=== PATIENT | female | born 1960 | race Caucasian/White ===

== ENCOUNTER 2018-06-29 12:47 | Emergency (ER) | payer MEDICARE, MEDICAID, SELFPAY ==
[2018-06-29 12:49] VITALS: BP 139/88; PULSE 60; RESP 15; TEMP 36.7; O2SAT 100; BMI 30.4
--- NOTE | 2018-06-29 13:06 | RAD_ITS ---
STUDY: X-RAY - RIGHT WRIST REASON FOR EXAM: Female, 58 years old. Wrist pain after fall TECHNIQUE: 3 view(s) of the wrist were obtained. COMPARISON: None. FINDINGS: Normal visualized distal radius and ulna. Normal radiocarpal articulation. Normal distal radioulnar articulation. Normal carpal bones. Normal carpal articulations. Normal carpometacarpal articulation of the thumb. Normal second through fifth carpometacarpal articulations. Normal visualized metacarpal bones. The soft tissue structures are unremarkable. RAD/Wrist 2 Views IMPRESSION: Normal x-ray examination of the wrist. Electronically Signed: Hugh House DO at 14:04 EDT Tel , Service support ,
--- NOTE | 2018-06-29 13:06 | RAD_ITS ---
STUDY: X-RAY - RIGHT HAND REASON FOR EXAM: Female, 58 years old. Hand pain after fall. Fourth and fifth metacarpals. TECHNIQUE: 3 view(s) of the hand. COMPARISON: None. FINDINGS: No acute fracture or dislocation. Mild age-related osteoarthritic type changes. Mild swelling in the region of the fourth and fifth digits. Normal mineralization. RAD/Hand Min 3 Views IMPRESSION: No acute fracture. Mild soft tissue swelling Electronically Signed: Hugh House DO at 14:05 EDT Tel , Service support ,
--- NOTE | 2018-06-29 13:06 | ED.VISSUMM ---
- ER Visit Summary Date of Service: 06/29/18 Chief Complaint: right chest pain, right wrist pain History of Present Illness: The patient is a 58 F who presents for 2 days of right chest/rib pain and right wrist pain after a fall. 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 She has been very fatigued, and went to sleep Hardik night, sleepwalking and then her found her on the living room floor. He picked her up by placing his arms around her ribs and lifting her. She has been having pain in the right lower rib margin since. Pain is worse with breathing. She is also complaining of right wrist pain after the fall. She denies any head pain, neck pain, back pain or any other injuries. She is not on any blood thinners. She is diabetic. She is taken Tylenol without improvement in her pain. Physical Examination: Vital signs: afebrile, hemodynamically stable, no hypoxia on room air General: well nourished, well developed, in no distress Skin: warm, dry, no rash, no pallor HEENT: normocephalic and atraumatic; PERRL, EOMI, moist mucous membranes Neck and Back: non-tender, full ROM, no midline deformities or stepoffs Cardiovascular: regular rate and rhythm without murmurs, no peripheral edema, 2+ pulses all distal extremities Respiratory: No increased work of breathing, lungs are clear to auscultation bilaterally, no rales, rhonchi or wheezing, chest tenderness along anterior lower rib margin but no tenderness to the right posterior or lateral ribs, no contusions or deformities Abdominal: Abdomen is soft, nontender with normoactive bowel sounds, no guarding or rebound, no masses noticed in the right upper quadrant underneath the rib margin MSK: Moves all extremities, no deformities, normal strength, right wrist and fifth metacarpal show swelling and ecchymosis, active flexion and extension of the wrist, no snuffbox tenderness, sensation and motor function intact all dermatomes of the hand Neuro: Awake and alert, oriented ?4. No facial droop, sensation and motor function intact and symmetric Test Results: Clinical Impression(s) from Imaging Studies Hand X-Ray 06/29/18 13:06 IMPRESSION: No acute fracture. Mild soft tissue swelling Electronically Signed: Hugh House DO at 14:05 EDT Tel , Service support , Wrist X-Ray 06/29/18 13:06 IMPRESSION: Normal x-ray examination of the wrist. Electronically Signed: Hugh House DO at 14:04 EDT Tel , Service support , Chest X-Ray 06/29/18 13:20 IMPRESSION: Lungs are clear without pneumothorax. Appearance of mildly displaced right posterior eighth rib fracture. Electronically Signed: Hugh House DO at 14:06 EDT Tel , Service support , Medications Given Discontinued Medications Hydrocodone Bitart/Acetaminophen ([place] 5mg-325mg) 1 tablet PO X1 ONE Stop: 06/29/18 13:11 Last Admin: 06/29/18 13:17 Dose: 1 tablet Emergency Department Course and Treatment: Patient given norco for pain and had great improvement. X-ray of the chest showed no pneumothorax or pneumonia. It did show a mildly displaced posterior eighth rib fracture, however this did not correspond to patient's area of pain, and she had no point tenderness along this area in her posterior rib cage. X-ray of the wrist and hand showed no acute fractures or dislocations. Patient was placed in a Velcro wrist splint for comfort. She was given an incentive spirometer given her chest wall pain. She is to follow-up with her primary care doctor if she has any further concerns. Patient discharged home in improved condition. Treatment Plan: [] Disposition: [] Impression: Right chest wall contusion, right wrist sprain This note was generated with [employer] dictation software. It may contain incorrect words, spelling, and punctuation that were not noted in review of the chart prior to signing ED Disposition - Plan for ED Patient: Disposition: Home or Assisted Living Chief Complaint: Chest Other Instructions: ED Contusion Chest Wall, ED Sprain Wrist Prescriptions: Hydrocodone Bitart/Apap 5-325 [[place] 5MG-325MG] 1 tab PO Q6H PRN PRN 3 Days #10 tab PRN Reason: Pain Referrals: Ginny Jama, ROSA-C [NON-STAFF] - 3-5 Days if not improving Additional Instructions: Apply ice to your wrist three to four times a day for 15 minutes each time to help with pain and swelling. Wear the splint as needed for support and pain. With your doctor if you continue to have pain in the right rib area and the wrist. Use [id number] pain medication as needed for mild to moderate pain. You may use the [place] for severe uncontrolled pain. If you have any worsening of your condition or any new concerning symptoms, please return immediately to the emergency department for another evaluation.
--- NOTE | 2018-06-29 13:10 | ED.DCSUM_ITS ---
- ER Visit Summary Date of Service: 06/29/18 Chief Complaint: right chest pain, right wrist pain History of Present Illness: The patient is a 58 F who presents for 2 days of right chest/rib pain and right wrist pain after a fall. 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 She has been very fatigued, and went to sleep Hardik night, sleepwalking and then her found her on the living room floor. He picked her up by placing his arms around her ribs and lifting her. She has been having pain in the right lower rib margin since. Pain is worse with breathing. She is also complaining of right wrist pain after the fall. She denies any head pain, neck pain, back pain or any other injuries. She is not on any blood thinners. She is diabetic. She is taken Tylenol without improvement in her pain. Physical Examination: Vital signs: afebrile, hemodynamically stable, no hypoxia on room air General: well nourished, well developed, in no distress Skin: warm, dry, no rash, no pallor HEENT: normocephalic and atraumatic; PERRL, EOMI, moist mucous membranes Neck and Back: non-tender, full ROM, no midline deformities or stepoffs Cardiovascular: regular rate and rhythm without murmurs, no peripheral edema, 2+ pulses all distal extremities Respiratory: No increased work of breathing, lungs are clear to auscultation bilaterally, no rales, rhonchi or wheezing, chest tenderness along anterior lower rib margin but no tenderness to the right posterior or lateral ribs, no contusions or deformities Abdominal: Abdomen is soft, nontender with normoactive bowel sounds, no guarding or rebound, no masses noticed in the right upper quadrant underneath the rib margin MSK: Moves all extremities, no deformities, normal strength, right wrist and fifth metacarpal show swelling and ecchymosis, active flexion and extension of the wrist, no snuffbox tenderness, sensation and motor function intact all dermatomes of the hand Neuro: Awake and alert, oriented ?4. No facial droop, sensation and motor function intact and symmetric Test Results: Clinical Impression(s) from Imaging Studies Hand X-Ray 06/29/18 13:06 IMPRESSION: No acute fracture. Mild soft tissue swelling Electronically Signed: Hugh House DO at 14:05 EDT Tel , Service support , Wrist X-Ray 06/29/18 13:06 IMPRESSION: Normal x-ray examination of the wrist. Electronically Signed: Hugh House DO at 14:04 EDT Tel , Service support , Chest X-Ray 06/29/18 13:20 IMPRESSION: Lungs are clear without pneumothorax. Appearance of mildly displaced right posterior eighth rib fracture. Electronically Signed: Hugh House DO at 14:06 EDT Tel , Service support , Medications Given Discontinued Medications Hydrocodone Bitart/Acetaminophen ([place] 5mg-325mg) 1 tablet PO X1 ONE Stop: 06/29/18 13:11 Last Admin: 06/29/18 13:17 Dose: 1 tablet Emergency Department Course and Treatment: Patient given norco for pain and had great improvement. X-ray of the chest showed no pneumothorax or pneumonia. It did show a mildly displaced posterior eighth rib fracture, however this did not correspond to patient's area of pain, and she had no point tenderness along this area in her posterior rib cage. X-ray of the wrist and hand showed no acute fractures or dislocations. Patient was placed in a Velcro wrist splint for comfort. She was given an incentive spirometer given her chest wall pain. She is to follow-up with her primary care doctor if she has any further concerns. Patient discharged home in improved condition. Treatment Plan: [] Disposition: [] Impression: Right chest wall contusion, right wrist sprain This note was generated with [employer] dictation software. It may contain incorrect words, spelling, and punctuation that were not noted in review of the chart prior to signing ED Disposition - Plan for ED Patient: Disposition: Home or Assisted Living Chief Complaint: Chest Other Instructions: ED Contusion Chest Wall, ED Sprain Wrist Prescriptions: Hydrocodone Bitart/Apap 5-325 [[place] 5MG-325MG] 1 tab PO Q6H PRN PRN 3 Days #10 tab PRN Reason: Pain Referrals: Ginny Jama, ROSA-C [NON-STAFF] - 3-5 Days if not improving Additional Instructions: Apply ice to your wrist three to four times a day for 15 minutes each time to help with pain and swelling. Wear the splint as needed for support and pain. With your doctor if you continue to have pain in the right rib area and the wrist. Use [id number] pain medication as needed for mild to moderate pain. You may use the Elberta for severe uncontrolled pain. If you have any worsening of your condition or any new concerning symptoms, please return immediately to the emergency department for another evaluation.
[2018-06-29] MEDS: HYDROcodone Bitartrate/Apap 5/325 Tablet PO (13:17)
--- NOTE | 2018-06-29 13:20 | RAD_ITS ---
STUDY: X-RAY CHEST REASON FOR EXAM: Female, 58 years old. Fall with right rib pain TECHNIQUE: PA and lateral views of the chest. COMPARISON: 03/28/2016 FINDINGS: The lungs are clear and expanded. There is no demonstrated pleural abnormality. Normal size heart. Normal mediastinum and amairani. Normal visualized pulmonary arteries. Normal visualized aortic arch and descending thoracic aorta. Normal visualized thoracic spine. There appears to be a right posterior eighth rib fracture. No pneumothorax There is no demonstrated abnormality of the visualized soft tissue structures of the upper abdomen. RAD/Chest PA and Lateral IMPRESSION: Lungs are clear without pneumothorax. Appearance of mildly displaced right posterior eighth rib fracture. Electronically Signed: Hugh House DO at 14:06 EDT Tel , Service support ,
--- NOTE | 2018-06-29 14:05 | ED.DEP ---
ED Disposition - Plan for ED Patient: Disposition: Home or Assisted Living Chief Complaint: Chest Other Instructions: ED Contusion Chest Wall, ED Sprain Wrist Prescriptions: Hydrocodone Bitart/Apap 5-325 [[place] 5MG-325MG] 1 tab PO Q6H PRN PRN 3 Days #10 tab PRN Reason: Pain Referrals: Ginny Jama NP-C [NON-STAFF] - 3-5 Days if not improving Additional Instructions: Apply ice to your wrist three to four times a day for 15 minutes each time to help with pain and swelling. Wear the splint as needed for support and pain. With your doctor if you continue to have pain in the right rib area and the wrist. Use [id number] pain medication as needed for mild to moderate pain. You may use the [place] for severe uncontrolled pain. If you have any worsening of your condition or any new concerning symptoms, please return immediately to the emergency department for another evaluation.
[2018-06-29 14:26] VITALS: RESP 16
--- NOTE | 2018-06-29 14:27 | ED.RN ---
REVIEWED D/C INSTRUCTIONS, FOLLOW UP CARE, PRESCRIPTION, AND S/S THAT WOULD WARRANT A RETURN TO THE ED WITH PT. PT VERBALIZED AN UNDERSTANDING AND DENIES FURTHER QUESTIONS FOR THIS RN. PT SKIN P/W/D, RESP EVEN AND UNLABORED, PT A&O X 3, NO DISTRESS NOTED.
== END 2018-06-29 14:43 | disposition home or self-care (01) ==
PROVIDERS: Emergency Provider Emergency Medicine; Family Provider Internal Medicine; PCP Internal Medicine
DX: S20.211A Contusion of right front wall of thorax, initial encounter (principal); S63.501A Unspecified sprain of right wrist, initial encounter; W18.30XA Fall on same level, unspecified, initial encounter; Y93.84 Activity, sleeping; Y92.008 Other place in unspecified non-institutional (private) residence as the place of occurrence of the external cause; Y99.9 Unspecified external cause status; E11.9 Type 2 diabetes mellitus without complications
CPT/HCPCS: 71046; 73100; 73130; 99283

== ENCOUNTER 2018-07-05 10:23 | Emergency (ER) | payer MEDICARE, MEDICAID, SELFPAY ==
[2018-07-05 10:23] VITALS: BP 160/78; PULSE 83; RESP 16; TEMP 36.6; O2SAT 100; BMI 30.6
[2018-07-05] MEDS: HYDROcodone Bitartrate/Apap 5/325 Tablet PO (11:17)
--- NOTE | 2018-07-05 11:18 | ED.VISSUMM ---
- ER Visit Summary Date of Service: 07/05/18 Chief Complaint: Chest wall pain History of Present Illness: The patient is a 58 F continued bilateral anterior chest wall pain. Patient mechanical fall 9 days ago in the kitchen, states pain in ribs started after being picked up by her significant other. Patient seen in the ED 7 days ago. Patient had x-rays. She is given prescription of Lowell, states using intermittently which would help. Ran out yesterday. Tried calling PCP office today, was told to call back on Saturday and go to the ED. Denies any new injuries. Occasional cough, nonproductive. No hemoptysis. Records reviewed, seen on June 29, x-ray right hand and wrist negative. Chest x-ray no right posterior eighth rib fracture. Physical Examination: General: Alert and oriented ?3, no acute distress HEENT: Normocephalic, atraumatic. Moist mucosa membranes Neck: supple, nontender. Cardiovascular: Regular rate and rhythm, no murmurs. Anterior lower chest wall tenderness bilaterally without crepitus. Respiratory: Normal breath sounds, symmetric, no distress Abdomen: Soft, nontender, nondistended Extremities: Nontender, no edema, pulses intact ?4 Neuro: no focal neurological deficits. Test Results: [] Emergency Department Course and Treatment: Patient continued chest wall tenderness improving with Lowell treatment. Records noted right posterior rib fracture from x-ray. Discussed findings with patient, she has anterior lower rib tenderness, discussed possibility of fractures they are not seen. However be symptomatic treatment. Should continue on Lowell, should continue to take deep breaths. She will follow with her PCP for continued refill of prescriptions. 1 dose of Lowell given ED allow the 10 tab prescription.OARRS her last opiate was on June 29. Treatment Plan: [] Disposition: Discharge Impression: 1. Chest wall pain 2. Right posterior eighth rib fracture, subsequent encounter This note was generated with [employer] dictation software. It may contain incorrect words, spelling, and punctuation that were not noted in review of the chart prior to signing ED Disposition - Plan for ED Patient: Disposition: Home or Assisted Living Chief Complaint: Chest Other Diagnosis: Chest wall pain, right posterior 8th rib fracture Instructions: ED Contusion Chest Wall, ED Fx Rib Prescriptions: Hydrocodone Bitart/Apap 5-325 [Lowell 5MG-325MG] 1 tablet PO Q6H PRN PRN 3 Days #10 tablet PRN Reason: Pain Referrals: Taty Childers MD [Primary Care Provider] - 2 Days Additional Instructions: right posterior 8th rib fracture from recent xray.
--- NOTE | 2018-07-05 11:23 | ED.DCSUM_ITS ---
- ER Visit Summary Date of Service: 07/05/18 Chief Complaint: Chest wall pain History of Present Illness: The patient is a 58 F continued bilateral anterior chest wall pain. Patient mechanical fall 9 days ago in the kitchen, states pain in ribs started after being picked up by her significant other. Patient seen in the ED 7 days ago. Patient had x-rays. She is given prescription of Sanford, states using intermittently which would help. Ran out yesterday. Tried calling PCP office today, was told to call back on Saturday and go to the ED. Denies any new injuries. Occasional cough, nonproductive. No hemoptysis. Records reviewed, seen on June 29, x-ray right hand and wrist negative. Chest x-ray no right posterior eighth rib fracture. Physical Examination: General: Alert and oriented ?3, no acute distress HEENT: Normocephalic, atraumatic. Moist mucosa membranes Neck: supple, nontender. Cardiovascular: Regular rate and rhythm, no murmurs. Anterior lower chest wall tenderness bilaterally without crepitus. Respiratory: Normal breath sounds, symmetric, no distress Abdomen: Soft, nontender, nondistended Extremities: Nontender, no edema, pulses intact ?4 Neuro: no focal neurological deficits. Test Results: [] Emergency Department Course and Treatment: Patient continued chest wall tenderness improving with Sanford treatment. Records noted right posterior rib fracture from x-ray. Discussed findings with patient, she has anterior lower rib tenderness, discussed possibility of fractures they are not seen. However be symptomatic treatment. Should continue on Sanford, should continue to take margareth p breaths. She will follow with her PCP for continued refill of prescriptions. 1 dose of Sanford given ED allow the 10 tab prescription.OARRS her last opiate was on June 29. Treatment Plan: [] Disposition: Discharge Impression: 1. Chest wall pain 2. Right posterior eighth rib fracture, subsequent encounter This note was generated with [employer] dictation software. It may contain incorrect words, spelling, and punctuation that were not noted in review of the chart prior to signing ED Disposition - Plan for ED Patient: Disposition: Home or Assisted Living Chief Complaint: Chest Other Diagnosis: Chest wall pain, right posterior 8th rib fracture Instructions: ED Contusion Chest Wall, ED Fx Rib Prescriptions: Hydrocodone Bitart/Apap 5-325 [Sanford 5MG-325MG] 1 tablet PO Q6H PRN PRN 3 Days #10 tablet PRN Reason: Pain Referrals: Taty Childers MD [Primary Care Provider] - 2 Days Additional Instructions: right posterior 8th rib fracture from recent xray.
[2018-07-05 11:34] VITALS: BP 123/71
== END 2018-07-05 11:35 | disposition home or self-care (01) ==
PROVIDERS: Emergency Provider Emergency Medicine; Family Provider Internal Medicine; PCP Internal Medicine
DX: R07.89 Other chest pain (principal); S22.31XG Fracture of one rib, right side, subsequent encounter for fracture with delayed healing; W19.XXXD Unspecified fall, subsequent encounter; E11.9 Type 2 diabetes mellitus without complications; I10 Essential (primary) hypertension; E78.00 Pure hypercholesterolemia, unspecified
CPT/HCPCS: 99282

== ENCOUNTER 2018-12-08 17:46 | Emergency (ER) | payer MEDICARE, MEDICAID, SELFPAY ==
[2018-12-08 17:47] VITALS: BP 136/85; PULSE 84; RESP 14; TEMP 37.3; O2SAT 100; BMI 28.5
[2018-12-08 18:55] VITALS: PULSE 74; RESP 18; O2SAT 97
[2018-12-08 19:11] LABS: Bedside Glucose 439 mg/dL (70-110)
[2018-12-08] MEDS: 0.9% Normal Saline 1,000 ML 1000 ML IV ×2 (19:28→20:51)
[2018-12-08 19:37] LABS: Absolute Lymphocyte Count 1.08 X10^3/ul (0.83-4.51); Absolute Neutrophil Count 3.2 X10^3/uL (2.0-7.7); Eosinophil# 0.02 X10^3/uL; Eosinophils% 0.4 % (0-5); Hematocrit 36.7 % (37-47); Hemoglobin 12.4 g/dl (12.0-15.0); Lymphocyte # 1.08 X10^3/ul (4.0); Lymphocyte % 22.8 % (19-41); Mean Corp Hgb Conc 33.8 g/gl (32-36); Mean Corpuscular Hgb 27.4 pg (27.0-32.0); Mean Corpuscular Volume 81.2 fL (81-99); Mean Platelet Vol. 11.2 fl (6.2-12.0); Monocyte# 0.35 X10^3/uL; Monocyte% 7.4 % (0-10); Neutrophil # 3.24 X10^3/uL (2.7-7.7); Neutrophil % 68.6 % (47-70); POSITIVE COUNT NO; POSITIVE DIFFERENTIAL NO; POSITIVE MORPHOLOGY NO; Platelet Count 127 K/mm3 (150-450); RBC Distribution Width CV 12.7 % (11.6-14.6); RBC Distribution Width SD 37.6 fl (35.1-43.9); Red Blood Count 4.52 M/mm3 (4.2-5.4); White Blood Count 4.7 K/mm3 (4.4-11.0)
[2018-12-08 19:42] LABS: Anion Gap 8 (5-15); BUN 16 mg/dL (7-18); BUN/Creat Ratio 16.2 RATIO (10-20); Calcium,Total 8.5 mg/dL (8.5-10.1); Chloride 99 mmol/L (98-107); Creatinine, Serum 0.98 mg/dL (0.55-1.02); EST Glomerular Filtration Rate 61 mL/min (>60); Est Glom Filt Rate - Afr Amer 74 mL/min (>60); Estimated Creatinine Clearance 51.13 ml/min; Glucose 416 mg/dL (74-106); Potassium 3.6 mmol/L (3.5-5.1); Sodium Level 132 mmol/L (136-145)
[2018-12-08 20:25] LABS: Bacteria 0 SEEN /hpf (None Seen); Mucous, Urine 0 SEEN /hpf (<or=2+); Red Blood Cells-Urine 0 SEEN /hpf (0-5); Squamous Epithelial Cells - UA 0 SEEN /hpf (5-10); White Blood Cells 0 SEEN /hpf (0-5)
[2018-12-08 20:27] LABS: Color, Urine Yellow (Yellow); Glucose, Dipstick 1000 mg/dl (Normal); Ketone-Dipstick 50 mg/dl (Negative); Leukocyte Esterase-Dipstick Negative /ul (Negative); Nitrite-Dipstick Negative (Negative); Occult Blood-Urine Negative /ul (Negative); Protein-Dipstick Negative (Negative); Specific Gravity, Urine 1.015 (1.002-1.030); Urine Bilirubin Dipstick Negative (Negative); Urine Clarity Clear (Clear); Urine Urobilinogen Normal (Normal)
--- NOTE | 2018-12-08 20:44 | ED.DCSUM_ITS ---
- ER Visit Summary Date of Service: 12/08/18 Chief Complaint: Hyperglycemia History of Present Illness: The patient is a 58 F presenting with hyperglycemia. Patient states that her blood sugar has been running high for several days. She was taken off insulin in September. She stopped her Victoza on her own. She said her A1c was normal at that time. Her blood sugar at home was 599. She has had mild blurred vision bilaterally. She has had urinary frequency. She denies other complaints. Physical Examination: Vitals are stable. Patient is afebrile. Alert no acute distress. HEENT exam is unremarkable. Neck is supple. Lungs are clear and equal bilaterally. Heart is regular rate and rhythm. Abdomen is soft nontender nondistended. Extremities are unremarkable. Skin is warm and dry. No focal neurologic deficit. Remainder of exam is unremarkable. Emergency Department Course and Treatment: CBC normal except for platelet 127. Chemistries normal except for sodium 132, glucose 416. Serum ketones are negative. Urinalysis shows ketones, glucose, no infection. Patient was given IV fluids, insulin subcutaneously. Repeat BGT 371. She was given additional insulin subcutaneously. Repeat blood sugar was 264. Patient states her primary care physician has called in her medications to the pharmacy. She will pick them up tomorrow. She will follow-up with her primary care physician. She feels well and would like to go home. She is advised to return to the ED for any worsening complaints. Disposition: Discharge home Impression: Hyperglycemia This note was generated with [employer] dictation software. It may contain incorrect words, spelling, and punctuation that were not noted in review of the chart prior to signing ED Disposition - Plan for ED Patient: Referrals: Taty Childers MD [Primary Care Provider] -
[2018-12-08 20:52] VITALS: BP 111/74; PULSE 69; RESP 11; O2SAT 100
[2018-12-08 20:53] VITALS: BP 111/74; PULSE 71; RESP 19; TEMP 36.6; O2SAT 99
[2018-12-08] MEDS: Insulin Lispro 100 UNIT/ML INSULN.PEN 15 UNIT SC (20:58)
[2018-12-08 22:31] LABS: Bedside Glucose 371 mg/dL (70-110)
[2018-12-08] MEDS: Insulin Lispro 100 UNIT/ML INSULN.PEN 10 UNIT SC (23:13)
[2018-12-08 23:46] LABS: Bedside Glucose 264 mg/dL (70-110)
[2018-12-08 23:53] VITALS: BP 104/82; PULSE 70; PULSE 71; PULSE 75; RESP 16; TEMP 36.9; O2SAT 97; O2SAT 98; O2SAT 99
--- NOTE | 2018-12-08 23:56 | ED.DEP ---
ED Disposition - Plan for ED Patient: Instructions: ED Hyperglycemia Diabetic Referrals: Taty Childers MD [Primary Care Provider] -
== END 2018-12-09 00:06 | disposition home or self-care (01) ==
PROVIDERS: Emergency Provider Emergency Medicine; Family Provider Internal Medicine; PCP Internal Medicine
DX: E11.65 Type 2 diabetes mellitus with hyperglycemia (principal)
CPT/HCPCS: 80048; 81001; 82009; 82962; 85025; 96360; 96361; 99285; J7030; A4216

== ENCOUNTER 2019-04-22 19:13 | Emergency (ER) | payer MEDICARE, SELFPAY ==
[2019-04-22 19:14] VITALS: BP 128/82; PULSE 67; RESP 17; TEMP 36.7; O2SAT 100; BMI 29.5
--- NOTE | 2019-04-22 19:28 | ED.VISSUMM ---
- ER Visit Summary Date of Service: 04/22/19 Chief Complaint: Headache History of Present Illness: The patient is a 58 F presenting with headache. Patient states that she has had a headache intermittently for the past 3 weeks. It was gradual in onset. She has a history of migraine headaches and states this feels similar. She has tried Aleve at home. Denies trauma. She is not on blood thinners. She denies fever or neck pain. Denies other complaints. Physical Examination: Vitals are stable. Patient is afebrile. Alert no acute distress. HEENT exam is unremarkable. Neck is supple. No meningismus Lungs are clear and equal bilaterally. Heart is regular rate and rhythm. Abdomen is soft nontender nondistended. Extremities are unremarkable. Skin is warm and dry. No focal neurologic deficit. Remainder of exam is unremarkable. Emergency Department Course and Treatment: Patient was given Reglan, Benadryl IV with some improvement. She was given Toradol IV with more improvement. On reevaluation, patient is resting comfortably. She is comfortable with discharge home and she will follow up with her primary care physician. She is advised to return to ED for worsening complaints. Disposition: Discharge home Impression: Headache This note was generated with [employer] dictation software. It may contain incorrect words, spelling, and punctuation that were not noted in review of the chart prior to signing ED Disposition - Plan for ED Patient: Instructions: HEADACHE, Unspecified Referrals: Taty Childers MD [Primary Care Provider] - Beck Purvis DPM [STAFF PHYSICIAN] -
[2019-04-22] MEDS: Metoclopramide 10 MG/2 ML Vial 5 MG IV (19:31)
[2019-04-22] MEDS: DiphenhydrAMINE 50 MG/ML Syringe 25 MG IV (19:31)
[2019-04-22] MEDS: Ketorolac 30 MG/ML Syringe IV (20:28)
[2019-04-22] MEDS: Ondansetron 4 MG/2 ML Vial IV (21:25)
[2019-04-22] MEDS: Morphine 4 MG/ML Syringe IV (21:25)
--- NOTE | 2019-04-22 21:42 | ED.DEP ---
ED Disposition - Plan for ED Patient: Instructions: HEADACHE, Unspecified Referrals: Taty Childers MD [Primary Care Provider] - Beck Purvis DPM [STAFF PHYSICIAN] -
[2019-04-22 21:57] VITALS: PULSE 58; RESP 14; O2SAT 100
== END 2019-04-22 21:59 | disposition home or self-care (01) ==
LOC: ED 19:42
PROVIDERS: Emergency Provider Emergency Medicine; Family Provider Internal Medicine; PCP Internal Medicine
DX: R51 Headache (principal); E11.9 Type 2 diabetes mellitus without complications
CPT/HCPCS: 96374; 96375; 99283; J7030; A4216; J2405

== ENCOUNTER 2019-07-23 09:06 | Emergency (ER) | payer MEDICARE, SELFPAY ==
[2019-07-23 09:07] VITALS: BP 124/68; PULSE 85; RESP 18; TEMP 35.9; O2SAT 99; BMI 29.6
--- NOTE | 2019-07-23 09:34 | ED.DCSUM_ITS ---
History of Present Illness Chief Complaint: Back Informant: Patient Onset: - - 1 year Context: Gradual Onset - gradual worsening of chronic pain Chronic pain exacerbated by: unk Injury: - - denies known injury Timing: Continuous Quality: Aching Location: Lumbar, Buttock, Left Leg Current Severity: Severe Maximum Severity: Severe Worsened by: improves with: Movement, Ambulation, Night time pain Relieved by: Nothing Associated Symptoms: - - No numbness, no bowel or bladder dysfunction, no acute abdominal pain. Difficulty ambulating due to pain. Radiating down left lower extremity below the knee but not quite to the foot. Narrative: Patient states she had a fall almost 1 year ago and has had pain down the left lower extremity and in her low back ever since. It has been worse for the past 3 or 4 days, she did not notice any obvious cause or sudden worsening, it has been gradual. She was seen in her doctor's office for this a couple days ago and had a shot of Toradol and some Vicodin but still is in a lot of pain. Just finished a steroid Medrol Dosepak recently, it was prescribed for this, and while she was on it she did not notice that it was helping, so she must of had pain worsening for longer than just a few days in general but this is worse. Patient states she was told she has a disc problem and at least one area, but cannot remember if she ever had an MRI. She has been referred to pain management Dr. Green but has not seen him yet. She has not seen a engineering technical specialist for any reason. Prior similar symptoms: With Prior Back Pain - Past Medical History (1) Controlled diabetes mellitus type II without complication Status: Chronic (2) Chronic low back pain Status: Chronic Past Medical History - Allergies and Home Meds Allergies/Adverse Reactions: Allergies pentazocine HCl [From Talacen] Allergy (Verified 07/23/19 09:07) Hives amoxicillin [Amoxicillin] Adverse Reaction (Verified 07/23/19 09:07) Other doxycycline Adverse Reaction (Verified 07/23/19 09:07) Other metformin Adverse Reaction (Verified 07/23/19 09:07) Unknown Thiazides Adverse Reaction (Verified 07/23/19 09:07) Other Primary Care Physician: Taty Childers MD [Primary Care Provider] - Surgical History: bypass Lives: Spouse/ Significant Other Smoking Status: Unknown if ever smoked Review of Systems General: Denies: Chills, Fever, Sweats Eyes: Denies: Visual changes - bilaterally, Diplopia ENT: Denies: Rhinorrhea, Sore throat Cardiovascular: Denies: Chest pain, Palpitations Respiratory: Denies: Dyspnea, Cough, Dyspnea on exertion Gastrointestinal: Denies: Abdominal pain, Nausea, Vomiting, Diarrhea, Melena, Hematochezia Genitourinary: Reports: - - No bowel or bladder incontinence or retention symptoms. Denies: Dysuria, Hematuria, Frequency Musculoskeletal: Reports: Back pain, Extremity Pain. Denies: Swelling Skin: Denies: Rash, Wounds Neurological: Denies: Headache, Weakness, Parasthesia, Numbness Physical Exam Vital Signs/Narrative: Vital Signs Temp Pulse Resp BP Pulse Ox 07/23/19 09:07 96.6 F L 85 18 124/68 H 99 General: Well nourished, Well developed, - - In mild acute painful distress Head: Normocephalic, Atraumatic Eyes: Perrl, EOMI ENT: Moist mucous membranes, No rhinorrhea Neck: Supple, Nontender Back: Normal Inspection, Paraspinal Tenderness - Left lumbosacral, Negative SLR - Right, Positive SLR - Left - Her only, negative contralateral straight leg raise. Negative for: Spinal tenderness Extremeties: Nontender, No edema Skin: Normal color, No rash, No Trauma Neuro: Alert, Oriented, Normal Strength - Strength in the left lower extremity difficult to test because movements increase her pain, Normal Sensation, Normal DTR, Normal Gait, Normal Reflexes Psychological: - - Somewhat anxious Diagnostic/Tx/Re-eval - Medical Decision Making I do not think the patient needs any emergent diagnostic imaging at this time. She agreed that pain control would be most reasonable today here in the ER. She was given injections of morphine, Toradol, Norflex. On reexamination, she is lying on her right lateral decubitus and states that she has had absolutely no improvement in her pain. Her is with her. Given an injection of Dilaudid, she states it feels much better. She is on gabapentin but only at night, 300 mg. I advised at least going to twice daily dosing, she states she will require new prescription which was given. She already has Vicodin from her doctor that she received a couple days ago. She is following up with pain management Dr. Green in 1 week. Advised that she take it easy until then. ED Disposition - Plan for ED Patient: Disposition: Home or Assisted Living Diagnosis: Acute exacerbation of chronic low back pain, Sciatica of left side Instructions: BACK PAIN w/ SCIATICA Prescriptions: Gabapentin [Neurontin] 300 mg PO BID #60 cap Prescription Printed Referrals: Taty Childers MD [Primary Care Provider] - 3-5 Days if not improving (And/or Dr. Green)
[2019-07-23] MEDS: Ketorolac 30 MG/ML Syringe IM (09:52)
[2019-07-23] MEDS: Orphenadrine 60 MG/2 ML Ampul IM (09:52)
[2019-07-23] MEDS: Morphine 4 MG/ML Syringe IM (09:52)
[2019-07-23] MEDS: HYDROmorphone 1 MG/ML Syringe 2 MG IM (12:08)
[2019-07-23 12:11] VITALS: BP 110/61; PULSE 69; RESP 17; O2SAT 100
[2019-07-23 13:11] VITALS: BP 94/54; PULSE 74; RESP 16; O2SAT 98
== END 2019-07-23 13:16 | disposition home or self-care (01) ==
PROVIDERS: Emergency Provider Emergency Medicine; Family Provider Internal Medicine; PCP Internal Medicine
DX: M54.42 Lumbago with sciatica, left side (principal); G89.29 Other chronic pain; E11.9 Type 2 diabetes mellitus without complications; Z88.0 Allergy status to penicillin; Z88.1 Allergy status to other antibiotic agents
CPT/HCPCS: 99283

== ENCOUNTER 2019-10-01 13:57 | Emergency (ER) | payer MEDICARE, SELFPAY ==
[2019-10-01 13:58] VITALS: BP 135/89; PULSE 95; RESP 16; TEMP 37.1; O2SAT 100; BMI 28.3
[2019-10-01 16:05] LABS: Anion Gap 1 (5-15); BUN 15 mg/dL (7-18); BUN/Creat Ratio 17.3 RATIO (10-20); Chloride 105 mmol/L (98-107); Creatinine, Serum 0.87 mg/dL (0.55-1.02); EST Glomerular Filtration Rate 71 mL/min (>60); Est Glom Filt Rate - Afr Amer 86 mL/min (>60); Estimated Creatinine Clearance 56.88 ml/min; Glucose 199 mg/dL (74-106); Potassium 4.1 mmol/L (3.5-5.1); Sodium Level 136 mmol/L (136-145)
[2019-10-01 16:08] LABS: Absolute Lymphocyte Count 1.07 X10^3/uL (0.83-4.51); Absolute Neutrophil Count 2.7 X10^3/uL (2.0-7.7); Hemoglobin 11.9 g/dL (12.0-15.0); Lymphocyte # 1.07 X10^3/ul (4.0); Mean Corp Hgb Conc 32.2 g/dL (32-36); Mean Corpuscular Hgb 27.2 pg (27.0-32.0); Mean Corpuscular Volume 84.7 fL (81-99); Monocyte# 0.33 X10^3/uL; NRBC Flagged by Analyzer 0 % (0-5); Neutrophil # 2.67 X10^3/uL (2.7-7.7); Platelet Count 161 K/mm3 (150-450); RBC Distribution Width CV 13.8 % (11.6-14.6); RBC Distribution Width SD 42.9 fl (35.1-43.9); Red Blood Count 4.37 M/mm3 (4.2-5.4); White Blood Count 4.1 K/mm3 (4.4-11.0)
[2019-10-01 16:33] LABS: Bacteria 0 SEEN /hpf (None Seen); Mucous, Urine 0 SEEN /hpf (<or=2+); Red Blood Cells-Urine 0 SEEN /hpf (0-5); Squamous Epithelial Cells - UA 0 SEEN /hpf (5-10); White Blood Cells 0 SEEN /hpf (0-5)
[2019-10-01 16:36] LABS: Bedside Glucose 170 mg/dL (70-110)
[2019-10-01 16:41] LABS: Color, Urine Yellow (Yellow); Glucose, Dipstick 250 mg/dl (Normal); Ketone-Dipstick Negative (Negative); Leukocyte Esterase-Dipstick Negative /ul (Negative); Nitrite-Dipstick Negative (Negative); Occult Blood-Urine Negative /ul (Negative); Protein-Dipstick 15 mg/dl (Negative); Urine Bilirubin Dipstick Negative (Negative); Urine Clarity Clear (Clear); Urine Urobilinogen Normal (Normal); Urine pH 6.5 (5.0 - 8.0)
--- NOTE | 2019-10-01 17:49 | ED.DCSUM_ITS ---
- ER Visit Summary Date of Service: 10/01/19 Chief Complaint: Hyperglycemia History of Present Illness: The patient is a 59 F who presents with hyperglycemia that has been waxing and waning over the past week. Patient states today her sugars were over 500. Patient admits to some polyuria and polydipsia. Patient admits to mild headache. Patient admits to some blurred vision when her blood sugars are high. Patient admits to some nausea and vomiting. Patient denies any chest pain or shortness of breath. Patient denies any dysuria or hematuria. Physical Examination: Vital signs are stable. Patient is afebrile. Patient is in no acute distress. Oral mucosa is pink and moist. Neck is supple. Trachea is midline. There is no JVD. Heart was regular rate and rhythm. Lungs are clear and equal bilaterally. Abdomen is soft and nontender. Cranial nerves II through XII are intact. There are no focal motor or sensory deficits noted. Patient ambulates without difficulty. Test Results: CBC shows a leukocytosis of 11.9. Glucose was 199. Anion gap was normal. Urinalysis does not show any evidence of urinary tract infection. Emergency Department Course and Treatment: Repeat fingerstick blood sugar here was 170. Patient was feeling better on reevaluation. Patient was instructed to continue to monitor her blood sugars. 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 Patient understood and was agreeable with the plan. All questions were answered. Disposition: Discharge home Impression: Hyperglycemia This note was generated with Maven[employer] dictation software. It may contain incorrect words, spelling, and punctuation that were not noted in review of the chart prior to signing ED Disposition - Plan for ED Patient: Disposition: Home or Assisted Living Diagnosis: Hyperglycemia Instructions: ED Diabetic Hyperglycemia Referrals: Taty Childers MD [Primary Care Provider] - 3-5 Days
[2019-10-01 18:18] VITALS: PULSE 92; RESP 17; O2SAT 100
== END 2019-10-01 18:18 | disposition home or self-care (01) ==
PROVIDERS: Emergency Provider Emergency Medicine; Family Provider Internal Medicine; PCP Internal Medicine
DX: E11.65 Type 2 diabetes mellitus with hyperglycemia (principal)
CPT/HCPCS: 80048; 81001; 82009; 82962; 85025; 99283; A4216

== ENCOUNTER 2020-09-08 23:29 | Emergency (ER) | payer MEDICARE, SELFPAY ==
[2020-09-08 23:30] VITALS: BP 142/60; PULSE 69; RESP 16; TEMP 36.2; O2SAT 100; BMI 30.1
[2020-09-08] MEDS: Morphine 4 MG/ML Syringe IV (23:50)
[2020-09-08] MEDS: Ondansetron 4 MG/2 ML Vial IV (23:50)
--- NOTE | 2020-09-09 | RAD_ITS ---
STUDY: X-RAY CHEST REASON FOR EXAM: Female, 60 years old. C/O LT ANTERIOR RIB PAIN BELOW LT BREAST -- LIFTED SOMETHING AND FELT A and quot;POP and quot; TECHNIQUE: PA and lateral COMPARISON: 06/29/2018 FINDINGS: The lungs are clear and expanded. There is no demonstrated pleural abnormality. Normal size heart. Normal mediastinum and amairani. Normal visualized pulmonary arteries. Normal visualized aortic arch and descending thoracic aorta. Normal visualized thoracic spine. There is old right posterior fracture. There is no demonstrated abnormality of the visualized soft tissue structures of the upper abdomen. RAD/Chest PA and Lateral IMPRESSION: Negative x-ray examination of the chest. No interval change. Electronically Signed: Toni Singleton, at 0:54 EST Tel , Service support ,
--- NOTE | 2020-09-09 00:41 | ED.VIS.GEN ---
History of Present Illness Chief Complaint: Other, Pain/Inj Informant: Patient Onset: Today Context: Sudden Onset Timing: Continuous Quality: Pain Location: Anterior left chest midclavicular line inferior breast Current Severity: Mild Maximum Severity: Severe Worsened by: Breathing, movement Relieved by: Nothing Associated Symptoms: Shortness of breath because of pain Narrative: Patient is a 60-year-old woman who presents because of abrupt onset of anterior left chest pain midclavicular line inferior the left breast that started prior to arrival. She states she was moving a tote. She did not fall or have any direct trauma. She denies fever, chills or night sweats. She denies shortness of breath. She states it hurts to breathe. She denies black or maroon-colored stool. She denies abdominal pain. She denies radiation of the pain. She has no other complaints. Prior similar symptoms: No Recent Illness/Hospitalization: No - Past Medical History (1) Bariatric surgery status Status: Chronic (2) Chronic low back pain Status: Chronic (3) Controlled diabetes mellitus type II without complication Status: Chronic (4) Dizziness and giddiness Status: Chronic Past Medical History - Allergies and Home Meds Allergies/Adverse Reactions: Allergies pentazocine HCl [From Talacen] Allergy (Verified 09/08/20 23:38) Hives amoxicillin [Amoxicillin] Adverse Reaction (Verified 09/08/20 23:38) Other doxycycline Adverse Reaction (Verified 09/08/20 23:38) Other metformin Adverse Reaction (Verified 09/08/20 23:38) Unknown Thiazides Adverse Reaction (Verified 09/08/20 23:38) Other Primary Care Physician: Taty Childers MD [Primary Care Provider] - Prior records reviewed: Yes - Prior right rib fracture Surgical History: - - Bariatric surgery Lives: Spouse/ Significant Other Smoking Status: Never smoker Alcohol: None Drugs: None Review of Systems General: Denies: Chills, Fever, Malaise, Subjective, Sweats, Weight loss ENT: Denies: Rhinorrhea, Sore throat Cardiovascular: Reports: Chest pain. Denies: Palpitations, Heart racing Respiratory: Denies: Dyspnea, Cough, Sputum, Dyspnea on exertion, Orthopnea, Paroxysmal nocturnal dyspnea Gastrointestinal: Denies: Abdominal pain, Nausea, Vomiting, Diarrhea, Melena, Hematochezia Genitourinary: Denies: Dysuria, Hematuria, Frequency Musculoskeletal: Reports: Swelling. Denies: Myalgias, Arthralgias, Back pain, Extremity Pain Skin: Denies: Rash, Wounds Neurological: Denies: Headache, Weakness Psych: Denies: Depression Hematologic: Denies: Easy bruising, Easy bleeding Allergy: Denies: Uticaria Physical Exam Vital Signs/Narrative: Vital Signs Temp Pulse Resp BP Pulse Ox 09/08/20 23:30 97.1 F L 69 16 142/60 H 100 Inital Vital Signs reviewed: Yes General: Well nourished, Well developed, Acute Distress Head: Normocephalic, Atraumatic Eyes: Perrl, EOMI. Negative for: Pale conjunctiva, Scleral icterus Neck: Supple, Nontender, No lymphadenopathy, No JVD Cardiovascular: Regular rate, Regular rhythm, No murmurs, Normal S1, Normal S2 Respiratory: No distress, CTA bilaterally, Diminished - Samir breath sounds posteriorly on the left., Decreased Air Movement. Negative for: Chest nontender Abdomen: Soft, Nontender, Nondistended, Normal bowel sounds, No masses. Negative for: Hepatomegaly, Splenomegaly Back: Nontender, Normal Inspection. Negative for: CVA tenderness Extremities: Nontender, No edema Skin: Normal color, No rash Neurological: Alert, Oriented x3, Cranial nerves II-XII grossly intact, Normal Strength, Normal Sensation, Normal Gait Psychological: Normal affect Diagnostic/Tx/Re-eval Chest X-Ray - ED: 2 View, Read by ED Physician, Normal, Heart, Bony Structures, No Acute Disease, Chronic Changes, - - There is to be a old healed fracture right side, rib #7 09/09/20 00:00 Chest PA and Lateral [RAD] Stat - Medical Decision Making Patient presents in obvious discomfort. She is holding her anterior left chest. Suspect patient may have a rib fracture versus pneumothorax. Chest x-ray was obtained which reveals no acute normality. The x-ray was interpreted by me. Patient reports marked improvement after administration of 4 mg of morphine. She received an additional dose of morphine and discharged with opiate analgesia since she has history of diabetes and is greater than 60 years of age NSAIDs are not recommended. ED Disposition - Plan for ED Patient: Disposition: Home or Assisted Living Diagnosis: Left rib fracture Instructions: ED Rib Fracture Prescriptions: Oxycodone HCl/Acetaminophen [Percocet 5/325] 1 tab PO Q6H PRN PRN 5 Days #20 tab PRN Reason: Chest pain Prescription Printed Referrals: Taty Childers MD [Primary Care Provider] - 3-5 Days if not improving Additional Instructions: Use incentive spirometer every 1-2 hours while awake as instructed by the respiratory therapist.
[2020-09-09 00:52] VITALS: BP 117/75; PULSE 60; RESP 15
[2020-09-09] MEDS: Morphine 4 MG/ML Syringe IV (00:53)
[2020-09-09 01:10] VITALS: BP 117/75; PULSE 64; RESP 16; O2SAT 98
== END 2020-09-09 01:10 | disposition home or self-care (01) ==
LOC: ED 09-09 01:06
PROVIDERS: Emergency Provider Emergency Medicine; PCP Internal Medicine
DX: S22.32XA Fracture of one rib, left side, initial encounter for closed fracture (principal); X50.0XXA Overexertion from strenuous movement or load, initial encounter; Y92.9 Unspecified place or not applicable; Y99.9 Unspecified external cause status; E11.9 Type 2 diabetes mellitus without complications; Z88.0 Allergy status to penicillin; Z88.1 Allergy status to other antibiotic agents; Z98.84 Bariatric surgery status; M54.5 Low back pain; G89.29 Other chronic pain
CPT/HCPCS: 71046; 96374; 96375; 96376; 99283; A4216; J2405

== ENCOUNTER 2020-11-14 14:07 | Emergency (ER) | payer MEDICARE, SELFPAY ==
[2020-11-14 14:08] VITALS: BP 145/82; PULSE 73; RESP 16; TEMP 36.6; O2SAT 98; BMI 30.7
--- NOTE | 2020-11-14 15:02 | ED.VIS.GEN ---
History of Present Illness Chief Complaint: Laceration Informant: Patient Onset: Today, Days Context: Sudden Onset Current Severity: Mild Maximum Severity: Mild Narrative: Patient presents with a laceration to the distal aspect of the right fourth finger. She states she was slicing potatoes on a mandolin when she cut her fourth finger. She is unsure of her last tetanus update. She is not on anticoagulants. - Past Medical History (1) Anxiety and depression Status: Chronic (2) Hypertension Status: Chronic (3) High cholesterol Status: Chronic (4) Asthma Status: Chronic (5) GERD (gastroesophageal reflux disease) Status: Chronic (6) Controlled diabetes mellitus type II without complication Status: Chronic Past Medical History - Allergies and Home Meds Allergies/Adverse Reactions: Allergies pentazocine HCl [From Talacen] Allergy (Verified 11/14/20 14:07) Hives amoxicillin [Amoxicillin] Adverse Reaction (Verified 11/14/20 14:07) Other doxycycline Adverse Reaction (Verified 11/14/20 14:07) Other metformin Adverse Reaction (Verified 11/14/20 14:07) Unknown Thiazides Adverse Reaction (Verified 11/14/20 14:07) Other Primary Care Physician: Taty Childers MD [Primary Care Provider] - Prior records reviewed: Yes Surgical History: - - Bariatric surgery Smoking Status: Never smoker Review of Systems General: Denies: Chills, Fever Eyes: Denies: Visual changes - bilaterally ENT: Denies: Bilateral ear pain Cardiovascular: Denies: Chest pain Respiratory: Denies: Dyspnea, Cough Musculoskeletal: Reports: Extremity Pain Skin: Reports: Wounds Neurological: Denies: Headache Psych: Denies: Anxiety Hematologic: Denies: Easy bruising, Easy bleeding Allergy: Denies: Uticaria Physical Exam Vital Signs/Narrative: Vital Signs Temp Pulse Resp BP Pulse Ox 11/14/20 14:08 98 F 73 16 145/82 H 98 Inital Vital Signs reviewed: Yes General: Well nourished, Well developed Head: Normocephalic Neck: Supple Cardiovascular: Regular rate, Regular rhythm Respiratory: No distress, CTA bilaterally Abdomen: Soft, Nontender Extremities: - - Centimeter flap laceration of the distal phalanx of the right fourth finger. Bleeding well controlled. Good sensation and cap refill distally. Full range of motion. Neurological: Alert, Oriented x3, Normal Strength, Normal Sensation Psychological: Normal affect Diagnostic/Tx/Re-eval - Medical Decision Making Laceration repair was performed by Dr. Morales. After digital block 3 simple interval sutures were placed with good approximation. Wound is cleansed and dressed. Patient elected not to have a tetanus update as she is due to have her first Covid vaccine in 2 days. ED Disposition - Plan for ED Patient: Disposition: Home or Assisted Living Diagnosis: Finger laceration Instructions: ED Laceration, Hand: All Closures Referrals: Taty Childers MD [Primary Care Provider] - 7 Days for suture removal
[2020-11-14] MEDS: Lidocaine 1% (20 ml mdv) 20 ML Vial INFILT (15:23)
== END 2020-11-14 16:23 | disposition home or self-care (01) ==
PROVIDERS: Emergency Provider Emergency Medicine; PCP Internal Medicine
DX: S61.214A Laceration without foreign body of right ring finger without damage to nail, initial encounter (principal); W27.4XXA Contact with kitchen utensil, initial encounter; I10 Essential (primary) hypertension; E78.00 Pure hypercholesterolemia, unspecified; E11.9 Type 2 diabetes mellitus without complications; F32.9 Major depressive disorder, single episode, unspecified; F41.9 Anxiety disorder, unspecified; J45.909 Unspecified asthma, uncomplicated; K21.9 Gastro-esophageal reflux disease without esophagitis; Z88.0 Allergy status to penicillin; Z88.1 Allergy status to other antibiotic agents
CPT/HCPCS: 12001; 99283

== ENCOUNTER 2021-06-19 15:38 | Emergency (ER) | payer MEDICARE, MEDICAID, SELFPAY ==
[2021-06-19 15:42] VITALS: BP 137/75; PULSE 68; RESP 18; TEMP 36.3; BMI 28.7
[2021-06-19 15:52] LABS: Bedside Glucose 86 mg/dL (70-110)
[2021-06-19 16:03] LABS: Absolute Lymphocyte Count 0.75 X10^3/uL (0.83-4.51); Absolute Neutrophil Count 2.1 X10^3/uL (2.0-7.7); Hematocrit 39.3 % (37-47); Hemoglobin 12.8 g/dL (12.0-15.0); Lymphocyte # 0.75 X10^3/ul (0.83-4.51); Lymphocyte % 24.4 % (19-41); Mean Corp Hgb Conc 32.6 g/dL (32-36); Mean Corpuscular Volume 89.1 fL (81-99); Mean Platelet Vol. 10.7 fl (6.2-12.0); Monocyte# 0.23 X10^3/uL; Monocyte% 7.5 % (0-10); NRBC Flagged by Analyzer 0 % (0-5); Neutrophil % 68.1 % (47-70); Platelet Count 110 K/mm3 (150-450); RBC Distribution Width CV 12.4 % (11.6-14.6); RBC Distribution Width SD 40.6 fl (35.1-43.9); Red Blood Count 4.41 M/mm3 (4.2-5.4); White Blood Count 3.1 K/mm3 (4.4-11.0)
[2021-06-19 16:12] LABS: International Normalized Ratio 1.1; Prothrombin Time (Protime)PT. 13.9 SECONDS (11.7-14.9)
[2021-06-19 16:14] LABS: Anion Gap 4 (5-15); BUN 18 mg/dL (7-18); BUN/Creat Ratio 22.6 RATIO (10-20); Calcium,Total 8.7 mg/dL (8.5-10.1); Chloride 116 mmol/L (98-107); EST Glomerular Filtration Rate 78 mL/min (>60); Est Glom Filt Rate - Afr Amer 94 mL/min (>60); Estimated Creatinine Clearance 57.67 ml/min; Glucose 83 mg/dL (74-106); Potassium 3.8 mmol/L (3.5-5.1); Sodium Level 143 mmol/L (136-145)
[2021-06-19 17:30] LABS: Bedside Glucose 69 mg/dL (70-110)
[2021-06-19 17:31] VITALS: BP 138/90; PULSE 77; RESP 18
--- NOTE | 2021-06-19 18:47 | EKG12_ITS ---
Test Reason : DYSRHYTHMIA Blood Pressure : / mmHG Vent. Rate : 057 BPM Atrial Rate : 057 BPM P-R Int : 154 ms QRS Dur : 084 ms QT Int : 468 ms P-R-T Axes : 020 -05 021 degrees QTc Int : 455 ms Sinus bradycardia Otherwise normal ECG Confirmed by NGOC LEIVA, HUONG ([id number]), medical transcription editor JEOVANNY WILSON ([id number]) on 06/20/2021 1:49:13 PM Referred By: ETTA Confirmed By:HUONG GROSSMAN MD
--- NOTE | 2021-06-19 18:52 | EDS_ITS ---
HPI History of Present Illness Chief Complaint: General Illness Narrative Narrative: 61-year-old female presenting with hyperglycemia. Patient states he is having trouble controlling her blood sugars all weekend. She states that her blood sugar was in the 60s earlier today. She called her doctor's office who told her to go to the ER. She rechecked her blood sugars without eating and states they were in the 300s. She states she feels lightheaded when her sugar drops. Patient denies any fever, chills. She does admit to some lightheadedness intermittently. She denies nausea or vomiting. She denies abdominal pain. She denies chest pain or shortness of breath. Patient states that her recently had pneumonia and she had a cough and cold symptoms but prior to this about a week ago. Patient states he has had no medication changes for her diabetes and is currently on insulin glargine, Victoza. PFSH PFSH Home Medications gabapentin 300 mg PO DAILY 06/29/18 [History Last Taken 07/22/19] liraglutide [Victoza] 1.8 ml SUBCUT DAILY 06/29/18 [History Last Taken 07/22/19] topiramate [Topamax] 25 mg PO DAILY 06/29/18 [History Last Taken 07/22/19] venlafaxine 75 mg PO DAILY 06/29/18 [History Last Taken 07/22/19] oxybutynin chloride 5 mg PO DAILY 04/22/19 [History Last Taken 07/22/19] quetiapine 100 mg PO DAILY 04/22/19 [History Last Taken 07/22/19] insulin glargine U-300 conc 40 units SQ QHS 10/01/19 [History Last Taken Unknown] trazodone 150 mg PO QHS 10/01/19 [History Last Taken Unknown] Allergy/AdvReac Type Severity Reaction Status Date / Time pentazocine HCl Allergy Hives Verified 11/14/20 14:07 [From [place]] amoxicillin [Amoxicillin] AdvReac Other Verified 11/14/20 14:07 doxycycline AdvReac Other Verified 11/14/20 14:07 metformin AdvReac Unknown Verified 11/14/20 14:07 Thiazides AdvReac Other Verified 11/14/20 14:07 Social History Smoking Status: Never smoker ROS ROS ED Constitutional Constitutional ED: Denies chills or fever(s) Eyes Eyes: Denies blurry vision or diplopia ENT ENT ED: Denies rhinorrhea or sore throat Cardiovascular Cardiovascular: Denies chest pain or palpitations Respiratory/Chest Respiratory/Chest: Denies cough or dyspnea Gastrointestinal Gastrointestinal: Denies abdominal pain or nausea Genitourinary Genitourinary ED: Denies dysuria or hematuria Musculoskeletal Musculoskeletal: Denies arthralgias or myalgias Integumentary Denies Abrasions or rash Neurologic Neurologic: Denies headache(s) or paresthesias EXAM Physical Exam Const Vital Signs: 06/19/21 15:42 06/19/21 17:31 06/19/21 19:00 Temperature 97.4 F L Temperature Source Temporal Pulse Rate 68 77 71 Respiratory Rate 18 18 18 Blood Pressure 137/75 H 138/90 H 129/104 H Blood Pressure Mean 95 106 112 Pulse Ox 98 Oxygen Delivery Method Room Air Room Air 06/19/21 21:11 06/19/21 23:10 Temperature Temperature Source Pulse Rate 59 L 59 L Respiratory Rate 16 16 Blood Pressure 128/83 H 123/83 H Blood Pressure Mean 98 96 Pulse Ox 99 98 Oxygen Delivery Method Room Air Room Air Positive well nourished General Appearance ED: NAD; Negative for pallor HEENT Reports normocephalic, head/scalp atraumatic and moist mucous membranes Eyes PERRL and EOMs intact bilaterally Neck no lymphadenopathy and supple Chest Wall inspection of chest normal and palpation of chest normal Resp normal respiratory effort and clear to auscultation bilaterally Auscultation: Negative for rales, rhonchi or wheezes Cardio regular rate and regular rhythm GI normal to inspection, nondistended, normoactive bowel sounds and non-distended Auscultation: normoactive bowel sounds Palpation: soft Narrative: Deferred Extremity normal to inspection General Extremety ED: Yes edema and tenderness General Extremity: edema Neuro oriented x3 and CN's II-XII intact bilaterally Sensorium / Orientation: alert Motor Exam: strength 5/5 throughout Psych mental status grossly normal Attitude: No agitated Skin no rashes or lesions noted and no wounds General Skin Exam: Negative for jaundice or pallor MDM MDM MDM Narrative Medical decision making narrative: Patient presenting with difficulty controlling her blood sugars. Patient is on for Toujeo and [place] and these medications have not changed. She states that her blood sugars were in the 60s at home and then in the 300s. In the ER today her initial POC glucose was 60 and she was able to drink something and get her sugar up. Patient's blood work is otherwise unremarkable. Chest x-ray on my interpretation shows no acute cardiopulmonary process and the radiologist does agree. Since she has lightheadedness I did check a EKG which shows normal sinus rhythm and bradycardic at 57 bpm without signs of ischemic changes. Urinalysis is negative for infection. Patient has had controlled blood sugars since that time. I did spoke with Dr. Abdi who is on-call for Dr. Gates and he recommended cutting her Toujeo in half to 20 units. She will monitor her blood sugars at home. He will try to arrange close follow-up. Patient is given return precautions. Impression: 1. Hypoglycemia 2. Lightheadedness Lab Data Labs: Laboratory Results - last 24 hr 06/19/21 06/19/21 06/19/21 15:47 15:55 15:55 WBC 3.1 L RBC 4.41 Hgb 12.8 Hct 39.3 MCV 89.1 MCH 29.0 MCHC 32.6 RDW Std Deviation 40.6 RDW Coeff of Matt 12.4 Plt Count 110 L MPV 10.7 Immature Gran % (Auto) 0.000 Neut % (Auto) 68.1 Lymph % (Auto) 24.4 [place] % (Auto) 7.5 Eos % (Auto) 0.0 Baso % (Auto) 0.0 Absolute Neuts (auto) 2.1 Absolute Lymphs (auto) 0.75 L Nucleated RBC % 0 PT 13.9 INR 1.1 Sodium Potassium Chloride Carbon Dioxide Anion Gap BUN Creatinine Estim Creat Clear Calc Est GFR (MDRD) Af Amer Est GFR (MDRD) Non-Af BUN/Creatinine Ratio Glucose Calcium Total Bilirubin Direct Bilirubin AST ALT Alkaline Phosphatase Troponin I High Sens Total Protein Albumin Globulin Urine Color Urine Clarity Urine pH Ur Specific [place] Urine Protein Urine Glucose (UA) Urine Ketones Urine Occult Blood Urine Nitrite Urine Bilirubin Urine Urobilinogen Ur Leukocyte Esterase Urine RBC Urine WBC Ur Squamous Epith Cells Amorphous Sediment Urine Bacteria Urine Mucus POC Glucose 86 06/19/21 06/19/21 06/19/21 15:55 15:55 17:23 WBC RBC Hgb Hct MCV MCH MCHC RDW Std Deviation RDW Coeff of Matt Plt Count MPV Immature Gran % (Auto) Neut % (Auto) Lymph % (Auto) [place] % (Auto) Eos % (Auto) Baso % (Auto) Absolute Neuts (auto) Absolute Lymphs (auto) Nucleated RBC % PT INR Sodium 143 Potassium 3.8 Chloride 116 H Carbon Dioxide 23.0 Anion Gap 4 L BUN 18 Creatinine 0.80 Estim Creat Clear Calc 57.67 Est GFR (MDRD) Af Amer 94 Est GFR (MDRD) Non-Af 78 BUN/Creatinine Ratio 22.6 H Glucose 83 Calcium 8.7 Total Bilirubin 0.30 Direct Bilirubin 0.11 AST 21 ALT 31 Alkaline Phosphatase 86 Troponin I High Sens 8 Total Protein 7.0 Albumin 3.8 Globulin 3.2 Urine Color Urine Clarity Urine pH Ur Specific [place] Urine Protein Urine Glucose (UA) Urine Ketones Urine Occult Blood Urine Nitrite Urine Bilirubin Urine Urobilinogen Ur Leukocyte Esterase Urine RBC Urine WBC Ur Squamous Epith Cells Amorphous Sediment Urine Bacteria Urine Mucus POC Glucose 69 L 06/19/21 06/19/21 19:18 19:23 WBC RBC Hgb Hct MCV MCH MCHC RDW Std Deviation RDW Coeff of Matt Plt Count MPV Immature Gran % (Auto) Neut % (Auto) Lymph % (Auto) [place] % (Auto) Eos % (Auto) Baso % (Auto) Absolute Neuts (auto) Absolute Lymphs (auto) Nucleated RBC % PT INR Sodium Potassium Chloride Carbon Dioxide Anion Gap BUN Creatinine Estim Creat Clear Calc Est GFR (MDRD) Af Amer Est GFR (MDRD) Non-Af BUN/Creatinine Ratio Glucose Calcium Total Bilirubin Direct Bilirubin AST ALT Alkaline Phosphatase Troponin I High Sens Total Protein Albumin Globulin Urine Color Yellow Urine Clarity Sl. Cloudy Urine pH 6.0 Ur Specific [place] 1.015 Urine Protein 15 H Urine Glucose (UA) 50 H Urine Ketones 5 H Urine Occult Blood Negative Urine Nitrite Negative Urine Bilirubin Negative Urine Urobilinogen 1 H Ur Leukocyte Esterase Negative Urine RBC 0 SEEN Urine WBC 0 SEEN Ur Squamous Epith Cells 0-5 SEEN Amorphous Sediment 1+ URATE Urine Bacteria 0 SEEN Urine Mucus 0 SEEN POC Glucose 110 Radiography Diagnostic Testing: Radiology Impression Chest X-Ray 06/19/21 19:05 IMPRESSION: Question right upper lobe pulmonary nodule versus superimposition of shadows. CT of the chest is advised for further evaluation. No acute findings. Electronically Signed: Judi Baldwin MD at 19:40 EDT Tel , Service support , Discharge Plan Triage Chief Complaint: General Illness ED Provider: Salas John Dx/Rx/DC Orders Instructions: ED Diabetic Insulin Reaction Prescriptions: No Action topiramate [Topamax] 25 MG tablet 25 mg PO DAILY RF: 0 gabapentin 300 MG capsule 300 mg PO DAILY RF: 0 liraglutide [Victoza 2-[place]] 0.6 MG/0.1 ML Pen.Injctr 1.8 ml subcut DAILY RF: 0 venlafaxine 75 MG capsule 75 mg PO DAILY RF: 0 quetiapine 100 MG tablet 100 mg PO DAILY RF: 0 oxybutynin chloride 5 MG tablet 5 mg PO DAILY RF: 0 trazodone 100 MG tablet 150 mg PO QHS RF: 0 insulin glargine U-300 conc 300 UNIT/ML insulin pen 40 units SQ QHS RF: 0 Primary Care Provider: Taty Childers Referrals: Taty Childers MD [Primary Care Provider] - Activity Restrictions/Additional Instructions: I spoke with Dr. Abdi. He recommends that you cut your Toujeo to 20 units. Instead of 40. He recommends monitoring your blood sugars. Disposition Disposition: Home, Self Care
[2021-06-19 19:00] VITALS: BP 129/104; PULSE 71; RESP 18; O2SAT 98
--- NOTE | 2021-06-19 19:05 | RAD_ITS ---
STUDY: X-RAY CHEST REASON FOR EXAM: Female, 61 years old. weakness TECHNIQUE: Single AP portable view of the chest. COMPARISON: None. FINDINGS: There is no demonstrated pleural abnormality. 1.6 cm hyperdensity in the right upper lobe possibly due to superimposition of shadows. However, this is more prominent than on the prior study and pulmonary nodule cannot be excluded. Normal size heart. Normal mediastinum and amairani. Normal visualized pulmonary arteries. Normal visualized aortic arch and descending thoracic aorta. Remote healed right rib fracture. RAD/Chest 1 View (Portable) IMPRESSION: Question right upper lobe pulmonary nodule versus superimposition of shadows. CT of the chest is advised for further evaluation. No acute findings. Electronically Signed: Judi Baldwin MD at 19:40 EDT Tel , Service support ,
[2021-06-19 19:23] LABS: Bacteria 0 SEEN /hpf (None Seen); Color, Urine Yellow (Yellow); Glucose, Dipstick 50 mg/dl (Normal); Ketone-Dipstick 5 mg/dl (Negative); Leukocyte Esterase-Dipstick Negative /ul (Negative); Mucous, Urine 0 SEEN /hpf (<or=2+); Nitrite-Dipstick Negative (Negative); Occult Blood-Urine Negative /ul (Negative); Protein-Dipstick 15 mg/dl (Negative); Red Blood Cells-Urine 0 SEEN /hpf (0-5); Specific Gravity, Urine 1.015 (1.002-1.030); Urine Bilirubin Dipstick Negative (Negative); Urine Clarity Sl. Cloudy (Clear); Urine Urobilinogen 1 mg/dl (Normal); White Blood Cells 0 SEEN /hpf (0-5)
[2021-06-19 19:31] LABS: Amorphous Sediment 1+ URATE; Squamous Epithelial Cells - UA 0-5 SEEN /hpf (5-10)
[2021-06-19 19:31] LABS: Bedside Glucose 110 mg/dL (70-110)
[2021-06-19 20:37] LABS: AST(SGOT) 21 U/L (15-37); Alanine Aminotransfer ALT/SGPT 31 U/L (13-56); Albumin, Serum 3.8 g/dL (3.2-5.0); Alkaline Phosphatase 86 U/L (45-117); Bilirubin, Direct 0.11 mg/dL (0.00-0.30); Globulin 3.2 g/dL (2.2-4.2); Troponin-I HS 8 pg/mL (3.0-54.0)
[2021-06-19 21:11] VITALS: BP 128/83; PULSE 59; RESP 16; O2SAT 99
[2021-06-19 23:10] VITALS: BP 123/83; PULSE 59; RESP 16; O2SAT 98
[2021-06-19 23:40] VITALS: BP 124/74; PULSE 68; RESP 15; O2SAT 98
== END 2021-06-19 23:41 | disposition home or self-care (01) ==
PROVIDERS: Emergency Provider Student in an Organized Health Care Education/Training Program; PCP Internal Medicine
DX: E16.2 Hypoglycemia, unspecified (principal); R42 Dizziness and giddiness
CPT/HCPCS: 71045; 80048; 80076; 81001; 82962; 84484; 85025; 85610; 87426; 93005; 99284; A4216

== ENCOUNTER 2023-01-23 11:23 | Emergency (ER) | payer MEDICARE, MEDICAID, SELFPAY ==
[2023-01-23 11:24] VITALS: BP 136/72; PULSE 70; RESP 18; TEMP 36.6; O2SAT 100; BMI 28.9
--- NOTE | 2023-01-23 12:11 | EX.ED.VIS.EY ---
HPI History of Present Illness Chief Complaint: Eye Problem Narrative Narrative: 61-year-old female woke up with foreign body sensation in left eye today. She states its been worsening since. She has been rubbing her eye as well. Denies contact wearing. No drainage or discharge. He is having trouble opening her eye at this point. Denies any direct trauma. She did try Visine which made it burn worse. [facility] Medical History Diabetes GERD (gastroesophageal reflux disease) Home Medications gabapentin 300 mg capsule 300 mg PO DAILY 06/29/18 [History Last Taken 07/22/19] liraglutide 0.6 mg/0.1 mL (18 mg/3 mL) subcutaneous pen injector (Victoza 2-[place]) 1.8 ml subcut DAILY 06/29/18 [History Last Taken 07/22/19] topiramate 25 mg tablet (Topamax) 25 mg PO DAILY 06/29/18 [History Last Taken 07/22/19] venlafaxine 75 mg capsule,extended release 24 hr 75 mg PO DAILY 06/29/18 [History Last Taken 07/22/19] oxybutynin chloride 5 mg tablet 5 mg PO DAILY 04/22/19 [History Last Taken 07/22/19] quetiapine 100 mg tablet 100 mg PO DAILY 04/22/19 [History Last Taken 07/22/19] insulin glargine U-300 conc 300 unit/mL (1.5 mL) subcutaneous pen 40 units SQ QHS 10/01/19 [History Last Taken Unknown] trazodone 100 mg tablet 150 mg PO QHS 10/01/19 [History Last Taken Unknown] albuterol sulfate 90 mcg/actuation aerosol inhaler inhalation 01/23/23 [History Last Taken Unknown] cholecalciferol (vitamin D3) 125 mcg (5,000 unit) capsule 01/23/23 [History Last Taken Unknown] erythromycin 5 mg/gram (0.5 %) eye ointment 1 applic EACH EYE Q6H #50 grams 01/23/23 [Rx Last Taken Unknown] folic acid 1 mg tablet 01/23/23 [History Last Taken Unknown] insulin lispro 100 unit/mL subcutaneous pen subcut 01/23/23 [History Last Taken Unknown] ketorolac 0.5 % eye drops 1 drp EACH EYE Q12H PRN PRN pain #10 mL 01/23/23 [Rx Last Taken Unknown] levothyroxine 25 mcg tablet mcg 01/23/23 [History Last Taken Unknown] omeprazole 20 mg capsule,delayed release mg 01/23/23 [History Last Taken Unknown] Allergy/AdvReac Type Severity Reaction Status Date / Time pentazocine HCl Allergy Hives Verified 01/23/23 11:23 [From [place]] amoxicillin [Amoxicillin] AdvReac Other Verified 01/23/23 11:23 doxycycline AdvReac Other Verified 01/23/23 11:23 metformin AdvReac Unknown Verified 01/23/23 11:23 Thiazides AdvReac Other Verified 01/23/23 11:23 Social History Smoking Status: Never smoker ROS ROS ED Constitutional Constitutional ED: Denies chills, fever(s) or sweats Eyes Eyes: Reports blurry vision left and other Details: Irritation to left eye ; Denies change in vision ENT ENT ED: Denies ear pain or sore throat Cardiovascular Cardiovascular: Denies chest pain, palpitations or racing heartbeat Respiratory/Chest Respiratory/Chest: Denies cough, dyspnea or sputum Gastrointestinal Gastrointestinal: Denies abdominal pain, constipation, diarrhea, nausea or vomiting Genitourinary Genitourinary ED: Denies dysuria, hematuria or urinary frequency Musculoskeletal Musculoskeletal: Denies arthralgias, myalgias or neck pain Integumentary Denies abscess, Abrasions or rash Neurologic Neurologic: Denies headache(s), paresthesias or weakness Psychiatric Psychiatric: Denies anxiety, depression, suicidal ideation or suicidal thoughts Endocrine Endocrinology: Denies polydipsia or polyuria EXAM Physical Exam Const Vital Signs: 01/23/23 11:24 Temperature 97.8 F Temperature Source Temporal Pulse Rate 70 Respiratory Rate 18 Blood Pressure 136/72 H Blood Pressure Mean 93 Pulse Ox 100 Oxygen Delivery Method Room Air Positive well nourished General Appearance ED: NAD HEENT atraumatic Eyes PERRL and EOMs intact bilaterally Alignment: alignment normal Periorbital: periorbital findings normal Eyelid: eyelids normal Conjunctiva: conjunctiva abnormal left Details: injection Positive for diffuse Sclera: sclera abnormal Positive for left Details: scleral injection Details: Positive for diffuse Cornea: cornea abnormal Positive for left Cornea - Left Eye: Positive for abrasion Details: Positive for central; Negative for foreign body Pupil: PERRL Slit Lamp: slit lamp exam performed with fluorescein, lids/lashes/lacrimal system normal appearing, lid swelling/edema, external hordeolum and chalazion and anterior chamber normal appearing Resp normal respiratory effort and no retractions Cardio regular rate and regular rhythm Neuro oriented x3 and CN's II-XII intact bilaterally Skin no wounds MDM MDM MDM Narrative Medical decision making narrative: 61-year-old female with left eye pain. She woke up with a foreign body sensation in her eye and is been rubbing her eye. She does not wear contacts. No direct trauma that she knows of other than rubbing her eye. Initially she is unable to open her eye. I did instill tetracaine into the left eye and she is now able to look around. We will obtain visual acuities. Slight leg exam shows corneal abrasion which is some central in the lower portion of her cornea. I do not see any foreign bodies. Lids and lashes are normal. Erythromycin ophthalmic placed in the left eye. We will discharge the patient home with erythromycin ophthalmic every 6 hours as well as tar-like eyedrops for pain she is given follow-up with ophthalmology. Return precautions discussed. Impression: 1. Corneal abrasion left eye Discharge Plan Triage Chief Complaint: Eye Problem ED Provider: Salas John Dx/Rx/DC Orders Instructions: ED Corneal Abrasion Prescriptions: New erythromycin 5 mg/gram (0.5 %) ointment 1 applic EACH EYE Q6H Qty: 50 0RF ketorolac 0.5 % drops 1 drp EACH EYE Q12H PRN PRN (Reason: pain) Qty: 10 0RF No Action topiramate [Topamax] 25 MG tablet 25 mg PO DAILY gabapentin 300 MG capsule 300 mg PO DAILY Victoza 2-[place] 0.6 MG/0.1 ML pen injector 1.8 ml subcut DAILY Label Comments: Inject 1.8 mg subcutaneously once daily. venlafaxine 75 MG capsule 75 mg PO DAILY Label Comments: TAKE 1 CAPSULE EVERY DAY quetiapine 100 MG tablet 100 mg PO DAILY oxybutynin chloride 5 MG tablet 5 mg PO DAILY trazodone 100 MG tablet 150 mg PO QHS insulin glargine U-300 conc 300 UNIT/ML insulin pen 40 units SQ QHS Label Comments: Inject 25 Units subcutaneously daily at bedtime. levothyroxine 25 mcg tablet Label Comments: TAKE 1 TABLET BY MOUTH DAILY ON AN EMPTY STOMACH. NO DOSE SATURDAY OR SATURDAY omeprazole 20 mg capsule,delayed release(DR/EC) Label Comments: Take 1 capsule by mouth daily before breakfast. 1/2 hr before meal. folic acid 1 mg tablet Label Comments: Take 2 tablets by mouth once daily. Sublingual albuterol sulfate 90 mcg/actuation HFA aerosol inhaler INHALATION Label Comments: Inhale 2 Puffs as instructed every 4 hours as needed. For wheezing/shortness of breath. cholecalciferol (vitamin D3) 125 mcg (5,000 unit) capsule Label Comments: TAKE 1 CAPSULE BY MOUTH EVERY DAY insulin lispro 100 unit/mL insulin pen SUBCUT Primary Care Provider: Taty Childers Referrals: Taty Childers MD [Primary Care Provider] - Jose C Koroma MD [Med Staff - Active Staff] - 3-5 Days Disposition Disposition: Home, Self Care Discharge Date/Time: 01/23/23 12:35
[2023-01-23] MEDS: Erythromycin Base 1 OPTH.TUBE 1 APPLIC LEFT EYE (12:19)
[2023-01-23] MEDS: Tetracaine 0.5% Ophthalmic Bottle 1 DRP EACH EYE (12:20)
[2023-01-23] MEDS: Fluorescein 1 MG STRIP 1 STRIP LEFT EYE (12:20)
== END 2023-01-23 12:35 | disposition home or self-care (01) ==
PROVIDERS: Emergency Provider Student in an Organized Health Care Education/Training Program; PCP Internal Medicine; Visit Provider Student in an Organized Health Care Education/Training Program
DX: S05.02XA Injury of conjunctiva and corneal abrasion without foreign body, left eye, initial encounter (principal); E11.9 Type 2 diabetes mellitus without complications; K21.9 Gastro-esophageal reflux disease without esophagitis
CPT/HCPCS: 99282

== ENCOUNTER 2023-10-23 12:51 | Emergency (ER) | payer MEDICARE, MEDICAID, SELFPAY ==
[2023-10-23 12:52] VITALS: BP 120/82; PULSE 88; RESP 18; TEMP 36.8; O2SAT 100; BMI 27.5
[2023-10-23 13:24] LABS: Bacteria 0 SEEN /hpf (None Seen); Mucous, Urine 0 SEEN /hpf (<or=2+); Red Blood Cells-Urine 0 SEEN /hpf (0-5); Squamous Epithelial Cells - UA 0 SEEN /hpf (5-10); White Blood Cells 0 SEEN /hpf (0-5)
[2023-10-23 13:28] LABS: Color, Urine Yellow (Yellow); Glucose, Dipstick 1000 mg/dl (Normal); Ketone-Dipstick Negative (Negative); Leukocyte Esterase-Dipstick Negative /ul (Negative); Nitrite-Dipstick Negative (Negative); Occult Blood-Urine Negative /ul (Negative); Protein-Dipstick Negative (Negative); Urine Bilirubin Dipstick Negative (Negative); Urine Clarity Clear (Clear); Urine Urobilinogen Normal (Normal); Urine pH 6.5 (5.0 - 8.0)
[2023-10-23 13:51] LABS: Absolute Lymphocyte Count 0.87 X10^3/uL (0.83-4.51); Absolute Neutrophil Count 2.5 X10^3/uL (2.0-7.7); Hematocrit 40.4 % (37-47); Hemoglobin 13.1 g/dL (12.0-15.0); Lymphocyte # 0.87 X10^3/ul (0.83-4.51); Lymphocyte % 23.8 % (19-41); Mean Corp Hgb Conc 32.4 g/dL (32-36); Mean Corpuscular Volume 83.3 fL (81-99); Mean Platelet Vol. 10.9 fl (6.2-12.0); Monocyte# 0.26 X10^3/uL; Monocyte% 7.1 % (0-10); NRBC Flagged by Analyzer 0 % (0-5); Neutrophil % 68.6 % (47-70); Platelet Count 118 K/mm3 (150-450); RBC Distribution Width CV 12.5 % (11.6-14.6); RBC Distribution Width SD 37.7 fl (35.1-43.9); Red Blood Count 4.85 M/mm3 (4.2-5.4); White Blood Count 3.7 K/mm3 (4.4-11.0)
[2023-10-23 14:29] LABS: Anion Gap 5 (5-15); BUN 19 mg/dL (7-18); BUN/Creat Ratio 19.5 RATIO (10-20); Chloride 103 mmol/L (98-107); Creatinine, Serum 0.98 mg/dL (0.55-1.02); EST Glomerular Filtration Rate 61 mL/min (>60); Est Glom Filt Rate - Afr Amer 74 mL/min (>60); Estimated Creatinine Clearance 52.54 ml/min; Glucose 649 mg/dL (74-106); Potassium 4.4 mmol/L (3.5-5.1); Sodium Level 133 mmol/L (136-145)
[2023-10-23] MEDS: 0.9% Normal Saline (1000mL) 1,000 ML 1000 ML IV (14:55)
[2023-10-23 15:04] VITALS: BP 148/83; PULSE 69; RESP 13; O2SAT 99
[2023-10-23 15:33] LABS: Bedside Glucose 457 mg/dL (74-106)
--- NOTE | 2023-10-23 15:36 | EDS_ITS ---
HPI History of Present Illness Chief Complaint: Hyperglycemia Informant: patient Onset/Context/Timing Onset: Today Narrative Narrative: Patient presents secondary to hyperglycemia. She states her blood sugar was ar ound 250 when she got up this morning where it is normally around 100. It has been increasing throughout the day. No recent changes to her medications or diet. She reports that she has been somewhat lightheaded and seeing spots the last few days but did not check her blood sugar at that time. [facility] Medical History (Updated 10/23/23 @ 18:[address] Sarah Gomes MD) Anxiety and depression Asthma Diabetes GERD (gastroesophageal reflux disease) Hypertension Home Medications gabapentin 300 mg capsule 300 mg PO DAILY 06/29/18 [History Last Taken 07/22/19] liraglutide 0.6 mg/0.1 mL (18 mg/3 mL) subcutaneous pen injector (Victoza 2-[place]) 1.8 ml subcut DAILY 06/29/18 [History Last Taken 07/22/19] topiramate 25 mg tablet (Topamax) 25 mg PO DAILY 06/29/18 [History Last Taken 07/22/19] venlafaxine 75 mg capsule,extended release 24 hr 75 mg PO DAILY 06/29/18 [Hi story Last Taken 07/22/19] oxybutynin chloride 5 mg tablet 5 mg PO DAILY 04/22/19 [History Last Taken 07/22/19] quetiapine 100 mg tablet 100 mg PO DAILY 04/22/19 [History Last Taken 07/22/19] insulin glargine U-300 conc 300 unit/mL (1.5 mL) subcutaneous pen 40 units SQ QHS 10/01/19 [History Last Taken Unknown] trazodone 100 mg tablet 150 mg PO QHS 10/01/19 [History Last Taken Unknown] albuterol sulfate 90 mcg/actuation aerosol inhaler inhalation 01/23/23 [History Last Taken Unknown] cholecalciferol (vitamin D3) 125 mcg (5,000 unit) capsule 01/23/23 [History Last Taken Unknown] erythromycin 5 mg/gram (0.5 %) eye ointment 1 applic EACH EYE Q6H #50 grams 01/23/23 [Rx Last Taken Unknown] folic acid 1 mg tablet 01/23/23 [History Last Taken Unknown] insulin lispro 100 unit/mL subcutaneous pen subcut 01/23/23 [History Last Taken Unknown] ketorolac 0.5 % eye drops 1 drp EACH EYE Q12H PRN PRN pain #10 mL 01/23/23 [Rx Last Taken Unknown] levothyroxine 25 mcg tablet mcg 01/23/23 [History Last Taken Unknown] omeprazole 20 mg capsule,delayed release mg 01/23/23 [History Last Taken Unknown] Allergy/AdvReac Type Severity Reaction Status Date / Time pentazocine HCl Allergy Hives Verified 10/23/23 12:52 [From [place]] amoxicillin [Amoxicillin] AdvReac Other Verified 10/23/23 12:52 doxycycline AdvReac Other Verified 10/23/23 12:52 metformin AdvReac Unknown Verified 10/23/23 12:52 Thiazides AdvReac Other Verified 10/23/23 12:52 Social History Smoking Status: Never smoker ROS ROS ED Constitutional Constitutional ED: Denies chills or fever(s) Eyes Eyes: Reports change in vision; Denies discharge from eye(s) ENT ENT ED: Denies discharge from eye(s), rhinorrhea or sore throat Cardiovascular Cardiovascular: Denies chest pain or palpitations Respiratory/Chest Respiratory/Chest: Denies cough or dyspnea Gastrointestinal Gastrointestinal: Denies abdominal pain, nausea or vomiting Genitourinary Genitourinary ED: Reports urinary frequency Musculoskeletal Musculoskeletal: Denies back pain or extremity pain Integumentary Denies Abrasions or rash Neurologic Neurologic: Denies headache(s) or weakness Psychiatric Psychiatric: Denies anxiety or depression Endocrine Endocrinology: Reports polydipsia and polyuria Allergic/Immunologic Allergic/Immunologic ED: Denies lip swelling or urticaria EXAM Physical Exam Const Vital Signs: 10/23/23 12:52 10/23/23 15:04 10/23/23 15:04 Temperature 98.2 F Temperature Source Temporal Pulse Rate 88 69 Respiratory Rate 18 13 Respiratory Effort Normal Respiratory Pattern Normal Blood Pressure 120/82 H 148/83 H Blood Pressure Mean 94 104 Pulse Ox 100 99 Oxygen Delivery Method Room Air Room Air 10/23/23 18:44 Temperature 97.6 F L Temperature Source Pulse Rate 66 Respiratory Rate 18 Respiratory Effort Respiratory Pattern Blood Pressure 144/76 H Blood Pressure Mean 98 Pulse Ox 99 Oxygen Delivery Method Positive well nourished and well developed General Appearance ED: well developed HEENT Reports dry mucous membranes Mouth ED: Yes dry mucous membranes Mouth: dry mucous membranes Eyes EOMs intact bilaterally Chest Wall inspection of chest normal and palpation of chest normal Resp normal respiratory effort and clear to auscultation bilaterally Cardio regular rate and regular rhythm GI non-tender Palpation: soft Extremity normal to inspection Neuro oriented x3 and no sensory deficits noted Motor Exam: strength 5/5 throughout Psych mental status grossly normal Skin no rashes or lesions noted MDM MDM MDM Narrative Medical decision making narrative: IV line established. Patient initiated on IV fluids. Labwork obtained to evaluate for leukocytosis, anemia, and electrolyte derangement. Urinalysis obtained to evaluate for infection/hematuria. Lab Data Attestation: I reviewed the patient's lab results. Labs: Laboratory Results - last 24 hr 10/23/23 10/23/23 10/23/23 13:11 13:40 15:14 WBC 3.7 L RBC 4.85 Hgb 13.1 Hct 40.4 MCV 83.3 MCH 27.0 MCHC 32.4 RDW Std Deviation 37.7 RDW Coeff of Matt 12.5 Plt Count 118 L MPV 10.9 Immature Gran % (Auto) 0.500 Neut % (Auto) 68.6 Lymph % (Auto) 23.8 [place] % (Auto) 7.1 Eos % (Auto) 0.0 Baso % (Auto) 0.0 Absolute Neuts (auto) 2.5 Absolute Lymphs (auto) 0.87 Nucleated RBC % 0 Sodium 133 L Potassium 4.4 Chloride 103 Carbon Dioxide 25.0 Anion Gap 5 BUN 19 H Creatinine 0.98 Estim Creat Clear Calc 52.54 Est GFR (MDRD) Af Amer 74 Est GFR (MDRD) Non-Af 61 BUN/Creatinine Ratio 19.5 Glucose 649 H* Calcium 9.0 Urine Color Yellow Urine Clarity Clear Urine pH 6.5 Ur Specific [place] 1.010 Urine Protein Negative Urine Glucose (UA) 1000 H Urine Ketones Negative Urine Occult Blood Negative Urine Nitrite Negative Urine Bilirubin Negative Urine Urobilinogen Normal Ur Leukocyte Esterase Negative Urine RBC 0 SEEN Urine WBC 0 SEEN Ur Squamous Epith Cells 0 SEEN Urine Bacteria 0 SEEN Urine Mucus 0 SEEN POC Glucose 457 H* 10/23/23 10/23/23 10/23/23 16:06 17:05 17:33 WBC RBC Hgb Hct MCV MCH MCHC RDW Std Deviation RDW Coeff of Matt Plt Count MPV Immature Gran % (Auto) Neut % (Auto) Lymph % (Auto) [place] % (Auto) Eos % (Auto) Baso % (Auto) Absolute Neuts (auto) Absolute Lymphs (auto) Nucleated RBC % Sodium Potassium Chloride Carbon Dioxide Anion Gap BUN Creatinine Estim Creat Clear Calc Est GFR (MDRD) Af Amer Est GFR (MDRD) Non-Af BUN/Creatinine Ratio Glucose Calcium Urine Color Urine Clarity Urine pH Ur Specific [place] Urine Protein Urine Glucose (UA) Urine Ketones Urine Occult Blood Urine Nitrite Urine Bilirubin Urine Urobilinogen Ur Leukocyte Esterase Urine RBC Urine WBC Ur Squamous Epith Cells Urine Bacteria Urine Mucus POC Glucose 409 H 363 H 308 H 10/23/23 18:30 WBC RBC Hgb Hct MCV MCH MCHC RDW Std Deviation RDW Coeff of Matt Plt Count MPV Immature Gran % (Auto) Neut % (Auto) Lymph % (Auto) [place] % (Auto) Eos % (Auto) Baso % (Auto) Absolute Neuts (auto) Absolute Lymphs (auto) Nucleated RBC % Sodium Potassium Chloride Carbon Dioxide Anion Gap BUN Creatinine Estim Creat Clear Calc Est GFR (MDRD) Af Amer Est GFR (MDRD) Non-Af BUN/Creatinine Ratio Glucose Calcium Urine Color Urine Clarity Urine pH Ur Specific [place] Urine Protein Urine Glucose (UA) Urine Ketones Urine Occult Blood Urine Nitrite Urine Bilirubin Urine Urobilinogen Ur Leukocyte Esterase Urine RBC Urine WBC Ur Squamous Epith Cells Urine Bacteria Urine Mucus POC Glucose 263 H EKG Initial EKG: Attestation: I personally reviewed and interpreted this EKG as follows: Interpretation: Sinus Rhythm (Sinus at 75 with no acute ischemia.) Treatment and Re-Evaluation :: CBC was white count of 3.7 with a hemoglobin of 13.1. Chemistry studies reveal a sodium of 133 with a glucose of 649. BUN is 19 with creatinine of 0.98. After the patient's first liter of IV fluid is done repeat sugar is 409. She is given 8 units of subcu insulin. Repeat blood sugars are 363, 308, and 263. Patient does report improvement in her symptoms. She will check her blood sugars a couple times a day and keep a journal to take to her next doctor's appointment. Return instructions provided. Discharge Plan Triage Chief Complaint: Hyperglycemia Other Complaint: Dizziness Headache Nosebleed ED Provider: Sarah Gomes Dx/Rx/DC Orders Clinical Impression: Hyperglycemia Instructions: ED Diabetic Hyperglycemia Prescriptions: No Action topiramate [Topamax] 25 MG tablet 25 mg PO DAILY gabapentin 300 MG capsule 300 mg PO DAILY Victoza 2-[place] 0.6 MG/0.1 ML pen injector 1.8 ml subcut DAILY Patient Comments: Inject 1.8 mg subcutaneously once daily. venlafaxine 75 MG capsule 75 mg PO DAILY Patient Comments: TAKE 1 CAPSULE EVERY DAY quetiapine 100 MG tablet 100 mg PO DAILY oxybutynin chloride 5 MG tablet 5 mg PO DAILY trazodone 100 MG tablet 150 mg PO QHS insulin glargine U-300 conc 300 UNIT/ML insulin pen 40 units SQ QHS Patient Comments: Inject 25 Units subcutaneously daily at bedtime. levothyroxine 25 mcg tablet Patient Comments: TAKE 1 TABLET BY MOUTH DAILY ON AN EMPTY STOMACH. NO DOSE SATURDAY OR SATURDAY omeprazole 20 mg capsule,delayed release(DR/EC) Patient Comments: Take 1 capsule by mouth daily before breakfast. 1/2 hr before meal. folic acid 1 mg tablet Patient Comments: Take 2 tablets by mouth once daily. Sublingual albuterol sulfate 90 mcg/actuation HFA aerosol inhaler INHALATION Patient Comments: Inhale 2 Puffs as instructed every 4 hours as needed. For wheezing/shortness of breath. cholecalciferol (vitamin D3) 125 mcg (5,000 unit) capsule Patient Comments: TAKE 1 CAPSULE BY MOUTH EVERY DAY insulin lispro 100 unit/mL insulin pen SUBCUT erythromycin 5 mg/gram (0.5 %) ointment 1 applic EACH EYE Q6H Qty: 50 0RF ketorolac 0.5 % drops 1 drp EACH EYE Q12H PRN PRN (Reason: pain) Qty: 10 0RF Primary Care Provider: Taty Childers Referrals: Taty Childers MD [Primary Care Provider] - 1-2 Weeks Activity Restrictions/Additional Instructions: As discussed, please keep a journal of your blood sugar readings over the next week or 2. Take this to your next doctor's appointment with you. Disposition Disposition: Home, Self Care Discharge Date/Time: 10/23/23 18:44
[2023-10-23] MEDS: 0.9% Normal Saline (1000mL) 1,000 ML 250 ML IV (16:14)
[2023-10-23 16:24] LABS: Bedside Glucose 409 mg/dL (74-106)
[2023-10-23] MEDS: Insulin Lispro 100 UNIT/ML INSULN.PEN 8 UNIT SC (16:24)
--- OUTSIDE RECORDS SUMMARY | 2023-10-23 17:01 | XMS RPT_ITS | CCD ---
Author Name Unknown Address [address] [place] [address] Organization [facility] Care Team Providers Care Sprinkler Tender Name Role Phone Alvarado LEIVA, Giovana Primary [facility] Provider [facility] Dago Steen APRN.CNP Unavailable GANTA, GIOVANA Attending Unavailable GANTA, GIOVANA Primary Care Unavailable GANTA, GIOVANA Referring Unavailable GANTA, GIOVANA Primary Care Unavailable TESTNELSON VERONICA Attending Unavailable GANTA, GIOVANA Primary Care Unavailable BESSY ALEGRIA Attending Unavailable GANTA, GIOVANA Primary Care Unavailable GANTA, GIOVANA Primary Care Unavailable DELORES JUNG Attending Unavailable DELORES JUNG Attending Unavailable GANTA, GIOVANA Primary Care Unavailable ZOË ARENAS Attending Unavailable GANTA, GIOVANA Primary Care Unavailable GANTA, GIOVANA Primary Care Unavailable TESTNELSON VERONICA Attending Unavailable TESTJEREMÍAS, NELSON Referring Unavailable GANTA, GIOVANA Primary Care Unavailable GANTA, GIOVANA Referring Unavailable GANTA, GIOVANA Primary Care Unavailable TESTRAKE, NELSON Referring Unavailable GANTA, GIOVANA Primary Care Unavailable ZOË ARENAS Attending Unavailable GANTA, GIOVANA Primary Care Unavailable GANTA, GIOVAAN Primary Care Unavailable POLLY MONCADA Attending Unavail able GANTA, GIOVANA Primary Care Unavailable GANTA, GIOVANA Primary Care Unavailable GANTA, GIOVANA Primary Care Unavailable TERESA RIVERA Referring Unavailable GANTA, GIOVANA Primary Care Unavailable TESTRAKE, NELSON Referring Unavailable GANTA, GIOVANA Primary Care Unavailable HOOD WISE Referring Unavailable TESTRAKE, NELSON Referring Unavailable GANTA, GIOVANA Primary Care Unavailable GANTA, GIOVANA Primary Care Unavailable FABIANADELORES CASTELLON Referring Unavailable Allergies Allergy Classification Reported Allergen(s) Allergy Type Date of Onset Reaction(s) Facility (20 sources) Acetaminophen / Pentazocine; Translations: [PENTAZOCINE-ACETA MINOPHEN] Drug Allergy 7 [facility] Work Phone: (20 sources) Amoxicillin; Translations: [AMOXICILLIN] Drug Allergy 7 Intolerance [facility] Work Phone: (20 sources) benzonatate; Translations: [BENZONATATE] Drug Allergy 7 GI Upset [facility] Work Phone: (20 sources) Doxycycline; Translations: [DOXYCYCLINE] Drug Allergy 9 Diarrhea [facility] (20 sources) metFORMIN; Translations: [METFORMIN] Drug Allergy 8 Diarrhea [facility] (20 sources) Pentazocine; Translations: [PENTAZOCINE] Drug Allergy 9 Unknown [facility] (20 sources) Thiazides; Translations: [THIAZIDES] Propensity to adverse reactions 8 [facility] Work Phone: (20 sources) Thiazides Propensity to adverse reactions 8 [facility] Work Phone: Medications Current Medications Medication Drug Class(es) Dates Sig (Normalized) Sig (Original) ciprofloxacin 500 mg oral tablet (1 source) Quinolone Antimicrobial Start: 03-27-2022 End: 04-01-2022 take 1 tablet by mouth twice daily at mealtime ciprofloxacin HCl (CIPRO) 500 mg tablet Indications: Dog bite, initial encounter Take 1 tablet by mouth twice daily for 5 days. Take with food. antibiotic 10 tablet 0 03/27/2022 04/01/2022 Active Completed/Discontinued Medications Medication Drug Class(es) Dates Sig (Normalized) Sig (Original) [id number] 200 actuat albuterol 0.09 mg/actuat metered dose inhaler (20 sources) beta2-Adrenergic Agonist Start: 06-07-2022 End: 05-15-2023 take 2 puff(s) by inhalation every four hours as needed for wheezing albuterol HFA (VENTOLIN HFA) 90 mcg/actuation inhaler Inhale 2 Puffs as instructed every 4 hours as needed. For wheezing/shortnes s of breath. 18 g 2 05/15/2023 Active Problems Active Problems Problem Classification Problem Date Documented Da te Episodic/Chronic Acquired foot deformities (7 sources) Hammer toe; Translations: [Other hammer toe(s) (acquired), right foot] Onset: 3 Chronic Acquired foot deformities (1 source) Hammer toe; Translations: [Other hammer toe(s) (acquired), left foot] Chronic Adjustment disorders (1 source) Adjustment disorder with anxiety; Translations: [Adjustment disorder with anxiety] Onset: 3 Chronic Administrative/social admission (3 sources) Patient encounter status; Translations: [Dietary counseling and surveillance] Episodic Anxiety disorders (20 sources) Panic disorder with agoraphobia; Translations: [Agoraphobia with panic disorder] Onset: 5 12-28-2014 Chronic Asthma (20 sources) Mild persistent asthma; Translations: [Mild persistent asthma, uncomplicated] Onset: 6 08-09-2016 Chronic Coagulation and hemorrhagic disorders (20 sources) Platelet count below reference range; Translations: [Thrombocytopenia, unspecified] Onset: 7 11-06-2016 Chronic Deficiency and other anemia (20 sources) Iron deficiency anemia due to blood loss; Translations: [Iron deficiency anemia secondary to blood loss (chronic)] Onset: 1 03-03-2021 Chronic Deficiency and other anemia (1 source) Iron deficiency anemia secondary to blood loss (chronic); Translations: [Iron deficiency anemia due to chronic blood loss] Onset: 1 Chronic Diabetes mellitus with complications (5 sources) Disorder of nervous system due to type 2 diabetes mellitus; Translations: [Type 2 diabetes mellitus with other diabetic neurological complication] Onset: 3 Chronic Diabetes mellitus without complication (20 sources) Type 2 diabetes mellitus without complication; Translations: [Type 2 diabetes mellitus without complications] Onset: 7 Chronic Diseases of white blood cells (20 sources) Leukopenia; Translations: [Decreased white blood cell count, unspecified] Onset: 0 03-24-2010 Chronic Disorders of lipid metabolism (20 sources) Mixed hyperlipidemia; Translations: [Mixed hyperlipidemia] Onset: 7 08-14-2017 Chronic E Codes: Natural/environment (1 source) Dog bite - wound; Translations: [Bitten by dog, initial encounter] Episodic Esophageal disorders (20 sources) Gastroesophageal reflux disease without esophagitis; Translations: [Gastro-esophageal reflux disease without esophagitis] Onset: 6 12-22-2020 Chronic Essential hypertension (20 sources) Hypertensive disorder; Translations: [Essential (primary) hypertension] Onset: 7 06-27-2020 Chronic Genitourinary symptoms and ill-defined conditions (20 sources) Urinary incontinence; Translations: [Unspecified urinary incontinence] Onset: 2 Chronic Genitourinary symptoms and ill-defined conditions (1 source) Urgent desire to urinate; Translations: [Urgency of urination] 09-04-2023 Episodic Headache; including migraine (20 sources) Refractory migraine without aura; Translations: [Migraine without aura, intractable, without status migrainosus] Onset: 6 03-16-2016 Chronic Immunizations and screening for infectious disease (1 source) Vaccination needed; Translations: [Encounter for immunization] Episodic Mood disorders (20 sources) Depressive disorder; Translations: [Depression] Onset: 2 09-26-2012 Chronic Mycoses (2 sources) Candidiasis; Translations: [Candidiasis, unspecified] Episodic Nutritional deficiencies (20 sources) Vitamin D deficiency; Translations: [Vitamin D deficiency, unspecified] Onset: 1 06-18-2011 Chronic Other circulatory disease (1 source) Abnormal peripheral pulse; Translations: [Other specified symptoms and signs involving the circulatory and respiratory systems] Episodic Other female genital disorders (1 source) Vulval irritation; Translations: [Other specified noninflammatory disorders of vulva and perineum] 09-04-2023 Episodic Other female genital disorders (1 source) Vaginal discharge; Translations: [Other specified noninflammatory disorders of vagina] 09-04-2023 Episodic Other gastrointestinal disorders (20 sources) Malabsorption - iron; Translations: [Intestinal malabsorption, unspecified] Onset: 1 03-03-2021 Chronic Other gastrointestinal disorders (4 sources) Abdominal bloating; Translations: [Abdominal distension (gaseous)] Episodic Other gastrointestinal disorders (2 sources) Diarrhea; Translations: [Diarrhea, unspecified] Episodic Other gastrointestinal disorders (3 sources) Passing flatus; Translations: [Flatulence] Episodic Other gastrointestinal disorders (4 sources) Splenomegaly; Translations: [Splenomegaly, not elsewhere classified] Episodic Other hereditary and degenerative nervous system conditions (20 sources) Restless legs; Translations: [Restless legs syndrome] Onset: 6 08-07-2016 Chronic Other lower respiratory disease (1 source) Shortness of breath; Translations: [Shortness of breath] Onset: 3 Episodic Other nervous system disorders (20 sources) Chronic pain syndrome; Translations: [Chronic pain syndrome] Onset: 6 12-20-2015 Chronic Other skin disorders (1 source) Foot callus; Translations: [Corns and callosities] Episodic Other upper respiratory infections (2 sources) Viral upper respiratory tract infection; Translations: [Acute upper respiratory infection, unspecified] Onset: 3 06-19-2023 Episodic Thyroid disorders (20 sources) Acquired hypothyroidism; Translations: [Hypothyroidism, unspecified] Onset: 6 01-05-2016 Chronic Unclassified (1 source) Acute cough; Translations: [Acute cough] Onset: 3 Viral infection (1 source) COVID-19; Translations: [Other specified viral infection] 06-19-2023 Episodic Past or Other Problems Problem Classification Problem Date Documented Da te Episodic/Chronic Acute posthemorrhagic anemia (20 sources) Anemia following acute postoperative blood loss; Translations: [Acute posthemorrhagic anemia] Onset: 06-27-2020 06-27-2020 Episodic Noninfectious gastroenteritis (20 sources) Chronic diarrhea; Translations: [Noninfective gastroenteritis and colitis, unspecified] Onset: 07-06-2021 07-06-2021 Episodic Other acquired deformities (20 sources) Lumbar spondylolisthesis; Translations: [Spondylolisthesis, lumbar region] Onset: 07-29-2019 07-29-2019 Episodic Other bone disease and musculoskeletal deformities (20 sources) Osteopenia; Translations: [Other specified disorders of bone density and structure, unspecified site] Onset: 07-10-2018 07-10-2018 Episodic Other circulatory disease (1 source) Other specified symptoms and signs involving the circulatory and respiratory systems; Translations: [Diminished pulses in lower extremity] Onset: 11-16-2022 Episodic Other female genital disorders (20 sources) Vulval intraepithelial neoplasia grade 2; Translations: [Moderate vulvar dysplasia] Onset: 12-01-2007 04-09-2011 Episodic Other fractures (20 sources) Compression fracture of lumbar spine; Translations: [Wedge compression fracture of fifth lumbar vertebra, initial encounter for closed fracture] Onset: 07-29-2019 07-29-2019 Episodic Other gastrointestinal disorders (20 sources) History of bypass of stomach; Translations: [Bariatric surgery status] Onset: 11-06-2011 11-06-2011 Episodic Other hematologic conditions (20 sources) Hypersplenism; Translations: [Hypersplenism] Onset: 06-19-2007 06-19-2007 Episodic Other non-traumatic joint disorders (20 sources) Hip pain; Translations: [Pain in left hip] Onset: 12-01-2018 12-01-2018 Episodic Other screening for suspected conditions (not mental disorders or infectious disease) (1 source) Encounter for screening mammogram for malignant neoplasm of breast; Translations: [Encounter for screening mammogram for breast cancer] Onset: 05-10-2023 Episodic Residual codes; unclassified (20 sources) Insomnia; Translations: [Insomnia, unspecified] Onset: 03-28-2012 03-28-2012 Episodic Skin and subcutaneous tissue infections (20 sources) Disorder of nail; Translations: [Cellulitis of unspecified toe] Onset: 12-25-2010 12-25-2010 Episodic Spondylosis; intervertebral disc disorders; other back problems (20 sources) Sciatica; Translations: [Sciatica, unspecified side] Onset: 01-29-2007 01-29-2007 Episodic Results Test Name Value Interpretation Reference Range Facil ity Vital Signs Date Time Vital Sign Value Performing Clinician Faci lity 09-04-2023 10:16-0500 Body weight 69.85 kg Polly Jones MD Work Phone: [facility] 09-04-2023 10:16-0500 Diastolic blood pressure 80 mm[Hg] Polly Jones MD Work Phone: [facility] 09-04-2023 10:16-0500 Systolic blood pressure 122 mm[Hg] Polly Jones MD Work Phone: [facility] 06-19-2023 12:27-0400 Body temperature 99.19 [degF] Zoë Denbow PA-C Work Phone: [facility] 06-19-2023 12:27-0400 Body weight 68.04 kg Zoë Denbow PA-C Work Phone: [facility] 06-19-2023 12:27-0400 Diastolic blood pressure 70 mm[Hg] Zoë Denbow PA-C Work Phone: [facility] 06-19-2023 12:27-0400 Heart rate 79 /min Zoë Denbow PA-C Work Phone: [facility] 06-19-2023 12:27-0400 Respiratory rate 14 /min Zoë Denbow PA-C Work Phone: [facility] 06-19-2023 12:27-0400 SaO2% (BldA) [Mass fraction] 99 % Zoë Denbow PA-C Work Phone: [facility] 06-19-2023 12:27-0400 Systolic blood pressure 124 mm[Hg] Zoë Denbow PA-C Work Phone: [facility] 04-29-2023 09:07-0400 Body weight 71.22 kg Bessy Bogner PA-C Work Phone: [facility] 04-29-2023 09:07-0400 Diastolic blood pressure 68 mm[Hg] Bessy Bogner PA-C Work Phone: [facility] 04-29-2023 09:07-0400 Heart rate 64 /min Bessy Bogner PA-C Work Phone: [facility] 04-29-2023 09:07-0400 Respiratory rate 14 /min Bessy Bogner PA-C Work Phone: [facility] 04-29-2023 09:07-0400 Systolic blood pressure 116 mm[Hg] Bessy Bogner PA-C Work Phone: [facility] 12-07-2022 10:59-0500 Body height 160 cm Giovana Conteh MD Work Phone: [facility] 12-07-2022 10:59-0500 Body temperature 98.6 [degF] Giovana Conteh MD Work Phone: [facility] 12-07-2022 10:59-0500 Body weight 68.04 kg Giovana Conteh MD Work Phone: [facility] 12-07-2022 10:59-0500 Diastolic blood pressure 62 mm[Hg] Giovana Conteh MD Work Phone: [facility] 12-07-2022 10:59-0500 Heart rate 103 /min Giovana Conteh MD Work Phone: [facility] 12-07-2022 10:59-0500 Respiratory rate 12 /min Giovana Conteh MD Work Phone: [facility] 12-07-2022 10:59-0500 SaO2% (BldA) [Mass fraction] 99 % Giovana Conteh MD Work Phone: [facility] 12-07-2022 10:59-0500 Systolic blood pressure 120 mm[Hg] Giovana Conteh MD Work Phone: [facility] 07-25-2022 10:36-0400 Body height 160 cm Giovana Conteh MD Work Phone: [facility] 07-25-2022 10:36-0400 Body temperature 99.7 [degF] Giovana Conteh MD Work Phone: [facility] 07-25-2022 10:36-0400 Body weight 69.85 kg Giovana Conteh MD Work Phone: [facility] 07-25-2022 10:36-0400 Diastolic blood pressure 70 mm[Hg] Goivana Conteh MD Work Phone: [facility] 07-25-2022 10:36-0400 Heart rate 69 /min Giovana Conteh MD Work Phone: [facility] 07-25-2022 10:36-0400 Respiratory rate 12 /min Giovana Conteh MD Work Phone: [facility] 07-25-2022 10:36-0400 SaO2% (BldA) [Mass fraction] 99 % Giovana Conteh MD Work Phone: [facility] 07-25-2022 10:36-0400 Systolic blood pressure 118 mm[Hg] Giovana Conteh MD Work Phone: [facility] 03-27-2022 08:02-0400 Body weight 70.31 kg Tawny Zabala COMPUTER METHODS ANALYST.ELECTRICAL WIRER Work Phone: [facility] 03-27-2022 08:02-0400 Diastolic blood pressure 70 mm[Hg] Tawny Zabala COMPUTER METHODS ANALYST.ELECTRICAL WIRER Work Phone: [facility] 03-27-2022 08:02-0400 Heart rate 60 /min Tawny Zabala COMPUTER METHODS ANALYST.ELECTRICAL WIRER Work Phone: [facility] 03-27-2022 08:02-0400 Respiratory rate 16 /min Tawny Zabala COMPUTER METHODS ANALYST.ELECTRICAL WIRER Work Phone: [facility] 03-27-2022 08:02-0400 Systolic blood pressure 118 mm[Hg] Tawny Zabala COMPUTER METHODS ANALYST.ELECTRICAL WIRER Work Phone: [facility] 01-22-2022 10:55-0400 Body height 165.[address] [facility] 01-22-2022 10:55-0400 Body weight 73.[address] [facility] 12-19-2021 08:41-0400 Body weight 75.3 kg Marizol Rae COMPUTER METHODS ANALYST.TICK INSPECTOR Work Phone: [facility] 12-19-2021 08:41-0400 Diastolic blood pressure 70 mm[Hg] Marizol Rae COMPUTER METHODS ANALYST.TICK INSPECTOR Work Phone: [facility] 12-19-2021 08:41-0400 Heart rate 71 /min Marizol Rae COMPUTER METHODS ANALYST.TICK INSPECTOR Work Phone: [facility] 12-19-2021 08:41-0400 Systolic blood pressure 106 mm[Hg] Marizol Rae COMPUTER METHODS ANALYST.TICK INSPECTOR Work Phone: [facility] 12-18-2021 13:53-0400 Body height 165.1 cm Giovana Conteh MD Work Phone: [facility] 12-18-2021 13:53-0400 Body temperature 98.01 [degF] Giovana Conteh MD Work Phone: [facility] 12-18-2021 13:53-0400 Body weight 75.75 kg Giovana Conteh MD Work Phone: [facility] 12-18-2021 13:53-0400 Diastolic blood pressure 70 mm[Hg] Giovana Conteh MD Work Phone: [facility] 12-18-2021 13:53-0400 Heart rate 55 /min Giovana Conteh MD Work Phone: [facility] 12-18-2021 13:53-0400 Respiratory rate 12 /min Giovana Conteh MD Work Phone: [facility] 12-18-2021 13:53-0400 SaO2% (BldA) [Mass fraction] 100 % Giovana Conteh MD Work Phone: [facility] 12-18-2021 13:53-0400 Systolic blood pressure 136 mm[Hg] Giovana Conteh MD Work Phone: [facility] Encounters Encounter Date Encounter Type Care Provider Facility Start: 09-24-2023 End: 09-24-2023 ambulatory GIOVANA CONTEH Facility:[facility] Start: 09-16-2023 End: 09-16-2023 ambulatory GIOVANA CONTEH Facility:[facility] Start: 09-04-2023 End: 09-04-2023 ambulatory POLLY JONES Facility:[facility] Start: 09-04-2023 End: 09-04-2023 Patient encounter procedure Polly Jones MD Work Phone: OB/Gynecology Procedures Date Procedure Procedure Detail Performing Clinician Start: 09-04-2023 BACTERIAL VAGINOSIS NAAT Polly Jones MD Work Phone: Start: 09-04-2023 Iadna trichomonas vaginalis amplified probe tech Polly Jones MD Work Phone: Start: 09-04-2023 Urnls dip stick/tabl et rgnt auto w/o microscopy Polly Jones MD Work Phone: Start: 07-05-2023 INFLUENZA VACCINE, A GE 6 MO - 64 YR, QUADRIVALENT (AFLURIA, FLULAVAL, FLUZONE) Shannan Castaneda MD Work Phone: Start: 05-10-2023 End: 05-10-2023 Mammography Bulk Order Provider Start: 12-07-2022 Hemoglobin A1c/Hemoglobin.total in Blood Giovana Conteh MD Work Phone: Start: 07-21-2022 PFIZER-BIONTECH COVI D-19 BIVALENT BOOSTER VACCINE, AGE 12+ YR Zac Abdi MD Work Phone: Start: 07-21-2022 INFLUENZA VACCINE QUADRIVALENT 6 MO - 64 YRS IM Zac Abdi MD Work Phone: Start: 03-27-2022 PFIZER-BIONTECH COVI D-19 VACCINE, AGE 12+ YR (MARION TOP) Tawny Zabala COMPUTER METHODS ANALYST.ELECTRICAL WIRER Work Phone: Start: 01-12-2022 Breath hydrogen/meth ane test Marizol Rae COMPUTER METHODS ANALYST.TICK INSPECTOR Work Phone: Start: 03-23-2021 Colonoscopy Giovana garcia MD Work Phone: Start: 04-17-2016 Mammography Giovana garcia MD Work Phone: Plan of Treatment Date Care Activity Detail Author Start: 03-27-2032 Urine microalbumin profile [facility] Start: 03-23-2031 Colonoscopy COLONOSCOPY [facility] Start: 03-23-2031 COLORECTAL CANCER SCREENING COLORECTAL CANCER SCREENING [facility] Start: 08-18-2028 Urine microalbumin profile DTA P,TDAP,TD (2 - Td or Tdap) [facility] Start: 08-19-2024 Annual PCP Team Intellectual Property Legal Assistant elisha Disease Visit Annual PCP Team Chronic Disease Visit [facility] Start: 08-07-2024 Annual PCP Team Intellectual Property Legal Assistant elisha Disease Visit Annual PCP Team Chronic Disease Visit [facility] Start: 08-07-2024 Covid-19 Vaccine ( season) Covid-19 Vaccine ( season) [facility] Immunizations Immunization Date Immunization Notes Care Provider Jules gant 07-05-2023 influenza, injectabl e, quadrivalent, contains preservative Immunization Maykel Work Phone: [facility] Work Phone: 07-21-2022 COVID-19 booster vaccine, age 12+ yr, bivalent (PFIZER-BIONTECH) Immunization Maykel Work Phone: [facility] Work Phone: 07-21-2022 influenza, injectabl e, quadrivalent, contains preservative Immunization Maykel Work Phone: [facility] 07-21-2022 influenza virus vaccine, unspecified formulation Zoë Arenas PA-C Work Phone: [facility] 03-27-2022 COVID-19 vaccine, ag e 12+ yr (PFIZER-BIONTECH - MARION TOP) Tawny Zabala APRN.ELECTRICAL WIRER Work Phone: [facility] Work Phone: 03-27-2022 tetanus toxoid, redu lokesh diphtheria toxoid, and acellular pertussis vaccine, adsorbed Tawnyboom Zabala APRN.ELECTRICAL WIRER Work Phone: [facility] Work Phone: 07-06-2021 influenza, injectabl e, quadrivalent, contains preservative Giovana Conteh MD Work Phone: [facility] Work Phone: 06-21-2020 influenza, injectabl e, quadrivalent, contains preservative Giovana Conteh MD Work Phone: [facility] Work Phone: 06-15-2019 influenza, injectabl e, quadrivalent, contains preservative Giovana Conteh MD Work Phone: [facility] 08-18-2018 pneumococcal polysaccharide vaccine, 23 valent Giovana Conteh MD Work Phone: [facility] 07-07-2018 influenza, injectabl e, quadrivalent, contains preservative Giovana Conteh MD Work Phone: [facility] 10-10-2016 pneumococcal conjuga te vaccine, 13 valent Giovana Conteh MD Work Phone: [facility] Work Phone: 06-21-2016 influenza, injectabl e, quadrivalent, contains preservative Giovana Conteh MD Work Phone: [facility] 06-21-2016 tetanus and diphther ia toxoids, adsorbed, preservative free, for adult use (5 Lf of tetanus toxoid and 2 Lf of diphtheria toxoid) Giovana Conteh MD Work Phone: [facility] 08-09-2015 influenza, injectabl e, quadrivalent, contains preservative Giovana Conteh MD Work Phone: [facility] 08-12-2014 influenza, seasonal, injectable Giovana Conteh MD Work Phone: [facility] 06-20-2012 influenza virus vaccine, unspecified formulation Giovana Conteh MD Work Phone: [facility] 08-03-2011 influenza virus vaccine, unspecified formulation Giovana Conteh MD Work Phone: [facility] Work Phone: 06-26-2010 influenza virus vaccine, unspecified formulation Giovana Conteh MD Work Phone: [facility] 07-02-2009 influenza virus vaccine, unspecified formulation Giovana Conteh MD Work Phone: [facility] Work Phone: 11-26-2008 hepatitis B immune globulin Giovana Conteh MD Work Phone: [facility] Work Phone: 08-05-2008 influenza virus vaccine, unspecified formulation Giovana Conteh MD Work Phone: [facility] Work Phone: 06-18-2008 hepatitis B immune globulin Giovana Conteh MD Work Phone: [facility] Work Phone: 05-15-2008 hepatitis B immune globulin Giovana Conteh MD Work Phone: [facility] Work Phone: 07-29-2007 influenza virus vaccine, unspecified formulation Giovana Conteh MD Work Phone: [facility] 07-21-2007 pneumococcal polysaccharide vaccine, 23 valent Giovana Conteh MD Work Phone: [facility] Work Phone: 01-16-2006 tetanus and diphther ia toxoids, adsorbed, preservative free, for adult use (2 Lf of tetanus toxoid and 2 Lf of diphtheria toxoid) Giovana Conteh MD Work Phone: [facility] Work Phone: Payers Date Payer Category Payer Medicaid [id number] 2023 Medicaid [id number] 2023 Medicaid [id number] 2022 Unknown [id number] 2022 Medicare [id number] 2022 Medicare [id number] 2021 Medicaid [id number] 2021 Medicaid [id number] 2017 Unknown ANTHEM BLUE CROS S AND BLUE SHIELD ANTHEM MEDIBLUE O [id number] 2017-Present [phone] [address] [place] [address] O [id number] 2017 Medicare [id number] Social History Date Type Detail Facility Start: 07-25-2022 Tobacco smoking stat us NHIS Never smoked tobacco [facility] Work Phone: Start: 12-18-2021 End: 09-04-2023 Alcohol intake Current drinker of alcohol (finding) [facility] Start: 07-14-2020 End: 12-18-2021 History SDOH Alcohol Frequency 1 [facility] Start: 03-23-2021 History SDOH Alcohol Comment rarely [facility] Start: 02-05-2020 End: 07-14-2020 History SDOH Social Connections Phone 5 [facility] Start: 02-05-2020 End: 06-20-2020 History SDOH Social Connections Quaker 3 [facility] Start: 06-20-2020 History SDOH Physica l Activity DPW 0 [facility] Start: 07-14-2020 End: 12-18-2021 History SDOH Transport Med 2 [facility] Start: 02-04-2020 Education 12 [facility] Start: 1960 Sex Assigned At Not on file [facility] Start: 12-08-2021 End: 07-31-2022 Exposure to SARS-CoV-2 (event) Not sure [facility] Work Phone: Start: 06-26-2022 End: 07-06-2022 Exposure to SARS-CoV-2 (event) Unable to assess [facility] Work Phone: Start: 07-25-2022 Tobacco use and exposure Smoke less tobacco non-user [facility] Work Phone: Start: 02-04-2020 End: 2023 History of Social function [facility] elisha Start: 02-04-2020 End: 2023 Social connection and isolation panel [facility] Do you belong to any clubs or organizations such as roman catholic groups, unions, fraternal or athletic groups, or school groups? Yes [facility] Are you now , , , , never or living with a partner? [facility] How often to you hav e a drink containing alcohol? Never [facility] How many standard dr inks containing alcohol do you have on a typical day? 1 or 2 [facility] How hard is it for y ou to pay for the very basics like food, housing, medical care, and heating Not hard at all [facility] Do you feel stress - tense, restless, nervous, or anxious, or unable to sleep at night because your mind is troubled all the time - these days [OSQ] Not at all [facility] (I/We) worried wheth er (my/our) food would run out before (I/we) got money to buy more. Never true [facility] In the past 12 month s, was there a time when you were not able to pay the mortgage or rent on time? No [facility] How hard is it for y ou to pay for the very basics like food, housing, medical care, and heating Somewhat hard [facility] Do you feel stress - tense, restless, nervous, or anxious, or unable to sleep at night because your mind is troubled all the time - these days [OSQ] To some extent [facility] (I/We) worried wheth er (my/our) food would run out before (I/we) got money to buy more. Sometimes true [facility] Medical Equipment Procedure Code Equipment Code Equipment Origin al Text Equipment Identifier Dates Graft Infuse 14m m Small Bovine Collagen Rhbmp-2 23mm Bone Absorbable Sponge - [id number] Start: 06-24-2020 Screw Nuris 3 Sierra nium Set Lily Spine - [id number] Start: 06-24-2020 Screw Nuris 3 Serr [place] 6.5mm 45mm Bone Polyaxial Nonsterile Spine - [id number] Start: 06-24-2020 Start: 12-09-2018 End: 05-15-2023 Clinical Notes 06-27-2020 to 09-24-2023 Polly Moncada MD - 09/04/2023 10:16 AM ESTTelephone Encounter - Anuradha Felder Ma - 08/15/2023 10:52 AM ESTTelephone Encounter - Annika RENETTA Hurley - 08/15/2023 10:33 AM EST Note Date & Type Note Facility 09-24-2023 Note HNO ID: [id number] Author: Ashleigh Scruggs RT(R) Service: Radiology Author Type: Technologist Type: Progress Notes Filed: 09/24/2023 11:58 AM Note Text: Radiology Service Progress Note PATIENT NAME: Mita Chatman DATE OF SERVICE: September 24, 2023 TIME: 11:48 AM PATIENT IDENTITY VERIFICATION COMPLETED USING TWO (2) IDENTIFIERS: Name and Date of confirmed by patient verbally. FALL SCREENING: Has the patient had 2 falls in the last year or 1 fall with injury or currently using an Ambulatory Assistive Device (Walker, Cane, Wheelchair, Crutches, etc.)? No PATIENT GENDER DATA: Female. status: : No status: NO. PATIENT RELEVANT IMPLANT DATA REVIEWED: Yes RADIOLOGY DEPARTMENT: General X-ray: Exam(s) Completed: Chest X-Ray PERIPHERAL IV DATA: Not applicable SIGNED BY: RT Bayron(R) September 24, 2023 11:48 AM [facility] 09-24-2023 Note HNO ID: [id number] Author: Delores Jung APRN.TICK INSPECTOR Service: ? Author Type: Nurse Practitioner Type: Progress Notes Filed: 09/24/2023 11:54 AM Note Text: CC: Patient presents with: Cough: Lightheadedness, ear pain - seen in [facility] 09/16/2023 - took last steroid pill this morning. HPI: Mita Chatman is a 63 year old female who presents to the office with above complaint. [facility] was [facility] for five day history of URI symptoms. Chest x-ray, influenza, RSV and COVID were all negative. She was treated with prednisone burst and taper along with cough syrup as needed. Today patient reports symptoms have not improved and now has headache, facial and ear pain and pressure. Other symptoms include: Temperature elevation: No Chills: No Cough: Yes non-productive Shortness of breath: Yes Fatigue: Yes Muscle aches: No Headache: Yes New loss of smell or taste: No Sore throat: No Nasal congestion: Yes Rhinorrhea: Yes Nausea and/or vomiting: No Diarrhea: No PMH: asthma Review of Systems See HPI PAST MEDICAL HISTORY Diagnosis Date Acquired hypothyroidism 01/05/2016 Acute gastritis without mention of hemorrhage Anemia, unspecified 06/19/2007 Asthma Benign hypertensive heart disease without heart failure BMI 36.0-36.9,adult 02/04/2017 Compression fracture of fifth lumbar vertebra (HCC) 07/29/2019 Depression Diabetes mellitus without mention of complication Diabetes mellitus Diarrhea Esophageal reflux Esophagitis, unspecified Generalized osteoarthrosis, unspecified site History of transfusion Hypertension Hypertrophy of breast 02/06/2008 Metabolic syndrome 11/18/2014 Mild persistent asthma 08/09/2016 Morbid obesity (HCC) 02-08-11 stated BMI 40.47 Ht: 62 Wt: 221 lbs Obstructive sleep apnea KYLEIGH (obstructive sleep apnea) 08/09/2016 Other and unspecified hyperlipidemia Transfusion history 04/2014 4 units after hysterectomy, postop hemorrhage PAST SURGICAL HISTORY Procedure Laterality Date ABDOMINAL SURGERY HX ANTERIOR COLPORRAPHY RPR CYSTOCELE W/CYSTO 05/06/2014 cystocele BACK SURGERY HX 06/24/2020 L4, L5 fusion BREAST SURGERY HX COLONOSCOPY FLX DX W/COLLJ SPEC WHEN PFRMD 08/16/2016 Colonoscopy (MAC) COLONOSCOPY GEN ANES 03/23/2021 normal colonoscopy, non-bleeding hemorrhoids COLONOSCOPY W/BIOPSY SINGLE/MULTIPLE 05/09/2009 COLPOPEXY VAGINAL INTRAPERITONEAL APPROACH 05/06/2014 USLF, cystoscopy DILATION AND CURETTAGE DXAND/THER NONOBSTETRIC Dilation AND curettage EGD 03/23/2021 normal exam, gastric bypass noted EGD TRANSORAL BIOPSY SINGLE/MULTIPLE 01/22/2011 ESOPHAGOGASTRODUODENOSCOPY TRANSORAL DIAGNOSTIC 05/29/2013 EGD ESOPHAGOGASTRODUODENOSCOPY TRANSORAL DIAGNOSTIC 08/16/2016 EGD (MAC) ESOPHAGOGASTRODUODENOSCOPY TRANSORAL DIAGNOSTIC 10/11/2016 EGD GASTRIC BYPASS HX 2009 LAPAROSCOPY SURG CHOLECYSTECTOMY Cholecystectomy, lap LIG/TRNSXJ FLP TUBE ABDL/VAG APPR UNI/BI Tubal ligation PAST SURGICAL HISTORY OF right foot bone spur removed PAST SURGICAL HISTORY OF 08/13/2014 Posterior colporrhaphy REDUCTION OF LARGE BREAST 2008 TONSILLECTOMY HX TONSILLECTOMY PRIMARY/SECONDARY VAG HYST 250 GM/< W/RMVL TUBEAND/OVARY 05/06/2014 TVH/BSO for prolapse VAGINAL HYSTERECTOMY ALLERGIES Amoxicillin, Doxycycline, Metformin, Pentazocine, Talacen [Pentazocine-Acetaminophen], Tessalon [Benzonatate], and Thiazides MEDICATIONS Bwfgromqkttmukb-Sksirkyde-YY (BROMFED DM) 2-30-10 mg/5 mL syrup Take 5 mL by mouth four times a day as needed. clotrimazole-betamethasone (LOTRISONE) cream Apply 1 application to affected area two times a day. FLUoxetine (PROZAC) 20 mg capsule Take 1 capsule by mouth once daily. hydrOXYzine HCl (ATARAX) 25 mg tablet Take 1-2 tablets by mouth every 6 hours as needed for anxiety. insulin detemir U-100 (LEVEMIR FLEXTOUCH U-100 INSULIN) 100 unit/mL (3 mL) injection pen Inject 32 Units subcutaneously daily at bedtime. levothyroxine (LEVOXYL) 25 mcg tablet Take 1 tablet by mouth once daily. Take on empty stomach. For Thyroid except no dose on Saturday or Saturday topiramate (TOPAMAX) 50 mg tablet Take 1 tablet by mouth once daily. QUEtiapine (SEROQUEL) 100 mg tablet Take 1 tablet by mouth once daily. folic acid 1 mg tablet Take 2 tablets by mouth once daily. Sublingual empagliflozin (JARDIANCE) 10 mg tablet Take 1 tablet by mouth once daily. Take 1 tablet once daily in the morning oxybutynin ER (DITROPAN XL) 15 mg 24 hr Extended Rel Tab Take 1 tablet by mouth once daily. atorvastatin (LIPITOR) 10 mg tablet Take 1 tablet by mouth daily at bedtime. For cholesterol. traZODone (DESYREL) 100 mg tablet Take 1 tablet by mouth daily at bedtime. albuterol HFA (VENTOLIN HFA) 90 mcg/actuation inhaler Inhale 2 Puffs as instructed every 4 hours as needed. For wheezing/shortness of breath. Lancets lancets Test blood sugar(s) 3 times daily. Dx: Type 2 DM - Uncontrolled E11.65 In (more content not included)... [facility] 09-16-2023 Note HNO ID: [id number] Author: Stan Cao RT(R) Service: ? Author Type: Technologist Type: Progress Notes Filed: 09/16/2023 9:15 AM Note Text: Radiology Service Progress Note PATIENT NAME: Mita Chatman DATE OF SERVICE: September 16, 2023 TIME: 9:09 AM PATIENT IDENTITY VERIFICATION COMPLETED USING TWO (2) IDENTIFIERS: Name and Date of confirmed by patient verbally. FALL SCREENING: Has the patient had 2 falls in the last year or 1 fall with injury or currently using an Ambulatory Assistive Device (Walker, Cane, Wheelchair, Crutches, etc.)? No PATIENT GENDER DATA: Female. status: : No status: NO. PATIENT RELEVANT IMPLANT DATA REVIEWED: Not Applicable RADIOLOGY DEPARTMENT: General X-ray: Exam(s) Completed: Chest X-Ray PERIPHERAL IV DATA: Not applicable SIGNED BY: RT Devora(R) September 16, 2023 9:09 AM [facility] 09-16-2023 Note HNO ID: [id number] Author: Teresa Rivera APRN.TICK INSPECTOR Service: ? Author Type: Nurse Practitioner Type: Progress Notes Filed: 09/16/2023 9:50 AM Note Text: This note was created using InsideMaps[employer]. Subjective Mita Chatman is a 63 year old female. 63 year old female with PMH hyperlipidemia, HTN, asthma, GERD, DM, thyroid presents for illness. Acute onset 5 days ago +sore throat +headache +body aches +cough Harsh and dry. +chest congestion. Denies CP. Denies SOB Has been using Nyquil and Dayquil + ill at home with similar, he seems to be getting better States the cough has seemed to worsen over th past 12 hours. She was awoken by coughing fit at 0200 today Denies tobacco usage. The history is provided by the patient. No russian language professor was used. URI She complains of cough. There is no chest tightness, difficulty breathing, frequent throat clearing, hemoptysis, hoarse voice, shortness of breath, sputum production or wheezing. This is a new problem. The current episode started in the past 7 days. The problem occurs constantly. The problem has been gradually worsening. The cough is non-productive. Associated symptoms include headaches, malaise/fatigue, myalgias, nasal congestion, postnasal drip, rhinorrhea, sneezing and a sore throat. Pertinent negatives include no appetite change, chest pain, dyspnea on exertion, ear congestion, ear pain, fever, heartburn, orthopnea, PND, sweats, trouble swallowing or weight loss. Her symptoms are aggravated by nothing. Her symptoms are alleviated by nothing. There are no known risk factors for lung disease. Her past medical history is significant for asthma. There is no history of bronchiectasis, bronchitis, COPD, emphysema or pneumonia. PAST MEDICAL HISTORY Diagnosis Date Acquired hypothyroidism 01/05/2016 Acute gastritis without mention of hemorrhage Anemia, unspecified 06/19/2007 Asthma Benign hypertensive heart disease without heart failure BMI 36.0-36.9,adult 02/04/2017 Compression fracture of fifth lumbar vertebra (HCC) 07/29/2019 Depression Diabetes mellitus without mention of complication Diabetes mellitus Diarrhea Esophageal reflux Esophagitis, unspecified Generalized osteoarthrosis, unspecified site History of transfusion Hypertension Hypertrophy of breast 02/06/2008 Metabolic syndrome 11/18/2014 Mild persistent asthma 08/09/2016 Morbid obesity (HCC) 02-08-11 stated BMI 40.47 Ht: 62 Wt: 221 lbs Obstructive sleep apnea KYLEIGH (obstructive sleep apnea) 08/09/2016 Other and unspecified hyperlipidemia Transfusion history 04/2014 4 units after hysterectomy, postop hemorrhage PAST SURGICAL HISTORY Procedure Laterality Date ABDOMINAL SURGERY HX ANTERIOR COLPORRAPHY RPR CYSTOCELE W/CYSTO 05/06/2014 cystocele BACK SURGERY HX 06/24/2020 L4, L5 fusion BREAST SURGERY HX COLONOSCOPY FLX DX W/COLLJ SPEC WHEN PFRMD 08/16/2016 Colonoscopy (MAC) COLONOSCOPY GEN ANES 03/23/2021 normal colonoscopy, non-bleeding hemorrhoids COLONOSCOPY W/BIOPSY SINGLE/MULTIPLE 05/09/2009 COLPOPEXY VAGINAL INTRAPERITONEAL APPROACH 05/06/2014 USLF, cystoscopy DILATION AND CURETTAGE DXAND/THER NONOBSTETRIC Dilation AND curettage EGD 03/23/2021 normal exam, gastric bypass noted EGD TRANSORAL BIOPSY SINGLE/MULTIPLE 01/22/2011 ESOPHAGOGASTRODUODENOSCOPY TRANSORAL DIAGNOSTIC 05/29/2013 EGD ESOPHAGOGASTRODUODENOSCOPY TRANSORAL DIAGNOSTIC 08/16/2016 EGD (MAC) ESOPHAGOGASTRODUODENOSCOPY TRANSORAL DIAGNOSTIC 10/11/2016 EGD GASTRIC BYPASS HX 2009 LAPAROSCOPY SURG CHOLECYSTECTOMY Cholecystectomy, lap LIG/TRNSXJ FLP TUBE ABDL/VAG APPR UNI/BI Tubal ligation PAST SURGICAL HISTORY OF right foot bone spur removed PAST SURGICAL HISTORY OF 08/13/2014 Posterior colporrhaphy REDUCTION OF LARGE BREAST 2008 TONSILLECTOMY HX TONSILLECTOMY PRIMARY/SECONDARY VAG HYST 250 GM/< W/RMVL TUBEAND/OVARY 05/06/2014 TVH/BSO for prolapse VAGINAL HYSTERECTOMY ALLERGIES Amoxicillin, Doxycycline, Metformin, Pentazocine, Talacen [Pentazocine-Acetaminophen], Tessalon [Benzonatate], and Thiazides MEDICATIONS predniSONE (DELTASONE) 10 mg tablet Take 4 tabs daily for 3 days, then 2 tabs daily for 3 days, then 1 tab daily for 3 days with food. Gvvwnggwkfqaliy-Bkquulqtn-TU (BROMFED DM) 2-30-10 mg/5 mL syrup Take 5 mL by mouth four times a day as needed. clotrimazole-betamethasone (LOTRISONE) cream Apply 1 application to affected area two times a day. FLUoxetine (PROZAC) 20 mg capsule Take 1 capsule by mouth once daily. hydrOXYzine HCl (ATARAX) 25 mg tablet Take 1-2 tablets by mouth every 6 hours as needed for anxiety. insulin detemir U-100 (LEVEMIR FLEXTOUCH U-100 INSULIN) 100 unit/mL (3 mL) injection pen Inject 32 Units subcutaneously daily at bedtime. levothyroxine (LEVOXYL) 25 mcg tablet Take 1 tablet by mouth once daily. Take on empty stomach. For Thyroid except no dose on Saturday or Saturday topir (more content not included)... [facility] 09-04-2023 Note HNO ID: [id number] Author: Polly Moncada MD Service: ? Author Type: Physician Type: Progress Notes Filed: 09/04/2023 12:14 PM Note Text: Pesticide Chemist offered: Patient declines. Mita Chatman is a 63 year old female who presents for problem visit for recurrent vaginitis for 5 month(s). HPI: Used monistat and vagasil creams at home - helps with itching. Last night felt so itchy that she almost went to the ER. Uses monistat all the time. BS not well controlled but better for her. Is currently on Jardiance and Insulin. Wears depends daily for urinary urge incontinence. Recently started oxybutynin ER 15mg daily with no relief. Not sexually active with due to discomfort. No changes in soaps or detergents. 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 History Comments: Sexual Activity: Not Currently; Male; hysterectomy Contraception: Surgical PAST MEDICAL HISTORY Diagnosis Date Acquired hypothyroidism 01/05/2016 Acute gastritis without mention of hemorrhage Anemia, unspecified 06/19/2007 Asthma Benign hypertensive heart disease without heart failure BMI 36.0-36.9,adult 02/04/2017 Compression fracture of fifth lumbar vertebra (HCC) 07/29/2019 Depression Diabetes mellitus without mention of complication Diabetes mellitus Diarrhea Esophageal reflux Esophagitis, unspecified Generalized osteoarthrosis, unspecified site History of transfusion Hypertension Hypertrophy of breast 02/06/2008 Metabolic syndrome 11/18/2014 Mild persistent asthma 08/09/2016 Morbid obesity (HCC) 02-08-11 stated BMI 40.47 Ht: 62 Wt: 221 lbs Obstructive sleep apnea KYLEIGH (obstructive sleep apnea) 08/09/2016 Other and unspecified hyperlipidemia Transfusion history 04/2014 4 units after hysterectomy, postop hemorrhage PAST SURGICAL HISTORY Procedure Laterality Date ABDOMINAL SURGERY HX ANTERIOR COLPORRAPHY RPR CYSTOCELE W/CYSTO 05/06/2014 cystocele BACK SURGERY HX 06/24/2020 L4, L5 fusion BREAST SURGERY HX COLONOSCOPY FLX DX W/COLLJ SPEC WHEN PFRMD 08/16/2016 Colonoscopy (MAC) COLONOSCOPY GEN ANES 03/23/2021 normal colonoscopy, non-bleeding hemorrhoids COLONOSCOPY W/BIOPSY SINGLE/MULTIPLE 05/09/2009 COLPOPEXY VAGINAL INTRAPERITONEAL APPROACH 05/06/2014 USLF, cystoscopy DILATION AND CURETTAGE DXAND/THER NONOBSTETRIC Dilation AND curettage EGD 03/23/2021 normal exam, gastric bypass noted EGD TRANSORAL BIOPSY SINGLE/MULTIPLE 01/22/2011 ESOPHAGOGASTRODUODENOSCOPY TRANSORAL DIAGNOSTIC 05/29/2013 EGD ESOPHAGOGASTRODUODENOSCOPY TRANSORAL DIAGNOSTIC 08/16/2016 EGD (MAC) ESOPHAGOGASTRODUODENOSCOPY TRANSORAL DIAGNOSTIC 10/11/2016 EGD GASTRIC BYPASS HX 2009 LAPAROSCOPY SURG CHOLECYSTECTOMY Cholecystectomy, lap LIG/TRNSXJ FLP TUBE ABDL/VAG APPR UNI/BI Tubal ligation PAST SURGICAL HISTORY OF right foot bone spur removed PAST SURGICAL HISTORY OF 08/13/2014 Posterior colporrhaphy REDUCTION OF LARGE BREAST 2008 TONSILLECTOMY HX TONSILLECTOMY PRIMARY/SECONDARY VAG HYST 250 GM/< W/RMVL TUBEAND/OVARY 05/06/2014 TVH/BSO for prolapse VAGINAL HYSTERECTOMY FAMILY HISTORY Problem Relation Age of Onset Breast Cancer Mother Liver and colon cancer Hypertension Mother Stroke Mother Coronary Artery Disease Father Diabetes Maternal Grandmother Heart Maternal Grandfather [place] Stroke Paternal Grandmother Diabetes Paternal Grandmother Stroke Paternal Grandfather Anesthesia Problems No Family History Social History Tobacco Use Smoking status: Never Smokeless tobacco: Never Vaping Use Vaping Use: Never used Substance Use Topics Alcohol use: Yes Comment: rarely Drug use: No Current Outpatient Medications Medication Sig FLUoxetine (PROZAC) 20 mg capsule Take 1 capsule by mouth once daily. hydrOXYzine HCl (ATARAX) 25 mg tablet Take 1-2 tablets by mouth every 6 hours as needed for anxiety. insulin detemir U-100 (LEVEMIR FLEXTOUCH U-100 INSULIN) 100 unit/mL (3 mL) injection pen Inject 32 Units subcutaneously daily at bedtime. levothyroxine (LEVOXYL) 25 mcg tablet Take 1 tablet by mouth once daily. Take on empty stomach. For Thyroid except no dose on Saturday or Saturday topiramate (TOPAMAX) 50 mg tablet Take 1 tablet by mouth once daily. QUEtiapine (SEROQUEL) 100 mg tablet Take 1 tablet by mouth once daily. folic acid 1 mg tablet Take 2 tablets by mouth once daily. Sublingual empagliflozin (JARDIANCE) 10 mg tablet Take 1 tablet by mouth once daily. Take 1 tablet once daily in the morning oxybutynin ER (DITROPAN XL) 15 mg 24 hr Extended Rel Tab Take 1 tablet by mouth once daily. atorvastatin (LIPITOR) 10 mg tablet Take 1 tablet by mouth daily at bedtime. For cholesterol. traZODone (DESYREL) 100 mg tablet Take 1 tablet by mouth daily at bedtime. albuterol HFA (VENTOLIN HFA) 9 (more content not included)... [facility] 09-04-2023 History of Present illness Narrative Pesticide Chemist offered: Patient declines. Mita Chatman is a 63 year old female who presents for problem visit for recurrent vaginitis for 5 month(s). HPI: Used monistat and vagasil creams at home - helps with itching. Last night felt so itchy that she almost went to the ER. Uses monistat all the time. BS not well controlled but better for her. Is currently on Jardiance and Insulin. Wears depends daily for urinary urge incontinence. Recently started oxybutynin ER 15mg daily with no relief. Not sexually active with due to discomfort. No changes in soaps or detergents. 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 History Comments: Sexual Activity: Not Currently; Male; hysterectomy Contraception: Surgical PAST MEDICAL HISTORY Diagnosis Date Acquired hypothyroidism 01/05/2016 Acute gastritis without mention of hemorrhage Anemia, unspecified 06/19/2007 Asthma Benign hypertensive heart disease without heart failure BMI 36.0-36.9,adult 02/04/2017 Compression fracture of fifth lumbar vertebra (HCC) 07/29/2019 Depression Diabetes mellitus without mention of complication Diabetes mellitus Diarrhea Esophageal reflux Esophagitis, unspecified Generalized osteoarthrosis, unspecified site History of transfusion Hypertension Hypertrophy of breast 02/06/2008 Metabolic syndrome 11/18/2014 Mild persistent asthma 08/09/2016 Morbid obesity (HCC) 02-08-11 stated BMI 40.47 Ht: 62 Wt: 221 lbs Obstructive sleep apnea KYLEIGH (obstructive sleep apnea) 08/09/2016 Other and unspecified hyperlipidemia Transfusion history 04/2014 4 units after hysterectomy, postop hemorrhage PAST SURGICAL HISTORY Procedure Laterality Date ABDOMINAL SURGERY HX ANTERIOR COLPORRAPHY RPR CYSTOCELE W/CYSTO 05/06/2014 cystocele BACK SURGERY HX 06/24/2020 L4, L5 fusion BREAST SURGERY HX COLONOSCOPY FLX DX W/COLLJ SPEC WHEN PFRMD 08/16/2016 Colonoscopy (MAC) COLONOSCOPY GEN ANES 03/23/2021 normal colonoscopy, non-bleeding hemorrhoids COLONOSCOPY W/BIOPSY SINGLE/MULTIPLE 05/09/2009 COLPOPEXY VAGINAL INTRAPERITONEAL APPROACH 05/06/2014 USLF, cystoscopy DILATION & CURETTAGE DX&/THER NONOBSTETRIC Dilation & curettage EGD 03/23/2021 normal exam, gastric bypass noted EGD TRANSORAL BIOPSY SINGLE/MULTIPLE 01/22/2011 ESOPHAGOGASTRODUODENOSCOPY TRANSORAL DIAGNOSTIC 05/29/2013 EGD ESOPHAGOGASTRODUODENOSCOPY TRANSORAL DIAGNOSTIC 08/16/2016 EGD (MAC) ESOPHAGOGASTRODUODENOSCOPY TRANSORAL DIAGNOSTIC 10/11/2016 EGD GASTRIC BYPASS HX 2009 LAPAROSCOPY SURG CHOLECYSTECTOMY Cholecystectomy, lap LIG/TRNSXJ FLP TUBE ABDL/VAG APPR UNI/BI Tubal ligation PAST SURGICAL HISTORY OF right foot bone spur removed PAST SURGICAL HISTORY OF 08/13/2014 Posterior colporrhaphy REDUCTION OF LARGE BREAST 2008 TONSILLECTOMY HX TONSILLECTOMY PRIMARY/SECONDARY <AGE 11 VAG HYST 250 GM/< W/RMVL TUBE&/OVARY 05/06/2014 TVH/BSO for prolapse VAGINAL HYSTERECTOMY FAMILY HISTORY Problem Relation Age of Onset Breast Cancer Mother Liver and colon cancer Hypertension Mother Stroke Mother Coronary Artery Disease Father Diabetes Maternal Grandmother Heart Maternal Grandfather [place] Stroke Paternal Grandmother Diabetes Paternal Grandmother Stroke Paternal Grandfather Anesthesia Problems No Family History Social History Tobacco Use Smoking status: Never Smokeless tobacco: Never Vaping Use Vaping Use: Never used Substance Use Topics Alcohol use: Yes Comment: rarely Drug use: No Current Outpatient Medications Medication Sig FLUoxetine (PROZAC) 20 mg capsule Take 1 capsule by mouth once daily. hydrOXYzine HCl (ATARAX) 25 mg tablet Take 1-2 tablets by mouth every 6 hours as needed for anxiety. insulin detemir U-100 (LEVEMIR FLEXTOUCH U-100 INSULIN) 100 unit/mL (3 mL) injection pen Inject 32 Units subcutaneously daily at bedtime. levothyroxine (LEVOXYL) 25 mcg tablet Take 1 tablet by mouth once daily. Take on empty stomach. For Thyroid except no dose on Saturday or Saturday topiramate (TOPAMAX) 50 mg tablet Take 1 tablet by mouth once daily. QUEtiapine (SEROQUEL) 100 mg tablet Take 1 tablet by mouth once daily. folic acid 1 mg tablet Take 2 tablets by mouth once daily. Sublingual empagliflozin (JARDIANCE) 10 mg tablet Take 1 tablet by mouth once daily. Take 1 tablet once daily in the morning oxybutynin ER (DITROPAN XL) 15 mg 24 hr Extended Rel Tab Take 1 tablet by mouth once daily. atorvastatin (LIPITOR) 10 mg tablet Take 1 tablet by mouth daily at bedtime. For cholesterol. traZODone (DESYREL) 100 mg tablet Take 1 tablet by mouth daily at bedtime. albuterol HFA (VENTOLIN HFA) 90 mcg/actuation inhaler Inhale 2 Puffs as instructed every 4 hours as needed. For wheezing/shortness of breath. Lancets lancets Test blood sugar(s) 3 times daily. Dx: Type 2 DM - Uncontrolled E11.65 Insulin: Yes gabapentin (NEURONTIN) 300 mg capsule Take 1 capsule by mouth three times daily for 270 days. med-sync 90 days Insulin [place], Disposable, (PEN NEEDLE) 32 gauge x 5/32 Inject 1 Each subcutaneously every 24 hours. Give with each insulin administration. Blood-Glucose Meter (ONETOUCH VERIO METER) Dispense One Kit - Verio Meter Kit Dx: Type 2 DM - Uncontrolled E11.65 blood sugar diagnostic (ONETOUCH VERIO TEST STRIPS) test strip Test blood sugar(s) 3times daily. Dx: Type 2 DM - Uncontrolled E11.65 Insulin: Yes cholecalciferol (VITAMIN D-3) 50 mcg (2,000 unit) tablet Take 1 tablet by mouth once daily. omeprazole (PRILOSEC) 20 mg capsule Take 1 capsule by mouth daily before breakfast. 1/2 hr before meal. Blood-Glucose Meter (ONETOUCH VERIO FLEX METER) Use as instructed. E11.9 No current facility-administered medications for this visit. Allergies As of Date: 09/04/2023 Allergen Noted Reaction AMOXICILLIN 01/11/2007 Intolerance DOXYCYCLINE 08/06/2009 Diarrhea METFORMIN 12/01/2007 Diarrhea PENTAZOCINE 12/08/2018 Unknown TALACEN [PENTAZOCINE-ACETAMINOPHE* 007 TESSALON [BENZONATATE] 11/27/2006 GI Upset THIAZIDES 09/28/2008 Fully Assessed 08/19/2023 REVIEW OF SYSTEMS Abdomen: No bloating, early satiety, indigestion, or increased flatulence. No abdominal pain, nausea, vomiting, diarrhea, or constipation. Bladder: No dysuria, gross hematuria. + urinary frequency, urinary urgency, and incontinence. Breast: No breast lumps, nipple d/c, overlying skin changes, redness or skin retraction. Expanded ROS: N/A Allergies and current medication updated:Yes EXAM: BP 122/80 Wt 154 lb (69.9kg) LMP 05/21/2007 GENERAL: pleasant, female in no apparent distress HEENT: Normocephalic, atraumatic, mucus membranes moist, and no lesions NECK: full range of motion DERMATOLOGY: Normal, without lesions, non-icteric, and non-hirsute PELVIC: normal Bartholin's glands, urethra, Lancaster's glands, no cervical lesions, good vaginal support, physiologic discharge present, Erythema surrounding vulva- c/w yeast vulvitis , scant white discharge NEURO: alert and oriented x3,exam grossly non-focal EXTREMITIES: normal ASSESSMENT AND PLAN: Encounter Diagnosis ICD-10-CM 1. Vulvovaginitis due to Agapito B37.31 clotrimazole-betamethasone (LOTRISONE) cream 2. Vulvar irritation N90.89 AGAPITO/TRICHOMONAS NAAT BACTERIAL VAGINOSIS NAAT 3. Vaginal discharge N89.8 AGAPITO/TRICHOMONAS NAAT BACTERIAL VAGINOSIS NAAT 4. Urinary urgency R39.15 URINE CULTURE CONSULT TO URO GYNECOLOGY 5. Discussed Jardiacne and impact on agapito vulvovaginitis also reviewed impact of poorly controlled DM on yeast vulvovaginitis. Discussed if needed use monistat 7 days every other day. Will give lotrisone. Discussed using butt paste to protect skin. Discussed vulvar hygiene - stop using depends. Urogyn appt made- may need urodynamic studies. Medical Decision Making: Problems: Moderate: Acute illness with systemic symptoms Data: Unique test(s) ordered: 3+ Risk: Moderate: Drug management Medical Decision Making Level: 4 - Moderate Polly Feliciano MD documented in this encounter [facility] 08-19-2023 Note HNO ID: [id number] Author: Zoë Arenas PA-C Service: ? Author Type: Physician [place]ster Type: Progress Notes Filed: 08/19/2023 6:53 PM Note Text: CC: Patient presents with: Same Day Appointment: wants meds for depression/anxiety HPI Mita Chatman is a 63 year old female who presents here today for worsening anxiety. Symptoms: Has been extremely tearful. I just feel like I need something before I kill someone. Panic attacks: Shaking and worked up, has had panic attacks but this has not bothered me in a long time. 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 Medication history: various benzos, lexapro Family mental health hx: Believes her son has bipolar disorder Mood: Elevated mood. Grandiosity. Increase goal directed activity. Irritable mood. Racing thoughts. REVIEW OF SYSTEMS See HPI PAST MEDICAL HISTORY Diagnosis Date Acquired hypothyroidism 01/05/2016 Acute gastritis without mention of hemorrhage Anemia, unspecified 06/19/2007 Asthma Benign hypertensive heart disease without heart failure BMI 36.0-36.9,adult 02/04/2017 Compression fracture of fifth lumbar vertebra (HCC) 07/29/2019 Depression Diabetes mellitus without mention of complication Diabetes mellitus Diarrhea Esophageal reflux Esophagitis, unspecified Generalized osteoarthrosis, unspecified site History of transfusion Hypertension Hypertrophy of breast 02/06/2008 Metabolic syndrome 11/18/2014 Mild persistent asthma 08/09/2016 Morbid obesity (HCC) 02-08-11 stated BMI 40.47 Ht: 62 Wt: 221 lbs Obstructive sleep apnea KYLEIGH (obstructive sleep apnea) 08/09/2016 Other and unspecified hyperlipidemia Transfusion history 04/2014 4 units after hysterectomy, postop hemorrhage PAST SURGICAL HISTORY Procedure Laterality Date ABDOMINAL SURGERY HX ANTERIOR COLPORRAPHY RPR CYSTOCELE W/CYSTO 05/06/2014 cystocele BACK SURGERY HX 06/24/2020 L4, L5 fusion BREAST SURGERY HX COLONOSCOPY FLX DX W/COLLJ SPEC WHEN PFRMD 08/16/2016 Colonoscopy (MAC) COLONOSCOPY GEN ANES 03/23/2021 normal colonoscopy, non-bleeding hemorrhoids COLONOSCOPY W/BIOPSY SINGLE/MULTIPLE 05/09/2009 COLPOPEXY VAGINAL INTRAPERITONEAL APPROACH 05/06/2014 USLF, cystoscopy DILATION AND CURETTAGE DXAND/THER NONOBSTETRIC Dilation AND curettage EGD 03/23/2021 normal exam, gastric bypass noted EGD TRANSORAL BIOPSY SINGLE/MULTIPLE 01/22/2011 ESOPHAGOGASTRODUODENOSCOPY TRANSORAL DIAGNOSTIC 05/29/2013 EGD ESOPHAGOGASTRODUODENOSCOPY TRANSORAL DIAGNOSTIC 08/16/2016 EGD (MAC) ESOPHAGOGASTRODUODENOSCOPY TRANSORAL DIAGNOSTIC 10/11/2016 EGD GASTRIC BYPASS HX 2009 LAPAROSCOPY SURG CHOLECYSTECTOMY Cholecystectomy, lap LIG/TRNSXJ FLP TUBE ABDL/VAG APPR UNI/BI Tubal ligation PAST SURGICAL HISTORY OF right foot bone spur removed PAST SURGICAL HISTORY OF 08/13/2014 Posterior colporrhaphy REDUCTION OF LARGE BREAST 2008 TONSILLECTOMY HX TONSILLECTOMY PRIMARY/SECONDARY VAG HYST 250 GM/< W/RMVL TUBEAND/OVARY 05/06/2014 TVH/BSO for prolapse VAGINAL HYSTERECTOMY ALLERGIES Amoxicillin, Doxycycline, Metformin, Pentazocine, Talacen [Pentazocine-Acetaminophen], Tessalon [Benzonatate], and Thiazides MEDICATIONS insulin detemir U-100 (LEVEMIR FLEXTOUCH U-100 INSULIN) 100 unit/mL (3 mL) injection pen Inject 32 Units subcutaneously daily at bedtime. levothyroxine (LEVOXYL) 25 mcg tablet Take 1 tablet by mouth once daily. Take on empty stomach. For Thyroid except no dose on Saturday or Saturday topiramate (TOPAMAX) 50 mg tablet Take 1 tablet by mouth once daily. QUEtiapine (SEROQUEL) 100 mg tablet Take 1 tablet by mouth once daily. venlafaxine ER (EFFEXOR XR) 75 mg 24 hr capsule Take 1 capsule by mouth once daily. folic acid 1 mg tablet Take 2 tablets by mouth once daily. Sublingual empagliflozin (JARDIANCE) 10 mg tablet Take 1 tablet by mouth once daily. Take 1 tablet once daily in the morning oxybutynin ER (DITROPAN XL) 15 mg 24 hr Extended Rel Tab Take 1 tablet by mouth once daily. atorvastatin (LIPITOR) 10 mg tablet Take 1 tablet by mouth daily at bedtime. For cholesterol. traZODone (DESYREL) 100 mg tablet Take 1 tablet by mouth daily at bedtime. albuterol HFA (VENTOLIN HFA) 90 mcg/actuation inhaler Inhale 2 Puffs as instructed every 4 hours as needed. For wheezing/shortness of yarelis (more content not included)... [facility] 08-15-2023 Miscellaneous Notes Patient was notified Anuradha Felder Ma Please call pt and let her know I sent it in. Zoë Arenas PA-C Patient calls to check on status of request. Notified patient request is pending provider review. Patient asking for it to be handled today because she is out of insulin. Beverly Ellis RN Pt states she was told by her insurance they will not longer her lantus, they are suggesting she take levemir instead. Pt uses [facility] & states she is completely out of medication, did not have any for todays dose. Please contact pt when new med has been sent in to [facility]. Mary De La O LPN documented in this encounter [facility] 08-13-2023 Miscellaneous Notes Patient calls to request medication for anxiety. Nurse triage completed. Protocol recommends see provider within 3 days. Appointment scheduled. Care advice reviewed. Patient verbalizes understanding. Reason for Disposition MODERATE anxiety (e.g., persistent or frequent anxiety symptoms; interferes with sleep, school, or work) Answer Assessment - Initial Assessment Questions 1. CONCERN: Patient reports that she has recently noticed some increased anxiety. Has a lot on her plate and wants to nip it before it gets bad. 2. ANXIETY SYMPTOMS: Anxious and overwhelmed. 3. ONSET: Last couple of weeks 4. SEVERITY:mild to moderate 5. FUNCTIONAL IMPAIRMENT: No difficulty performing daily tasks/activities. 6. HISTORY: Yes,history of anxiety. Patient had to take medication in the past but wasn't sure of medication. 7. RISK OF HARM - SUICIDAL IDEATION: No thoughts of self harm. 8. TREATMENT: No treatment so far. 9. TREATMENT - THERAPIST: No 10. POTENTIAL TRIGGERS: No recent medication changes. No triggers that she can think of. 11. PATIENT SUPPORT: . 12. OTHER SYMPTOMS: No feeling depressed, trouble concentrating, trouble sleeping, trouble breathing, palpitations or fast heartbeat, chest pain, sweating, nausea, or diarrhea. Protocols used: Anxiety and Panic [id number] documented in this encounter [facility] 08-07-2023 Note HNO ID: [id number] Author: Delores Mejia APRN.TICK INSPECTOR Service: ? Author Type: Nurse Practitioner Type: Progress Notes Filed: 08/07/2023 6:05 PM Note Text: CC: Patient presents with: Medication Problem: Unable to remember to administer insulin medication HPI Mita Chatman is a 63 year old female who presents today for above. She stopped taking all diabetes medications last month because I couldn't remember to take them. She has not been checking her blood sugars either. She became concerned when she developed worsening urinary frequency and nocturia despite taking Ditropan so she scheduled this appointment today to discuss alternatives to insulin. She does remember to take all of her daily oral medications so hoping she could start an oral diabetes medication. She is prescribed Lantus, humalog with meals and Victoza. Denies blurred vision, fatigue, unintentional weight loss, pain, numbness or tingling in her extremities. Review of Systems See HPI PAST MEDICAL HISTORY Diagnosis Date Acquired hypothyroidism 01/05/2016 Acute gastritis without mention of hemorrhage Anemia, unspecified 06/19/2007 Asthma Benign hypertensive heart disease without heart failure BMI 36.0-36.9,adult 02/04/2017 Compression fracture of fifth lumbar vertebra (HCC) 07/29/2019 Depression Diabetes mellitus without mention of complication Diabetes mellitus Diarrhea Esophageal reflux Esophagitis, unspecified Generalized osteoarthrosis, unspecified site History of transfusion Hypertension Hypertrophy of breast 02/06/2008 Metabolic syndrome 11/18/2014 Mild persistent asthma 08/09/2016 Morbid obesity (HCC) 02-08-11 stated BMI 40.47 Ht: 62 Wt: 221 lbs Obstructive sleep apnea KYLEIGH (obstructive sleep apnea) 08/09/2016 Other and unspecified hyperlipidemia Transfusion history 04/2014 4 units after hysterectomy, postop hemorrhage PAST SURGICAL HISTORY Procedure Laterality Date ABDOMINAL SURGERY HX ANTERIOR COLPORRAPHY RPR CYSTOCELE W/CYSTO 05/06/2014 cystocele BACK SURGERY HX 06/24/2020 L4, L5 fusion BREAST SURGERY HX COLONOSCOPY FLX DX W/COLLJ SPEC WHEN PFRMD 08/16/2016 Colonoscopy (MAC) COLONOSCOPY GEN ANES 03/23/2021 normal colonoscopy, non-bleeding hemorrhoids COLONOSCOPY W/BIOPSY SINGLE/MULTIPLE 05/09/2009 COLPOPEXY VAGINAL INTRAPERITONEAL APPROACH 05/06/2014 USLF, cystoscopy DILATION AND CURETTAGE DXAND/THER NONOBSTETRIC Dilation AND curettage EGD 03/23/2021 normal exam, gastric bypass noted EGD TRANSORAL BIOPSY SINGLE/MULTIPLE 01/22/2011 ESOPHAGOGASTRODUODENOSCOPY TRANSORAL DIAGNOSTIC 05/29/2013 EGD ESOPHAGOGASTRODUODENOSCOPY TRANSORAL DIAGNOSTIC 08/16/2016 EGD (MAC) ESOPHAGOGASTRODUODENOSCOPY TRANSORAL DIAGNOSTIC 10/11/2016 EGD GASTRIC BYPASS HX 2009 LAPAROSCOPY SURG CHOLECYSTECTOMY Cholecystectomy, lap LIG/TRNSXJ FLP TUBE ABDL/VAG APPR UNI/BI Tubal ligation PAST SURGICAL HISTORY OF right foot bone spur removed PAST SURGICAL HISTORY OF 08/13/2014 Posterior colporrhaphy REDUCTION OF LARGE BREAST 2008 TONSILLECTOMY HX TONSILLECTOMY PRIMARY/SECONDARY VAG HYST 250 GM/< W/RMVL TUBEAND/OVARY 05/06/2014 TVH/BSO for prolapse VAGINAL HYSTERECTOMY ALLERGIES Amoxicillin, Doxycycline, Metformin, Pentazocine, Talacen [Pentazocine-Acetaminophen], Tessalon [Benzonatate], and Thiazides MEDICATIONS traZODone (DESYREL) 100 mg tablet Take 1 tablet by mouth daily at bedtime. albuterol HFA (VENTOLIN HFA) 90 mcg/actuation inhaler Inhale 2 Puffs as instructed every 4 hours as needed. For wheezing/shortness of breath. Lancets lancets Test blood sugar(s) 3 times daily. Dx: Type 2 DM - Uncontrolled E11.65 Insulin: Yes gabapentin (NEURONTIN) 300 mg capsule Take 1 capsule by mouth three times daily for 270 days. med-sync 90 days Insulin [place], Disposable, (PEN NEEDLE) 32 gauge x 5/32 Inject 1 Each subcutaneously every 24 hours. Give with each insulin administration. Blood-Glucose Meter (ONETOUCH VERIO METER) Dispense One Kit - Verio Meter Kit Dx: Type 2 DM - Uncontrolled E11.65 blood sugar diagnostic (ONETOUCH VERIO TEST STRIPS) test strip Test blood sugar(s) 3times daily. Dx: Type 2 DM - Uncontrolled E11.65 Insulin: Yes atorvastatin (LIPITOR) 10 mg tablet Take 1 tablet by mouth daily at bedtime. For cholesterol. topiramate (TOPAMAX) 50 mg tablet Take 1 tablet by mouth once daily. oxybutynin ER (DITROPAN XL) 10 mg 24 hr tablet Take 1 tablet by mouth once daily. levothyroxine (LEVOXYL) 25 mcg tablet Take 1 tablet by mouth once daily. Take on empty stomach. For Thyroid except no dose on Saturday or Saturday omeprazole (PRILOSEC) 20 mg capsule Take 1 capsule by mouth daily before breakfast. 1/2 hr before meal. QUEtiapine (SEROQUEL) 100 mg tablet Take 1 tablet by mouth once daily. venlafaxine ER (EFFEXOR XR) 75 mg 24 hr capsule Take 1 capsule by mouth once daily. Blood-Glucose Meter (ONETOUCH VERIO FLEX METER) Use as instructed. E11.9 folic acid (more content not included)... [facility] 07-22-2023 Note HNO ID: [id number] Author: Jeannie Armenta RN Service: ? Author Type: Registered Nurse Type: Progress Notes Filed: 07/29/2023 4:29 PM Note Text: ACM KAUSHAL RN Action/FYI: Medication Adherence review completed per request of payer. NO PROVIDER ACTION REQUIRED Please see requests in the Summary/Findings section below Patient identified by name and date of . Patient Attributed To: QAE Payer: [facility] Reason for review or outreach: Medication Adherence Medication Adherence Review Details: Cholesterol Summary / Findings: Atorvastatin was due for a refill on 06/29/23 at [facility] 07/29/23-Spoke to patient, she went to refill Atorvastatin and was told she did not have anymore refills, will route to PCP Action Taken: Data submitted to [employer] message to patient Other Encounter routed to provider Contact made with patient: Yes, Talked with patient Signature: Jeannie Armenta RN [facility] 07-22-2023 History of Present illness Narrative AKASH KAUSHAL RN Action/FYI: Medication Adherence review completed per request of payer. NO PROVIDER ACTION REQUIRED Please see requests in the Summary/Findings section below Patient identified by name and date of . Patient Attributed To: QAE Payer: [employer] Reason for review or outreach: Medication Adherence Medication Adherence Review Details: Cholesterol Summary / Findings: Atorvastatin was due for a refill on 06/29/23 at [facility] Action Taken: Data submitted to [employer] message to patient Other Contact made with patient: No, Chart review only. Signature: Jeannie Armenta RN documented in this encounter [facility] 07-22-2023 Note Patient Outreach (NE TNAV) MITA CHATMAN ([id number]) 1960 F Date Time Provider Department 07/22/23 JEANNIE ARMENTA During your visit today, we recorded the following information about you: Jeannie Armenta RN 07/29/2023 4:29 PM Addendum AKASH EASLEY RN Action/FYI: Medication Adherence review completed per request of payer. NO PROVIDER ACTION REQUIRED Please see requests in the Summary/Findings section below Patient identified by name and date of . Patient Attributed To: QAE Payer: [employer] Reason for review or outreach: Medication Adherence Medication Adherence Review Details: Cholesterol Summary / Findings: Atorvastatin was due for a refill on 06/29/23 at [facility] 07/29/23-Spoke to patient, she went to refill Atorvastatin and was told she did not have anymore refills, will route to PCP Action Taken: Data submitted to [employer] message to patient Other Encounter routed to provider Contact made with patient: Yes, Talked with patient Signature: Jeannie Armenta RN Allergies As of Date: 07/22/2023 Noted Allergy Reaction AMOXICILLIN 01/11/2007 5 - Intolerance Comments: severe yeast infection DOXYCYCLINE 08/06/2009 6 - Diarrhea Comments: DIARRHEA,VOMITING, YEAST INFECTION METFORMIN 12/01/2007 6 - Diarrhea PENTAZOCINE 12/08/2018 16 - Unknown TALACEN (PENTAZOCINE-ACETAMINOPHE* 007 Comments: Unknown reaction TESSALON (BENZONATATE) 11/27/2006 8 - GI Upset THIAZIDES 09/28/2008 Comments: Severe leg cramps - hctz Date Reviewed: 06/19/2023 Reviewed by: Yesenia Tan E - Fully Assessed Reason for Visit: ACM KAUSHAL RN [[id number]] Cmt: Medication Adherence review per request of payer Prescriptions as of 07/29/2023 - traZODone (DESYREL) 100 mg tablet Take 1 tablet by mouth daily at bedtime. - VICTOZA 3-JOEL 0.6 mg/0.1 mL (18 mg/3 mL) INJECT 0.6 mg under the skin ONCE DAILY - Oiplkxgdrgiilgc-Qvxwgrzmy-HX (BROMFED DM) 2-30-10 mg/5 mL syrup Take 5 mL by mouth four times daily as needed. - albuterol HFA (VENTOLIN HFA) 90 mcg/actuation inhaler Inhale 2 Puffs as instructed every 4 hours as needed. For wheezing/shortness of breath. - Lancets lancets Test blood sugar(s) 3 times daily. Dx: Type 2 DM - Uncontrolled E11.65 Insulin: Yes - gabapentin (NEURONTIN) 300 mg capsule Take 1 capsule by mouth three times daily for 270 days. med-sync 90 days - insulin glargine (LANTUS SOLOSTAR U-100 INSULIN) 100 unit/mL (3 mL) Inject 32 Units subcutaneously daily at bedtime. - Insulin [place], Disposable, (PEN NEEDLE) 32 gauge x 5/32 Inject 1 Each subcutaneously every 24 hours. Give with each insulin administration. - Blood-Glucose Meter (ONETOUCH VERIO METER) Dispense One Kit - Verio Meter Kit Dx: Type 2 DM - Uncontrolled E11.65 - blood sugar diagnostic (ONETOUCH VERIO TEST STRIPS) test strip Test blood sugar(s) 3times daily. Dx: Type 2 DM - Uncontrolled E11.65 Insulin: Yes - atorvastatin (LIPITOR) 10 mg tablet Take 1 tablet by mouth daily at bedtime. For cholesterol. - cholecalciferol (VITAMIN D-3) 50 mcg (2,000 unit) tablet Take 1 tablet by mouth once daily. - topiramate (TOPAMAX) 50 mg tablet Take 1 tablet by mouth once daily. - INV VITAMIN D3 5000 UNITS CAPSULE (IRB 19-1548) Take 1 capsule by mouth once daily. For Investigational Drug Use Only. PI: Lenore Kaur, PhD. Take one capsule by mouth daily for 3 months prior to surgery and 3 months after surgery. - oxybutynin ER (DITROPAN XL) 10 mg 24 hr tablet Take 1 tablet by mouth once daily. - insulin lispro (HUMALOG KWIKPEN INSULIN) 100 unit/mL Inject 4 Units subcutaneously daily with dinner. - levothyroxine (LEVOXYL) 25 mcg tablet Take 1 tablet by mouth once daily. Take on empty stomach. For Thyroid except no dose on Saturday or Saturday - omeprazole (PRILOSEC) 20 mg capsule Take 1 capsule by mouth daily before breakfast. 1/2 hr before meal. - QUEtiapine (SEROQUEL) 100 mg tablet Take 1 tablet by mouth once daily. - venlafaxine ER (EFFEXOR XR) 75 mg 24 hr capsule Take 1 capsule by mouth once daily. - Blood-Glucose Meter (ONETOUCH VERIO FLEX METER) Use as instructed. E11.9 - folic acid 1 mg tablet Take 2 tablets by mouth once daily. 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 [facility] 07-08-2023 Miscellaneous Notes Patient has been identified by name and date of : No Patient phones for refill(s): Requested Prescriptions Pending Prescriptions Disp Refills traZODone (DESYREL) 100 mg tablet 90 tablet 1 Sig: Take 1 tablet by mouth daily at bedtime. Date of last office visit in primary care: 06/19/23 Last 2 Encounter Wt Readings: Date: Wt: 06/19/2023 68 kg (150 lb) 04/29/2023 71.2 kg (157 lb) Previous labs/tests for medication: Not applicable Please advise. Thank you. Yesenia Tan documented in this encounter [facility] 06-21-2023 Miscellaneous Notes Patient notified. Yesenia Tan LPN Please call patient and let her know that I put a covid positive letter in her chart, that she can access/print from [employer]. Zoë Arenas PA-C Patient calls and is asking about Covid test results. Notified patient that she tested positive for Covid. Patient asking if provider can write a letter stating this as well as quarantining instructions. Patient states that she is going to need a letter for work. Patient states that letter can be uploaded into My Chart. Please review and advise, Lexi Pratt RN documented in this encounter [facility] 06-19-2023 Note HNO ID: [id number] Author: Zoë Arenas PA-C Service: ? Author Type: Physician [place]ster Type: Progress Notes Filed: 06/19/2023 1:04 PM Note Text: CC: COVID+ HPI Mita Chatman is a 63 year old female who presents with complaint of + home covid test, and tested positive as well. Associated symptoms include sore throat- moderate, headache, body aches, cough- with some wheezing heard, with some dyspnea, and worse at night. Treatments tried include nyquil, dayquil, and cough drops with no relief of symptoms. PMH significant for asthma, which she uses albuterol inhaler PRN. REVIEW OF SYSTEMS See HPI All other systems negative. PAST MEDICAL HISTORY Diagnosis Date Acquired hypothyroidism 01/05/2016 Acute gastritis without mention of hemorrhage Anemia, unspecified 06/19/2007 Asthma Benign hypertensive heart disease without heart failure BMI 36.0-36.9,adult 02/04/2017 Compression fracture of fifth lumbar vertebra (HCC) 07/29/2019 Depression Diabetes mellitus without mention of complication Diabetes mellitus Diarrhea Esophageal reflux Esophagitis, unspecified Generalized osteoarthrosis, unspecified site History of transfusion Hypertension Hypertrophy of breast 02/06/2008 Metabolic syndrome 11/18/2014 Mild persistent asthma 08/09/2016 Morbid obesity (HCC) 02-08-11 stated BMI 40.47 Ht: 62 Wt: 221 lbs Obstructive sleep apnea KYLEIGH (obstructive sleep apnea) 08/09/2016 Other and unspecified hyperlipidemia Transfusion history 04/2014 4 units after hysterectomy, postop hemorrhage PAST SURGICAL HISTORY Procedure Laterality Date ABDOMINAL SURGERY HX ANTERIOR COLPORRAPHY RPR CYSTOCELE W/CYSTO 05/06/2014 cystocele BACK SURGERY HX 06/24/2020 L4, L5 fusion BREAST SURGERY HX COLONOSCOPY FLX DX W/COLLJ SPEC WHEN PFRMD 08/16/2016 Colonoscopy (MAC) COLONOSCOPY GEN ANES 03/23/2021 normal colonoscopy, non-bleeding hemorrhoids COLONOSCOPY W/BIOPSY SINGLE/MULTIPLE 05/09/2009 COLPOPEXY VAGINAL INTRAPERITONEAL APPROACH 05/06/2014 USLF, cystoscopy DILATION AND CURETTAGE DXAND/THER NONOBSTETRIC Dilation AND curettage EGD 03/23/2021 normal exam, gastric bypass noted EGD TRANSORAL BIOPSY SINGLE/MULTIPLE 01/22/2011 ESOPHAGOGASTRODUODENOSCOPY TRANSORAL DIAGNOSTIC 05/29/2013 EGD ESOPHAGOGASTRODUODENOSCOPY TRANSORAL DIAGNOSTIC 08/16/2016 EGD (MAC) ESOPHAGOGASTRODUODENOSCOPY TRANSORAL DIAGNOSTIC 10/11/2016 EGD GASTRIC BYPASS HX 2009 LAPAROSCOPY SURG CHOLECYSTECTOMY Cholecystectomy, lap LIG/TRNSXJ FLP TUBE ABDL/VAG APPR UNI/BI Tubal ligation PAST SURGICAL HISTORY OF right foot bone spur removed PAST SURGICAL HISTORY OF 08/13/2014 Posterior colporrhaphy REDUCTION OF LARGE BREAST 2007 TONSILLECTOMY HX TONSILLECTOMY PRIMARY/SECONDARY VAG HYST 250 GM/< W/RMVL TUBEAND/OVARY 05/06/2014 TVH/BSO for prolapse VAGINAL HYSTERECTOMY ALLERGIES Amoxicillin, Doxycycline, Metformin, Pentazocine, Talacen [Pentazocine-Acetaminophen], Tessalon [Benzonatate], and Thiazides MEDICATIONS albuterol HFA (VENTOLIN HFA) 90 mcg/actuation inhaler Inhale 2 Puffs as instructed every 4 hours as needed. For wheezing/shortness of breath. Lancets lancets Test blood sugar(s) 3 times daily. Dx: Type 2 DM - Uncontrolled E11.65 Insulin: Yes gabapentin (NEURONTIN) 300 mg capsule Take 1 capsule by mouth three times daily for 270 days. med-sync 90 days insulin glargine (LANTUS SOLOSTAR U-100 INSULIN) 100 unit/mL (3 mL) Inject 32 Units subcutaneously daily at bedtime. Insulin [place], Disposable, (PEN NEEDLE) 32 gauge x 5/32 Inject 1 Each subcutaneously every 24 hours. Give with each insulin administration. Blood-Glucose Meter (ONETOUCH VERIO METER) Dispense One Kit - Verio Meter Kit Dx: Type 2 DM - Uncontrolled E11.65 blood sugar diagnostic (ONETOUCH VERIO TEST STRIPS) test strip Test blood sugar(s) 3times daily. Dx: Type 2 DM - Uncontrolled E11.65 Insulin: Yes atorvastatin (LIPITOR) 10 mg tablet Take 1 tablet by mouth daily at bedtime. For cholesterol. cholecalciferol (VITAMIN D-3) 50 mcg (2,000 unit) tablet Take 1 tablet by mouth once daily. topiramate (TOPAMAX) 50 mg tablet Take 1 tablet by mouth once daily. INV VITAMIN D3 5000 UNITS CAPSULE (IRB 19-1548) Take 1 capsule by mouth once daily. For Investigational Drug Use Only. PI: Lenore Kaur, PhD. Take one capsule by mouth daily for 3 months prior to surgery and 3 months after surgery. (Patient not taking: Reported on 2023) oxybutynin ER (DITROPAN XL) 10 mg 24 hr tablet Take 1 tablet by mouth once daily. liraglutide (VICTOZA) 0.6 mg/ 0.1 ml subcutaneous pen injector Inject 0.6 mg subcutaneously once daily. insulin lispro (HUMALOG KWIKPEN INSULIN) 100 unit/mL Inject 4 Units subcutaneously daily with dinner. levothyroxine (LEVOXYL) 25 mcg tablet Take 1 tablet by mouth once daily. Take on empty stomach. For Thyroid except no dose on Saturday or Saturday omeprazole (PRILOSEC) 20 mg capsu (more content not included)... [facility] 06-19[facility]2023 Instructions Zoë Arenas PA-C - 06/19/2023 12:38 PM EDT Fact Sheet for Patients And Caregivers Emergency Use Authorization (EUA) Of LAGEVRIO (molnupiravir) capsules For Coronavirus Disease 2019 (COVID-19) What is the most important information I should know about LAGEVRIO? LAGEVRIO may cause serious side effects, including: LAGEVRIO may cause harm to your unborn baby. It is not known if LAGEVRIO will harm your baby if you take LAGEVRIO during . LAGEVRIO is not recommended for use in . LAGEVRIO has not been studied in . LAGEVRIO was studied in animals only. When LAGEVRIO was given to animals, LAGEVRIO caused harm to their unborn babies. You and your healthcare provider may decide that you should take LAGEVRIO during if there are no other COVID-19 treatment options approved or authorized by the FDA that are accessible or clinically appropriate for you. If you and your healthcare provider decide that you should take LAGEVRIO during , you and your healthcare provider should discuss the known and potential benefits and the potential risks of taking LAGEVRIO during . For individuals who are able to become : You should use a reliable method of control (contraception) consistently and correctly during treatment with LAGEVRIO and for 4 days after the last dose of LAGEVRIO. Talk to your healthcare provider about reliable control methods. Before starting treatment with LAGEVRIO your healthcare provider may do a test to see if you are before starting treatment with LAGEVRIO. Tell your healthcare provider right away if you become or think you may be during treatment with LAGEVRIO. Registry: There is a registry for individuals who take LAGEVRIO during . The purpose of this program is to collect information about the health of you and your baby. If you are or become during treatment with LAGEVRIO, you are encouraged to report your use of LAGEVRIO during to this registry at [email or web address] or . For individuals who are sexually active with partners who are able to become : It is not known if LAGEVRIO can affect sperm. While the risk is regarded as low, animal studies to fully assess the potential for LAGEVRIO to affect the babies of males treated with LAGEVRIO have not been completed. A reliable method of control (contraception) should be used consistently and correctly during treatment with LAGEVRIO and for at least 3 months after the last dose. The risk to sperm beyond 3 months is not known. Studies to understand the risk to sperm beyond 3 months are ongoing. Talk to your healthcare provider about reliable control methods. Talk to your healthcare provider if you have questions or concerns about how LAGEVRIO may affect sperm. You are being given this fact sheet because your healthcare provider believes it is necessary to provide you with LAGEVRIO for the treatment of adults with a current diagnosis of mild-tomoderate coronavirus disease 2019 (COVID-19) who are at high risk for progression to severe COVID-19, including hospitalization or , and for whom other COVID-19 treatment options approved or authorized by the FDA are not accessible or clinically appropriate. The [place].S. Food and Drug Administration (FDA) has issued an Emergency Use Authorization (EUA) to make LAGEVRIO available during the COVID-19 pandemic (for more details about an EUA please see What is an Emergency Use Authorization? at the end of this document). LAGEVRIO is not an FDA-approved medicine in the [place]. Read this Fact Sheet for information about LAGEVRIO. Talk to your healthcare provider about your options if you have any questions. It is your choice to take LAGEVRIO. What is COVID-19? COVID-19 is caused by a virus called a coronavirus. You can get COVID-19 through close contact with another person who has the virus. COVID-19 illnesses have ranged from very fsxh-wk-pdpxpp, including illness resulting in . While information so far suggests that most COVID-19 illness is mild, serious illness can happen and may cause some of your other medical conditions to become worse. Older people and people of all ages with severe, long lasting (chronic) medical conditions like heart disease, lung disease and diabetes, for example seem to be at higher risk of being hospitalized for COVID-19. What is LAGEVRIO? LAGEVRIO is an investigational medicine used to treat adults with a current diagnosis of mild to moderate COVID-19: who are at high risk for progression to severe COVID-19 including hospitalization or , and for whom other COVID-19 treatment options approved or authorized by the FDA are not accessible or clinically appropriate. The FDA has authorized the emergency use of LAGEVRIO for the treatment of mild-tomoderate COVID-19 in adults under an EUA. For more information on EUA, see the What is an Emergency Use Authorization (EUA)? section at the end of this Fact Sheet. LAGEVRIO is not authorized: for use in people less than 18 years of age. for prevention of COVID-19. for people needing hospitalization for COVID-19. for use for longer than 5 consecutive days. What should I tell my healthcare provider before I take LAGEVRIO? Tell your healthcare provider if you: have any allergies are or plan to breastfeed have any serious illnesses Take any medicines including prescription, vise-yvh-jjcewzs medicines, vitamins, and herbal products. How do I take LAGEVRIO? Take LAGEVRIO exactly as your healthcare provider tells you to take it. Take 4 capsules of LAGEVRIO every 12 hours (for example, at 8 am and at 8 pm) Take LAGEVRIO for 5 days. It is important that you complete the full 5 days of treatment with LAGEVRIO. Do not stop taking LAGEVRIO before you complete the full 5 days of treatment, even if you feel better. Take LAGEVRIO with or without food. You should stay in isolation for as long as your healthcare provider tells you to. Talk to your healthcare provider if you are not sure about how to properly isolate while you have COVID-19. Swallow LAGEVRIO capsules whole. Do not open, break, or crush the capsules. If you cannot swallow capsules whole, tell your healthcare provider. If your healthcare provider prescribes LAGEVRIO and tells you to take or give a dose through a nasogastric (NG) or orogastric (OG) tube, follow the instructions below: How to take or give a dose of LAGEVRIO through a nasogastric (NG) or orogastric (OG) feeding tube. You must have an NG or OG that is size 12 Mauritanian (FR) or larger. If you miss a dose of LAGEVRIO: If it has been less than 10 hours since the missed dose, take it as soon as you remember. If it has been more than 10 hours since the missed dose, skip the missed dose and take your dose at the next scheduled time. Do not double the dose of LAGEVRIO to make up for a missed dose. How to take or give a dose of LAGEVRIO through a nasogastric (NG) or orogastric (OG) feeding tube: Wash your hands well with soap and water. Gather the supplies you will need to take or give the prescribed dose of LAGEVRIO. 4 LAGEVRIO capsules 1 liquid measuring cup with mL markings to measure 40 mL of room temperature water 1 clean container with a lid 1 catheter tip syringe. Your healthcare provider should tell you what size catheter tip syringe you will need to take or give a dose of LAGEVRIO. Place the needed supplies on a clean work surface. Follow your healthcare provider s instructions on how to flush the NG or OG feeding tube. Flush the NG or OG feeding tube with 5 mL of water before taking or giving a dose of LAGEVRIO. Carefully open 4 LAGEVRIO capsules, one at a time, and empty the contents into a clean container. Use the liquid measuring cup to measure 40 mL of room temperature water and add to the container containing the capsule contents. Place the lid on the container. Shake to mix the capsule contents and water well for 3 minutes. The capsule contents may not dissolve completely. Remove the lid from the container and draw up all the LAGEVRIO and water mixture into a catheter tip syringe. Give all of the mixture right away through the NG or OG feeding tube. Do not keep the mixture for future use. If any capsule contents are left in the container: Add 10 mL of water to the container, and mix to loosen any capsule contents that are left in the container. Use the catheter tip syringe to draw up all of the mixture in the container. Give the mixture through the NG or OG feeding tube. Repeat this process as needed until you no longer see any capsule contents left in the container or catheter tip syringe. Use the same catheter tip syringe to flush the NG or OG feeding tube 2 times with 5 mL of water (10mL total). Rinse the container, lid and catheter tip syringe well with clean water after use. Place on a clean paper towel until next use. What are the important possible side effects of LAGEVRIO? See, What is the most important information I should know about LAGEVRIO? Allergic Reactions. Allergic reactions can happen in people taking LAGEVRIO, even after only 1 dose. Stop taking LAGEVRIO and call your healthcare provider right away if you get any of the following symptoms of an allergic reaction: hives rapid heartbeat trouble swallowing or breathing swelling of the mouth, lips, or face throat tightness hoarseness skin rash The most common side effects of LAGEVRIO are: diarrhea nausea dizziness These are not all the possible side effects of LAGEVRIO. Not many people have taken LAGEVRIO. Serious and unexpected side effects may happen. This medicine is still being studied, so it is possible that all of the risks are not known at this time. What other treatment choices are there? Veklury (remdesivir) is FDA-approved as an intravenous (IV) infusion for the treatment of mildto-moderate COVID-19 in certain adults and children. Talk with your doctor to see if Veklury is appropriate for you. Like LAGEVRIO, FDA may also allow for the emergency use of other medicines to treat people with COVID-19. Go to https://www.fda.gov/emergency-pre nrsthukda-eay-lzzpivbn/mcm-legalr uscefbocn-wsg-aofjmx-framework/em pegcxuy-erv-omgpndlrtqejx for more information. It is your choice to be treated or not to be treated with LAGEVRIO. Should you decide not to take it, it will not change your standard medical care. What if I am ? is not recommended during treatment with LAGEVRIO and for 4 days after the last dose of LAGEVRIO. If you are or plan to breastfeed, talk to your healthcare provider about your options and specific situation before taking LAGEVRIO. How do I report side effects with LAGEVRIO? Contact your healthcare provider if you have any side effects that bother you or do not go away. Report side effects to FDA MedWatch at www.fda.gov/medwatch or call 6-470-ULH-4941 ([phone]). How should I store LAGEVRIO? Store LAGEVRIO capsules at room temperature between 68 F to 77 F (20 C to 25 C). Keep LAGEVRIO and all medicines out of the reach of children. How can I learn more about COVID-19? Ask your healthcare provider. Visit www.cdc.gov/COVID19 Contact your local or state public health department. Call [employer] at (toll free in the [place] Visit wwwPower [employer]ations What Is an Emergency Use Authorization (EUA)? The [place] FDA has made LAGEVRIO available under an emergency access mechanism called an Emergency Use Authorization (EUA) The EUA is supported by a [place] of Health and Human Service (HHS) declaration that circumstances exist to justify emergency use of drugs and biological products during the COVID-19 pandemic. LAGEVRIO for the treatment of adults with a current diagnosis of njyc-vz-mdnfwypc COVID-19 who are at high risk for progression to severe COVID-19, including hospitalization or , and for whom alternative COVID-19 treatment options approved or authorized by FDA are not accessible or clinically appropriate, has not undergone the same type of review as an FDAapproved product. In issuing an EUA under the COVID-19 public health emergency, the FDA has determined, among other things, that based on the total amount of scientific evidence available including data from adequate and well-controlled clinical trials, if available, it is reasonable to believe that the product may be effective for diagnosing, treating, or preventing COVID-19, or a serious or life-threatening disease or condition caused by COVID-19; that the known and potential benefits of the product, when used to diagnose, treat, or prevent such disease or condition, outweigh the known and potential risks of such product; and that there are no adequate, approved, and available alternatives. All of these criteria must be met to allow for the product to be used in the treatment of patients during the COVID-19 pandemic. The EUA for LAGEVRIO is in effect for the duration of the COVID-19 declaration justifying emergency use of LAGEVRIO, unless terminated or revoked (after which LAGEVRIO may no longer be used under the EUA). Elizabeth. for: [employer] [address] For patent information: www.Quisk/research/patent Copyright [employer] [place], [place], [facility] and its affiliates. All rights reserved. [id number] Revised: October 2022 documented in this encounter [facility] 06-19-2023 History of Present illness Narrative CC: COVID+ HPI Mita Chatman is a 63 year old female who presents with complaint of + home covid test, and tested positive as well. Associated symptoms include sore throat- moderate, headache, body aches, cough- with some wheezing heard, with some dyspnea, and worse at night. Treatments tried include nyquil, dayquil, and cough drops with no relief of symptoms. PMH significant for asthma, which she uses albuterol inhaler PRN. REVIEW OF SYSTEMS See HPI All other systems negative. PAST MEDICAL HISTORY Diagnosis Date Acquired hypothyroidism 01/05/2016 Acute gastritis without mention of hemorrhage Anemia, unspecified 06/19/2007 Asthma Benign hypertensive heart disease without heart failure BMI 36.0-36.9,adult 02/04/2017 Compression fracture of fifth lumbar vertebra (HCC) 07/29/2019 Depression Diabetes mellitus without mention of complication Diabetes mellitus Diarrhea Esophageal reflux Esophagitis, unspecified Generalized osteoarthrosis, unspecified site History of transfusion Hypertension Hypertrophy of breast 02/06/2008 Metabolic syndrome 11/18/2014 Mild persistent asthma 08/09/2016 Morbid obesity (HCC) 5-12-11 stated BMI 40.47 Ht: 62 Wt: 221 lbs Obstructive sleep apnea KYLEIGH (obstructive sleep apnea) 08/09/2016 Other and unspecified hyperlipidemia Transfusion history 04/2014 4 units after hysterectomy, postop hemorrhage PAST SURGICAL HISTORY Procedure Laterality Date ABDOMINAL SURGERY HX ANTERIOR COLPORRAPHY RPR CYSTOCELE W/CYSTO 05/06/2014 cystocele BACK SURGERY HX 06/24/2020 L4, L5 fusion BREAST SURGERY HX COLONOSCOPY FLX DX W/COLLJ SPEC WHEN PFRMD 08/16/2016 Colonoscopy (MAC) COLONOSCOPY GEN ANES 03/23/2021 normal colonoscopy, non-bleeding hemorrhoids COLONOSCOPY W/BIOPSY SINGLE/MULTIPLE 05/09/2009 COLPOPEXY VAGINAL INTRAPERITONEAL APPROACH 05/06/2014 USLF, cystoscopy DILATION & CURETTAGE DX&/THER NONOBSTETRIC Dilation & curettage EGD 03/23/2021 normal exam, gastric bypass noted EGD TRANSORAL BIOPSY SINGLE/MULTIPLE 01/22/2011 ESOPHAGOGASTRODUODENOSCOPY TRANSORAL DIAGNOSTIC 05/29/2013 EGD ESOPHAGOGASTRODUODENOSCOPY TRANSORAL DIAGNOSTIC 08/16/2016 EGD (MAC) ESOPHAGOGASTRODUODENOSCOPY TRANSORAL DIAGNOSTIC 10/11/2016 EGD GASTRIC BYPASS HX 2009 LAPAROSCOPY SURG CHOLECYSTECTOMY Cholecystectomy, lap LIG/TRNSXJ FLP TUBE ABDL/VAG APPR UNI/BI Tubal ligation PAST SURGICAL HISTORY OF right foot bone spur removed PAST SURGICAL HISTORY OF 08/13/2014 Posterior colporrhaphy REDUCTION OF LARGE BREAST 2008 TONSILLECTOMY HX TONSILLECTOMY PRIMARY/SECONDARY <AGE 11 VAG HYST 250 GM/< W/RMVL TUBE&/OVARY 05/06/2014 TVH/BSO for prolapse VAGINAL HYSTERECTOMY ALLERGIES Amoxicillin, Doxycycline, Metformin, Pentazocine, Talacen [Pentazocine-Acetaminophen], Tessalon [Benzonatate], and Thiazides MEDICATIONS albuterol HFA (VENTOLIN HFA) 90 mcg/actuation inhaler Inhale 2 Puffs as instructed every 4 hours as needed. For wheezing/shortness of breath. Lancets lancets Test blood sugar(s) 3 times daily. Dx: Type 2 DM - Uncontrolled E11.65 Insulin: Yes gabapentin (NEURONTIN) 300 mg capsule Take 1 capsule by mouth three times daily for 270 days. med-sync 90 days insulin glargine (LANTUS SOLOSTAR U-100 INSULIN) 100 unit/mL (3 mL) Inject 32 Units subcutaneously daily at bedtime. Insulin [place], Disposable, (PEN NEEDLE) 32 gauge x 5/32 Inject 1 Each subcutaneously every 24 hours. Give with each insulin administration. Blood-Glucose Meter (ONETOUCH VERIO METER) Dispense One Kit - Verio Meter Kit Dx: Type 2 DM - Uncontrolled E11.65 blood sugar diagnostic (ONETOUCH VERIO TEST STRIPS) test strip Test blood sugar(s) 3times daily. Dx: Type 2 DM - Uncontrolled E11.65 Insulin: Yes atorvastatin (LIPITOR) 10 mg tablet Take 1 tablet by mouth daily at bedtime. For cholesterol. cholecalciferol (VITAMIN D-3) 50 mcg (2,000 unit) tablet Take 1 tablet by mouth once daily. topiramate (TOPAMAX) 50 mg tablet Take 1 tablet by mouth once daily. INV VITAMIN D3 5000 UNITS CAPSULE (IRB 19-1548) Take 1 capsule by mouth once daily. For Investigational Drug Use Only. PI: Lenore Kaur, PhD. Take one capsule by mouth daily for 3 months prior to surgery and 3 months after surgery. (Patient not taking: Reported on 2023) oxybutynin ER (DITROPAN XL) 10 mg 24 hr tablet Take 1 tablet by mouth once daily. liraglutide (VICTOZA) 0.6 mg/ 0.1 ml subcutaneous pen injector Inject 0.6 mg subcutaneously once daily. insulin lispro (HUMALOG KWIKPEN INSULIN) 100 unit/mL Inject 4 Units subcutaneously daily with dinner. levothyroxine (LEVOXYL) 25 mcg tablet Take 1 tablet by mouth once daily. Take on empty stomach. For Thyroid except no dose on Saturday or Saturday omeprazole (PRILOSEC) 20 mg capsule Take 1 capsule by mouth daily before breakfast. 1/2 hr before meal. QUEtiapine (SEROQUEL) 100 mg tablet Take 1 tablet by mouth once daily. venlafaxine ER (EFFEXOR XR) 75 mg 24 hr capsule Take 1 capsule by mouth once daily. Blood-Glucose Meter (ONETOUCH VERIO FLEX METER) Use as instructed. E11.9 traZODone (DESYREL) 100 mg tablet Take 1 tablet by mouth daily at bedtime. folic acid 1 mg tablet Take 2 tablets by mouth once daily. Sublingual FAMILY HISTORY Problem Relation Age of Onset Breast Cancer Mother Liver and colon cancer Hypertension Mother Stroke Mother Coronary Artery Disease Father Diabetes Maternal Grandmother Heart Maternal Grandfather [place] Stroke Paternal Grandmother Diabetes Paternal Grandmother Stroke Paternal Grandfather Anesthesia Problems No Family History Social History Tobacco Use Smoking status: Never Smokeless tobacco: Never Vaping Use Vaping Use: Never used Substance Use Topics Alcohol use: Yes Comment: rarely Drug use: No PHYSICAL EXAM BP 124/70 (BP Site: Left Arm, BP Position: Sitting, BP Cuff Size: Large Adult) Pulse 79 Temp 37.3 C (99.2 F) Resp 14 Wt 68 kg (150 lb) LMP 05/21/2007 SpO2 99% BMI 26.57 kg/m General Appearance: well appearing, appear generally uncomfortable, but in no acute distress, alert Psych: mood and affect broad and appropriate Skin: Skin color, texture, turgor normal for age; no rashes noted Eyes: conjunctiva pink and moist, no icterus, sclera white, non-injected Nose: Mucosal edema/nasal congestion, Clear rhinorrhea Oropharynx: No significant oropharyngeal erythema. Scant mucoid PND Lymph nodes: No cervical lymphadenopathy Lungs: Mildly diminished breath sounds bilaterally. No overt wheezing, rhonchi or rales noted Heart: RRR without murmur, gallop, or rubs. Neurological: Gait normal. No focal neurological deficits. Sensation grossly intact. ASSESSMENT/PLAN: 1. Positive self-administered antigen test for COVID-19 - ICD9: 079.89, ICD10: U07.1 (primary diagnosis) covid test ordered You will be notified in 24 -48 hours, results available on MyChart Salt water gargles, chloraseptic spray or lozenges as needed for sore throat. Warm beverages, honey. Likely covid-- Discussed viral etiology and rationale for treatment. - Symptomatic treatment with prn acetaminophen or ibuprofen Tylenol (generic acetaminophen) 500 mg-2 tabs every 8 hrs. as needed for fever and aches; Ibuprofen 600 mg (3-200mg tablets) every 6 hours - Supportive care with fluids and rest Advise scheduled dosing of albuterol inhaler d/t asthma hx Rx for Bromfed, as patient is having many issues falling asleep at night- thoroughly discussed indications, potential adverse effects, etc. Will start on antiviral tx as well given risk factors-- see orders and treatment algorithm below * Seek medical care immediately, call 911, go to ER if you have chest pain, difficulty breathing, shortness of breath, inability to swallow. - COVID & INFLUENZA A/B NAAT, ROUTINE - MOLNUPIRAVIR 200 MG CAPSULE (EUA) - [id number] M 2 MG-30 MG-10 MG/5 ML ORAL SYRUP 2. Viral URI - ICD9: 465.9, ICD10: J06.9 - See above - COVID & INFLUENZA A/B NAAT, ROUTINE - MOLNUPIRAVIR 200 MG CAPSULE (EUA) - [id number] M 2 MG-30 MG-10 MG/5 ML ORAL SYRUP Prescription instructions reviewed with patient as applicable. Potential red flag symptoms discussed with the patient. Reviewed appropriate action plan to take if red flag symptoms occur. Patient agreeable to treatment plan. Zoë Arenas PA-C Molnupiravir Eligibility and Patient Discussion [facility] Formulary Restriction Criteria: Adult outpatients 18 years and older with ALL of the following: [x] Patient has symptoms for 5 days or less [x] Not requiring hospitalization at any time for management of COVID-19 [x] Not requiring supplemental oxygen or a change in baseline supplemental oxygen [x] Not utilized for pre-exposure or post-exposure prophylaxis for prevention of COVID-19 [x] Patient is not or lactating [x] Meeting at least one of the criteria for high risk of progression to severe COVID-19: [] Age over 65 years [] Cancer [] Chronic kidney disease [] Chronic liver disease [x] Chronic lung diseases, including cystic fibrosis [] Dementia or other neurological conditions [x] Diabetes (type 1 or type 2) [] Disabilities, including Down syndrome and neurodevelopmental disorders [] Heart conditions [] HIV infection [] Immunocompromised state [x] Mental health conditions [] Medical related technological dependence (tracheostomy, gastrostomy, or positive pressure ventilation (not related to COVID) [] Overweight and obesity (BMI greater or equal to 25 for adults) [] Physical inactivity [] Sickle cell disease or thalassemia [] Smoking, current or former [] Solid organ or blood stem cell transplant [] Stroke or cerebrovascular disease [] Substance use disorders [] Tuberculosis [] People from racial and ethnic minority groups Criteria above are met: Yes Date of Symptom Onset: 06/17/23 Patient received COVID vaccine: yes / status reviewed: Females: [x] Patient is not currently and there is no possibility the patient could be (select one of the following): [x] test does not need to be confirmed in patients who have undergone permanent sterilization, are currently using an intrauterine system or contraceptive implant, or in whom is not possible. [] Patients not meeting conditions above: assess whether the patient is based on the first day of the last menstrual period in individuals who have regular menstrual cycles, is using reliable method of contraception correctly and consistently or have had a negative test [] A test is recommended if the individual has irregular menstrual cycles, is unsure of the first day of the last menstrual period or is not using effective contraception correctly and consistently [] Patient is not currently . is not recommended during treatment and for four days after final dose of molnupiravir. [] Females have been advised to use a reliable method of contraception correctly and consistently for the duration of treatment and for four days after the last dose of molnupiravir Males: [] Sexually active male with partner(s) of childbearing potential has been advised to use a reliable method of contraception correctly and consistently for intercourse for the duration of treatment and for three months after the last dose of molnupiravir I have discussed the use of the investigational therapeutic, molnupiravir, for the treatment of mild to moderate COVID-19 and its use under Emergency Use Authorization with the patient. The patient was informed that molnupiravir is not an FDA approved drug and that it is authorized for use under this Emergency Use Authorization. The patient was also informed of the significant known benefits and potential risks of molnupiravir, and the extent to which such potential risks and benefits are unknown. The patient was informed that there is mandatory reporting of all medication errors and serious adverse events potentially related to molnupiravir treatment within 7 calendar days from the onset of the event and that events up to 28 days after completion of therapy need to be reported. The discussion included alternatives to receiving molnupiravir, including clinical trials, and potential the risks and benefits of those alternatives. The patient was provided electronically with the Fact Sheet for Patients, Parents and Caregivers . The patient was also instructed that in addition to the treatment with molnupiravir, he/she should continue to self-isolate and use infection control measures (e.g., wear mask, isolate, social distance, avoid sharing personal items, clean and disinfect high touch surfaces, and frequent handwashing) according to CDC guidelines. The patient stated understanding and gave verbal consent to proceeding with molnupiravir treatment. Zoë Arenas PA-C June 19, 2023 12:47 PM documented in this encounter [facility] 05-30-2023 Miscellaneous Notes Addressed in [employer] message. Images from the original note were not included. Nelson Arias 15 hours ago (5:13 PM) Please call patient to inform her that her vitamin d has increased to 25. It is still low. Would continue with supplement Nelson Arias DPM Patient called. Verified name and date of . Patient would like results of vitamin D. Please review and advise. Rukhsana Salamanca LPN documented in this encounter [facility] 05-15-2023 Miscellaneous Notes Last office visit: 04/29/2023 Next appointment scheduled: No future appointments scheduled at this time. Last labs: 03/2023 Patient phones requesting refills as follows: Requested Prescriptions Pending Prescriptions Disp Refills albuterol HFA (VENTOLIN HFA) 90 mcg/actuation inhaler 18 g 2 Sig: Inhale 2 Puffs as instructed every 4 hours as needed. For wheezing/shortness of breath. Lancets lancets 100 Each 11 Sig: Test blood sugar(s) 3 times daily. Dx: Type 2 DM - Uncontrolled E11.65 Insulin: Yes gabapentin (NEURONTIN) 300 mg capsule 270 capsule 2 Sig: Take 1 capsule by mouth three times daily for 270 days. med-sync 90 days insulin glargine (LANTUS SOLOSTAR U-100 INSULIN) 100 unit/mL (3 mL) 30 mL 0 Sig: Inject 32 Units subcutaneously daily at bedtime. Insulin [place], Disposable, (PEN NEEDLE) 32 gauge x 5/32 100 Each 3 Sig: Inject 1 Each subcutaneously every 24 hours. Give with each insulin administration. Please review and advise. Leonor Vega LPN documented in this encounter [facility] 05-14-2023 Miscellaneous Notes Called and let Pt know: IMPRESSION: NEGATIVE There is no mammographic evidence of malignancy. A 1 year screening mammogram is recommended. Will only call back if provider has anything to add. Noted, we will watch for results. Pt called in asking about the results of her mammogram. I let her know it was in process and that as soon as it was back we would let her know the results. documented in this encounter [facility] 05-13-2023 Miscellaneous Notes May 14, 2023 PID: [id number] Mita Chatman [address] [facility] [address] [place] [id number] Dear Ms. Chatman, We are pleased to inform you that the results of your recent breast imaging exam on 05/10/2023 are normal. Early detection of cancer is very important. We also understand recommendations regarding breast cancer screening are controversial. Please discuss with your primary care provider which strategy is best for you and whether a mammogram is right for you. Your imaging studies and report will be kept on file at [facility] as part of your permanent medical record and are available for your continuing care. Thank you for allowing us to help in meeting your health care needs. Sincerely, Dr. Plascencia Interpreting Radiologist [facility] (Normal over 40) documented in this encounter [facility] 05-10-2023 Note HNO ID: [id number] Author: Sarah Ryan RT(R) Service: Radiology Author Type: [employer] Supervisor Type: Progress Notes Filed: 05/10/2023 1:42 PM Note Text: Radiology Service Progress Note PATIENT NAME: Mita Chatman DATE OF SERVICE: May 10, 2023 TIME: 1:42 PM PATIENT IDENTITY VERIFICATION COMPLETED USING TWO (2) IDENTIFIERS: Name and Date of confirmed by patient verbally. FALL SCREENING: Has the patient had 2 falls in the last year or 1 fall with injury or currently using an Ambulatory Assistive Device (Walker, Cane, Wheelchair, Crutches, etc.)? No PATIENT GENDER DATA: Female. status: : No status: NO. PATIENT RELEVANT IMPLANT DATA REVIEWED: Yes RADIOLOGY DEPARTMENT: Mammography PERIPHERAL IV DATA: Not applicable SIGNED BY: RT Oly(R) May 10, 2023 1:42 PM [facility] 05-10-2023 History of Present illness Narrative Radiology Service Progress Note PATIENT NAME: Mita Chatman DATE OF SERVICE: May 10, 2023 TIME: 1:42 PM PATIENT IDENTITY VERIFICATION COMPLETED USING TWO (2) IDENTIFIERS: Name and Date of confirmed by patient verbally. FALL SCREENING: Has the patient had 2 falls in the last year or 1 fall with injury or currently using an Ambulatory Assistive Device (Walker, Cane, Wheelchair, Crutches, etc.)? No PATIENT GENDER DATA: Female. status: : No status: NO. PATIENT RELEVANT IMPLANT DATA REVIEWED: Yes RADIOLOGY DEPARTMENT: Mammography PERIPHERAL IV DATA: Not applicable SIGNED BY: RT Oly(R) May 10, 2023 1:42 PM documented in this encounter [facility] 05-01-2023 Miscellaneous Notes Patient has been identified by name and date of : Yes, Provider Dr. Conteh Date 05.01.23 Time 12:22 pm Patient phones for refill(s): Requested Prescriptions Pending Prescriptions Disp Refills blood sugar diagnostic (ONETOUCH VERIO TEST STRIPS) test strip 50 Strip 11 Sig: Test blood sugar(s) 3times daily. Dx: Type 2 DM - Uncontrolled E11.65 Insulin: Yes Date of last office visit in primary care: 04/29/23 Last 2 Encounter Wt Readings: Date: Wt: 04/29/2023 71.2 kg (157 lb) 12/07/2022 68 kg (150 lb) Previous labs/tests for medication: Diabetes: Hemoglobin A1C (%) Date Value 04/22/2023 8.4 07/17/2022 7.5 03/03/2021 6.9 05/17/2020 6.4 Hemoglobin A1C (POCT) (%) Date Value 12/07/2022 13.4 12/18/2021 8.5 Thank you. Judi NAYLOR documented in this encounter [facility] 04-30-2023 Miscellaneous Notes Patient calls and states that her meter is not working. Patient asking for provider to send in new prescription for one touch verio meter. Please review and advise, Lexi Pratt RN documented in this encounter [facility] 04-29-2023 Note HNO ID: [id number] Author: Bessy Alegria PA-C Service: ? Author Type: Physician [place] Type: Progress Notes Filed: 07/08/2023 10:01 AM Note Text: 04/29/2023 Patient presents with: follow up - labs: Worsening diabetes SUBJECTIVE: This is a 63 year old that is here today for Complaint(s) of worsening diabetes. Last A1C on 04/22 was 8.4, fasting Glucose was 245. States she has missed her insulin dose-Lantus every day the last 2 weeks. She reports missing 2 doses a week on average the last few months. States she has late evening/long days and feels too tired to give it at night. Also not taking the humalog-states too close to bedtime. Not taking Victoza either the last 2 weeks not consistently before then as well. Notes increasing frequency with urination, no dysuria or hematuria. Denies abdominal pain. Not checking BG. Has meter and supplies. Otherwise denies chest pain, SOB, fatigue, leg swelling, JOHNS, changes in vision, numbness/tingling. Diet-eating 1 meal a day-late supper. Generally consists fried pork pork chops and butter noodles. 2 Monsters (zero sugar) and sweetened ice tea Scheduled for eye exam in April for yearly retinal exam. Due for mammogram=ordered. Mother was PMH breast CA. Elevated Cholesterol with PMH DM, uncontrolled. LDL was 126. + FH cardiac-father. The 10-year ASCVD risk score (Asaf DK, et al., 2019) is: 8.9% Values used to calculate the score: Age: 63 years Sex: Female Is Non- : No Diabetic: Yes Tobacco smoker: No Systolic Blood Pressure: 116 mmHg Is BP treated: No HDL Cholesterol: 39 mg/dL Total Cholesterol: 188 mg/dL PAST MEDICAL HISTORY Diagnosis Date Acquired hypothyroidism 01/05/2016 Acute gastritis without mention of hemorrhage Anemia, unspecified 06/19/2007 Asthma Benign hypertensive heart disease without heart failure BMI 36.0-36.9,adult 02/04/2017 Compression fracture of fifth lumbar vertebra (HCC) 07/29/2019 Depression Diabetes mellitus without mention of complication Diabetes mellitus Diarrhea Esophageal reflux Esophagitis, unspecified Generalized osteoarthrosis, unspecified site History of transfusion Hypertension Hypertrophy of breast 02/06/2008 Metabolic syndrome 11/18/2014 Mild persistent asthma 08/09/2016 Morbid obesity (HCC) 02-08-11 stated BMI 40.47 Ht: 62 Wt: 221 lbs Obstructive sleep apnea KYLEIGH (obstructive sleep apnea) 08/09/2016 Other and unspecified hyperlipidemia Transfusion history 04/2014 4 units after hysterectomy, postop hemorrhage ALLERGIES Amoxicillin, Doxycycline, Metformin, Pentazocine, Talacen [Pentazocine-Acetaminophen], Tessalon [Benzonatate], and Thiazides MEDICATIONS Current Outpatient Medications Medication Sig cholecalciferol (VITAMIN D-3) 50 mcg (2,000 unit) tablet Take 1 tablet by mouth once daily. topiramate (TOPAMAX) 50 mg tablet Take 1 tablet by mouth once daily. INV VITAMIN D3 5000 UNITS CAPSULE (IRB 19-1548) Take 1 capsule by mouth once daily. For Investigational Drug Use Only. PI: Lenore Kaur, PhD. Take one capsule by mouth daily for 3 months prior to surgery and 3 months after surgery. (Patient not taking: Reported on 2023) oxybutynin ER (DITROPAN XL) 10 mg 24 hr tablet Take 1 tablet by mouth once daily. liraglutide (VICTOZA) 0.6 mg/ 0.1 ml subcutaneous pen injector Inject 0.6 mg subcutaneously once daily. insulin glargine (LANTUS SOLOSTAR U-100 INSULIN) 100 unit/mL (3 mL) Inject 32 Units subcutaneously daily at bedtime. Insulin [place], Disposable, (PEN NEEDLE) 32 gauge x 5/32 Inject 1 Each subcutaneously q 24 HR. Give with each insulin administration. gabapentin (NEURONTIN) 300 mg capsule Take 1 capsule by mouth three times daily for 90 days. med-sync 90 days albuterol HFA (VENTOLIN HFA) 90 mcg/actuation inhaler Inhale 2 Puffs as instructed every 4 hours as needed. For wheezing/shortness of breath. blood sugar diagnostic (PollenizerTOUCH VERIO TEST STRIPS) test strip Test blood sugar(s) 3times daily. Dx: Type 2 DM - Uncontrolled E11.65 Insulin: Yes Lancets lancets Test blood sugar(s) 3 times daily. Dx: Type 2 DM - Uncontrolled E11.65 Insulin: Yes insulin lispro (HUMALOG KWIKPEN INSULIN) 100 unit/mL Inject 4 Units subcutaneously daily with dinner. levothyroxine (LEVOXYL) 25 mcg tablet Take 1 tablet by mouth once daily. Take on empty stomach. For Thyroid except no dose on Saturday or Saturday omeprazole (PRILOSEC) 20 mg capsule Take 1 capsule by mouth daily before breakfast. 1/2 hr before meal. QUEtiapine (SEROQUEL) 100 mg tablet Take 1 tablet by mouth once daily. venlafaxine ER (EFFEXOR XR) 75 mg 24 hr capsule Take 1 capsule by mouth once daily. Blood-Glucose Meter (PollenizerTOUCH VERIO FLEX METER) Use as instructed. E11.9 traZODone (DESYREL) 100 mg tablet Take 1 tablet by mouth daily at bedtime. folic acid 1 mg tablet Take 2 tablets by mouth once daily. Sublingual No current facility-administered medic (more content not included)... [facility] 04-29-2023 History of Present illness Narrative 04/29/2023 Patient presents with: follow up - labs: Worsening diabetes SUBJECTIVE: This is a 63 year old that is here today for Complaint(s) of worsening diabetes. Last A1C on 04/22 was 8.4, fasting Glucose was 245. States she has missed her insulin dose-Lantus every day the last 2 weeks. She reports missing 2 doses a week on average the last few months. States she has late evening/long days and feels too tired to give it at night. Also not taking the humalog-states too close to bedtime. Not taking Victoza either the last 2 weeks not consistently before then as well. Notes increasing frequency with urination, no dysuria or hematuria. Denies abdominal pain. Not checking BG. Has meter and supplies. Otherwise denies chest pain, SOB, fatigue, leg swelling, JOHNS, changes in vision, numbness/tingling. Diet-eating 1 meal a day-late supper. Generally consists fried pork pork chops and butter noodles. 2 Monsters (zero sugar) and sweetened ice tea Scheduled for eye exam in April for yearly retinal exam. Due for mammogram=ordered. Mother was PMH breast CA. Elevated Cholesterol with PMH DM, uncontrolled. LDL was 126. + FH cardiac-father. The 10-year ASCVD risk score (Asfa QUILES, et al., 2019) is: 8.9% Values used to calculate the score: Age: 63 years Sex: Female Is Non- : No Diabetic: Yes Tobacco smoker: No Systolic Blood Pressure: 116 mmHg Is BP treated: No HDL Cholesterol: 39 mg/dL Total Cholesterol: 188 mg/dL PAST MEDICAL HISTORY Diagnosis Date Acquired hypothyroidism 01/05/2016 Acute gastritis without mention of hemorrhage Anemia, unspecified 06/19/2007 Asthma Benign hypertensive heart disease without heart failure BMI 36.0-36.9,adult 02/04/2017 Compression fracture of fifth lumbar vertebra (HCC) 07/29/2019 Depression Diabetes mellitus without mention of complication Diabetes mellitus Diarrhea Esophageal reflux Esophagitis, unspecified Generalized osteoarthrosis, unspecified site History of transfusion Hypertension Hypertrophy of breast 02/06/2008 Metabolic syndrome 11/18/2014 Mild persistent asthma 08/09/2016 Morbid obesity (HCC) 02-08-11 stated BMI 40.47 Ht: 62 Wt: 221 lbs Obstructive sleep apnea KYLEIGH (obstructive sleep apnea) 08/09/2016 Other and unspecified hyperlipidemia Transfusion history 04/2014 4 units after hysterectomy, postop hemorrhage ALLERGIES Amoxicillin, Doxycycline, Metformin, Pentazocine, Talacen [Pentazocine-Acetaminophen], Tessalon [Benzonatate], and Thiazides MEDICATIONS Current Outpatient Medications Medication Sig cholecalciferol (VITAMIN D-3) 50 mcg (2,000 unit) tablet Take 1 tablet by mouth once daily. topiramate (TOPAMAX) 50 mg tablet Take 1 tablet by mouth once daily. INV VITAMIN D3 5000 UNITS CAPSULE (IRB 19-1548) Take 1 capsule by mouth once daily. For Investigational Drug Use Only. PI: Lenore Kaur, PhD. Take one capsule by mouth daily for 3 months prior to surgery and 3 months after surgery. (Patient not taking: Reported on 2023) oxybutynin ER (DITROPAN XL) 10 mg 24 hr tablet Take 1 tablet by mouth once daily. liraglutide (VICTOZA) 0.6 mg/ 0.1 ml subcutaneous pen injector Inject 0.6 mg subcutaneously once daily. insulin glargine (LANTUS SOLOSTAR U-100 INSULIN) 100 unit/mL (3 mL) Inject 32 Units subcutaneously daily at bedtime. Insulin [place], Disposable, (PEN NEEDLE) 32 gauge x 5/32 Inject 1 Each subcutaneously q 24 HR. Give with each insulin administration. gabapentin (NEURONTIN) 300 mg capsule Take 1 capsule by mouth three times daily for 90 days. med-sync 90 days albuterol HFA (VENTOLIN HFA) 90 mcg/actuation inhaler Inhale 2 Puffs as instructed every 4 hours as needed. For wheezing/shortness of breath. blood sugar diagnostic (PollenizerTOUCH VERIO TEST STRIPS) test strip Test blood sugar(s) 3times daily. Dx: Type 2 DM - Uncontrolled E11.65 Insulin: Yes Lancets lancets Test blood sugar(s) 3 times daily. Dx: Type 2 DM - Uncontrolled E11.65 Insulin: Yes insulin lispro (HUMALOG KWIKPEN INSULIN) 100 unit/mL Inject 4 Units subcutaneously daily with dinner. levothyroxine (LEVOXYL) 25 mcg tablet Take 1 tablet by mouth once daily. Take on empty stomach. For Thyroid except no dose on Saturday or Saturday omeprazole (PRILOSEC) 20 mg capsule Take 1 capsule by mouth daily before breakfast. 1/2 hr before meal. QUEtiapine (SEROQUEL) 100 mg tablet Take 1 tablet by mouth once daily. venlafaxine ER (EFFEXOR XR) 75 mg 24 hr capsule Take 1 capsule by mouth once daily. Blood-Glucose Meter ([employer] VERIO FLEX METER) Use as instructed. E11.9 traZODone (DESYREL) 100 mg tablet Take 1 tablet by mouth daily at bedtime. folic acid 1 mg tablet Take 2 tablets by mouth once daily. Sublingual No current facility-administered medications for this visit. SOCIAL HISTORY Social History Tobacco Use Smoking status: Never Smokeless tobacco: Never Vaping Use Vaping Use: Never used Substance Use Topics Alcohol use: Yes Comment: rarely Drug use: No REVIEW OF SYSTEMS See HPI OBJECTIVE: BP 116/68 Pulse 64 Resp 14 Wt 71.2 kg (157 lb) LMP 05/21/2007 BMI 27.81 kg/m APPEARANCE Well appearing, alert, in no acute distress, well-hydrated, well nourished. EYES PERRLA, conjunctiva and sclera normal. NOSE/SINUS Nares normal. Septum midline. Mucosa normal. No drainage or sinus tenderness. THROAT normal, no erythema NECK Supple, no adenopathy; HEART RRR with normal S1 and S2 LUNG clear to auscultation ASSESSMENT/PLAN: 1. Type 1 diabetes mellitus without complication (HCC) - ICD9: 250.01, ICD10: E10.9 (primary diagnosis) - Uncontrolled - Worsening control - Continue current medications with Lantus and Victoza Check BG readings 2-3 times daily, fasting every morning. Call with BG readings in 2 weeks to assess adjustments in dosage. Add back in Humalog based on BG readings when taking mediations regularly. Not taking currently. - HGB A1C - COMP METABOLIC PANEL Recheck labs in 3 months, call in 2 weeks with readings, sooner if needed. Reviewed diet with patient 2. Mixed hyperlipidemia - ICD9: 272.2, ICD10: E78.2 - Uncontrolled - Counseled on healthy diet and regular exercise - LIPID PANEL BASIC Discussed lifestyle vs starting statin therapy-prefers to start medication Start Lipitor 10 mg once daily Recheck labs in 6 weeks. 3. Recommend scheduling for mammogram-patient will call to schedule. I spent a total of 45 minutes on the date of the service which included preparing to see the patient, [id number] patient care, completing clinical documentation, performing a medically appropriate examination, counseling and educating the patient/family/caregiver, ordering medications, tests, or procedures, and communicating results to the patient/family/caregiver. Bessy Alegria PA-C documented in this encounter [facility] 04-26-2023 Miscellaneous Notes Patient notified of results and provider's instructions. Patient verbalizes understanding. Alexus Guadalupe LPN documented in this encounter [facility] 2023 Note HNO ID: [id number] Author: Nelson Arias Service: ? Author Type: Physician Type: Progress Notes Filed: 2023 12:30 PM Note Text: FOLLOW UP PODIATRIC OFFICE VISIT Chief Complaint: This 63 year old who presents for follow up:right great toe arthritis Patient presents to clinic for follow-up right great toe pain Patient continues to complain of pain in the right great toe She is here to discuss fusion of the great toe She also is here to discuss hammertoe of right 2nd, 3rd and 4th toe She is diabetic. Her last a1c was 8.4 PAIN EVALUATION 2023 1122 Frequency: Intermittent Hemoglobin A1C Date Value Ref Range Status 04/22/2023 8.4 (H) 4.3 - 5.6 % Final Comment: [place] [employer] guidelines indicate that patients with HgbA1c in the range 5.7-6.4% are at increased risk for development of diabetes, and intervention by lifestyle modification may be beneficial. HgbA1c greater or equal to 6.5% is considered diagnostic of diabetes. PCP: Giovana Conteh MD PAST MEDICAL HISTORY Diagnosis Date Acquired hypothyroidism 01/05/2016 Acute gastritis without mention of hemorrhage Anemia, unspecified 06/19/2007 Asthma Benign hypertensive heart disease without heart failure BMI 36.0-36.9,adult 02/04/2017 Compression fracture of fifth lumbar vertebra (HCC) 07/29/2019 Depression Diabetes mellitus without mention of complication Diabetes mellitus Diarrhea Esophageal reflux Esophagitis, unspecified Generalized osteoarthrosis, unspecified site History of transfusion Hypertension Hypertrophy of breast 02/06/2008 Metabolic syndrome 11/18/2014 Mild persistent asthma 08/09/2016 Morbid obesity (HCC) 02-08-11 stated BMI 40.47 Ht: 62 Wt: 221 lbs Obstructive sleep apnea KYLEIGH (obstructive sleep apnea) 08/09/2016 Other and unspecified hyperlipidemia Transfusion history 04/2014 4 units after hysterectomy, postop hemorrhage Current Outpatient Medications Medication Sig topiramate (TOPAMAX) 50 mg tablet Take 1 tablet by mouth once daily. oxybutynin ER (DITROPAN XL) 10 mg 24 hr tablet Take 1 tablet by mouth once daily. liraglutide (VICTOZA) 0.6 mg/ 0.1 ml subcutaneous pen injector Inject 0.6 mg subcutaneously once daily. insulin glargine (LANTUS SOLOSTAR U-100 INSULIN) 100 unit/mL (3 mL) Inject 32 Units subcutaneously daily at bedtime. Insulin [place], Disposable, (PEN NEEDLE) 32 gauge x 5/32 Inject 1 Each subcutaneously q 24 HR. Give with each insulin administration. gabapentin (NEURONTIN) 300 mg capsule Take 1 capsule by mouth three times daily for 90 days. med-sync 90 days albuterol HFA (VENTOLIN HFA) 90 mcg/actuation inhaler Inhale 2 Puffs as instructed every 4 hours as needed. For wheezing/shortness of breath. blood sugar diagnostic (PollenizerTOUCH VERIO TEST STRIPS) test strip Test blood sugar(s) 3times daily. Dx: Type 2 DM - Uncontrolled E11.65 Insulin: Yes Lancets lancets Test blood sugar(s) 3 times daily. Dx: Type 2 DM - Uncontrolled E11.65 Insulin: Yes insulin lispro (HUMALOG KWIKPEN INSULIN) 100 unit/mL Inject 4 Units subcutaneously daily with dinner. levothyroxine (LEVOXYL) 25 mcg tablet Take 1 tablet by mouth once daily. Take on empty stomach. For Thyroid except no dose on Saturday or Saturday omeprazole (PRILOSEC) 20 mg capsule Take 1 capsule by mouth daily before breakfast. 1/2 hr before meal. QUEtiapine (SEROQUEL) 100 mg tablet Take 1 tablet by mouth once daily. venlafaxine ER (EFFEXOR XR) 75 mg 24 hr capsule Take 1 capsule by mouth once daily. Blood-Glucose Meter (ONETOUCH VERIO FLEX METER) Use as instructed. E11.9 traZODone (DESYREL) 100 mg tablet Take 1 tablet by mouth daily at bedtime. folic acid 1 mg tablet Take 2 tablets by mouth once daily. Sublingual INV VITAMIN D3 5000 UNITS CAPSULE (IRB 19-1548) Take 1 capsule by mouth once daily. For Investigational Drug Use Only. PI: Lenore Kaur, PhD. Take one capsule by mouth daily for 3 months prior to surgery and 3 months after surgery. (Patient not taking: Reported on 2023) No current facility-administered medications for this visit. ALLERGIES Allergen Reactions Amoxicillin Intolerance severe yeast infection Doxycycline Diarrhea DIARRHEA,VOMITING, YEAST INFECTION Metformin Diarrhea Pentazocine Unknown [place] [Pentazocin* Unknown reaction Tessalon [Benzonata* GI Upset Thiazides Severe leg cramps - hctz PAST SURGICAL HISTORY Procedure Laterality Date ABDOMINAL SURGERY HX ANTERIOR COLPORRAPHY RPR CYSTOCELE W/CYSTO 05/06/2014 cystocele BACK SURGERY HX 06/24/2020 L4, L5 fusion BREAST SURGERY HX COLONOSCOPY FLX DX W/COLLJ SPEC WHEN PFRMD 08/16/2016 Colonoscopy (MAC) COLONOSCOPY GEN ANES 03/23/2021 normal colonoscopy, non-bleeding hemorrhoids COLONOSCOPY W/BIOPSY SINGLE/MULTIPLE 05/09/2009 COLPOPEXY VAGINAL INTRAPERITONEAL APPROACH 05/06/2014 USLF, cystoscopy DILATION AND CURETTAGE DXAND/THER NONOBSTETRIC Dilation AND curettage (more content not included)... [facility] 2023 Note HNO ID: [id number] Author: Eden Storm RN Service: ? Author Type: Registered Nurse Type: Progress Notes Filed: 2023 12:30 PM Note Text: Patient presents with: Right Foot - Established Patient, Follow Up, Pain Left Foot - Established Patient, Follow Up, Pain Patient presents to discuss right toe pain and possible fusion as well as bilateral foot pain. States no pain today. Had vitamin D level drawn today. Ran out of Vitamin D pills around January. Also needs updated diabetic foot exam. [facility] 2023 History of Present illness Narrative FOLLOW UP PODIATRIC OFFICE VISIT Chief Complaint: This 63 year old who presents for follow up:right great toe arthritis Patient presents to clinic for follow-up right great toe pain Patient continues to complain of pain in the right great toe She is here to discuss fusion of the great toe She also is here to discuss hammertoe of right 2nd, 3rd and 4th toe She is diabetic. Her last a1c was 8.4 PAIN EVALUATION 2023 1122 Frequency: Intermittent Hemoglobin A1C Date Value Ref Range Status 04/22/2023 8.4 (H) 4.3 - 5.6 % Final Comment: [place] [employer] guidelines indicate that patients with HgbA1c in the range 5.7-6.4% are at increased risk for development of diabetes, and intervention by lifestyle modification may be beneficial. HgbA1c greater or equal to 6.5% is considered diagnostic of diabetes. PCP: Giovana Conteh MD PAST MEDICAL HISTORY Diagnosis Date Acquired hypothyroidism 01/05/2016 Acute gastritis without mention of hemorrhage Anemia, unspecified 06/19/2007 Asthma Benign hypertensive heart disease without heart failure BMI 36.0-36.9,adult 02/04/2017 Compression fracture of fifth lumbar vertebra (HCC) 07/29/2019 Depression Diabetes mellitus without mention of complication Diabetes mellitus Diarrhea Esophageal reflux Esophagitis, unspecified Generalized osteoarthrosis, unspecified site History of transfusion Hypertension Hypertrophy of breast 02/06/2008 Metabolic syndrome 11/18/2014 Mild persistent asthma 08/09/2016 Morbid obesity (HCC) 02-08-11 stated BMI 40.47 Ht: 62 Wt: 221 lbs Obstructive sleep apnea KYLEIGH (obstructive sleep apnea) 08/09/2016 Other and unspecified hyperlipidemia Transfusion history 04/2014 4 units after hysterectomy, postop hemorrhage Current Outpatient Medications Medication Sig topiramate (TOPAMAX) 50 mg tablet Take 1 tablet by mouth once daily. oxybutynin ER (DITROPAN XL) 10 mg 24 hr tablet Take 1 tablet by mouth once daily. liraglutide (VICTOZA) 0.6 mg/ 0.1 ml subcutaneous pen injector Inject 0.6 mg subcutaneously once daily. insulin glargine (LANTUS SOLOSTAR U-100 INSULIN) 100 unit/mL (3 mL) Inject 32 Units subcutaneously daily at bedtime. Insulin [place], Disposable, (PEN NEEDLE) 32 gauge x 5/32 Inject 1 Each subcutaneously q 24 HR. Give with each insulin administration. gabapentin (NEURONTIN) 300 mg capsule Take 1 capsule by mouth three times daily for 90 days. med-sync 90 days albuterol HFA (VENTOLIN HFA) 90 mcg/actuation inhaler Inhale 2 Puffs as instructed every 4 hours as needed. For wheezing/shortness of breath. blood sugar diagnostic (OhaiUCH VERIO TEST STRIPS) test strip Test blood sugar(s) 3times daily. Dx: Type 2 DM - Uncontrolled E11.65 Insulin: Yes Lancets lancets Test blood sugar(s) 3 times daily. Dx: Type 2 DM - Uncontrolled E11.65 Insulin: Yes insulin lispro (HUMALOG KWIKPEN INSULIN) 100 unit/mL Inject 4 Units subcutaneously daily with dinner. levothyroxine (LEVOXYL) 25 mcg tablet Take 1 tablet by mouth once daily. Take on empty stomach. For Thyroid except no dose on Saturday or Saturday omeprazole (PRILOSEC) 20 mg capsule Take 1 capsule by mouth daily before breakfast. 1/2 hr before meal. QUEtiapine (SEROQUEL) 100 mg tablet Take 1 tablet by mouth once daily. venlafaxine ER (EFFEXOR XR) 75 mg 24 hr capsule Take 1 capsule by mouth once daily. Blood-Glucose Meter (PollenizerTOUCH VERIO FLEX METER) Use as instructed. E11.9 traZODone (DESYREL) 100 mg tablet Take 1 tablet by mouth daily at bedtime. folic acid 1 mg tablet Take 2 tablets by mouth once daily. Sublingual INV VITAMIN D3 5000 UNITS CAPSULE (IRB [id number]) Take 1 capsule by mouth once daily. For Investigational Drug Use Only. PI: Lenore Kaur, PhD. Take one capsule by mouth daily for 3 months prior to surgery and 3 months after surgery. (Patient not taking: Reported on 2023) No current facility-administered medications for this visit. ALLERGIES Allergen Reactions Amoxicillin Intolerance severe yeast infection Doxycycline Diarrhea DIARRHEA,VOMITING, YEAST INFECTION Metformin Diarrhea Pentazocine Unknown [place] [Pentazocin* Unknown reaction Tessalon [Benzonata* GI Upset Thiazides Severe leg cramps - hctz PAST SURGICAL HISTORY Procedure Laterality Date ABDOMINAL SURGERY HX ANTERIOR COLPORRAPHY RPR CYSTOCELE W/CYSTO 05/06/2014 cystocele BACK SURGERY HX 06/24/2020 L4, L5 fusion BREAST SURGERY HX COLONOSCOPY FLX DX W/COLLJ SPEC WHEN PFRMD 08/16/2016 Colonoscopy (MAC) COLONOSCOPY GEN ANES 03/23/2021 normal colonoscopy, non-bleeding hemorrhoids COLONOSCOPY W/BIOPSY SINGLE/MULTIPLE 05/09/2009 COLPOPEXY VAGINAL INTRAPERITONEAL APPROACH 05/06/2014 USLF, cystoscopy DILATION & CURETTAGE DX&/THER NONOBSTETRIC Dilation & curettage EGD 03/23/2021 normal exam, gastric bypass noted EGD TRANSORAL BIOPSY SINGLE/MULTIPLE 01/22/2011 ESOPHAGOGASTRODUODENOSCOPY TRANSORAL DIAGNOSTIC 05/29/2013 EGD ESOPHAGOGASTRODUODENOSCOPY TRANSORAL DIAGNOSTIC 08/16/2016 EGD (MAC) ESOPHAGOGASTRODUODENOSCOPY TRANSORAL DIAGNOSTIC 10/11/2016 EGD GASTRIC BYPASS HX 2009 LAPAROSCOPY SURG CHOLECYSTECTOMY Cholecystectomy, lap LIG/TRNSXJ FLP TUBE ABDL/VAG APPR UNI/BI Tubal ligation PAST SURGICAL HISTORY OF right foot bone spur removed PAST SURGICAL HISTORY OF 08/13/2014 Posterior colporrhaphy REDUCTION OF LARGE BREAST 2008 TONSILLECTOMY HX TONSILLECTOMY PRIMARY/SECONDARY <AGE 11 VAG HYST 250 GM/< W/RMVL TUBE&/OVARY 05/06/2014 TVH/BSO for prolapse VAGINAL HYSTERECTOMY Physical Exam: OBJECTIVE: Constitutional: Pt is a well developed 63 year old female who is alert, oriented, cooperative and in no apparent distress. Eyes: Following during examination. No redness or drainage. Respiratory: RR normal and nonlabored. Even breathing. No evidence of distress. Psychology: Patient is engaged during conversation. Normal affect and mood. Does not appear depressed or anxious. NVSI unchanged from previous visit. Dermatological: Nails 1-5 b/l are normal. Webspaces clean and dry 1-4 b/l. Skin appears well hydrated and supple. good color, texture, turgor. No open lesions present. No callosities present. Musculoskeletal/Orthopaedic: Patient has pain to palpation of right 1st mtpj. ROM of right 1st mtpj is decreased and causes pain with rom. Rigid hammertoes 2-4 right foot Adductovarus deformity is present to right 5th toe ASSESSMENT: (M20.41) Hammer toe of right foot (primary encounter diagnosis) (M20.21) Hallux rigidus of right foot (E11.49) Other diabetic neurological complication associated with type 2 diabetes mellitus (HCC) PLAN: Again discussed pain in hammertoes and great toe. Discussed conservative care not limited to wider shoes and firm sole shoes. Discussed surgical options by way of the followin. First mtpj fusion right foot 2. Pipj fusion 2-4 right foot with fdl transfer 3. Derotational arthroplasty of right 5th toe with flexor tenotomy. Would not recommend any surgery until vitamin d is normal range. Await labs from today Would not recommend surgery until her a1c is below 8.0. at 8.4 now but still would prefer this type of surgery to be lower than 8. Ideally less than 7 Nelson Arias DPM Patient presents with: Right Foot - Established Patient, Follow Up, Pain Left Foot - Established Patient, Follow Up, Pain Patient presents to discuss right toe pain and possible fusion as well as bilateral foot pain. States no pain today. Had vitamin D level drawn today. Ran out of Vitamin D pills around January. Also needs updated diabetic foot exam. documented in this encounter [facility] 03-14-2023 Miscellaneous Notes Patient has been identified by name and date of : Yes Last office visit in this department: Visit date not found RX INSTRUCTIONS: Patient aware RX will be sent to pharmacy. No need to notify patient. Patient phones requesting refills as follows: Requested Prescriptions Pending Prescriptions Disp Refills topiramate (TOPAMAX) 50 mg tablet 90 tablet 3 Sig: Take 1 tablet by mouth once daily. Please review and advise. Tracey Snyder documented in this encounter [facility] 02-01-2023 Miscellaneous Notes Last office visit: 12/07/22 Next appointment scheduled: No future appointments scheduled at this time. Last labs: 12/07/22 last HGBA1C Patient phones requesting refills as follows: Requested Prescriptions Pending Prescriptions Disp Refills liraglutide (VICTOZA 3-JOEL) 0.6 mg/0.1 mL (18 mg/3 mL) 9 mL 1 Sig: Inject 0.6 mg subcutaneously once daily. Please review and advise. Leonor Vega LPN documented in this encounter [facility] 02-01-2023 Miscellaneous Notes Patient has been identified by name and date of : No Patient phones for refill(s): Requested Prescriptions Pending Prescriptions Disp Refills oxybutynin ER (DITROPAN XL) 10 mg 24 hr tablet 90 tablet 2 Sig: Take 1 tablet by mouth once daily. Date of last office visit in primary care: 12/07/22 Last 2 Encounter Wt Readings: Date: Wt: 12/07/2022 68 kg (150 lb) 07/25/2022 69.9 kg (154 lb) Previous labs/tests for medication: Not applicable Please advise. Thank you. Yesenia Ding LPN documented in this encounter [facility] 01-23-2023 Miscellaneous Notes Patient has been identified by name and date of : Yes Requested Prescriptions Pending Prescriptions Disp Refills gabapentin (NEURONTIN) 300 mg capsule 90 capsule 3 Sig: Take 1 capsule by mouth three times daily for 30 days. med-sync 90 days RX INSTRUCTIONS: Patient aware RX will be sent to pharmacy. No need to notify patient. Patient last office visit: 12/07/22 Patient next office visit: 02/08/23 Zoë Ramirez MA documented in this encounter [facility] 01-23-2023 Miscellaneous Notes Patient has been identified by name and date of : Yes Requested Prescriptions Pending Prescriptions Disp Refills oxybutynin ER (DITROPAN XL) 10 mg 24 hr tablet 90 tablet 2 Sig: Take 1 tablet by mouth once daily. RX INSTRUCTIONS: Patient aware RX will be sent to pharmacy. No need to notify patient. Patient last office visit: 12/07/22 Patient next office visit: 02/08/23 Pt requesting 90 day supply. Quantity updated. Zoë Ramirez MA documented in this encounter [facility] 12-10-2022 Miscellaneous Notes Patient has been identified by name and date of : No Patient phones for refill(s): Requested Prescriptions Pending Prescriptions Disp Refills albuterol HFA (VENTOLIN HFA) 90 mcg/actuation inhaler 18 g 2 Sig: Inhale 2 Puffs as instructed every 4 hours as needed. For wheezing/shortness of breath. Date of last office visit in primary care: 12/07/22 Last 2 Encounter Wt Readings: Date: Wt: 12/07/2022 68 kg (150 lb) 07/25/2022 69.9 kg (154 lb) Previous labs/tests for medication: Not applicable Please advise. Thank you. Yesenia Ding LPN documented in this encounter [facility] 12-10-2022 Miscellaneous Notes Last office visit: 12/07/22 Next appointment scheduled: 02/08/23 Last labs: 12/17/22 Patient phones requesting refills as follows: Requested Prescriptions Pending Prescriptions Disp Refills Lancets lancets 100 Each 11 Sig: Test blood sugar(s) 3 times daily. Dx: Type 2 DM - Uncontrolled E11.65 Insulin: Yes Please review and advise. Leonor Vega LPN documented in this encounter [facility] 12-08-2022 Miscellaneous Notes Phoned patient and went over notes from Dr Conteh with understanding. She Is to take the basaglar and not the toujeo Regards, Giovana Conteh MD Patient calling she just left from her appt and is reading her after visit summary. Patient is asking if she to continue taking the Toujeo 32 units at bedtime? She said a rx for Basaglar was sent to pharmacy for her to take 32 units at bedtime. Is she to take both of the insulins? If so patient does not have any Toujeo at home, would need new rx sent to [facility] [place]. Patient is little confused with her new rx, Humalog at supper and Victoza 0.6 mg once daily. Not sure about Basaglar and Toujeo? Please advise documented in this encounter [facility] 12-07-2022 Note HNO ID: [id number] Author: Giovana Conteh MD Service: ? Author Type: Physician Type: Progress Notes Filed: 12/07/2022 1:14 PM Note Text: Reason for Visit Patient presents with: Same Day Appointment: reoccurring yeast infections x 2 months nonstop Mita Chatman is a 62 year old female who presents here today for Above Complaints.. Health Maintenance SPIROMETRY HIV SCREENING SHINGRIX VACCINE(1 of 2) MAMMOGRAM DIABETIC FOOT EXAM LDL CHOLESTEROL HPI Lost a few pounds recently , she thinks its from all the stress she has with caregiving with brother and her son who has issues going . Here today to discuss her yeast infection. Patient has been having some sores, itching of the perineal area. This has been going on for 2 months, denies having vaginal discharge. Some times she has a odor and when she passes urine it smells. Has not been taking her insulins, victoza for the past 2 months or more. Hba1c here is 13.5. She has been using some monistat and occasionally it helps her. We emphasized the importance of getting back on all her Diabetes Mellitus medications and giving some oral fluconazole She has also stopped taking her thyroid medications, notes being very tired. She is taking the trazodone, effexor and the seroquel. Also taking the oxybutynin and prilosec as needed She is taking the topamax once a day No problem-specific Assessment AND Plan notes found for this encounter. PAST MEDICAL HISTORY Diagnosis Date Acquired hypothyroidism 01/05/2016 Acute gastritis without mention of hemorrhage Anemia, unspecified 06/19/2007 Asthma Benign hypertensive heart disease without heart failure BMI 36.0-36.9,adult 02/04/2017 Compression fracture of fifth lumbar vertebra (HCC) 07/29/2019 Depression Diabetes mellitus without mention of complication Diabetes mellitus Diarrhea Esophageal reflux Esophagitis, unspecified Generalized osteoarthrosis, unspecified site History of transfusion Hypertension Hypertrophy of breast 02/06/2008 Metabolic syndrome 11/18/2014 Mild persistent asthma 08/09/2016 Morbid obesity (HCC) 02-08-11 stated BMI 40.47 Ht: 62 Wt: 221 lbs Obstructive sleep apnea KYLEIGH (obstructive sleep apnea) 08/09/2016 Other and unspecified hyperlipidemia Transfusion history 04/2014 4 units after hysterectomy, postop hemorrhage PAST SURGICAL HISTORY Procedure Laterality Date ABDOMINAL SURGERY HX ANTERIOR COLPORRAPHY RPR CYSTOCELE W/CYSTO 05/06/2014 cystocele BACK SURGERY HX 06/24/2020 L4, L5 fusion BREAST SURGERY HX COLONOSCOPY FLX DX W/COLLJ SPEC WHEN PFRMD 08/16/2016 Colonoscopy (MAC) COLONOSCOPY GEN ANES 03/23/2021 normal colonoscopy, non-bleeding hemorrhoids COLONOSCOPY W/BIOPSY SINGLE/MULTIPLE 05/09/2009 COLPOPEXY VAGINAL INTRAPERITONEAL APPROACH 05/06/2014 USLF, cystoscopy DILATION AND CURETTAGE DXAND/THER NONOBSTETRIC Dilation AND curettage EGD 03/23/2021 normal exam, gastric bypass noted EGD TRANSORAL BIOPSY SINGLE/MULTIPLE 01/22/2011 ESOPHAGOGASTRODUODENOSCOPY TRANSORAL DIAGNOSTIC 05/29/2013 EGD ESOPHAGOGASTRODUODENOSCOPY TRANSORAL DIAGNOSTIC 08/16/2016 EGD (MAC) ESOPHAGOGASTRODUODENOSCOPY TRANSORAL DIAGNOSTIC 10/11/2016 EGD GASTRIC BYPASS HX 2009 LAPAROSCOPY SURG CHOLECYSTECTOMY Cholecystectomy, lap LIG/TRNSXJ FLP TUBE ABDL/VAG APPR UNI/BI Tubal ligation PAST SURGICAL HISTORY OF right foot bone spur removed PAST SURGICAL HISTORY OF 08/13/2014 Posterior colporrhaphy REDUCTION OF LARGE BREAST 2008 TONSILLECTOMY HX TONSILLECTOMY PRIMARY/SECONDARY VAG HYST 250 GM/< W/RMVL TUBEAND/OVARY 05/06/2014 TVH/BSO for prolapse VAGINAL HYSTERECTOMY FAMILY HISTORY Problem Relation Age of Onset Breast Cancer Mother Liver and colon cancer Hypertension Mother Stroke Mother Coronary Artery Disease Father Diabetes Maternal Grandmother Heart Maternal Grandfather [place] Stroke Paternal Grandmother Diabetes Paternal Grandmother Stroke Paternal Grandfather Anesthesia Problems No Family History Social History Tobacco Use Smoking status: Never Smokeless tobacco: Never Vaping Use Vaping Use: Never used Substance Use Topics Alcohol use: Yes Comment: rarely Drug use: No Past medical history, appointments, medications, allergies reviewed. Pertinent Lab/Diagnostic Studies are reviewed and discussed today Current Outpatient Medications: omeprazole (PRILOSEC) 20 mg capsule INV VITAMIN D3 5000 UNITS CAPSULE (IRB 19-1548) QUEtiapine (SEROQUEL) 100 mg tablet venlafaxine ER (EFFEXOR XR) 75 mg 24 hr capsule gabapentin (NEURONTIN) 300 mg capsule insulin glargine (BASAGLAR KWIKPEN U-100 INSULIN) 100 unit/mL (3 mL) insulin glargine U-300 conc (TOUJEO SOLOSTAR U-300 INSULIN) 300 unit/mL (1.5 mL) oxybutynin ER (DITROPAN XL) 10 mg 24 hr tablet Blood-Glucose Meter (ONETOUCH VERIO FLEX METER) blood sugar diagnostic (ONETOUCH VERIO TEST STRIPS) test strip liraglutide (VICTOZA) 0.6 mg/ 0.1 (more content not included)... [facility] 12-07-2022 History of Present illness Narrative Reason for Visit Patient presents with: Same Day Appointment: reoccurring yeast infections x 2 months nonstop Mita Chatman is a 62 year old female who presents here today for Above Complaints.. Health Maintenance SPIROMETRY HIV SCREENING SHINGRIX VACCINE(1 of 2) MAMMOGRAM DIABETIC FOOT EXAM LDL CHOLESTEROL HPI Lost a few pounds recently , she thinks its from all the stress she has with caregiving with brother and her son who has issues going . Here today to discuss her yeast infection. Patient has been having some sores, itching of the perineal area. This has been going on for 2 months, denies having vaginal discharge. Some times she has a odor and when she passes urine it smells. Has not been taking her insulins, victoza for the past 2 months or more. Hba1c here is 13.5. She has been using some monistat and occasionally it helps her. We emphasized the importance of getting back on all her Diabetes Mellitus medications and giving some oral fluconazole She has also stopped taking her thyroid medications, notes being very tired. She is taking the trazodone, effexor and the seroquel. Also taking the oxybutynin and prilosec as needed She is taking the topamax once a day No problem-specific Assessment & Plan notes found for this encounter. PAST MEDICAL HISTORY Diagnosis Date Acquired hypothyroidism 01/05/2016 Acute gastritis without mention of hemorrhage Anemia, unspecified 06/19/2007 Asthma Benign hypertensive heart disease without heart failure BMI 36.0-36.9,adult 02/04/2017 Compression fracture of fifth lumbar vertebra (HCC) 07/29/2019 Depression Diabetes mellitus without mention of complication Diabetes mellitus Diarrhea Esophageal reflux Esophagitis, unspecified Generalized osteoarthrosis, unspecified site History of transfusion Hypertension Hypertrophy of breast 02/06/2008 Metabolic syndrome 11/18/2014 Mild persistent asthma 08/09/2016 Morbid obesity (HCC) 02-08-11 stated BMI 40.47 Ht: 62 Wt: 221 lbs Obstructive sleep apnea KYLEIGH (obstructive sleep apnea) 08/09/2016 Other and unspecified hyperlipidemia Transfusion history 04/2014 4 units after hysterectomy, postop hemorrhage PAST SURGICAL HISTORY Procedure Laterality Date ABDOMINAL SURGERY HX ANTERIOR COLPORRAPHY RPR CYSTOCELE W/CYSTO 05/06/2014 cystocele BACK SURGERY HX 06/24/2020 L4, L5 fusion BREAST SURGERY HX COLONOSCOPY FLX DX W/COLLJ SPEC WHEN PFRMD 08/16/2016 Colonoscopy (MAC) COLONOSCOPY GEN ANES 03/23/2021 normal colonoscopy, non-bleeding hemorrhoids COLONOSCOPY W/BIOPSY SINGLE/MULTIPLE 05/09/2009 COLPOPEXY VAGINAL INTRAPERITONEAL APPROACH 05/06/2014 USLF, cystoscopy DILATION & CURETTAGE DX&/THER NONOBSTETRIC Dilation & curettage EGD 03/23/2021 normal exam, gastric bypass noted EGD TRANSORAL BIOPSY SINGLE/MULTIPLE 01/22/2011 ESOPHAGOGASTRODUODENOSCOPY TRANSORAL DIAGNOSTIC 05/29/2013 EGD ESOPHAGOGASTRODUODENOSCOPY TRANSORAL DIAGNOSTIC 08/16/2016 EGD (MAC) ESOPHAGOGASTRODUODENOSCOPY TRANSORAL DIAGNOSTIC 10/11/2016 EGD GASTRIC BYPASS HX 2010 LAPAROSCOPY SURG CHOLECYSTECTOMY Cholecystectomy, lap LIG/TRNSXJ FLP TUBE ABDL/VAG APPR UNI/BI Tubal ligation PAST SURGICAL HISTORY OF right foot bone spur removed PAST SURGICAL HISTORY OF 08/13/2014 Posterior colporrhaphy REDUCTION OF LARGE BREAST 2008 TONSILLECTOMY HX TONSILLECTOMY PRIMARY/SECONDARY <AGE 12 VAG HYST 250 GM/< W/RMVL TUBE&/OVARY 05/06/2014 TVH/BSO for prolapse VAGINAL HYSTERECTOMY FAMILY HISTORY Problem Relation Age of Onset Breast Cancer Mother Liver and colon cancer Hypertension Mother Stroke Mother Coronary Artery Disease Father Diabetes Maternal Grandmother Heart Maternal Grandfather [place] Stroke Paternal Grandmother Diabetes Paternal Grandmother Stroke Paternal Grandfather Anesthesia Problems No Family History Social History Tobacco Use Smoking status: Never Smokeless tobacco: Never Vaping Use Vaping Use: Never used Substance Use Topics Alcohol use: Yes Comment: rarely Drug use: No Past medical history, appointments, medications, allergies reviewed. Pertinent Lab/Diagnostic Studies are reviewed and discussed today Current Outpatient Medications: omeprazole (PRILOSEC) 20 mg capsule INV VITAMIN D3 5000 UNITS CAPSULE (IRB [id number]) QUEtiapine (SEROQUEL) 100 mg tablet venlafaxine ER (EFFEXOR XR) 75 mg 24 hr capsule gabapentin (NEURONTIN) 300 mg capsule insulin glargine (BASAGLAR KWIKPEN U-100 INSULIN) 100 unit/mL (3 mL) insulin glargine U-300 conc (TOUJEO SOLOSTAR U-300 INSULIN) 300 unit/mL (1.5 mL) oxybutynin ER (DITROPAN XL) 10 mg 24 hr tablet Blood-Glucose Meter (ONETOUCH VERIO FLEX METER) blood sugar diagnostic (ONETOUCH VERIO TEST STRIPS) test strip liraglutide (VICTOZA) 0.6 mg/ 0.1 ml subcutaneous pen injector insulin lispro (HUMALOG KWIKPEN INSULIN) 100 unit/mL Insulin [place], Disposable, (UNIFINE PENTIPS PLUS) 32 gauge x 5/32 albuterol HFA (VENTOLIN HFA) 90 mcg/actuation inhaler traZODone (DESYREL) 100 mg tablet levothyroxine (LEVOXYL) 25 mcg tablet folic acid 1 mg tablet topiramate (TOPAMAX) 50 mg tablet diphenoxylate-atropine (LOMOTIL) 2.5-0.025 mg per tablet Review of Systems CONSTITUTIONAL: No fevers, chills night sweats, unintended weight loss CARDIOVASCULAR: No chest pain, dyspnea, palpitations, orthopnea, PND, ankle edema. PULM: No dyspnea, unexplained cough. GI: No dysphagia/odynophagia, problematic reflux, constipation, diarrhea, changes in stool habits, hematochezia, melena. : No new urinary complaints, including dysuria, gross hematuria or pyuria. NEURO: No new balance problems, peripheral weakness/paresthesias or numbness of concern. Physical Exam BP 120/62 (BP Site: Left Arm, BP Position: Sitting, BP Cuff Size: Large Adult) Pulse 103 Temp 37 C (98.6 F) Resp 12 Ht 160 cm (5' 3 ) Wt 68 kg (150 lb) LMP 05/21/2007 SpO2 99% BMI 26.57 kg/m General appearance: Well appearing, alert, in no acute distress, well nourished. Skin: Skin color, texture, turgor normal, no suspicious rashes or lesions Head: Normocephalic, no masses, lesions, tenderness or abnormalities Eyes: Anicteric sclera. Pupils are equally round and reactive to light. Extraocular movements are intact. Perineal exam: the introitus , groin creases and lower half of the mons is red, bumpy and inflammed there are curdish pieces from the vaginal opening. The gluteal cleft does not have any issues. ASSESSMENT/PLAN: 1. Uncontrolled type 2 diabetes mellitus with hyperosmolar nonketotic hyperglycemia (HCC) - ICD9: 250.22, ICD10: E11.00 (primary diagnosis) - Uncontrolled - Continue current medications 2. Acquired hypothyroidism - ICD9: 244.9, ICD10: E03.9 - Instructed patient on importance of taking on an empty stomach either first thing in the morning or at bedtime. Stable - Continue current medications - LEVOTHYROXINE 25 MCG TABLET 3. Intractable migraine without aura and without status migrainosus - ICD9: 346.11, ICD10: G43.019 - TOPIRAMATE 50 MG TABLET 4. Hypertension goal BP (blood pressure) < 140/90 - ICD9: 401.9, ICD10: I10 - good control - Recommended regular aerobic exercise. - Recommend home blood pressure monitoring, to bring results in on next visit - Goal of BP <130/80 5. Mixed hyperlipidemia - ICD9: 272.2, ICD10: E78.2 - good control - Continue current medication. 6. Agapito infection - ICD9: 112.9, ICD10: B37.9 I gave her oral fluconazole Giovana Conteh MD documented in this encounter [facility] 11-20-2022 Miscellaneous Notes Patient called office. Confirmed that she received [employer] message. Called patient to inform her of below, No answer. Left voicemail for patient to call back. Was also going to inquire if patient ever picked up the vitamin D medication. Please call patient to inform her that circulation studies appear normal Nelson Arias DPM documented in this encounter [facility] 11-16-2022 Miscellaneous Notes Called PT LVM to call back and schedule Consult to Pharmacy. Naa SNYDER Patient notified, please assist in scheduling with Pharmacy. When his sugars are well controlled his incontinence will improve work with keti to get the sugars under contro Encouraged to follow the plan that was established in this weeks visit PATIENT is wanting to have ditropan increased. Current dosage is not working, incontinence. Pharmacy is [facility]. Yesenia Ding LPN documented in this encounter [facility] 11-01-2022 Miscellaneous Notes Patient read provider response on 10/31/22. Closing this encounter. JOANNA Horner documented in this encounter [facility] 10-09-2022 Note Patient Outreach (IN [facility]) MITA CHATMAN ([id number]) 1960 F Date Time Provider Department 10/09/22 GIOVANA CONTEH During your visit today, we recorded the following information about you: Allergies As of Date: 10/09/2022 Noted Allergy Reaction AMOXICILLIN 01/11/2007 5 - Intolerance Comments: severe yeast infection DOXYCYCLINE 08/06/2009 6 - Diarrhea Comments: DIARRHEA,VOMITING, YEAST INFECTION METFORMIN 12/01/2007 6 - Diarrhea PENTAZOCINE 12/08/2018 16 - Unknown TALACEN (PENTAZOCINE-ACETAMINOPHE* 007 Comments: Unknown reaction TESSALON (BENZONATATE) 11/27/2006 8 - GI Upset THIAZIDES 09/28/2008 Comments: Severe leg cramps - hctz Date Reviewed: 10/04/2022 Reviewed by: Eden Storm RN - Fully Assessed Visit Diagnosis:Acquired hypothyroidism [E03.9] Order(s):TSH BLD [SQTSH] Order #: [id number] FUTURE SCHEDULE LAB TESTING [[id number]] Order #: [id number] FUTURE Prescriptions as of 10/12/2022 - QUEtiapine (SEROQUEL) 100 mg tablet Take 1 tablet by mouth once daily. - venlafaxine ER (EFFEXOR XR) 75 mg 24 hr capsule Take 1 capsule by mouth once daily. - gabapentin (NEURONTIN) 300 mg capsule Take 1 capsule by mouth three times daily for 30 days. med-sync 90 days - insulin glargine (BASAGLAR KWIKPEN U-100 INSULIN) 100 unit/mL (3 mL) Inject 32 Units subcutaneously daily at bedtime. - insulin glargine U-300 conc (TOUJEO SOLOSTAR U-300 INSULIN) 300 unit/mL (1.5 mL) Inject 32 Units subcutaneously daily at bedtime. - oxybutynin ER (DITROPAN XL) 10 mg 24 hr tablet Take 1 tablet by mouth once daily. - Blood-Glucose Meter (ONETOUCH VERIO FLEX METER) Use as instructed. E11.9 - blood sugar diagnostic (ONETOUCH VERIO TEST STRIPS) test strip Test blood sugar(s) 3times daily. Dx: Type 2 DM - Uncontrolled E11.65 Insulin: Yes - liraglutide (VICTOZA) 0.6 mg/ 0.1 ml subcutaneous pen injector Inject 1.8 mg subcutaneously once daily. - insulin lispro (HUMALOG KWIKPEN INSULIN) 100 unit/mL Inject 4 Units subcutaneously daily with dinner. - Insulin [place], Disposable, (UNIFINE PENTIPS PLUS) 32 gauge x 5/32 Use one needle for each dose. 2 x /day. - albuterol HFA (VENTOLIN HFA) 90 mcg/actuation inhaler Inhale 2 Puffs as instructed every 4 hours as needed. For wheezing/shortness of breath. - traZODone (DESYREL) 100 mg tablet Take 1 tablet by mouth daily at bedtime. - levothyroxine (LEVOXYL) 25 mcg tablet Take 1 tablet by mouth once daily. Take on empty stomach. For Thyroid except no dose on Saturday or Saturday - folic acid 1 mg tablet Take 2 tablets by mouth once daily. Sublingual - flash glucose scanning reader (FREESTYLE MEL 2 READER) Use to check blood sugar at least four (4) times daily. - flash glucose sensor (FREESTYLE MEL 2 SENSOR) kit Apply new sensor every fourteen (14) days to upper arm. - ergocalciferol 50,000 unit capsule (VITAMIN D2, DRISDOL) Take 1 capsule by mouth one time a week. - topiramate (TOPAMAX) 50 mg tablet TAKE 1 TABLET TWICE DAILY - omeprazole (PRILOSEC) 20 mg capsule Take 1 capsule by mouth daily before breakfast. 1/2 hr before meal. - diphenoxylate-atropine (LOMOTIL) 2.5-0.025 mg per tablet Take 1 tablet by mouth twice daily as needed for diarrhea for up to 90 days. 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) [N*12/01/2007 Screening for unspecified condition [Z13.9] 02/13/2008 06/14/2014 Hypocalcemia [E83.51] 02/28/2009 02/04/2017 Diarrhea [R19.7] 05/09/2009 03/23/2021 Bronchitis, acute [J20.9] 07/26/2009 06/14/2014 Leukopenia [D72.819] 03/24/2010 Onychia and paronychia of toe [L03.039] 12/25/2010 Exostosis of unspecified site [M89.8X9] 12/25/2010 06/14/2014 Pain in limb [M79.609] 12/25/2010 01/06/2014 Abdominal pain, periumbilic [R10.33] 01/22/2011 02/04/2017 Esophagitis, unspecified [K20.90] 01/22/2011 02/04/2017 Acute gastritis without mention of hemorrhage [*01/22/2011 01/06/2014 Dietary surveillance and counseling [Z71.3] 05/23/2011 06/14/2014 Morbid obesity [E66.01] 05/23/2011 01/06/2014 Vitamin D deficiency [E55.9] 06/18/2011 Other and unspecified postsurgical nonabsorptio*09/05/2011 02/04/2017 S/P gastric bypass [Z98.84] 11/06/2011 Gastritis [K29.70] 03/28/2012 02/04/2017 Insomnia [G47.00] 03/28/2012 Stress [F43.9] 03/28/2012 06/14/2014 Depression [F32.A] 09/26/2012 Bile reflux esophagitis [K21.00] 06/19/2013 02/04/2017 KYLEIGH (o (more content not included)... [facility] 10-04-2022 Note HNO ID: [id number] Author: Nelson Arias Service: ? Author Type: Physician Type: Progress Notes Filed: 10/07/2022 7:28 PM Note Text: FOLLOW UP PODIATRIC OFFICE VISIT Chief Complaint: This 62 year old who presents for follow up:hammertoes of right foot Patient presents to clinic for follow-up discussion and evaluation regarding hammertoes She continues to have pain in right foot. She states that when she wears narrow shoes, she has pain She did receive diabetic shoes and she took them to her office to break them in but unfortunately due to a water line break, she is not able to get into her office and her shoes are still there. She continues to have on/off pain to right 2nd, 3rd and 4th toe. She also has pain in b/l great toe joint PAIN EVALUATION 10/04/2022 1038 Pain Level: 9 Pain Location: Foot-Right Description: Burning;Sharp Frequency: Intermittent Intervention/Comfort measure: Reposition;Distractions;Relaxatio n Hemoglobin A1C Date Value Ref Range Status 07/17/2022 7.5 (H) 4.3 - 5.6 % Final Comment: [place] [employer] guidelines indicate that patients with HgbA1c in the range 5.7-6.4% are at increased risk for development of diabetes, and intervention by lifestyle modification may be beneficial. HgbA1c greater or equal to 6.5% is considered diagnostic of diabetes. PCP: Giovana Conteh MD PAST MEDICAL HISTORY Diagnosis Date Acquired hypothyroidism 01/05/2016 Acute gastritis without mention of hemorrhage Anemia, unspecified 06/19/2007 Asthma Benign hypertensive heart disease without heart failure BMI 36.0-36.9,adult 02/04/2017 Compression fracture of fifth lumbar vertebra (HCC) 07/29/2019 Depression Diabetes mellitus without mention of complication Diabetes mellitus Diarrhea Esophageal reflux Esophagitis, unspecified Generalized osteoarthrosis, unspecified site History of transfusion Hypertension Hypertrophy of breast 02/06/2008 Metabolic syndrome 11/18/2014 Mild persistent asthma 08/09/2016 Morbid obesity (HCC) 02-08-11 stated BMI 40.47 Ht: 62 Wt: 221 lbs Obstructive sleep apnea KYLEIGH (obstructive sleep apnea) 08/09/2016 Other and unspecified hyperlipidemia Transfusion history 04/2014 4 units after hysterectomy, postop hemorrhage Current Outpatient Medications Medication Sig QUEtiapine (SEROQUEL) 100 mg tablet Take 1 tablet by mouth once daily. venlafaxine ER (EFFEXOR XR) 75 mg 24 hr capsule Take 1 capsule by mouth once daily. gabapentin (NEURONTIN) 300 mg capsule Take 1 capsule by mouth three times daily for 30 days. med-sync 90 days insulin glargine (BASAGLAR KWIKPEN U-100 INSULIN) 100 unit/mL (3 mL) Inject 32 Units subcutaneously daily at bedtime. insulin glargine U-300 conc (TOUJEO SOLOSTAR U-300 INSULIN) 300 unit/mL (1.5 mL) Inject 32 Units subcutaneously daily at bedtime. oxybutynin ER (DITROPAN XL) 10 mg 24 hr tablet Take 1 tablet by mouth once daily. Blood-Glucose Meter (ONETOUCH VERIO FLEX METER) Use as instructed. E11.9 blood sugar diagnostic (ONETOUCH VERIO TEST STRIPS) test strip Test blood sugar(s) 3times daily. Dx: Type 2 DM - Uncontrolled E11.65 Insulin: Yes liraglutide (VICTOZA) 0.6 mg/ 0.1 ml subcutaneous pen injector Inject 1.8 mg subcutaneously once daily. insulin lispro (HUMALOG KWIKPEN INSULIN) 100 unit/mL Inject 4 Units subcutaneously daily with dinner. Insulin [place], Disposable, (UNIFINE PENTIPS PLUS) 32 gauge x Use one needle for each dose. 2 x /day. albuterol HFA (VENTOLIN HFA) 90 mcg/actuation inhaler Inhale 2 Puffs as instructed every 4 hours as needed. For wheezing/shortness of breath. traZODone (DESYREL) 100 mg tablet Take 1 tablet by mouth daily at bedtime. levothyroxine (LEVOXYL) 25 mcg tablet Take 1 tablet by mouth once daily. Take on empty stomach. For Thyroid except no dose on Saturday or Saturday folic acid 1 mg tablet Take 2 tablets by mouth once daily. Sublingual topiramate (TOPAMAX) 50 mg tablet TAKE 1 TABLET TWICE DAILY omeprazole (PRILOSEC) 20 mg capsule Take 1 capsule by mouth daily before breakfast. 1/2 hr before meal. diphenoxylate-atropine (LOMOTIL) 2.5-0.025 mg per tablet Take 1 tablet by mouth twice daily as needed for diarrhea for up to 90 days. flash glucose scanning reader (A[place]amarine PowerSTYLE MEL 2 READER) Use to check blood sugar at least four (4) times daily. flash glucose sensor (FREESTYLE MEL 2 SENSOR) kit Apply new sensor every fourteen (14) days to upper arm. ergocalciferol 50,000 unit capsule (VITAMIN D2, DRISDOL) Take 1 capsule by mouth one time a week. No current facility-administered medications for this visit. ALLERGIES Allergen Reactions Amoxicillin Intolerance severe yeast infection Doxycycline Diarrhea DIARRHEA,VOMITING, YEAST INFECTION Metformin Diarrhea Pentazocine Unknown Talacen [Pentazocin* Unknown reaction Tessalon [Benzonata* GI Upset Thiazides Severe leg cramps - hctz PAST SURGICAL HISTORY Procedure Late (more content not included)... [facility] 10-04-2022 Note HNO ID: [id number] Author: Eden Storm RN Service: ? Author Type: Registered Nurse Type: Progress Notes Filed: 10/07/2022 7:28 PM Note Text: AMB ROOMING INTAKE FLOWSHEET DATA Risk Screening Do you have concerns about personal safety or safety in the home?: No Pain Pain Level: 9 Pain Location: Foot-Right Description: Burning, Sharp Frequency: Intermittent Intervention/Comfort measure: Reposition, Distractions, Relaxation Patient presents with: Left Foot - Established Patient, Follow Up Right Foot - Established Patient, Follow Up, Pain Patient here to discuss treatment options. States that she received her diabetic shoes, but has not been able to wear them because they are locked in her office at work and the building is closed for now. Voltaren gel did not help. Nothing seems to be helping the pain. [facility] 10-04-2022 Instructions Nelson Arias - 10/04/2022 11:13 AM EST Will check circulation studies Will check vitamin d Will call with results documented in this encounter [facility] 10-04-2022 History of Present illness Narrative FOLLOW UP PODIATRIC OFFICE VISIT Chief Complaint: This 62 year old who presents for follow up:hammertoes of right foot Patient presents to clinic for follow-up discussion and evaluation regarding hammertoes She continues to have pain in right foot. She states that when she wears narrow shoes, she has pain She did receive diabetic shoes and she took them to her office to break them in but unfortunately due to a water line break, she is not able to get into her office and her shoes are still there. She continues to have on/off pain to right 2nd, 3rd and 4th toe. She also has pain in b/l great toe joint PAIN EVALUATION 10/04/2022 1038 Pain Level: 9 Pain Location: Foot-Right Description: Burning;Sharp Frequency: Intermittent Intervention/Comfort measure: Reposition;Distractions;Relaxatio n Hemoglobin A1C Date Value Ref Range Status 07/17/2022 7.5 (H) 4.3 - 5.6 % Final Comment: [place] [employer] guidelines indicate that patients with HgbA1c in the range 5.7-6.4% are at increased risk for development of diabetes, and intervention by lifestyle modification may be beneficial. HgbA1c greater or equal to 6.5% is considered diagnostic of diabetes. PCP: Giovana Conteh MD PAST MEDICAL HISTORY Diagnosis Date Acquired hypothyroidism 01/05/2016 Acute gastritis without mention of hemorrhage Anemia, unspecified 06/19/2007 Asthma Benign hypertensive heart disease without heart failure BMI 36.0-36.9,adult 02/04/2017 Compression fracture of fifth lumbar vertebra (HCC) 07/29/2019 Depression Diabetes mellitus without mention of complication Diabetes mellitus Diarrhea Esophageal reflux Esophagitis, unspecified Generalized osteoarthrosis, unspecified site History of transfusion Hypertension Hypertrophy of breast 02/06/2008 Metabolic syndrome 11/18/2014 Mild persistent asthma 08/09/2016 Morbid obesity (HCC) 02-08-11 stated BMI 40.47 Ht: 62 Wt: 221 lbs Obstructive sleep apnea KYLEIGH (obstructive sleep apnea) 08/09/2016 Other and unspecified hyperlipidemia Transfusion history 04/2014 4 units after hysterectomy, postop hemorrhage Current Outpatient Medications Medication Sig QUEtiapine (SEROQUEL) 100 mg tablet Take 1 tablet by mouth once daily. venlafaxine ER (EFFEXOR XR) 75 mg 24 hr capsule Take 1 capsule by mouth once daily. gabapentin (NEURONTIN) 300 mg capsule Take 1 capsule by mouth three times daily for 30 days. med-sync 90 days insulin glargine (BASAGLAR KWIKPEN U-100 INSULIN) 100 unit/mL (3 mL) Inject 32 Units subcutaneously daily at bedtime. insulin glargine U-300 conc (TOUJEO SOLOSTAR U-300 INSULIN) 300 unit/mL (1.5 mL) Inject 32 Units subcutaneously daily at bedtime. oxybutynin ER (DITROPAN XL) 10 mg 24 hr tablet Take 1 tablet by mouth once daily. Blood-Glucose Meter (ONETOUCH VERIO FLEX METER) Use as instructed. E11.9 blood sugar diagnostic (ONETOUCH VERIO TEST STRIPS) test strip Test blood sugar(s) 3times daily. Dx: Type 2 DM - Uncontrolled E11.65 Insulin: Yes liraglutide (VICTOZA) 0.6 mg/ 0.1 ml subcutaneous pen injector Inject 1.8 mg subcutaneously once daily. insulin lispro (HUMALOG KWIKPEN INSULIN) 100 unit/mL Inject 4 Units subcutaneously daily with dinner. Insulin [place], Disposable, (UNIFINE PENTIPS PLUS) 32 gauge x 32 Use one needle for each dose. 2 x /day. albuterol HFA (VENTOLIN HFA) 90 mcg/actuation inhaler Inhale 2 Puffs as instructed every 4 hours as needed. For wheezing/shortness of breath. traZODone (DESYREL) 100 mg tablet Take 1 tablet by mouth daily at bedtime. levothyroxine (LEVOXYL) 25 mcg tablet Take 1 tablet by mouth once daily. Take on empty stomach. For Thyroid except no dose on Saturday or Saturday folic acid 1 mg tablet Take 2 tablets by mouth once daily. Sublingual topiramate (TOPAMAX) 50 mg tablet TAKE 1 TABLET TWICE DAILY omeprazole (PRILOSEC) 20 mg capsule Take 1 capsule by mouth daily before breakfast. 1/2 hr before meal. diphenoxylate-atropine (LOMOTIL) 2.5-0.025 mg per tablet Take 1 tablet by mouth twice daily as needed for diarrhea for up to 90 days. flash glucose scanning reader (FREESTYLE MEL 2 READER) Use to check blood sugar at least four (4) times daily. flash glucose sensor (FREESTYLE MEL 2 SENSOR) kit Apply new sensor every fourteen (14) days to upper arm. ergocalciferol 50,000 unit capsule (VITAMIN D2, DRISDOL) Take 1 capsule by mouth one time a week. No current facility-administered medications for this visit. ALLERGIES Allergen Reactions Amoxicillin Intolerance severe yeast infection Doxycycline Diarrhea DIARRHEA,VOMITING, YEAST INFECTION Metformin Diarrhea Pentazocine Unknown Talacen [Pentazocin* Unknown reaction Tessalon [Benzonata* GI Upset Thiazides Severe leg cramps - hctz PAST SURGICAL HISTORY Procedure Laterality Date ABDOMINAL SURGERY HX ANTERIOR COLPORRAPHY RPR CYSTOCELE W/CYSTO 05/06/2014 cystocele BACK SURGERY HX 06/24/2020 L4, L5 fusion BREAST SURGERY HX COLONOSCOPY FLX DX W/COLLJ SPEC WHEN PFRMD 08/16/2016 Colonoscopy (MAC) COLONOSCOPY GEN ANES 03/23/2021 normal colonoscopy, non-bleeding hemorrhoids COLONOSCOPY W/BIOPSY SINGLE/MULTIPLE 05/09/2009 COLPOPEXY VAGINAL INTRAPERITONEAL APPROACH 05/06/2014 USLF, cystoscopy DILATION & CURETTAGE DX&/THER NONOBSTETRIC Dilation & curettage EGD 03/23/2021 normal exam, gastric bypass noted EGD TRANSORAL BIOPSY SINGLE/MULTIPLE 01/22/2011 ESOPHAGOGASTRODUODENOSCOPY TRANSORAL DIAGNOSTIC 05/29/2013 EGD ESOPHAGOGASTRODUODENOSCOPY TRANSORAL DIAGNOSTIC 08/16/2016 EGD (MAC) ESOPHAGOGASTRODUODENOSCOPY TRANSORAL DIAGNOSTIC 10/11/2016 EGD GASTRIC BYPASS HX 2009 LAPAROSCOPY SURG CHOLECYSTECTOMY Cholecystectomy, lap LIG/TRNSXJ FLP TUBE ABDL/VAG APPR UNI/BI Tubal ligation PAST SURGICAL HISTORY OF right foot bone spur removed PAST SURGICAL HISTORY OF 08/13/2014 Posterior colporrhaphy REDUCTION OF LARGE BREAST 2008 TONSILLECTOMY HX TONSILLECTOMY PRIMARY/SECONDARY <AGE 11 VAG HYST 250 GM/< W/RMVL TUBE&/OVARY 05/06/2014 TVH/BSO for prolapse VAGINAL HYSTERECTOMY Physical Exam: OBJECTIVE: Constitutional: Pt is a well developed 62 year old female who is alert, oriented, cooperative and in no apparent distress. Eyes: Following during examination. No redness or drainage. Respiratory: RR normal and nonlabored. Even breathing. No evidence of distress. Psychology: Patient is engaged during conversation. Normal affect and mood. Does not appear depressed or anxious. NVSI unchanged from previous visit. Dermatological: Nails 1-5 b/l are normal. Webspaces clean and dry 1-4 b/l. Skin appears well hydrated and supple. good color, texture, turgor. No open lesions present. No callosities present. Musculoskeletal/Orthopaedic: Patient has pain to palpation of b/l first mtpj Patient has pain to palpation of lesser toes of b/l feet. Decreased rom of b/l first mtpj Semi-rigid contracture is present to lesser toes of b/l feet Xrays ordered of b/l feet. ASSESSMENT: (M20.41) Hammer toe of right foot (primary encounter diagnosis) (E11.49) Other diabetic neurological complication associated with type 2 diabetes mellitus (HCC) (M20.21) Hallux rigidus of right foot (R09.89) Diminished pulses in lower extremity (E55.9) Vitamin D deficiency PLAN: Discussed hammertoes of b/l feet. Discussed conservative care not limited to padding, wider shoes, cotton between toes to prevent rubbing. Other options include surgery. Would recommend obtaining xrays for further evaluation Discussed arthritis of b/l 1ast mtpj. Recommend firm sole shoes, otc pain relieve. Will recommend obtaining xrays for further evaluation and possible discussion on treatment Will check vitamin d Will call with results. Nelson Arias DPM AMB ROOMING INTAKE FLOWSHEET DATA Risk Screening Do you have concerns about personal safety or safety in the home?: No Pain Pain Level: 9 Pain Location: Foot-Right Description: Burning, Sharp Frequency: Intermittent Intervention/Comfort measure: Reposition, Distractions, Relaxation Patient presents with: Left Foot - Established Patient, Follow Up Right Foot - Established Patient, Follow Up, Pain Patient here to discuss treatment options. States that she received her diabetic shoes, but has not been able to wear them because they are locked in her office at work and the building is closed for now. Voltaren gel did not help. Nothing seems to be helping the pain. documented in this encounter [facility] 09-28-2022 Miscellaneous Notes Patient's request for medication is as follows: Requested Prescriptions Pending Prescriptions Disp Refills QUEtiapine (SEROQUEL) 100 mg tablet 90 tablet 3 Sig: Take 1 tablet by mouth once daily. venlafaxine ER (EFFEXOR XR) 75 mg 24 hr capsule 90 capsule 3 Sig: Take 1 capsule by mouth once daily. gabapentin (NEURONTIN) 300 mg capsule 90 capsule 3 Sig: Take 1 capsule by mouth three times daily for 30 days. med-sync 90 days traZODone (DESYREL) 100 mg tablet 90 tablet 3 Sig: Take 1 tablet by mouth daily at bedtime. Please approve the above prescription(s) to electronically send to pharmacy. Germán Bruce Ma documented in this encounter [facility] 09-19-2022 Miscellaneous Notes Documents faxed on 08/17, 09/07 and again today. These have been signed. Please fax as requested. Thank you Mary Mejia APRN.VASILIY Spoke with Fiona at [email or web address] and she states Rx Authorization Manager is not in yet to answer question below. She advises that Mary Mejia CNP manually co-sign printed OV notes for 3 dates: 01/24/22, 01/22/22 and 01/08/22 (these are Romel Hoang [facility] OV notes). Fiona requesting the co-signed notes be faxed back at fax number provided on request faxed to PCP office yesterday. Fiona states the co-signed OV notes will then be reviewed and hope to be accepted for insurance purposes since Dr. Conteh is out. Thank you. Find out if this can be signed by an BUSINESS OWNER/ENGINEER and if so, place on my desk as Dr. Conteh is out for 3 weeks. Thank you Mary Mejia APRN.VASILIY Char with [facility] [employer] [place] calling and states she will be faxing a request today for Dr. Conteh to manually co-sign patient's OV note with Romel Hoang Rph from 01/24/22 for insurance purposes. Thank you. documented in this encounter [facility] 09-07-2022 Miscellaneous Notes Our records indicate paperwork was faxed 08/17. Will fax again Char calls back and asking about the status of this request? Please review and advise, Lexi Pratt RN Form received, OV notes printed, awaiting PCP signature. Char from [facility] states she faxed an request for medical records on 08/02/22. This form requested notes from office visits on 01/08, & 2021. Char states this is needed to support documentation for diabetic supplies. Notes from dates listed need to be signed by provider & faxed back. Char is faxing this form again now, when received please sign notes & fax back. Mary De La O LPN documented in this encounter [facility] 07-31-2022 Instructions Nelson Arias - 07/31/2022 9:16 AM EDT Diabetes Foot Care Instructions When you have diabetes, proper foot care is very important. Poor foot care may lead to amputation of a foot or leg. As a person with diabetes, you are more vulnerable to foot problems, because diabetes can damage your nerves and reduce blood flow to your feet. Here are some diabetes foot care tips to follow: Wash and Dry Your Feet Daily Use mild soaps Use warm water Pat your skin dry; do not rub. Thoroughly dry your feet. After washing, use lotion on your feet to prevent cracking. Do not put lotion between your toes. Examine Your Feet Each Day Check the tops and bottoms of your feet. Have someone else look at your feet if you cannot see them. Check for dry, cracked skin. Look for blisters, cuts, scratches, or other sores. Check for redness, increased warmth, or tenderness when touching any area of your feet. Check for ingrown toenails, corns, and calluses. If you get a blister or sore from your shoes, do not pop it. Apply a bandage and wear a different pair of shoes. Take Care of Your Toenails Cut toenails after bathing, when they are soft. Cut toenails straight across and smooth with a nail file. Avoid cutting into the corners of toes. Do not cut cuticles. If you have neuropathy (or decreased sensation in your feet) a automatic i threading machine feeder should always cut your toenails. Be Careful When Exercising Walk and exercise in comfortable shoes. Do not exercise when you have open sores on your feet. Protect Your Feet With Shoes and Socks Never go barefoot. Always protect your feet by wearing shoes or hard-soled slippers or footwear. Avoid shoes with high heels and pointed toes. Avoid shoes that expose your toes or heels (such as open-toed shoes or sandals). These types of shoes increase your risk for injury and potential infections. Try on new footwear with the type of socks you usually wear. Do not wear new shoes for more than an hour at a time. Change your socks daily. Look and feel inside your shoes before putting them on to make sure there are no foreign objects or rough areas. Avoid tight socks. Wear natural-fiber socks (cotton, wool, or a cotton-wool blend). Wear special shoes if your health care provider recommends them. Wear shoes/boots that will protect your feet from various weather conditions (cold, moisture, etc.). Make sure your shoes fit properly. If you have neuropathy (nerve damage), you may not notice that your shoes are too tight. Perform the footwear test described below. Footwear Test Use this simple test to see if your shoes fit correctly: Stand on a piece of paper. (Make sure you are standing and not sitting, because your foot changes shape when you stand.) Trace the outline of your foot. Trace the outline of your shoe. Compare the tracings: Is the shoe too narrow? Is your foot crammed into the shoe? The shoe should be at least 1/2 inch longer than your longest toe and as wide as your foot. Proper Shoe Choices The following types of shoes are best for people with diabetes Closed toes and heels Leather uppers without a seam inside At least 1/2 inch extra space at the end of your longest toe Inside of shoe should be soft with no rough areas Outer sole should be made of stiff material Shoes should be at least as wide as your feet Tips for Foot Care in Diabetes Don't wait to treat a minor foot problem if you have diabetes. Follow your health care provider's guidelines and first aid guidelines. Report foot injuries and infections to your health care provider immediately. Check water temperature with your elbow, not your foot. Do not use a heating pad on your feet. Do not cross your legs. Do not self-treat your corns, calluses, or other foot problems. Go to your health care provider or automatic i threading machine feeder to treat these conditions. Recommend voltargen gel for neuropathy documented in this encounter [facility] 07-31-2022 History of Present illness Narrative Images from the original note were not included. Consultation requested by Dr. Conteh for an opinion regarding diabetic foot exam. My final recommendations will be communicated back to the requesting physician by way of shared Medical record or letter to requesting physician via US mail. Initial Office Visit Subjective: This 62 year old female presents to clinic for diabetic foot check. Patient has the following complaints: intermittent burning in b/l feet. Patient states that she does not currently do anything for the burning. Patient also complains of pain in the tip of right great toe. Patient did have total nail matrixectomy in the past but she has developed slight recurrence and it catches on her toe She also complains of painful hammertoe of right 2nd and 3rd toe Patient admits to being diabetic for mutliple year. Patient +B/T/N in feet at this time. Patient -pain in legs when walking. No other pedal complaints at this time. No change in medications or medical history since last visit. PAIN EVALUATION 07/31/2022 0849 Pain Level: 10 Pain Location: Other: See Comment bilateral feet Description: Burning;Sharp Duration Amount of Time: 3 Duration Units: Months Frequency: Intermittent Intervention/Comfort measure: Reposition;Relaxation;Cold;Heat;M assage;Medication Hemoglobin A1C (%) Date Value 07/17/2022 7.5 04/17/2022 7.2 12/28/2021 8.5 03/03/2021 6.9 05/17/2020 6.4 03/28/2020 7.6 02/05/2020 11.6 06/02/2019 5.3 Hemoglobin A1C (POCT) (%) Date Value 12/18/2021 8.5 07/06/2021 5.9 PCP: Giovana Conteh MD PAST MEDICAL HISTORY Diagnosis Date Acquired hypothyroidism 01/05/2016 Acute gastritis without mention of hemorrhage Anemia, unspecified 06/19/2007 Asthma Benign hypertensive heart disease without heart failure BMI 36.0-36.9,adult 02/04/2017 Compression fracture of fifth lumbar vertebra (HCC) 07/29/2019 Depression Diabetes mellitus without mention of complication Diabetes mellitus Diarrhea Esophageal reflux Esophagitis, unspecified Generalized osteoarthrosis, unspecified site History of transfusion Hypertension Hypertrophy of breast 02/06/2008 Metabolic syndrome 11/18/2014 Mild persistent asthma 08/09/2016 Morbid obesity (HCC) 02-08-11 stated BMI 40.47 Ht: 62 Wt: 221 lbs Obstructive sleep apnea KYLEIGH (obstructive sleep apnea) 08/09/2016 Other and unspecified hyperlipidemia Transfusion history 04/2014 4 units after hysterectomy, postop hemorrhage Current Outpatient Medications Medication Sig insulin glargine U-300 conc (TOUJEO SOLOSTAR U-300 INSULIN) 300 unit/mL (1.5 mL) Inject 32 Units subcutaneously daily at bedtime. oxybutynin ER (DITROPAN XL) 10 mg 24 hr tablet Take 1 tablet by mouth once daily. Blood-Glucose Meter (PollenizerTOUCH VERIO FLEX METER) Use as instructed. E11.9 blood sugar diagnostic (ONETOUCH VERIO TEST STRIPS) test strip Test blood sugar(s) 3times daily. Dx: Type 2 DM - Uncontrolled E11.65 Insulin: Yes liraglutide (VICTOZA) 0.6 mg/ 0.1 ml subcutaneous pen injector Inject 1.8 mg subcutaneously once daily. insulin lispro (HUMALOG KWIKPEN INSULIN) 100 unit/mL Inject 4 Units subcutaneously daily with dinner. Insulin [place], Disposable, (UNIFINE PENTIPS PLUS) 32 gauge x Use one needle for each dose. 2 x /day. albuterol HFA (VENTOLIN HFA) 90 mcg/actuation inhaler Inhale 2 Puffs as instructed every 4 hours as needed. For wheezing/shortness of breath. traZODone (DESYREL) 100 mg tablet Take 1 tablet by mouth daily at bedtime. levothyroxine (LEVOXYL) 25 mcg tablet Take 1 tablet by mouth once daily. Take on empty stomach. For Thyroid except no dose on Saturday or Saturday gabapentin (NEURONTIN) 300 mg capsule Take 1 capsule by mouth three times daily for 30 days. med-sync 90 days folic acid 1 mg tablet Take 2 tablets by mouth once daily. Sublingual topiramate (TOPAMAX) 50 mg tablet TAKE 1 TABLET TWICE DAILY omeprazole (PRILOSEC) 20 mg capsule Take 1 capsule by mouth daily before breakfast. 1/2 hr before meal. venlafaxine ER (EFFEXOR XR) 75 mg 24 hr capsule Take 1 capsule by mouth once daily. QUEtiapine (SEROQUEL) 100 mg tablet Take 1 tablet by mouth once daily. diphenoxylate-atropine (LOMOTIL) 2.5-0.025 mg per tablet Take 1 tablet by mouth twice daily as needed for diarrhea for up to 90 days. flash glucose scanning reader (FREESTYLE MEL 2 READER) Use to check blood sugar at least four (4) times daily. flash glucose sensor (FREESTYLE MEL 2 SENSOR) kit Apply new sensor every fourteen (14) days to upper arm. ergocalciferol 50,000 unit capsule (VITAMIN D2, DRISDOL) Take 1 capsule by mouth one time a week. No current facility-administered medications for this visit. ALLERGIES Allergen Reactions Amoxicillin Intolerance severe yeast infection Doxycycline Diarrhea DIARRHEA,VOMITING, YEAST INFECTION Metformin Diarrhea Pentazocine Unknown [place] [Pentazocin* Unknown reaction Tessalon [Benzonata* GI Upset Thiazides Severe leg cramps - hctz PAST SURGICAL HISTORY Procedure Laterality Date ABDOMINAL SURGERY HX ANTERIOR COLPORRAPHY RPR CYSTOCELE W/CYSTO 05/06/2014 cystocele BACK SURGERY HX 06/24/2020 L4, L5 fusion BREAST SURGERY HX COLONOSCOPY FLX DX W/COLLJ SPEC WHEN PFRMD 08/16/2016 Colonoscopy (MAC) COLONOSCOPY GEN ANES 03/23/2021 normal colonoscopy, non-bleeding hemorrhoids COLONOSCOPY W/BIOPSY SINGLE/MULTIPLE 05/09/2009 COLPOPEXY VAGINAL INTRAPERITONEAL APPROACH 05/06/2014 USLF, cystoscopy DILATION & CURETTAGE DX&/THER NONOBSTETRIC Dilation & curettage EGD 03/23/2021 normal exam, gastric bypass noted EGD TRANSORAL BIOPSY SINGLE/MULTIPLE 01/22/2011 ESOPHAGOGASTRODUODENOSCOPY TRANSORAL DIAGNOSTIC 05/29/2013 EGD ESOPHAGOGASTRODUODENOSCOPY TRANSORAL DIAGNOSTIC 08/16/2016 EGD (MAC) ESOPHAGOGASTRODUODENOSCOPY TRANSORAL DIAGNOSTIC 10/11/2016 EGD GASTRIC BYPASS HX 2010 LAPAROSCOPY SURG CHOLECYSTECTOMY Cholecystectomy, lap LIG/TRNSXJ FLP TUBE ABDL/VAG APPR UNI/BI Tubal ligation PAST SURGICAL HISTORY OF right foot bone spur removed PAST SURGICAL HISTORY OF 08/13/2014 Posterior colporrhaphy REDUCTION OF LARGE BREAST 2008 TONSILLECTOMY HX TONSILLECTOMY PRIMARY/SECONDARY <AGE 12 VAG HYST 250 GM/< W/RMVL TUBE&/OVARY 05/06/2014 TVH/BSO for prolapse VAGINAL HYSTERECTOMY FAMILY HISTORY Problem Relation Age of Onset Breast Cancer Mother Liver and colon cancer Hypertension Mother Stroke Mother Coronary Artery Disease Father Diabetes Maternal Grandmother Heart Maternal Grandfather ME Stroke Paternal Grandmother Diabetes Paternal Grandmother Stroke Paternal Grandfather Anesthesia Problems No Family History Social History Tobacco Use Smoking status: Never Smokeless tobacco: Never Vaping Use Vaping Use: Never used Substance Use Topics Alcohol use: Yes Comment: rarely Drug use: No REVIEW OF SYSTEMS GENERAL: Negative for Malaise, significant weight loss, fever RESPIRATORY: Negative for cough, wheezing and shortness of breath CARDIOVASCULAR: Negative for chest pain, leg swelling and palpitations GI: Negative for abdominal discomfort, blood in stools or black stools and change in bowel habits : Negative for dysuria, frequency and incontinence MUSCULOSKELETAL: Negative for joint pain or swelling, back pain, and muscle pain. SKIN: Negative for lesions, rash, and itching. HEMATOLOGY/LYMPHOLOGY Negative for prolonged bleeding, bruising easily, and swollen nodes. ENDOCRINE: Negative for cold or heat intolerance, polyuria, polydipsia and goiter. NEURO: negative The remainder of the review of systems is noncontributory. Objective: Patient presents to clinic ambulating in [facility] Constitutional: Pt is a well developed 62 year old female who is alert, oriented, cooperative and in no apparent distress. Eyes: Following during examination. No redness or drainage. Respiratory: RR normal and nonlabored. Even breathing. No evidence of distress. Psychology: Patient is engaged during conversation. Normal affect and mood. Does not appear depressed or anxious. Vasc: DP and PT pulses are palpable bilateral. CFT is less than 5 seconds bilateral. Skin temperature is warm to warm proximal to distal bilateral. There is no edema or varicosities noted. Hair growth present. Neuro: Protective sensation is intact to the foot and toes when tested with the 5.07 SWM bilateral. Vibratory sensation is absent at the hallux bilateral. + Significant neurological defecits. Derm: Inspection and palpation performed. Nails 1-5 left and 2-5 right are normal in length and thickness. Right hallux nail bed is callus but no nail present. Skin is of normal turgor and texture. Hyperkeratosis noted to right hallux nail bed, distal left 2nd toe and distal right 2nd and right 3rd toe. NO ulcerations, scars, verruca or other lesions noted. Ortho: Ankle joint DF is full with the knee extended and full with knee flexed. No pain or crepitus noted. STJ, MTJ ROM are full and free of pain or crepitus. Muscle strength is 5/5 for dorsiflexors, plantarflexors, inverters, everters. Digital deformities include hammertoes 2-5 right and left 2nd toe. Assessment: (M20.41) Hammer toe of right foot (primary encounter diagnosis) (M20.42) Hammer toe of left foot (L84) Callus of foot (E11.49) Other diabetic neurological complication associated with type 2 diabetes mellitus (HCC) Plan: 1. Patient was seen and evaluated. 2. Patient was instructed on the continued importance of diabetic foot care along with proper diet and keeping their blood sugar under control to prevent complications. Instructions given both oral and written. 3. Discussed hammertoes. Being that she is diabetic with neuropathy, will order diabetic shoes. Baseline xray ordered and will have her treat with hammertoe pads. Discussed possible surgical intervention. For now, she has elected to pursue conservative care 4. Callus filed to b/l feet with dremmel. Total number of callus was 5. 5. F/u in 1 year for diabetic foot exam 6. Recommend voltaren gel for neuropathy Nelson Arias DPM AMB ROOMING INTAKE FLOWSHEET DATA Risk Screening Do you have concerns about personal safety or safety in the home?: No Pain Pain Level: 10 Pain Location: Other: See Comment (bilateral feet) Description: Burning, Sharp Duration Amount of Time: 3 Duration Units: Months Frequency: Intermittent Intervention/Comfort measure: Reposition, Relaxation, Cold, Heat, Massage, Medication Patient presents with: Right Foot - Established Patient, Pain Left Foot - Established Patient, Pain Alexus Guadalupe LPN documented in this encounter [facility] 07-27-2022 Miscellaneous Notes Pt calling for the following: Urine results Pt will check with her insurance on the Basalgar and Lantus. Right now she is not taking any insulin. Judi Pagan LPN documented in this encounter [facility] 07-27-2022 Miscellaneous Notes Pt will check with her insurance on the Basaglar or Lantus and call the office. Judi Pagan LPN documented in this encounter [facility] 07-25-2022 History of Present illness Narrative Reason for Visit Patient presents with: F/U Diabetes 3 Month: review DM labs Mita Chatman is a 62 year old female who presents here today for CPE. 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 Brother is slow and needs to be tended all the time. [facility] [place] [facility] for him per the sister. Diabetes Mellitus: hba1c is 7.5. her hba1c was 8.5 due to family stress she is not able to care for herself and focus on herself. She will have to focus on herself. Patient is still working, at [employer]. She needs to get back to walking like she did before. She is on toujeo insulin, needs refills for it.not taking the log insulin. She says she does not eat right, so she does not know when to take it. Patient is on levothyroxine 25 mcg on a daily basis. Patients asthma is usually well controlled. She is on gabapentin and seroquel and effexor,. She is on that medication for depression and anxiety. For incontinence she is on oxy, at 5 mgs, she would like that to be a little stronger. She is on prilosec as needed. No problem-specific Assessment & Plan notes found for this encounter. PAST MEDICAL HISTORY Diagnosis Date Acquired hypothyroidism 01/05/2016 Acute gastritis without mention of hemorrhage Anemia, unspecified 06/19/2007 Asthma Benign hypertensive heart disease without heart failure BMI 36.0-36.9,adult 02/04/2017 Compression fracture of fifth lumbar vertebra (HCC) 07/29/2019 Depression Diabetes mellitus without mention of complication Diabetes mellitus Diarrhea Esophageal reflux Esophagitis, unspecified Generalized osteoarthrosis, unspecified site History of transfusion Hypertension Hypertrophy of breast 02/06/2008 Metabolic syndrome 11/18/2014 Mild persistent asthma 08/09/2016 Morbid obesity (HCC) 02-08-11 stated BMI 40.47 Ht: 62 Wt: 221 lbs Obstructive sleep apnea KYLEIGH (obstructive sleep apnea) 08/09/2016 Other and unspecified hyperlipidemia Transfusion history 04/2014 4 units after hysterectomy, postop hemorrhage PAST SURGICAL HISTORY Procedure Laterality Date ABDOMINAL SURGERY HX ANTERIOR COLPORRAPHY RPR CYSTOCELE W/CYSTO 05/06/2014 cystocele BACK SURGERY HX 06/24/2020 L4, L5 fusion BREAST SURGERY HX COLONOSCOPY FLX DX W/COLLJ SPEC WHEN PFRMD 08/16/2016 Colonoscopy (MAC) COLONOSCOPY GEN ANES 03/23/2021 normal colonoscopy, non-bleeding hemorrhoids COLONOSCOPY W/BIOPSY SINGLE/MULTIPLE 05/09/2009 COLPOPEXY VAGINAL INTRAPERITONEAL APPROACH 05/06/2014 USLF, cystoscopy DILATION & CURETTAGE DX&/THER NONOBSTETRIC Dilation & curettage EGD 03/23/2021 normal exam, gastric bypass noted EGD TRANSORAL BIOPSY SINGLE/MULTIPLE 01/22/2011 ESOPHAGOGASTRODUODENOSCOPY TRANSORAL DIAGNOSTIC 05/29/2013 EGD ESOPHAGOGASTRODUODENOSCOPY TRANSORAL DIAGNOSTIC 08/16/2016 EGD (MAC) ESOPHAGOGASTRODUODENOSCOPY TRANSORAL DIAGNOSTIC 10/11/2016 EGD GASTRIC BYPASS HX 2009 LAPAROSCOPY SURG CHOLECYSTECTOMY Cholecystectomy, lap LIG/TRNSXJ FLP TUBE ABDL/VAG APPR UNI/BI Tubal ligation PAST SURGICAL HISTORY OF right foot bone spur removed PAST SURGICAL HISTORY OF 08/13/2014 Posterior colporrhaphy REDUCTION OF LARGE BREAST 2008 TONSILLECTOMY HX TONSILLECTOMY PRIMARY/SECONDARY <AGE 12 VAG HYST 250 GM/< W/RMVL TUBE&/OVARY 05/06/2014 TVH/BSO for prolapse VAGINAL HYSTERECTOMY FAMILY HISTORY Problem Relation Age of Onset Breast Cancer Mother Liver and colon cancer Hypertension Mother Stroke Mother Coronary Artery Disease Father Diabetes Maternal Grandmother Heart Maternal Grandfather ME Stroke Paternal Grandmother Diabetes Paternal Grandmother Stroke Paternal Grandfather Anesthesia Problems No Family History Social History Tobacco Use Smoking status: Never Smokeless tobacco: Never Vaping Use Vaping Use: Never used Substance Use Topics Alcohol use: Yes Comment: rarely Drug use: No Past medical history, appointments, medications, allergies reviewed. Pertinent Lab/Diagnostic Studies are reviewed and discussed today Current Outpatient Medications: albuterol HFA (VENTOLIN HFA) 90 mcg/actuation inhaler traZODone (DESYREL) 100 mg tablet levothyroxine (LEVOXYL) 25 mcg tablet gabapentin (NEURONTIN) 300 mg capsule folic acid 1 mg tablet flash glucose scanning reader (Aquamarine PowerSTYLE MEL 2 READER) flash glucose sensor (FREESTYLE MEL 2 SENSOR) kit ergocalciferol 50,000 unit capsule (VITAMIN D2, DRISDOL) insulin glargine U-300 conc (TOUJEO SOLOSTAR U-300 INSULIN) 300 unit/mL (1.5 mL) topiramate (TOPAMAX) 50 mg tablet insulin lispro (HUMALOG KWIKPEN INSULIN) 100 unit/mL liraglutide (VICTOZA) 0.6 mg/ 0.1 ml subcutaneous pen injector colesevelam (WELCHOL) 625 mg tablet colestipol (COLESTID) 5 gram packet omeprazole (PRILOSEC) 20 mg capsule venlafaxine ER (EFFEXOR XR) 75 mg 24 hr capsule QUEtiapine (SEROQUEL) 100 mg tablet oxybutynin XL (DITROPAN XL) 5 mg 24 hr tablet diphenoxylate-atropine (LOMOTIL) 2.5-0.025 mg per tablet Insulin [place], Disposable, (UNIFINE PENTIPS PLUS) 32 gauge x 5/32 Blood-Glucose Meter (ONETOUCH VERIO FLEX METER) Review of Systems CONSTITUTIONAL: No fevers, chills, nightsweats, unintended weight loss HEENT: Denies frequent or severe heaches, nasal congestion/sinus symptoms, problematic allergy problems. EYES: No diplopia or blurry vision. CARDIOVASCULAR: No chest pain, dyspnea, palpitations, orthopnea, PND, ankle edema. PULM: No dyspnea, unexplained cough. GI: No dysphagia/odynophagia, problematic reflux, constipation, diarrhea, changes in stool habits, hematochezia, melena. : No new urinary complaints, including dysuria, gross hematuria or pyuria. NEURO: No new balance problems, peripheral weakness/paresthesias or numbness of concern. MUSC-SKEL: No new joint pain, swelling, or erythema. PSY: No concerns regarding depression, anxiety or panic. INTEGUMENTARY: No new skin changes (rash, new or changing mole, new growth) Physical Exam BP 118/70 (BP Site: Left Arm, BP Position: Sitting, BP Cuff Size: Large Adult) Pulse 69 Temp 37.6 C (99.7 F) Resp 12 Ht 160 cm (5' 3 ) Wt 69.9 kg (154 lb) LMP 05/31/2007 SpO2 99% BMI 27.28 kg/m General appearance: Well appearing, alert, in no acute distress, well-hydrated, well nourished. Skin: Skin color, texture, turgor normal, no suspicious rashes or lesions Head: Normocephalic, no masses, lesions, tenderness or abnormalities Eyes: Anicteric sclera. Pupils are equally round and reactive to light. Extraocular movements are intact. Ears: External ears normal, canals clear Nose/Sinuses: Nares normal, septum midline, mucosa normal, no drainage or sinus tenderness Oropharynx: Lips, mucosa, and tongue normal, teeth and gums normal, oropharynx normal Neck: Supple, no adenopathy; thyroid symmetric, normal size, no bruits Back: Normal exam Lungs: Lungs clear to auscultation. No wheezing, rhonchi, rales Heart: RRR without murmur, gallop, or rubs. No ectopy Abdomen: Normal abdominal exam, Abdomen soft, non-tender. Bowel sounds normal. No masses, organomegaly Extremities: No deformities, edema, skin discoloration, clubbing or cyanosis. Good capillary refill. Musculoskeletal: No joint swelling, deformity, or tenderness Peripheral pulses: Normal Neuro: Gait normal. Reflexes normal and symmetric. Sensation grossly intact. ASSESSMENT/PLAN: 1. Annual physical exam - ICD9: V70.0, ICD10: Z00.00 (primary diagnosis) - Counseled on healthy diet and regular exercise - Calcium intake with supplements or by diet of 1000 mg/day for under 50, 1371-1337 mg/day for 50+ - ALBUMIN/CREAT RATIO RND UR 2. Hypertension goal BP (blood pressure) < 140/90 - ICD9: 401.9, ICD10: I10 Changed ramipril to losartan - Recommended regular aerobic exercise. - Recommend home blood pressure monitoring, to bring results in on next visit - Goal of BP <130/80 3. Mixed hyperlipidemia - ICD9: 272.2, ICD10: E78.2 - good control - Continue current medication. 4. Acquired hypothyroidism - ICD9: 244.9, ICD10: E03.9 - Instructed patient on importance of taking on an empty stomach either first thing in the morning or at bedtime. Stable - Continue current medications 5. Type 2 diabetes mellitus without complication, unspecified whether penitentiary insulin use (HCC) - ICD9: 250.00, ICD10: E11.9 Controlled. - Continue current medications 6. Mild persistent asthma without complication - ICD9: 493.90, ICD10: J45.30 Mild intermittent Asthma stable - Avoidance of triggers recommended 7. Type 2 diabetes mellitus without complication, without long-term current use of insulin (HCC) - ICD9: 250.00, ICD10: E11.9 Controlled. - Continue current medications - TOEVE SOLOSTAR U-300 INSULIN 300 UNIT/ML (1.5 ML) SUBCUTANEOUS PEN - BLOOD-GLUCOSE METER - LIRAGLUTIDE 0.6 MG/0.1 ML (18 MG/3 ML) SUBCUTANEOUS PEN INJECTOR - INSULIN LISPRO (U-100) 100 UNIT/ML SUBCUTANEOUS PEN - PEN NEEDLE, DIABETIC 32 GAUGE X 8. Urinary incontinence, unspecified type - ICD9: 788.30, ICD10: R32 - OXYBUTYNIN CHLORIDE ER 10 MG TABLET,EXTENDED RELEASE 24 HR Giovana Conteh MD documented in this encounter [facility] 07-20-2022 Miscellaneous Notes Lab scheduled for 10/17 at 1:30pm due to lab being closed for lunch until then. CLAUDIO Garcia Patient aware of all information. PSS- please schedule patient a lab appointment, CBC and iron studies 10/17/2021 @ 1:00. No need to notify patient, she is aware and will check [facility] [place] for updates. Caprice Werner LPN Iron levels normal. Recheck CBC and iron studies in about 3 months. Hood Wise DO Patient calling for recent results on iron lab work. Please advise and contact patient at number listed. documented in this encounter [facility] 07-18-2022 Miscellaneous Notes Pt called and is notified of providers results and instructions. Pt voices understanding. Pt scheduled for Diabetic f/u. Eden Mederos RN Patient needs appointment scheduled to review elevated HgbA1c. Has not been seen for diabetes in 6 months. Thank you Mary Mejia APRN.VASILIY documented in this encounter [facility] 06-05-2022 Miscellaneous Notes Patient has been identified by name and date of : Yes Patient phones for refill(s): Requested Prescriptions Pending Prescriptions Disp Refills traZODone (DESYREL) 100 mg tablet 135 tablet 3 Sig: Take 1.5 tablets by mouth daily at bedtime. Date of last office visit in primary care: 03/27/22 Last 2 Encounter Wt Readings: Date: Wt: 03/27/2022 70.3 kg (155 lb) 01/22/2022 73.6 kg (162 lb 4.8 oz) Previous labs/tests for medication: Not applicable Please advise. Thank you. Yesenia Ding LPN documented in this encounter [facility] 06-05-2022 Miscellaneous Notes NOV none FRAN 03/27/22 Patient electronically sent a request for the following prescription(s) Requested Prescriptions Pending Prescriptions Disp Refills albuterol HFA (VENTOLIN HFA) 90 mcg/actuation inhaler 18 g 2 Sig: Inhale 2 Puffs as instructed every 4 hours as needed. For wheezing/shortness of breath. Patient aware RX will be sent to pharmacy. No need to notify patient. Please review. Leeanna Almanzar MA documented in this encounter [facility] 04-17-2022 Miscellaneous Notes Patient has been identified by name and date of : Yes Patient phones for refill(s): Pending Prescriptions Disp Refills LEVOTHYROXINE 25 MCG TABLET 90 tablet 1 Sig: Take 1 tablet by mouth once daily. Take on empty stomach. For Thyroid except no dose on Saturday or Saturday KASHIF: No GABAPENTIN 300 MG CAPSULE 90 capsule 3 Sig: Take 1 capsule by mouth three times daily for 30 days. med-sync 90 days KASHIF: No Date of last office visit in primary care: 03/27/22 Last 2 Encounter Wt Readings: Date: Wt: 03/27/2022 70.3 kg (155 lb) 01/22/2022 73.6 kg (162 lb 4.8 oz) Previous labs/tests for medication: Not applicable Please advise. Thank you. Yesenia Ding LPN Patient has been identified by name and date of : Yes Pending Prescriptions Disp Refills LEVOTHYROXINE 25 MCG TABLET 90 tablet 1 Sig: Take 1 tablet by mouth once daily. Take on empty stomach. For Thyroid except no dose on Saturday or Saturday KASHIF: No GABAPENTIN 300 MG CAPSULE 90 capsule 3 Sig: Take 1 capsule by mouth three times daily for 30 days. med-sync 90 days KASHIF: No RX INSTRUCTIONS: Patient aware RX will be sent to pharmacy. No need to notify patient. Nguyen Snyder documented in this encounter [facility] 04-11-2022 Miscellaneous Notes Patient has been identified by name and date of : Yes Patient phones for refill(s): Pending Prescriptions Disp Refills FREESTYLE MEL 2 READER 1 Each 0 Sig: Use to check blood sugar at least four (4) times daily. KASHIF: No FREESTYLE MEL 2 SENSOR KIT 6 Each 4 Sig: Apply new sensor every fourteen (14) days to upper arm. KASHIF: No Date of last office visit in primary care: 12/18/21 Last 2 Encounter Wt Readings: Date: Wt: 03/27/2022 70.3 kg (155 lb) 01/22/2022 73.6 kg (162 lb 4.8 oz) Previous labs/tests for medication: Not applicable Please advise. Thank you. Yesenia Ding LPN documented in this encounter [facility] 04-11-2022 Miscellaneous Notes Patient has been identified by name and date of : Yes Patient phones for refill(s): Pending Prescriptions Disp Refills FOLIC ACID 1 MG TABLET 180 tablet 3 Sig: Take 2 tablets by mouth once daily. Sublingual KASHIF: No Date of last office visit in primary care: 12/18/21 Last 2 Encounter Wt Readings: Date: Wt: 03/27/2022 70.3 kg (155 lb) 01/22/2022 73.6 kg (162 lb 4.8 oz) Previous labs/tests for medication: Not applicable Please advise. Thank you. Yesenia Ding LPN documented in this encounter [facility] 03-27-2022 History of Present illness Narrative SUBJECTIVE: SPIROMETRY Never done HIV SCREENING Never done SHINGRIX VACCINE(1 of 2) Never done MAMMOGRAM due on 04/17/2017 COVID-19 VACCINE(4 - Booster for Moderna series) due on 12/30/2021 URINE ALBUMIN:CREATININE RATIO due on 03/18/2022 [facility] Mita Chatman is a 61 year old female. PMH significant for ACTIVE PROBLEM LIST Sciatica Mixed Hyperlipidemia Hypertension Goal Bp (Blood Pressure) < 140/90 Type 2 Diabetes Mellitus Without Complication (Hcc) Hypersplenism Vulvar Intraepithelial Neoplasia II (Juan M Ii) Leukopenia Onychia and Paronychia of Toe Vitamin D Deficiency S/P Gastric Bypass Insomnia Depression Lumbago Panic Disorder With Agoraphobia Chronic Pain Syndrome Acquired Hypothyroidism Intractable Migraine Without Aura and Without Status Migrainosus Rls (Restless Legs Syndrome) Mild Persistent Asthma Gerd Without Esophagitis Thrombocytopenia (Hcc) H/O Gastric Bypass Osteopenia Pain in Left Hip Compression Fracture of Fifth Lumbar Vertebra (Hcc) Spondylolisthesis of Lumbar Region Lumbar Foraminal Stenosis Radiculopathy, Lumbar Region Spondylolisthesis, Lumbar Region Postoperative Anemia Due to Acute Blood Loss Iron Deficiency Anemia Due to Chronic Blood Loss Iron Malabsorption Chronic Diarrhea PCP: Giovana Conteh MD Presents today with report of a dog bite. Bite broke skin on her lower lip. Notes when initially happened she had teeth ortez on the inside of her lip. See telephone encounter. This occurred last . Sought care when this occurred: States no, did not want her get her son in trouble. Broke the skin : yes Fever : no Drainage: Yes Has been cleaning with peroxide and applying a soft lip balm with improvement noted. Review of Systems Constitutional: Negative. Skin: Positive for wound. Objective BP 118/70 Pulse 60 Resp 16 Wt 70.3 kg (155 lb) LMP 05/31/2007 BMI 25.79 kg/m Physical Exam Vitals and nursing note reviewed. Constitutional: Appearance: Normal appearance. HENT: Head: Normocephalic and atraumatic. Eyes: Conjunctiva/sclera: Conjunctivae normal. Cardiovascular: Rate and Rhythm: Normal rate. Pulmonary: Effort: Pulmonary effort is normal. Skin: General: Skin is warm and dry. Comments: Scabbed area lower lip, central, external ~1/2x1/2 Neurological: General: No focal deficit present. Mental Status: She is alert. ALLERGIES Allergen Reactions Amoxicillin Intolerance severe yeast infection Doxycycline Diarrhea DIARRHEA,VOMITING, YEAST INFECTION Metformin Diarrhea Pentazocine Unknown Talacen [Pentazocin* Unknown reaction Tessalon [Benzonata* GI Upset Thiazides Severe leg cramps - hctz Medications ergocalciferol 50,000 unit capsule (VITAMIN D2, DRISDOL) Take 1 capsule by mouth one time a week. insulin glargine U-300 conc (TOUJEO SOLOSTAR U-300 INSULIN) 300 unit/mL (1.5 mL) Inject 32 Units subcutaneously daily at bedtime. topiramate (TOPAMAX) 50 mg tablet TAKE 1 TABLET TWICE DAILY flash glucose scanning reader ([employer] PowerSTYLE MEL 2 READER) Use to check blood sugar at least four (4) times daily. flash glucose sensor (FREESTYLE MEL 2 SENSOR) kit Apply new sensor every fourteen (14) days to upper arm. insulin lispro (HUMALOG KWIKPEN INSULIN) 100 unit/mL Inject 4 Units subcutaneously daily with dinner. liraglutide (VICTOZA) 0.6 mg/ 0.1 ml subcutaneous pen injector Inject 1.8 mg subcutaneously once daily. colesevelam (WELCHOL) 625 mg tablet Take 2 tablets by mouth twice daily with meals. omeprazole (PRILOSEC) 20 mg capsule Take 1 capsule by mouth daily before breakfast. 1/2 hr before meal. venlafaxine ER (EFFEXOR XR) 75 mg 24 hr capsule Take 1 capsule by mouth once daily. traZODone (DESYREL) 100 mg tablet Take 1.5 tablets by mouth daily at bedtime. QUEtiapine (SEROQUEL) 100 mg tablet Take 1 tablet by mouth once daily. oxybutynin XL (DITROPAN XL) 5 mg 24 hr tablet Take 1 tablet by mouth once daily. levothyroxine (LEVOXYL) 25 mcg tablet Take 1 tablet by mouth once daily. Take on empty stomach. For Thyroid except no dose on Saturday or Saturday Insulin [place], Disposable, (UNIFINE PENTIPS PLUS) 32 gauge x Use one needle for each dose. 2 x /day. albuterol HFA (VENTOLIN HFA) 90 mcg/actuation inhaler Inhale 2 Puffs as instructed every 4 hours as needed. For wheezing/shortness of breath. ferrous sulfate 325 mg (65 mg iron) tablet Take 1 tablet by mouth once daily. folic acid 1 mg tablet Take 2 tablets by mouth once daily. Sublingual Blood-Glucose Meter ([employer] VERIO FLEX METER) Use as instructed. E11.9 blood sugar diagnostic (ONETOUCH VERIO TEST STRIPS) test strip Test blood sugar(s) twice daily. Dx: Type 2 DM - Uncontrolled E11.65 Insulin: Yes lancets (ONE TOUCH DELICA) 33 gauge misc Test blood sugar(s) once daily. Dx: Type 2 DM - Uncontrolled E11.65 Insulin: No gabapentin (NEURONTIN) 300 mg capsule Take 1 capsule by mouth three times daily for 30 days. med-sync 90 days colestipol (COLESTID) 5 gram packet Take 5 g by mouth once daily. colestipol (COLESTID) 1 gram tablet Take 1 tablet by mouth twice daily. diphenoxylate-atropine (LOMOTIL) 2.5-0.025 mg per tablet Take 1 tablet by mouth twice daily as needed for diarrhea for up to 90 days. topiramate (TOPAMAX) 50 mg tablet Take 50 mg by mouth twice daily. PAST MEDICAL HISTORY Diagnosis Date Acquired hypothyroidism 01/05/2016 Acute gastritis without mention of hemorrhage Anemia, unspecified 06/19/2007 Asthma Benign hypertensive heart disease without heart failure BMI 36.0-36.9,adult 02/04/2017 Compression fracture of fifth lumbar vertebra (HCC) 07/29/2019 Depression Diabetes mellitus without mention of complication Diabetes mellitus Diarrhea Esophageal reflux Esophagitis, unspecified Generalized osteoarthrosis, unspecified site History of transfusion Hypertension Hypertrophy of breast 02/06/2008 Metabolic syndrome 11/18/2014 Mild persistent asthma 08/09/2016 Morbid obesity (HCC) 02-08-11 stated BMI 40.47 Ht: 62 Wt: 221 lbs Obstructive sleep apnea KYLEIGH (obstructive sleep apnea) 08/09/2016 Other and unspecified hyperlipidemia Transfusion history 04/2014 4 units after hysterectomy, postop hemorrhage Social History Tobacco Use Smoking status: Never Smoker Smokeless tobacco: Never Used Vaping Use Vaping Use: Never used Substance Use Topics Alcohol use: Yes Comment: rarely Drug use: No ASSESSMENT/PLAN: 1. Dog bite, initial encounter - ICD9: 879.8, E906.0, ICD10: W54.0XXA Recommend wash area with soap and water. Continue with lip balm. Tdap in office today. - TDAP VACCINE AGE 7+ IM - today - CIPROFLOXACIN 500 MG TABLET x 5 days Requests covid19 vaccine booster. Tawny Zabala, KARAN.ELECTRICAL WIRER Medical Decision Making: Problems: Low: Acute, uncomplicated illness or injury Risk: Moderate: Drug management Medical Decision Making Level: 3 - Low documented in this encounter [facility] 03-26-2022 Miscellaneous Notes Patient calls to report she was bit by her grandson's dog this past on her lip. Patient was in [place] at the time and didn't seek treatment. Nurse triage completed. Protocol recommends see provider within 24 hours. Patient declined OV available today. Scheduled tomorrow per patient request. Care advice reviewed. Patient verbalized understanding. Reason for Disposition [1] Last tetanus shot > 5 years ago AND [2] any wound (e.g., cut, scrape) Answer Assessment - Initial Assessment Questions 1. ANIMAL: Dog bite from grandson's dog. Dog was not acting ill or behaving strangely. Reports up to date on shots. 2. LOCATION: Lip 3. SIZE: Maybe an inch scabbed now surrounded by 1 cm purple bruising. No drainage. No redness. No warmth. Afebrile. 4. ONSET: morning 11 am at son's house in [place]. 5. CIRCUMSTANCES: Patient was going to visit her son in [place]. She knocked on the door and when the door was opened the dog jumped up and bit her in the lip. 6. TETANUS: 06/21/2016 Protocols used: ANIMAL [id number] documented in this encounter [facility] 02-12-2022 Miscellaneous Notes Patient calls and states that provider had told her that she had wanted her to start on an antibiotic, however the antibiotic was too expensive. Patient states that provider had told her that provider would look into finding way to help with cost of antibiotic. Please review and advise, Lexi Pratt RN documented in this encounter [facility] 01-25-2022 Miscellaneous Notes Called and spoke with patient to communicate below. She reports that last night she had only asparagus and chicken but her blood sugar spike >400 and came back down to the 200s. She is wondering if she needs to take insulin more often. CGM report from Monday 01/22 showed that BG average was 149 mg/dL. Due to unusual excursion in BG, advised patient to watch BG closely and is readings reamin >200 mg/dL ok to also add Humlaog 4 units before lunch in addition to 4 units before dinner. If readings remain <200 mg/dL no medication changes. Romel Hoang PharmD, BCACP Primary Care Clinical Pharmacist [facility] Fax sent via [employer] to Karan [phone] with last visit note from 01/22 indicating how many time patient injections insulin and monitors BG. Patient only has 2 daily injections of insulin, is her specific plan does not make an exception, then she may not meet that criteria. Romel Hoang PharmD, BCACP Primary Care Clinical Pharmacist [facility] Patient calls and states that she talked with [facility]an and she was told that they need to know if patient injects self with insulin 3 times a day and how many times patient checks her sugars. Patient asking if provider can fax this information to Karan? Lexi Pratt RN documented in this encounter [facility] 01-25-2022 Miscellaneous Notes Patient has questions regarding medications that she is to add back in to her diet. I did send a rx to PCP for Vit D that patient had prescribed last year. Please advise patient. documented in this encounter [facility] 01-25-2022 Miscellaneous Notes Patient has been identified by name and date of : Yes Last office visit in this department: 12/18/2021 RX INSTRUCTIONS: Patient aware RX will be sent to pharmacy. No need to notify patient. Patient phones requesting refills as follows: Pending Prescriptions Disp Refills ERGOCALCIFEROL (VITAMIN D2) 1,250 MCG (50,000 UNIT) CAPSULE 12 capsule 3 Sig: Take 1 capsule by mouth one time a week. KASHIF: No Please review and advise. Danielle Sahu Pss documented in this encounter [facility] 01-24-2022 History of Present illness Narrative REASON FOR CONSULT: DM GOALS: A1c < 7% CONSULTING PROVIDER: Giovana Conteh MD Date of Consult: 12/18/21 Mita Chatman is a 61 year old female presenting for follow up visit in person. Patient consents to pharmacy collaborative practice agreement. Last seen by PCP, Dr. Giovana Conteh MD on 12/28. At last PCP appt, patient was referred to pharmacy for DM management. At last PharmD visit on 01/08, at which time insulin lispro was started. Pt was having difficulty activating Dexcom G6 sensor sample provided and added on to schedule for assistance with device. The patient was trained today on the Dexcom G6 personal CGM. We reviewed the following: Indications for use and maintenance CGM and components (sensor, transmitter, reader) Set Up Display Device How to insert sensor and attach transmitter o Choose sensor site o Insert sensor with applicator o Snap in transmitter Pair transmitter and start sensor Home screen overview o Sensor Glucose Reading o Trend Arrow o Trend Graph o High and Low Alert Levels Ending sensor session o Remove sensor and transmitter together from body o Remove transmitter from rouse o KEEP TRANSMITTER Review options of data interpretation from smart device and central supply tech Review Dexcom CLARITY and Dexcom Share apps Other counseling information Change sensor every 10 days Ok to shower/bathe, avoid hot tubs/saunas Remove for CT scan/MRI Check glucose with finger sticks any time symptoms do not match the glucose reading Skin tac/simpatch or overlay tapes for additional adhesion Inject insulin at least 3 inches away from the sensor site Sensor site rotation Download and interpretation to be done by the pharmacist at f/u appointment. Pharmacotherapy adjustments may be implemented based off of report. F/u appt with PharmD scheduled for 02/19/22. Romel Hoang PharmD, BCACP Primary Care Clinical Pharmacist [facility] documented in this encounter [facility] 01-22-2022 History of Present illness Narrative Images from the original note were not included. Primary Care Pharmacy Visit REASON FOR CONSULT: DM GOALS: A1c < 7% CONSULTING PROVIDER: Giovana Conteh MD Date of Consult: 12/18/21 Mita Chatman is a 61 year old female presenting for follow up visit in person. Patient consents to pharmacy collaborative practice agreement. Last seen by PCP, Dr. Giovana Conteh MD on 12/28. At last PCP appt, patient was referred to pharmacy for DM management. At last PharmD visit on 01/08, at which time insulin lispro was started. INTERIM HISTORY: Met with healthcare translator today, working on watching carbs BG improving Patient is monitoring blood sugars 4 times daily, with 2 daily injections of insulin Current DM Medications: Insulin glargine U300 30 units once daily - Has titrated to 32 units daily insulin lispro (Humalog) 4 units before first bite of dinner liraglutide 1.8 mg once daily Preventative Medications: On EMY/ARB: No On Statin: No GLYCEMIC CONTROL: Glucometer present at visit: Yes CGM Report Summary of CGM Findings: 1- CGM recording is adequate for interpretation. 2- Average glucose is 149 mg/dL. 3- Total frequency of hypoglycemia: 1% 4- Nocturnal hypoglycemia was not noted. 5- Hyperglycemic episodes: 25% 6- Time in target range (70-180 mg/dL): 74% ROS: Patient denies CP, SOB, JOHNS, blurred vision, dizziness or lightheadedness Patient denies nausea, vomiting, diarrhea, abdominal pain Patient denies symptoms of hypoglycemia (sweating, anxiety, palpitations, hunger, and tremor) Patient denies symptoms of hyperglycemia (polyuria, polydipsia, polyphagia) Patient denies potential medication adverse effects MEDICATIONS: Pill bottles are present. Adherence: denies missed doses. ACTIVE PROBLEM LIST Sciatica Mixed Hyperlipidemia Hypertension Goal Bp (Blood Pressure) < 140/90 Type 2 Diabetes Mellitus Without Complication (Hcc) Hypersplenism Vulvar Intraepithelial Neoplasia II (Juan M Ii) Leukopenia Onychia and Paronychia of Toe Vitamin D Deficiency S/P Gastric Bypass Insomnia Depression Lumbago Panic Disorder With Agoraphobia Chronic Pain Syndrome Acquired Hypothyroidism Intractable Migraine Without Aura and Without Status Migrainosus Rls (Restless Legs Syndrome) Mild Persistent Asthma Gerd Without Esophagitis Thrombocytopenia (Hcc) H/O Gastric Bypass Osteopenia Pain in Left Hip Compression Fracture of Fifth Lumbar Vertebra (Hcc) Spondylolisthesis of Lumbar Region Lumbar Foraminal Stenosis Radiculopathy, Lumbar Region Spondylolisthesis, Lumbar Region Postoperative Anemia Due to Acute Blood Loss Iron Deficiency Anemia Due to Chronic Blood Loss Iron Malabsorption Chronic Diarrhea PAST MEDICAL HISTORY Diagnosis Date Acquired hypothyroidism 01/05/2016 Acute gastritis without mention of hemorrhage Anemia, unspecified 06/19/2007 Asthma Benign hypertensive heart disease without heart failure BMI 36.0-36.9,adult 02/04/2017 Compression fracture of fifth lumbar vertebra (HCC) 07/29/2019 Depression Diabetes mellitus without mention of complication Diabetes mellitus Diarrhea Esophageal reflux Esophagitis, unspecified Generalized osteoarthrosis, unspecified site History of transfusion Hypertension Hypertrophy of breast 02/06/2008 Metabolic syndrome 11/18/2014 Mild persistent asthma 08/09/2016 Morbid obesity ([facility]) 02-08-11 stated BMI 40.47 Ht: 62 Wt: 221 lbs Obstructive sleep apnea KYLEIGH (obstructive sleep apnea) 08/09/2016 Other and unspecified hyperlipidemia Transfusion history 04/2014 4 units after hysterectomy, postop hemorrhage ALLERGIES Allergen Reactions Amoxicillin Intolerance severe yeast infection Doxycycline Diarrhea DIARRHEA,VOMITING, YEAST INFECTION Metformin Diarrhea Pentazocine Unknown [place] [Pentazocin* Unknown reaction Tessalon [Benzonata* GI Upset Thiazides Severe leg cramps - hctz Current Outpatient Medications Medication Sig topiramate (TOPAMAX) 50 mg tablet TAKE 1 TABLET TWICE DAILY flash glucose scanning reader (FREESTYLE MEL 2 READER) Use to check blood sugar at least four (4) times daily. flash glucose sensor (FREESTYLE MEL 2 SENSOR) kit Apply new sensor every fourteen (14) days to upper arm. insulin lispro (HUMALOG KWIKPEN INSULIN) 100 unit/mL Inject 4 Units subcutaneously daily with dinner. liraglutide (VICTOZA) 0.6 mg/ 0.1 ml subcutaneous pen injector Inject 1.8 mg subcutaneously once daily. insulin glargine U-300 conc (TOUAALIYAH SOLOSTAR U-300 INSULIN) 300 unit/mL (1.5 mL) Inject 30 Units subcutaneously daily at bedtime. colesevelam (WELCHOL) 625 mg tablet Take 2 tablets by mouth twice daily with meals. gabapentin (NEURONTIN) 300 mg capsule Take 1 capsule by mouth three times daily for 30 days. med-sync 90 days colestipol (COLESTID) 5 gram packet Take 5 g by mouth once daily. omeprazole (PRILOSEC) 20 mg capsule Take 1 capsule by mouth daily before breakfast. 1/2 hr before meal. venlafaxine ER (EFFEXOR XR) 75 mg 24 hr capsule Take 1 capsule by mouth once daily. traZODone (DESYREL) 100 mg tablet Take 1.5 tablets by mouth daily at bedtime. QUEtiapine (SEROQUEL) 100 mg tablet Take 1 tablet by mouth once daily. oxybutynin XL (DITROPAN XL) 5 mg 24 hr tablet Take 1 tablet by mouth once daily. colestipol (COLESTID) 1 gram tablet Take 1 tablet by mouth twice daily. (Patient not taking: Reported on 12/19/2021 ) levothyroxine (LEVOXYL) 25 mcg tablet Take 1 tablet by mouth once daily. Take on empty stomach. For Thyroid except no dose on Saturday or Saturday diphenoxylate-atropine (LOMOTIL) 2.5-0.025 mg per tablet Take 1 tablet by mouth twice daily as needed for diarrhea for up to 90 days. Insulin [place], Disposable, (UNIFINE PENTIPS PLUS) 32 gauge x Use one needle for each dose. 2 x /day. albuterol HFA (VENTOLIN HFA) 90 mcg/actuation inhaler Inhale 2 Puffs as instructed every 4 hours as needed. For wheezing/shortness of breath. topiramate (TOPAMAX) 50 mg tablet Take 50 mg by mouth twice daily. (Patient not taking: Reported on 12/19/2021 ) ergocalciferol 50,000 unit capsule (VITAMIN D2, DRISDOL) Take 1 capsule by mouth one time a week. ferrous sulfate 325 mg (65 mg iron) tablet Take 1 tablet by mouth once daily. folic acid 1 mg tablet Take 2 tablets by mouth once daily. Sublingual Blood-Glucose Meter (ONETOUCH VERIO FLEX METER) Use as instructed. E11.9 blood sugar diagnostic (ONETOUCH VERIO TEST STRIPS) test strip Test blood sugar(s) twice daily. Dx: Type 2 DM - Uncontrolled E11.65 Insulin: Yes lancets (ONE TOUCH DELICA) 33 gauge misc Test blood sugar(s) once daily. Dx: Type 2 DM - Uncontrolled E11.65 Insulin: No No current facility-administered medications for this visit. EXAM: Last 3 Encounter BP Readings: Date: BP: 12/19/2021 106/70 12/18/2021 136/70 09/18/2021 128/64 Wt: 75.3 kg (166 lb) BMI: 27.62 kg/(m^2) LABS: Lab Results Component Value Date HBA1C 8.5 12/28/2021 HBA1C 8.5 12/18/2021 HBA1C 5.9 07/06/2021 HBA1C 6.9 03/03/2021 HBA1C 6.4 05/17/2020 HBA1C 7.6 03/28/2020 CMP: Glucose 280 12/28/2021 BUN 18 12/28/2021 Creatinine, Whole Blood (iSTAT) 0.77 12/28/2021 Sodium 137 12/28/2021 Potassium 4.1 12/28/2021 Chloride 109 12/28/2021 CO2 23 12/28/2021 Protein, Total 6.6 12/28/2021 Albumin 4.2 12/28/2021 Calcium 8.6 12/28/2021 Alkaline Phosphatase 82 12/28/2021 Bilirubin, Total 0.4 12/28/2021 AST 16 12/28/2021 ALT 22 12/28/2021 Serum creatinine: 0.77 mg/dL 12/28/21811 Estimated creatinine clearance: 76.1 mL/min Vitamin B12 Date Value Ref Range Status 03/03/2021 309 232 - 1,245 pg/mL Final Lab Results Component Value Date CHOL 176 12/28/2021 CHOL 157 03/18/2021 LDL 107 12/28/2021 LDL 93 03/18/2021 HDL 48 12/28/2021 HDL 40 03/18/2021 TG 103 12/28/2021 TG 122 03/18/2021 The 10-year ASCVD risk score (Demetrius DORADO Jr., et al., 2013) is: 5.4% Values used to calculate the score: Age: 61 years Sex: Female Is Non- : No Diabetic: Yes Tobacco smoker: No Systolic Blood Pressure: 106 mmHg Is BP treated: No HDL Cholesterol: 48 mg/dL Total Cholesterol: 176 mg/dL Albumin/Creat Ratio (mg/g) Date Value 03/18/2021 Not calculated PHARMACOTHERAPY ASSESSMENT/PLAN: 1. Type 2 diabetes mellitus without complication, without long-term current use of insulin ([facility]) - ICD9: 250.00, ICD10: E11.9 A1c goal < 7%; not at goal (last A1c 8.5%); SMBG improving on current regimen; reports s/sx hypoglycemia; denies s/sx hyperglycemia. Patient has titrated insulin as directed and seeing improvement with meal time insulin. Today, will continue current regimen. She would benefit from continue use of personal CGM due to occurrence of hypoglycemia. CONTINUE insulin degludec (Toujeo) 32 units once daily at bedtime, insulin lispro (Humalog) 4 units before first bite of dinner, CONTINUE liraglutide (Victoza) 1.8 mg daily HbA1c: due - TOUJEO SOLOSTAR U-300 INSULIN 300 UNIT/ML (1.5 ML) SUBCUTANEOUS PEN Follow up: Patient is scheduled to see PCP on 03/21/22. Patient to follow up with PharmD on 02/19/22. Patient verbalized understanding of instructions. Romel Hoang PharmD, BCACP Primary Care Clinical Pharmacist [facility] The majority of the pharmacy visit (> 50%) was spent counseling and/or coordinating care for the patient. [Face to Face] time was 22 minutes. documented in this encounter [facility] 01-22-2022 Miscellaneous Notes Jeannie Gonsalez [facility] calls to request most recent visit note with provider for diabetes supplies. OV note faxed per request to [phone]. Beverly Ellis RN documented in this encounter [facility] 01-22-[address] - 01/22/2022 11:25 AM EDT 1. Aim for at least breakfast ,lunch and dinner. Include at least lean protein at breakfast and lunch: low fat cheese or cottage cheese, protein drinks, chicken/turkey/fish, 2. Aim for ~2 carb choices per meal (30 grams) 3. Choose whole grain, high fiber breads and grains 4. All beverages calorie free and sugar free 5. Keep fruit to one fruit serving per eating event 6. . Aim for 30-45 min cardio most days 7. . Add back multivitamin, vit d, calcium, and magnesium 8. Include a protein based snack along with 15 grams Whole grain carb for evening snack 9. Keep food and glucose records (premeal and two hour post prnandial) documented in this encounter [facility] 01-22-2022 History of Present illness Narrative Nutrition Therapy Initial Assessment Nutrition Diagnosis: Altered nutrition-related lab values, related to, endocrine dysfunction, as evidenced by HgA1c 8.5. RECOMMENDED MALNUTRITION DIAGNOSIS: NO MALNUTRITION IDENTIFIED NUTRITION CARE PLAN Nutrition Intervention 01/22/2022: modify type and amount of food or beverage 1. Aim for at least breakfast ,lunch and dinner. Include at least lean protein at breakfast and lunch: low fat cheese or cottage cheese, protein drinks, chicken/turkey/fish, 2. Aim for ~2 carb choices per meal (30 grams) 3. Choose whole grain, high fiber breads and grains 4. All beverages calorie free and sugar free 5. Keep fruit to one fruit serving per eating event 6. . Aim for 30-45 min cardio most days 7. . Add back multivitamin, vit d, calcium, and magnesium 8. Include a protein based snack along with 15 grams Whole grain carb for evening snack 9. Keep food and glucose records (premeal and two hour post prnandial) Nutrition Monitoring & Evaluation: labs in target range Need for Follow up: 4-6 weeks Patient presents for initial MNT as relates to diabetes. Original diagnosis about 15 years ago. Is s/p RYGB 10 years ago with resolution of diabetes for about 5 years. Now uncontrolled. Has had high stress lately. Was eating 5-6 bananas daily until last week. Intake as stated is of typically one main meal per day at dinner time besides bananas. Beverages appropriate for just water. Does not take vitamins - states was taking many pills after surgery and was frustrated so stopped these. Includes regular exercise of walking most days Patient's symptoms are: uncontrolled diabetes Diet History: Fasting; 97 Breakfast - usually skip Snack - no Lunch - no Snack - no Dinner - usually first meal of the day: half grilled cheese, mac and cheese (couple bites) , 3 bites pizza (was full); water Snack - no Beverages - water at least 64 oz; might have an energy drink Alcohol- no Vitamins/Supplements - no Random: 143/134 Activity: Activities of Daily Living: varies Additional Activity: Lightly active (Light exercise: planned physical activity 1-3 days/week) Walk Will walk in the middle of the night if blood sugar feels high Anthropometrics: Height: Last 1 Encounter Ht Readings: Date: Ht: 01/22/2022 165.1 cm (5' 5 ) Current weight: Last 1 Encounter Wt Readings: Date: Wt: 01/22/2022 73.6 kg (162 lb 4.8 oz) Body mass index is 27.01 kg/m . Resting Metabolic Rate: 1301 Malnutrition Screening Significant unintentional weight loss? No Eating less than 75% of usual intake for more than 2 weeks? No Potential Signs of Inflammation: no identifiable sources Education Materials Provided: Healthy You - Planning Healthy Meals (blue cover) READINESS TO LEARN Cognitive ability: Alert and oriented Motivation to learn: Interested Family support: Unable to assess - Family not present Instruction provided to: Patient Patient learns best by: Individual Instruction Factors affecting learning: None Physical limitations affecting learning: None Referred/Supervised by: Alvarado/Alvarado RICHMOND Billing Type: Initial Assess/15 min 2 units SIGNATURE: Jill Lopez RD PATIENT NAME: Mita Chatman DATE: January 22, 2022 TIME: 10:58 AM documented in this encounter [facility] 01-17-2022 Miscellaneous Notes Patient left voicemail on pharmacy line asking for call back. Returned call to patient, she states current CGM sample ends on 01/18. Would like to know if able to get from insurance sooner. Explained to patient that Medicare CMS criteria required proof of monitoring BG 4 times daily, we have follow up together on 01/22 and that office visit note can be sent with documentation of how often she monitors BG. Instructed her that when sample CGM runs out, she should resume manual BG monitoring on a 4 times daily schedule: before meals and bedtime. Pt verbalizes understanding. Romel Hoang, PharmD, BCACP Primary Care Clinical Pharmacist [facility] documented in this encounter [facility] 01-15-2022 History of Present illness Narrative Rev'd documented in this encounter [facility] 01-12-2022 History of Present illness Narrative LACTULOSE HYDROGEN BREATH TEST FOR SMALL BOWEL BACTERIAL OVERGROWTH Date: January 12, 2022 Referring Physician: Marizol Rae APRN.TICK INSPECTOR Chief Complaint Abdominal Pain Bloating Acid Reflux/Heartburn Flatulence/Gas Diarrhea Symptoms prior to start of study: None [] 4 week restrictions [] 72 hour restrictions [] 12 hour fasting [] Followed the special diet Baseline Hydrogen PPM: 5 Methane PPM: 43 Nikkiya Radha, CT Lactulose 15mL given at: 10:25am Start Time:10:30am 20 minutes Hydrogen PPM: 4 Methane PPM: 29 Nikkiya Radha, CT 40 minutes Hydrogen PPM: 3 Methane PPM: 38 Nikkiya Radha, CT 1 hour Hydrogen PPM: 5 Methane PPM: 43 Nikkiya Radha, CT 1 hour 20 minutes Hydrogen PPM: 8 Methane PPM: 46 Nikkiya Radha, CT 1 hour, 40 minutes Hydrogen PPM: 6 Methane PPM: 49 Nikkiya Radha, CT 2 hours Hydrogen PPM: 10 Methane PPM: 66 Nikkiya Radha, CT 2 hours, 20 minutes Hydrogen PPM: 5 Methane PPM: 46 Nikkiya Radha, CT 2 hours, 40 minutes Hydrogen PPM: 7 Methane PPM: 55 Nikkiya Radha, CT 3 hours Hydrogen PPM: 8 Methane PPM: 47 JOANNA Barahona Symptoms developed during the study period: Excessive Gas Patient Results Preliminary Test Results (not given to patient): Pending JOANNA Barahona documented in this encounter [facility] 01-09-2022 Miscellaneous Notes Noted, will need to pursue through DME. Will discuss with patient at next follow up as she will need to monitor BG more frequently to qualify. Romel Hoang, PharmD, BCACP Primary Care Clinical Pharmacist [facility] To: Giovana Conteh From: [employer] Phone: Fax: [phone] Reference #: [id number] RE: Prior Authorization Request Patient Name: Mita Chatman Patient : 1960 Status of Request: Deny Medication Name: Freesty Libr Kit 2 Sensor GPI/NDC: [id number] Decision Notes: The requested device is not a Part-D eligible product as defined by the Medicare Part-D benefit and is not covered under the Part-D prescription drug plan. Coverage may be available as a Part-B medical Durable Medical Equipment benefit. Please call Durable Medical Equipment (DME) vendors [employer] at [phone] or [employer] at [phone] for assistance obtaining To: Giovana Conteh From: [employer] Phone: Fax: [phone] Reference #: [id number] RE: Prior Authorization Request Patient Name: Mita Chatman Patient : 1960 Status of Request: Deny Medication Name: Freesty Libr Mis 2 [place] GPI/NDC: [id number] Decision Notes: The requested device is not a Part-D eligible product as defined by the Medicare Part-D benefit and is not covered under the Part-D prescription drug plan. Coverage may be available as a Part-B medical Durable Medical Equipment benefit. Please call Durable Medical Equipment (DME) vendors [employer] at [phone] or [employer] at [phone] for assistance obtaining this device. GLENIS- PA completed and waiting for response. electronic PA requested. Prior Authorization Documentation Prior authorization requested for the following medication: Medication:FREESTYLE MEL 2 READER and sensor kit Provider: Dr Giovana Conteh Insurance Company Name: [facility] MED[employer] Insurance Company Phone number: Patient ID number: [id number] Pharmacy Name: [facility] Telephone number: [phone] documented in this encounter [facility] 01-08-2022 History of Present illness Narrative Primary Care Pharmacy Visit REASON FOR CONSULT: DM GOALS: A1c < 7% CONSULTING PROVIDER: Giovana Conteh MD Date of Consult: 12/18/21 Mita Chatman is a 61 year old female presenting for initial visit: This initial consult was conducted in person with the patient where the consult agreement was explained. The patient may decline or cancel the agreement at any time. After consideration, the patient consented to the pharmacy consult agreement and agreed to allow medications be collaboratively managed by a pharmacist. Last seen by PCP, Dr. Giovana Conteh MD on 12/28. At last PCP appt, patient was referred to pharmacy for DM management. INTERIM HISTORY: Blood sugars have been trending up in the last month Checking blood sugars daily in the morning. No BG log, reports Blood sugars range in 200 - 300s Having uncontrollable flatulence and gas, this is a recent symptom, following with GI specialist for testing Does not eat consistent meals. Mostly one meal with frequent snacks Having increased urination since blood sugars are elevated, not able to control it and lost control at night time when asleep Current DM Medications: Insulin glargine U300 20 units once daily - Taking differently: Injecting 25 units once daily liraglutide 1.8 mg once daily Preventative Medications: On EMY/ARB: No On Statin: No GLYCEMIC CONTROL: Glucometer present at visit: No SMBG s: No BG log, reports Blood sugars range in 200 - 300s Hypoglycemia: denies ROS: Patient denies CP, SOB, JOHNS, blurred vision, dizziness or lightheadedness Patient denies nausea, vomiting, diarrhea, abdominal pain Patient denies symptoms of hypoglycemia (sweating, anxiety, palpitations, hunger, and tremor) Patient denies symptoms of hyperglycemia (polyuria, polydipsia, polyphagia) Patient denies potential medication adverse effects DIET/EXERCISE/SOCIAL Hx: Mostly once meal with snacks after Chicken breast, 2 bananas and jojos snacks throughout the day Beverages: water MEDICATIONS: Pill bottles are present. Adherence: denies missed doses. ACTIVE PROBLEM LIST Sciatica Mixed Hyperlipidemia Hypertension Goal Bp (Blood Pressure) < 140/90 Type 2 Diabetes Mellitus Without Complication (Hcc) Hypersplenism Vulvar Intraepithelial Neoplasia II (Juan M Ii) Leukopenia Onychia and Paronychia of Toe Vitamin D Deficiency S/P Gastric Bypass Insomnia Depression Lumbago Panic Disorder With Agoraphobia Chronic Pain Syndrome Acquired Hypothyroidism Intractable Migraine Without Aura and Without Status Migrainosus Rls (Restless Legs Syndrome) Mild Persistent Asthma Gerd Without Esophagitis Thrombocytopenia (Hcc) H/O Gastric Bypass Osteopenia Pain in Left Hip Compression Fracture of Fifth Lumbar Vertebra (Hcc) Spondylolisthesis of Lumbar Region Lumbar Foraminal Stenosis Radiculopathy, Lumbar Region Spondylolisthesis, Lumbar Region Postoperative Anemia Due to Acute Blood Loss Iron Deficiency Anemia Due to Chronic Blood Loss Iron Malabsorption Chronic Diarrhea PAST MEDICAL HISTORY Diagnosis Date Acquired hypothyroidism 01/05/2016 Acute gastritis without mention of hemorrhage Anemia, unspecified 06/19/2007 Asthma Benign hypertensive heart disease without heart failure BMI 36.0-36.9,adult 02/04/2017 Compression fracture of fifth lumbar vertebra (HCC) 07/29/2019 Depression Diabetes mellitus without mention of complication Diabetes mellitus Diarrhea Esophageal reflux Esophagitis, unspecified Generalized osteoarthrosis, unspecified site History of transfusion Hypertension Hypertrophy of breast 02/06/2008 Metabolic syndrome 11/18/2014 Mild persistent asthma 08/09/2016 Morbid obesity (HCC) 02-08-11 stated BMI 40.47 Ht: 62 Wt: 221 lbs Obstructive sleep apnea KYLEIGH (obstructive sleep apnea) 08/09/2016 Other and unspecified hyperlipidemia Transfusion history 04/2014 4 units after hysterectomy, postop hemorrhage ALLERGIES Allergen Reactions Amoxicillin Intolerance severe yeast infection Doxycycline Diarrhea DIARRHEA,VOMITING, YEAST INFECTION Metformin Diarrhea Pentazocine Unknown Talacen [Pentazocin* Unknown reaction Tessalon [Benzonata* GI Upset Thiazides Severe leg cramps - hctz Current Outpatient Medications Medication Sig colesevelam (WELCHOL) 625 mg tablet Take 2 tablets by mouth twice daily with meals. gabapentin (NEURONTIN) 300 mg capsule Take 1 capsule by mouth three times daily for 30 days. med-sync 90 days colestipol (COLESTID) 5 gram packet Take 5 g by mouth once daily. omeprazole (PRILOSEC) 20 mg capsule Take 1 capsule by mouth daily before breakfast. 1/2 hr before meal. venlafaxine ER (EFFEXOR XR) 75 mg 24 hr capsule Take 1 capsule by mouth once daily. traZODone (DESYREL) 100 mg tablet Take 1.5 tablets by mouth daily at bedtime. QUEtiapine (SEROQUEL) 100 mg tablet Take 1 tablet by mouth once daily. oxybutynin XL (DITROPAN XL) 5 mg 24 hr tablet Take 1 tablet by mouth once daily. colestipol (COLESTID) 1 gram tablet Take 1 tablet by mouth twice daily. (Patient not taking: Reported on 12/19/2021 ) levothyroxine (LEVOXYL) 25 mcg tablet Take 1 tablet by mouth once daily. Take on empty stomach. For Thyroid except no dose on Saturday or Saturday diphenoxylate-atropine (LOMOTIL) 2.5-0.025 mg per tablet Take 1 tablet by mouth twice daily as needed for diarrhea for up to 90 days. insulin glargine U-300 conc (TOUJEO SOLOSTAR U-300 INSULIN) 300 unit/mL (1.5 mL) Inject 20 Units subcutaneously daily at bedtime. Insulin [place], Disposable, (UNIFINE PENTIPS PLUS) 32 gauge x Use one needle for each dose. 2 x /day. albuterol HFA (VENTOLIN HFA) 90 mcg/actuation inhaler Inhale 2 Puffs as instructed every 4 hours as needed. For wheezing/shortness of breath. liraglutide (VICTOZA) 0.6 mg/ 0.1 ml subcutaneous pen injector Inject 1.8 mg subcutaneously once daily. topiramate (TOPAMAX) 50 mg tablet Take 50 mg by mouth twice daily. (Patient not taking: Reported on 12/19/2021 ) ergocalciferol 50,000 unit capsule (VITAMIN D2, DRISDOL) Take 1 capsule by mouth one time a week. ferrous sulfate 325 mg (65 mg iron) tablet Take 1 tablet by mouth once daily. folic acid 1 mg tablet Take 2 tablets by mouth once daily. Sublingual Blood-Glucose Meter (ONETOUCH VERIO FLEX METER) Use as instructed. E11.9 blood sugar diagnostic (ONETOUCH VERIO TEST STRIPS) test strip Test blood sugar(s) twice daily. Dx: Type 2 DM - Uncontrolled E11.65 Insulin: Yes topiramate (TOPAMAX) 50 mg tablet Take 1 tablet by mouth twice daily. lancets (ONE TOUCH DELICA) 33 gauge misc Test blood sugar(s) once daily. Dx: Type 2 DM - Uncontrolled E11.65 Insulin: No No current facility-administered medications for this visit. EXAM: Last 3 Encounter BP Readings: Date: BP: 12/19/2021 106/70 12/18/2021 136/70 09/18/2021 128/64 Wt: 75.3 kg (166 lb) BMI: 27.62 kg/(m^2) LABS: Lab Results Component Value Date HBA1C 8.5 12/28/2021 HBA1C 8.5 12/18/2021 HBA1C 5.9 07/06/2021 HBA1C 6.9 03/03/2021 HBA1C 6.4 05/17/2020 HBA1C 7.6 03/28/2020 CMP: Glucose 280 12/28/2021 BUN 18 12/28/2021 Creatinine, Whole Blood (iSTAT) 0.77 12/28/2021 Sodium 137 12/28/2021 Potassium 4.1 12/28/2021 Chloride 109 12/28/2021 CO2 23 12/28/2021 Protein, Total 6.6 12/28/2021 Albumin 4.2 12/28/2021 Calcium 8.6 12/28/2021 Alkaline Phosphatase 82 12/28/2021 Bilirubin, Total 0.4 12/28/2021 AST 16 12/28/2021 ALT 22 12/28/2021 Serum creatinine: 0.77 mg/dL 12/28/21 0812 Estimated creatinine clearance: 76.9 mL/min Vitamin B12 Date Value Ref Range Status 03/03/2021 309 232 - 1,245 pg/mL Final Lab Results Component Value Date CHOL 176 12/28/2021 CHOL 157 03/18/2021 LDL 107 12/28/2021 LDL 93 03/18/2021 HDL 48 12/28/2021 HDL 40 03/18/2021 TG 103 12/28/2021 TG 122 03/18/2021 The 10-year ASCVD risk score (Vistagabino DORADO Jr., et al., 2013) is: 5.4% Values used to calculate the score: Age: 61 years Sex: Female Is Non- : No Diabetic: Yes Tobacco smoker: No Systolic Blood Pressure: 106 mmHg Is BP treated: No HDL Cholesterol: 48 mg/dL Total Cholesterol: 176 mg/dL Albumin/Creat Ratio (mg/g) Date Value 03/18/2021 Not calculated PHARMACOTHERAPY ASSESSMENT/PLAN: 1. Type 2 diabetes mellitus without complication, without long-term current use of insulin ([facility]) - ICD9: 250.00, ICD10: E11.9 (primary diagnosis) A1c goal < 7%; not at goal (last A1c 8.5%); SMBG very elevated on current regimen; denies s/sx hypoglycemia; reports s/sx hyperglycemia (polyuria); Patient has not been able to tolerate metformin in the past d/t GI upset. Today, will increase basal insulin per titration below and initiate bolus insulin due to very elevated readings and s/sx of hyperglycemia. Pt would benefit from CGM but will need to monitor BG 4 times daily to qualify. Renal function and LFTs appropriate for continued use INCREASE insulin degludec (Toujeo) to 30 units once daily at bedtime and increase as below. Max of 36 units. Check your blood sugar every morning before eating or drinking anything (fasting blood sugar level) Adjust your insulin every 3 days as follows: If your blood sugar is above 150, INCREASE your insulin by 2 units. If your blood sugar is 80-149, CONTINUE your current insulin dose. START insulin lispro (Humalog) 4 units before first bite of dinner CONTINUE liraglutide (Victoza) 1.8 mg daily Instructions to patient Monitor BG 4 times daily: before meals and bedtime Try to have 3 balance meals per day, with goal to follow the plate method and limit carbs to less than 60 grams per meal. Consider setting up visit with healthcare translator - FREESTYLE MEL 2 READER - FREESTYLE MEL 2 SENSOR KIT - CONSULT TO NUTRITION THERAPY - INSULIN LISPRO (U-100) 100 UNIT/ML SUBCUTANEOUS PEN - LIRAGLUTIDE 0.6 MG/0.1 ML (18 MG/3 ML) SUBCUTANEOUS PEN INJECTOR - TOUJEO SOLOSTAR U-300 INSULIN 300 UNIT/ML (1.5 ML) SUBCUTANEOUS PEN Follow up: Patient is scheduled to see PCP on 03/21/22. Patient to follow up with PharmD on 01/22/22. Patient verbalized understanding of instructions. Romel Hoang PharmD, BCACP Primary Care Clinical Pharmacist [facility] The majority of the pharmacy visit (> 50%) was spent counseling and/or coordinating care for the patient. [Face to Face] time was 47 minutes. documented in this encounter [facility] 01-08-2022 Instructions Romel Hoang RPh - 01/08/2022 1:00 PM EDT Increase Toujeo to 30 units once daily at bedtime and increase as below. Max of 36 units. Check your blood sugar every morning before eating or drinking anything (fasting blood sugar level). Adjust your insulin every 3 days as follows: If your blood sugar is above 150, INCREASE your insulin by 2 units. If your blood sugar is 80-149, CONTINUE your current insulin dose. Start Humalog4 units before first bite of dinner Check with pharmacy about coverage of Freestyle Mel 2, continous glucose monitor Try to have 3 balance meals per day, with goal to follow the plate method and limit carbs to less than 60 grams per meal. Consider setting up visit with healthcare translator documented in this encounter [facility] 01-02-2022 Miscellaneous Notes Patient calls in for lab results from 12/28/2021. Reviewed results and providers instructions. Patient verbalizes understanding. Beverly Ellis RN documented in this encounter [facility] 12-27-2021 Miscellaneous Notes PATIENT NOTIFIED OF SAME. The only other option would be imodium OTC 2 mg up to 3 times a day. However, it might not be as effective as the colestipol. Thanks Marizol Rae APRN.CNP Phone call placed to patient reported colestipol powder been picked up from the pharmacy, attempted to mix with different beverages, unable to drink. Patient requesting alternative. Lilli Pagan LPN Please call patient and tell her there is a backorder for the capsule - They have the colestipol powder packs I would like to try this once daily - if this is not managing her symptoms then I will increase Thanks Marizol Rae APRN.CNP Jose C from [facility] in [place] called in and reports that the Colestipol tablets are on backorder and they have not been able to get them in, but they have the powder. Pharmacy was wonder if you would want to switch to the powder. Medication pended. documented in this encounter [facility] 12-20-2021 Miscellaneous Notes Patient notified of provider's instructions. Patient verbalizes understanding. Lexi Pratt RN vm left with pt to contact office for info. Please see provider note below. Blaire Woods Ma Please let patient know the probiotic she is taking is good. Still waiting on the H pylori blood test. Thanks Marizol Rae APRN.CNP Patient calls and states that the probiotic that she is taking is Natural Bounty Probiotics 100 millon organisms; Friendly bacterial for digestive system, digestive health dietary supplement. Patient unable to upload picture of medication to My Chart. Lexi Pratt RN documented in this encounter [facility] 12-19-2021 Instructions Marizol Rae APRN.CNP - 12/19/2021 9:11 AM EDT Lab work today documented in this encounter [facility] 12-19-2021 History of Present illness Narrative CHIEF COMPLAINT: No chief complaint on file. HUMBERTO Chatman is a 61 year old female here today for follow-up anemia. Recent EGD/colon 03/23/2021 due to diarrhea. Internal hemorrhoids were noted random biopsies of the colon were normal stomach biopsies were normal negative H. pylori no duodenal biopsies obtained patient did have follow-up celiac testing normal. Patient reports having anemia for many years and was getting iron infusions per heme/Onc. Patient's last infusion June. Patient reports today she is having increase in Gas and tried Gas-x and this did not help and now taking probiotic and this is not helping either. She reports she is unable to control her gas. She reports this is very embarrassing and has a bad odor like sulfur. She denies belching, she reports will bloat and then have a lot of gas. Patient reports no other symptoms. Nguyen upper GI concerns. Denies change in medication or change in foods The patient denies change in bowel habits, denies black stool rectal bleeding or abdominal pain. Having a bowel movement once a day Without medication her diarrhea is under control. She reports stools are formed. Every once in while will have urgency and not make it to the bathroom in time.Patient reports last episode has been a while. She reports being off the colestipol for 2-3 weeks. Patient reports she has not tried the Imodium because she has not needed it however colestipol is on backorder so Dr. Conteh prescribed Welchol - Patient has not picked up yet. Current Outpatient Medications Medication Sig colesevelam (WELCHOL) 625 mg tablet Take 2 tablets by mouth twice daily with meals. gabapentin (NEURONTIN) 300 mg capsule Take 1 capsule by mouth three times daily for 30 days. med-sync 90 days colestipol (COLESTID) 5 gram packet Take 5 g by mouth once daily. omeprazole (PRILOSEC) 20 mg capsule Take 1 capsule by mouth daily before breakfast. 1/2 hr before meal. venlafaxine ER (EFFEXOR XR) 75 mg 24 hr capsule Take 1 capsule by mouth once daily. traZODone (DESYREL) 100 mg tablet Take 1.5 tablets by mouth daily at bedtime. QUEtiapine (SEROQUEL) 100 mg tablet Take 1 tablet by mouth once daily. oxybutynin XL (DITROPAN XL) 5 mg 24 hr tablet Take 1 tablet by mouth once daily. colestipol (COLESTID) 1 gram tablet Take 1 tablet by mouth twice daily. levothyroxine (LEVOXYL) 25 mcg tablet Take 1 tablet by mouth once daily. Take on empty stomach. For Thyroid except no dose on Saturday or Saturday diphenoxylate-atropine (LOMOTIL) 2.5-0.025 mg per tablet Take 1 tablet by mouth twice daily as needed for diarrhea for up to 90 days. insulin glargine U-300 conc (TOUJEO SOLOSTAR U-300 INSULIN) 300 unit/mL (1.5 mL) Inject 20 Units subcutaneously daily at bedtime. Insulin [place], Disposable, (UNIFINE PENTIPS PLUS) 32 gauge x Use one needle for each dose. 2 x /day. albuterol HFA (VENTOLIN HFA) 90 mcg/actuation inhaler Inhale 2 Puffs as instructed every 4 hours as needed. For wheezing/shortness of breath. liraglutide (VICTOZA) 0.6 mg/ 0.1 ml subcutaneous pen injector Inject 1.8 mg subcutaneously once daily. topiramate (TOPAMAX) 50 mg tablet Take 50 mg by mouth twice daily. ergocalciferol 50,000 unit capsule (VITAMIN D2, DRISDOL) Take 1 capsule by mouth one time a week. ferrous sulfate 325 mg (65 mg iron) tablet Take 1 tablet by mouth once daily. folic acid 1 mg tablet Take 2 tablets by mouth once daily. Sublingual Blood-Glucose Meter (ONETOUCH VERIO FLEX METER) Use as instructed. E11.9 blood sugar diagnostic (ONETOUCH VERIO TEST STRIPS) test strip Test blood sugar(s) twice daily. Dx: Type 2 DM - Uncontrolled E11.65 Insulin: Yes topiramate (TOPAMAX) 50 mg tablet Take 1 tablet by mouth twice daily. lancets (ONE TOUCH DELICA) 33 gauge misc Test blood sugar(s) once daily. Dx: Type 2 DM - Uncontrolled E11.65 Insulin: No No current facility-administered medications for this visit. ALLERGIES Allergen Reactions Amoxicillin Intolerance severe yeast infection Doxycycline Diarrhea DIARRHEA,VOMITING, YEAST INFECTION Metformin Diarrhea Pentazocine Unknown Talacen [Pentazocin* Unknown reaction Tessalon [Benzonata* GI Upset Thiazides Severe leg cramps - hctz Social History Tobacco Use Smoking status: Never Smoker Smokeless tobacco: Never Used Vaping Use Vaping Use: Never used Substance Use Topics Alcohol use: Yes Comment: rarely Drug use: No PAST MEDICAL HISTORY Diagnosis Date Acquired hypothyroidism 01/05/2016 Acute gastritis without mention of hemorrhage Anemia, unspecified 06/19/2007 Asthma Benign hypertensive heart disease without heart failure BMI 36.0-36.9,adult 02/04/2017 Compression fracture of fifth lumbar vertebra (HCC) 07/29/2019 Depression Diabetes mellitus without mention of complication Diabetes mellitus Diarrhea Esophageal reflux Esophagitis, unspecified Generalized osteoarthrosis, unspecified site History of transfusion Hypertension Hypertrophy of breast 02/06/2008 Metabolic syndrome 11/18/2014 Mild persistent asthma 08/09/2016 Morbid obesity (HCC) 02-08-11 stated BMI 40.47 Ht: 62 Wt: 221 lbs Obstructive sleep apnea KYLEIGH (obstructive sleep apnea) 08/09/2016 Other and unspecified hyperlipidemia Transfusion history 04/2014 4 units after hysterectomy, postop hemorrhage PAST SURGICAL HISTORY Procedure Laterality Date ABDOMINAL SURGERY HX ANTERIOR COLPORRAPHY RPR CYSTOCELE W/CYSTO 05/06/2014 cystocele BACK SURGERY HX 06/24/2020 L4, L5 fusion BREAST SURGERY HX COLONOSCOPY FLX DX W/COLLJ SPEC WHEN PFRMD 08/16/2016 Colonoscopy (MAC) COLONOSCOPY GEN ANES 03/23/2021 normal colonoscopy, non-bleeding hemorrhoids COLONOSCOPY W/BIOPSY SINGLE/MULTIPLE 05/09/2009 COLPOPEXY VAGINAL INTRAPERITONEAL APPROACH 05/06/2014 USLF, cystoscopy DILATION & CURETTAGE DX&/THER NONOBSTETRIC Dilation & curettage EGD 03/23/2021 normal exam, gastric bypass noted EGD TRANSORAL BIOPSY SINGLE/MULTIPLE 01/22/2011 ESOPHAGOGASTRODUODENOSCOPY TRANSORAL DIAGNOSTIC 05/29/2013 EGD ESOPHAGOGASTRODUODENOSCOPY TRANSORAL DIAGNOSTIC 08/16/2016 EGD (MAC) ESOPHAGOGASTRODUODENOSCOPY TRANSORAL DIAGNOSTIC 10/11/2016 EGD GASTRIC BYPASS HX 2009 LAPAROSCOPY SURG CHOLECYSTECTOMY Cholecystectomy, lap LIG/TRNSXJ FLP TUBE ABDL/VAG APPR UNI/BI Tubal ligation PAST SURGICAL HISTORY OF right foot bone spur removed PAST SURGICAL HISTORY OF 08/13/2014 Posterior colporrhaphy REDUCTION OF LARGE BREAST 2008 TONSILLECTOMY HX TONSILLECTOMY PRIMARY/SECONDARY <AGE 12 VAG HYST 250 GM/< W/RMVL TUBE&/OVARY 05/06/2014 TVH/BSO for prolapse VAGINAL HYSTERECTOMY FAMILY HISTORY Problem Relation Age of Onset Breast Cancer Mother Liver and colon cancer Hypertension Mother Stroke Mother Coronary Artery Disease Father Diabetes Maternal Grandmother Heart Maternal Grandfather ME Stroke Paternal Grandmother Diabetes Paternal Grandmother Stroke Paternal Grandfather Anesthesia Problems No Family History REVIEW OF SYSTEMS Review of Systems Constitutional: Positive for appetite change. Gastrointestinal: Positive for abdominal distention. All other systems reviewed and are negative. PHYSICAL EXAM LMP 05/31/2007 Physical Exam Constitutional: Appearance: Normal appearance. She is normal weight. HENT: Head: Normocephalic and atraumatic. Eyes: Extraocular Movements: Extraocular movements intact. Pupils: Pupils are equal, round, and reactive to light. Cardiovascular: Rate and Rhythm: Normal rate and regular rhythm. Pulses: Normal pulses. Heart sounds: Normal heart sounds. Pulmonary: Effort: Pulmonary effort is normal. Breath sounds: Normal breath sounds. Abdominal: General: Abdomen is flat. Bowel sounds are normal. Palpations: Abdomen is soft. Musculoskeletal: General: Normal range of motion. Cervical back: Normal range of motion and neck supple. Skin: General: Skin is warm and dry. Neurological: General: No focal deficit present. Mental Status: She is alert and oriented to person, place, and time. Psychiatric: Mood and Affect: Mood normal. Behavior: Behavior normal. ASSESSMENT: Bloating Diarrhea, unspecified type Flatulence PLAN: Assessment/Plan (R14.0) Bloating (R19.7) Diarrhea, unspecified type (R14.3) Flatulence 1. Bloating - CONSULT TO GASTROENTEROLOGY - H PYLORI IGG AB; Future 2. Diarrhea, unspecified type - CONSULT TO GASTROENTEROLOGY - H PYLORI IGG AB; Future 3. Flatulence - CONSULT TO GASTROENTEROLOGY - H PYLORI IGG AB; Future Follow up in office 3 months/PRN. Recommended to please call office/go to ER if fever, chills, chest pain, SOB, diarrhea, nausea, emesis, worsening abdominal pain, dehydration occurs I spent 30 minutes in the visit, with more than 50% of the total [id number] time of the visit in counseling / coordination of care. I have confirmed and edited as necessary, the PFSH and ROS obtained by others. Marizol Rae APRN.CNP December 19, 2021 9:19 AM Marizol Rae APRN.CNP DATE: 12/19/21 TIME: 8:33 AM documented in this encounter [facility] 12-18-2021 History of Present illness Narrative Reason for Visit Patient presents with: Established Patient: 3 month follow up - med issues Mita Chatman is a 61 year old female who presents here today for Above Complaints.. Health Maintenance SPIROMETRY HIV SCREENING SHINGRIX VACCINE(1 of 2) MAMMOGRAM DIABETIC FOOT EXAM DILATED RETINAL EXAM HPI She had a gastric bypass in 2015 and it has been a while and she is doing very well to maintain her weight. Since September 19, she has been having bloating, gas, flatulence which is very smelly. She has taken probiotic as suggested, but to no relief. Patient is not taking the diarrhea medication. For Diabetes Mellitus she is on victoza and Tujeo. Takes medication regularly but hba1c is up at 8.5. She has been square dancing and it has been a great source if activity for her. She did it for 3 days. No problem-specific Assessment & Plan notes found for this encounter. PAST MEDICAL HISTORY Diagnosis Date Acquired hypothyroidism 01/05/2016 Acute gastritis without mention of hemorrhage Anemia, unspecified 06/19/2007 Asthma Benign hypertensive heart disease without heart failure BMI 36.0-36.9,adult 02/04/2017 Compression fracture of fifth lumbar vertebra (HCC) 07/29/2019 Depression Diabetes mellitus without mention of complication Diabetes mellitus Diarrhea Esophageal reflux Esophagitis, unspecified Generalized osteoarthrosis, unspecified site History of transfusion Hypertension Hypertrophy of breast 02/06/2008 Metabolic syndrome 11/18/2014 Mild persistent asthma 08/09/2016 Morbid obesity (HCC) 02-08-11 stated BMI 40.47 Ht: 62 Wt: 221 lbs Obstructive sleep apnea KYLEIGH (obstructive sleep apnea) 08/09/2016 Other and unspecified hyperlipidemia Transfusion history 04/2014 4 units after hysterectomy, postop hemorrhage PAST SURGICAL HISTORY Procedure Laterality Date ABDOMINAL SURGERY HX ANTERIOR COLPORRAPHY RPR CYSTOCELE W/CYSTO 05/06/2014 cystocele BACK SURGERY HX 06/24/2020 L4, L5 fusion BREAST SURGERY HX COLONOSCOPY FLX DX W/COLLJ SPEC WHEN PFRMD 08/16/2016 Colonoscopy (MAC) COLONOSCOPY GEN ANES 03/23/2021 normal colonoscopy, non-bleeding hemorrhoids COLONOSCOPY W/BIOPSY SINGLE/MULTIPLE 05/09/2009 COLPOPEXY VAGINAL INTRAPERITONEAL APPROACH 05/06/2014 USLF, cystoscopy DILATION & CURETTAGE DX&/THER NONOBSTETRIC Dilation & curettage EGD 03/23/2021 normal exam, gastric bypass noted EGD TRANSORAL BIOPSY SINGLE/MULTIPLE 01/22/2011 ESOPHAGOGASTRODUODENOSCOPY TRANSORAL DIAGNOSTIC 05/29/2013 EGD ESOPHAGOGASTRODUODENOSCOPY TRANSORAL DIAGNOSTIC 08/16/2016 EGD (MAC) ESOPHAGOGASTRODUODENOSCOPY TRANSORAL DIAGNOSTIC 10/11/2016 EGD GASTRIC BYPASS HX 2009 LAPAROSCOPY SURG CHOLECYSTECTOMY Cholecystectomy, lap LIG/TRNSXJ FLP TUBE ABDL/VAG APPR UNI/BI Tubal ligation PAST SURGICAL HISTORY OF right foot bone spur removed PAST SURGICAL HISTORY OF 08/13/2014 Posterior colporrhaphy REDUCTION OF LARGE BREAST 2007 TONSILLECTOMY HX TONSILLECTOMY PRIMARY/SECONDARY <AGE 11 VAG HYST 250 GM/< W/RMVL TUBE&/OVARY 05/06/2014 TVH/BSO for prolapse VAGINAL HYSTERECTOMY FAMILY HISTORY Problem Relation Age of Onset Breast Cancer Mother Liver and colon cancer Hypertension Mother Stroke Mother Coronary Artery Disease Father Diabetes Maternal Grandmother Heart Maternal Grandfather ME Stroke Paternal Grandmother Diabetes Paternal Grandmother Stroke Paternal Grandfather Anesthesia Problems No Family History Social History Tobacco Use Smoking status: Never Smoker Smokeless tobacco: Never Used Vaping Use Vaping Use: Never used Substance Use Topics Alcohol use: Yes Comment: rarely Drug use: No Past medical history, appointments, medications, allergies reviewed. Pertinent Lab/Diagnostic Studies are reviewed and discussed today Current Outpatient Medications: gabapentin (NEURONTIN) 300 mg capsule colestipol (COLESTID) 5 gram packet omeprazole (PRILOSEC) 20 mg capsule venlafaxine ER (EFFEXOR XR) 75 mg 24 hr capsule traZODone (DESYREL) 100 mg tablet QUEtiapine (SEROQUEL) 100 mg tablet oxybutynin XL (DITROPAN XL) 5 mg 24 hr tablet colestipol (COLESTID) 1 gram tablet levothyroxine (LEVOXYL) 25 mcg tablet diphenoxylate-atropine (LOMOTIL) 2.5-0.025 mg per tablet insulin glargine U-300 conc (TOUJEO SOLOSTAR U-300 INSULIN) 300 unit/mL (1.5 mL) Insulin [place], Disposable, (UNIFINE PENTIPS PLUS) 32 gauge x 5/32 albuterol HFA (VENTOLIN HFA) 90 mcg/actuation inhaler liraglutide (VICTOZA) 0.6 mg/ 0.1 ml subcutaneous pen injector topiramate (TOPAMAX) 50 mg tablet ergocalciferol 50,000 unit capsule (VITAMIN D2, DRISDOL) ferrous sulfate 325 mg (65 mg iron) tablet folic acid 1 mg tablet Blood-Glucose Meter (ONETOUCH VERIO FLEX METER) blood sugar diagnostic (ONETOUCH VERIO TEST STRIPS) test strip topiramate (TOPAMAX) 50 mg tablet lancets (ONE TOUCH DELICA) 33 gauge [facility] Review of Systems CONSTITUTIONAL: No fevers, chills night sweats, unintended weight loss CARDIOVASCULAR: No chest pain, dyspnea, palpitations, orthopnea, PND, ankle edema. PULM: No dyspnea, unexplained cough. GI: No dysphagia/odynophagia, problematic reflux, constipation, diarrhea, changes in stool habits, hematochezia, melena. : No new urinary complaints, including dysuria, gross hematuria or pyuria. NEURO: No new balance problems, peripheral weakness/paresthesias or numbness of concern. Physical Exam BP 136/70 (BP Site: Left Arm, BP Position: Sitting, BP Cuff Size: Large Adult) Pulse (!) 55 Temp 36.7 C (98 F) Resp 12 Ht 165.1 cm (5' 5 ) Wt 75.8 kg (167 lb) LMP 05/31/2007 SpO2 100% BMI 27.79 kg/m General appearance: Well appearing, alert, in no acute distress, well nourished. Skin: Skin color, texture, turgor normal, no suspicious rashes or lesions Head: Normocephalic, no masses, lesions, tenderness or abnormalities Eyes: Anicteric sclera. Pupils are equally round and reactive to light. Extraocular movements are intact. Lungs: Lungs clear to auscultation. No wheezing, rhonchi, rales Heart: RRR without murmur, gallop, or rubs. Feet: Shoes and socks removed, normal distal pulses, sensitive to 10 gm monofilament and has bunions on the right side. calluses on the 3rd ASSESSMENT/PLAN: 1. Bloating - ICD9: 787.3, ICD10: R14.0 (primary diagnosis) - CONSULT TO GASTROENTEROLOGY 2. Diarrhea, unspecified type - ICD9: 787.91, ICD10: R19.7 - CONSULT TO GASTROENTEROLOGY 3. Flatulence - ICD9: 787.3, ICD10: R14.3 - CONSULT TO GASTROENTEROLOGY 4. Type 2 diabetes mellitus without complication, unspecified whether negative checker insulin use (HCC) - ICD9: 250.00, ICD10: E11.9 Controlled. - Continue current medications - HEMOGLOBIN A1C (POC) - CONSULT TO PHARMACY Giovana Conteh MD documented in this encounter [facility] documented as of this encounter (statuses as of 12/18/2021) [facility]09-[facility]2020 History of Past illness Narrative* Problem Noted Date Resolved Date EARL (acute kidney injury) 06/27/20202019 Last Assessment & Plan: Assessment: EARL PLAN: -Improving -Monitor daily labs -IVF stopped today BMI 36.0-36.9,adult 02/04/2017 09/18/2021 Last Assessment & Plan: She is hungry all the time and is struggling with her weight. S/P bariatric surgery in 2009. She has gained. Diabetes is worse. She wanted to consider weight loss medication. She may not be eligible to take based on her complex medication regime Assessment: Worsening PLAN: Investigate whether Victoza can be tried, will get back with her. KYLEIGH (obstructive sleep apnea) 08/09/2016 Last Assessment & Plan: -does not use CPAP Contusion of rib on right side 04/12/2016 0 02/04/2017 Metabolic syndrome 11/18/2014 09/18/2021 KYLEIGH (obstructive sleep apnea) 07/20/2014 Overview: PSG 2013 Supine AHI 5.8 Bile reflux esophagitis 06/19/2013 02/05/20 17 Gastritis 03/28/2012 02/04/2017 Stress 03/28/2012 06/14/2014 Other and unspecified postsurgical nonabsorption 09/05/2011 02/04/2017 Dietary surveillance and counseling 05/23/2011 06/14/2014 Morbid obesity 05/23/2011 01/06/2014 Abdominal pain, periumbilic 01/22/2011 05/0 04/2017 Esophagitis, unspecified 01/22/2011 017 Acute gastritis without mention of hemorrhage 01/06/2014 Exostosis of unspecified site 12/25/2010 Pain in limb 12/25/2010 01/06/2014 Bronchitis, acute 07/26/2009 06/14/2014 Overview: [facility] ED admission 07/13/09 through 07/16/09 with dehydration, uncontrolled BS. IV zithromax 500mg daily, finished Rocephin and switched to Ceftin 500mg bid. Started proventil inhaler/spacer Diarrhea 05/09/2009 03/23/2021 Hypocalcemia 02/28/2009 02/04/2017 Screening for unspecified condition 02/13/2008 06/14/2014 Sprain of lumbar region 10/10/2007 01/07/20 14 Anemia, unspecified 06/19/2007 02/04/2017 Other malaise and fatigue 01/29/20072008 Cramp of limb 01/29/2007 07/26/2009 documented as of this encounter (statuses as of 12/19/2021) [facility] History of Past illness Narrative* Problem Noted Date Resolved Date EARL (acute kidney injury) 06/27/20202019 Last Assessment & Plan: Assessment: EARL PLAN: -Improving -Monitor daily labs -IVF stopped today BMI 36.0-36.9,adult 02/04/2017 09/18/2021 Last Assessment & Plan: She is hungry all the time and is struggling with her weight. S/P bariatric surgery in 2009. She has gained. Diabetes is worse. She wanted to consider weight loss medication. She may not be eligible to take based on her complex medication regime Assessment: Worsening PLAN: Investigate whether Victoza can be tried, will get back with her. KYLEIGH (obstructive sleep apnea) 08/09/2016 Last Assessment & Plan: -does not use CPAP Contusion of rib on right side 04/12/2016 0 02/04/2017 Metabolic syndrome 11/18/2014 09/18/2021 KYLEIGH (obstructive sleep apnea) 07/20/2014 Overview: PSG 2013 Supine AHI 5.8 Bile reflux esophagitis 06/19/2013 02/05/20 17 Gastritis 03/28/2012 02/04/2017 Stress 03/28/2012 06/14/2014 Other and unspecified postsurgical nonabsorption 09/05/2011 02/04/2017 Dietary surveillance and counseling 05/23/2011 06/14/2014 Morbid obesity 05/23/2011 01/06/2014 Abdominal pain, periumbilic 01/22/2011 0504/2017 Esophagitis, unspecified 01/22/2011 017 Acute gastritis without mention of hemorrhage 01/06/2014 Exostosis of unspecified site 12/25/2010 Pain in limb 12/25/2010 01/06/2014 Bronchitis, acute 07/26/2009 06/14/2014 Overview: [facility] ED admission 07/13/09 through 07/16/09 with dehydration, uncontrolled BS. IV zithromax 500mg daily, finished Rocephin and switched to Ceftin 500mg bid. Started proventil inhaler/spacer Diarrhea 05/09/2009 03/23/2021 Hypocalcemia 02/28/2009 02/04/2017 Screening for unspecified condition 02/13/2008 06/14/2014 Sprain of lumbar region 10/10/2007 01/07/20 14 Anemia, unspecified 06/19/2007 02/04/2017 Other malaise and fatigue 01/29/20072008 Cramp of limb 01/29/2007 07/26/2009 documented as of this encounter (statuses as of 12/20/2021) [facility] History of Past illness Narrative* Problem Noted Date Resolved Date EARL (acute kidney injury) 06/27/20202019 Last Assessment & Plan: Assessment: EARL PLAN: -Improving -Monitor daily labs -IVF stopped today BMI 36.0-36.9,adult 02/04/2017 09/18/2021 Last Assessment & Plan: She is hungry all the time and is struggling with her weight. S/P bariatric surgery in 2009. She has gained. Diabetes is worse. She wanted to consider weight loss medication. She may not be eligible to take based on her complex medication regime Assessment: Worsening PLAN: Investigate whether Victoza can be tried, will get back with her. KYLEIGH (obstructive sleep apnea) 08/09/2016 Last Assessment & Plan: -does not use CPAP Contusion of rib on right side 04/12/2016 0 02/04/2017 Metabolic syndrome 11/18/2014 09/18/2021 KYLEIGH (obstructive sleep apnea) 07/20/2014 Overview: PSG 2013 Supine AHI 5.8 Bile reflux esophagitis 06/19/2013 02/05/20 17 Gastritis 03/28/2012 02/04/2017 Stress 03/28/2012 06/14/2014 Other and unspecified postsurgical nonabsorption 09/05/2011 02/04/2017 Dietary surveillance and counseling 05/23/2011 06/14/2014 Morbid obesity 05/23/2011 01/06/2014 Abdominal pain, periumbilic 01/22/2011 05/04/2017 Esophagitis, unspecified 01/22/2011 017 Acute gastritis without mention of hemorrhage 01/06/2014 Exostosis of unspecified site 12/25/2010 Pain in limb 12/25/2010 01/06/2014 Bronchitis, acute 07/26/2009 06/14/2014 Overview: [facility] ED admission 07/13/09 through 07/16/09 with dehydration, uncontrolled BS. IV zithromax 500mg daily, finished Rocephin and switched to Ceftin 500mg bid. Started proventil inhaler/spacer Diarrhea 05/09/2009 03/23/2021 Hypocalcemia 02/28/2009 02/04/2017 Screening for unspecified condition 02/13/2008 06/14/2014 Sprain of lumbar region 10/10/2007 01/07/20 14 Anemia, unspecified 06/19/2007 02/04/2017 Other malaise and fatigue 01/29/20072008 Cramp of limb 01/29/2007 07/26/2009 documented as of this encounter (statuses as of 12/27/2021) [facility] History of Past illness Narrative* Problem Noted Date Resolved Date EARL (acute kidney injury) 06/27/20202019 Last Assessment & Plan: Assessment: EARL PLAN: -Improving -Monitor daily labs -IVF stopped today BMI 36.0-36.9,adult 02/04/2017 09/18/2021 Last Assessment & Plan: She is hungry all the time and is struggling with her weight. S/P bariatric surgery in 2009. She has gained. Diabetes is worse. She wanted to consider weight loss medication. She may not be eligible to take based on her complex medication regime Assessment: Worsening PLAN: Investigate whether Victoza can be tried, will get back with her. KYLEIGH (obstructive sleep apnea) 08/09/2016 Last Assessment & Plan: -does not use CPAP Contusion of rib on right side 04/12/2016 0 02/04/2017 Metabolic syndrome 11/18/2014 09/18/2021 KYLEIGH (obstructive sleep apnea) 07/20/2014 Overview: PSG 2013 Supine AHI 5.8 Bile reflux esophagitis 06/19/2013 02/05/20 17 Gastritis 03/28/2012 02/04/2017 Stress 03/28/2012 06/14/2014 Other and unspecified postsurgical nonabsorption 09/05/2011 02/04/2017 Dietary surveillance and counseling 05/23/2011 06/14/2014 Morbid obesity 05/23/2011 01/06/2014 Abdominal pain, periumbilic 01/22/2011 05/0 04/2017 Esophagitis, unspecified 01/22/2011 017 Acute gastritis without mention of hemorrhage 01/06/2014 Exostosis of unspecified site 12/25/2010 Pain in limb 12/25/2010 01/06/2014 Bronchitis, acute 07/26/2009 06/14/2014 Overview: [facility] ED admission 07/13/09 through 07/16/09 with dehydration, uncontrolled BS. IV zithromax 500mg daily, finished Rocephin and switched to Ceftin 500mg bid. Started proventil inhaler/spacer Diarrhea 05/09/2009 03/23/2021 Hypocalcemia 02/28/2009 02/04/2017 Screening for unspecified condition 02/13/2008 06/14/2014 Sprain of lumbar region 10/10/2007 01/07/20 14 Anemia, unspecified 06/19/2007 02/04/2017 Other malaise and fatigue 01/29/20072008 Cramp of limb 01/29/2007 07/26/2009 documented as of this encounter (statuses as of 01/02/2022) [facility]09-28-2020 History of Past illness Narrative* Problem Noted Date Resolved Date EARL (acute kidney injury) 06/27/20202019 Last Assessment & Plan: Assessment: EARL PLAN: -Improving -Monitor daily labs -IVF stopped today BMI 36.0-36.9,adult 02/04/2017 09/18/2021 Last Assessment & Plan: She is hungry all the time and is struggling with her weight. S/P bariatric surgery in 2009. She has gained. Diabetes is worse. She wanted to consider weight loss medication. She may not be eligible to take based on her complex medication regime Assessment: Worsening PLAN: Investigate whether Victoza can be tried, will get back with her. KYLEIGH (obstructive sleep apnea) 08/09/2016 Last Assessment & Plan: -does not use CPAP Contusion of rib on right side 04/12/2016 0 02/04/2017 Metabolic syndrome 11/18/2014 09/18/2021 KYLEIGH (obstructive sleep apnea) 07/20/2014 Overview: PSG 2013 Supine AHI 5.8 Bile reflux esophagitis 06/19/2013 02/05/20 17 Gastritis 03/28/2012 02/04/2017 Stress 03/28/2012 06/14/2014 Other and unspecified postsurgical nonabsorption 09/05/2011 02/04/2017 Dietary surveillance and counseling 05/23/2011 06/14/2014 Morbid obesity 05/23/2011 01/06/2014 Abdominal pain, periumbilic 01/22/2011 05/0 04/2017 Esophagitis, unspecified 01/22/2011 017 Acute gastritis without mention of hemorrhage 01/06/2014 Exostosis of unspecified site 12/25/2010 Pain in limb 12/25/2010 01/06/2014 Bronchitis, acute 07/26/2009 06/14/2014 Overview: [facility] ED admission 07/13/09 through 07/16/09 with dehydration, uncontrolled BS. IV zithromax 500mg daily, finished Rocephin and switched to Ceftin 500mg bid. Started proventil inhaler/spacer Diarrhea 05/09/2009 03/23/2021 Hypocalcemia 02/28/2009 02/04/2017 Screening for unspecified condition 02/13/2008 06/14/2014 Sprain of lumbar region 10/10/2007 01/07/20 14 Anemia, unspecified 06/19/2007 02/04/2017 Other malaise and fatigue 01/29/20072008 Cramp of limb 01/29/2007 07/26/2009 documented as of this encounter (statuses as of 01/11/2022) [facility]2020 History of Past illness Narrative* Problem Noted Date Resolved Date EARL (acute kidney injury) 06/27/20202019 Last Assessment & Plan: Assessment: EARL PLAN: -Improving -Monitor daily labs -IVF stopped today BMI 36.0-36.9,adult 02/04/2017 09/18/2021 Last Assessment & Plan: She is hungry all the time and is struggling with her weight. S/P bariatric surgery in 2009. She has gained. Diabetes is worse. She wanted to consider weight loss medication. She may not be eligible to take based on her complex medication regime Assessment: Worsening PLAN: Investigate whether Victoza can be tried, will get back with her. KYLEIGH (obstructive sleep apnea) 08/09/2016 Last Assessment & Plan: -does not use CPAP Contusion of rib on right side 04/12/2016 0 02/04/2017 Metabolic syndrome 11/18/2014 09/18/2021 KYLEIGH (obstructive sleep apnea) 07/20/2014 Overview: PSG 2013 Supine AHI 5.8 Bile reflux esophagitis 06/19/2013 02/05/20 17 Gastritis 03/28/2012 02/04/2017 Stress 03/28/2012 06/14/2014 Other and unspecified postsurgical nonabsorption 09/05/2011 02/04/2017 Dietary surveillance and counseling 05/23/2011 06/14/2014 Morbid obesity 05/23/2011 01/06/2014 Abdominal pain, periumbilic 01/22/201104/2017 Esophagitis, unspecified 01/22/2011 017 Acute gastritis without mention of hemorrhage 01/06/2014 Exostosis of unspecified site 12/25/2010 Pain in limb 12/25/2010 01/06/2014 Bronchitis, acute 07/26/2009 06/14/2014 Overview: [facility] ED admission 07/13/09 through 07/16/09 with dehydration, uncontrolled BS. IV zithromax 500mg daily, finished Rocephin and switched to Ceftin 500mg bid. Started proventil inhaler/spacer Diarrhea 05/09/2009 03/23/2021 Hypocalcemia 02/28/2009 02/04/2017 Screening for unspecified condition 02/13/2008 06/14/2014 Sprain of lumbar region 10/10/2007 01/07/20 14 Anemia, unspecified 06/19/2007 02/04/2017 Other malaise and fatigue 01/29/20072008 Cramp of limb 01/29/2007 07/26/2009 documented as of this encounter (statuses as of 01/12/2022) [facility] History of Past illness Narrative* Problem Noted Date Resolved Date EARL (acute kidney injury) 06/27/20202019 Last Assessment & Plan: Assessment: EARL PLAN: -Improving -Monitor daily labs -IVF stopped today BMI 36.0-36.9,adult 02/04/2017 09/18/2021 Last Assessment & Plan: She is hungry all the time and is struggling with her weight. S/P bariatric surgery in 2009. She has gained. Diabetes is worse. She wanted to consider weight loss medication. She may not be eligible to take based on her complex medication regime Assessment: Worsening PLAN: Investigate whether Victoza can be tried, will get back with her. KYLEIGH (obstructive sleep apnea) 08/09/2016 Last Assessment & Plan: -does not use CPAP Contusion of rib on right side 04/12/2016 0 02/04/2017 Metabolic syndrome 11/18/2014 09/18/2021 KYLEIGH (obstructive sleep apnea) 07/20/2014 Overview: PSG 2013 Supine AHI 5.8 Bile reflux esophagitis 06/19/2013 02/05/20 17 Gastritis 03/28/2012 02/04/2017 Stress 03/28/2012 06/14/2014 Other and unspecified postsurgical nonabsorption 09/05/2011 02/04/2017 Dietary surveillance and counseling 05/23/2011 06/14/2014 Morbid obesity 05/23/2011 01/06/2014 Abdominal pain, periumbilic 01/22/2011 05/04/2017 Esophagitis, unspecified 01/22/2011 017 Acute gastritis without mention of hemorrhage 01/06/2014 Exostosis of unspecified site 12/25/2010 Pain in limb 12/25/2010 01/06/2014 Bronchitis, acute 07/26/2009 06/14/2014 Overview: [facility] ED admission 07/13/09 through 07/16/09 with dehydration, uncontrolled BS. IV zithromax 500mg daily, finished Rocephin and switched to Ceftin 500mg bid. Started proventil inhaler/spacer Diarrhea 05/09/2009 03/23/2021 Hypocalcemia 02/28/2009 02/04/2017 Screening for unspecified condition 02/13/2008 06/14/2014 Sprain of lumbar region 10/10/2007 01/07/20 14 Anemia, unspecified 06/19/2007 02/04/2017 Other malaise and fatigue 01/29/20072008 Cramp of limb 01/29/2007 07/26/2009 documented as of this encounter (statuses as of 01/15/2022) [facility] History of Past illness Narrative* Problem Noted Date Resolved Date EARL (acute kidney injury) 06/27/20202019 Last Assessment & Plan: Assessment: EARL PLAN: -Improving -Monitor daily labs -IVF stopped today BMI 36.0-36.9,adult 02/04/2017 09/18/2021 Last Assessment & Plan: She is hungry all the time and is struggling with her weight. S/P bariatric surgery in 2009. She has gained. Diabetes is worse. She wanted to consider weight loss medication. She may not be eligible to take based on her complex medication regime Assessment: Worsening PLAN: Investigate whether Victoza can be tried, will get back with her. KYLEIGH (obstructive sleep apnea) 08/09/2016 Last Assessment & Plan: -does not use CPAP Contusion of rib on right side 04/12/2016 0 02/04/2017 Metabolic syndrome 11/18/2014 09/18/2021 KYLEIGH (obstructive sleep apnea) 07/20/2014 Overview: PSG 2013 Supine AHI 5.8 Bile reflux esophagitis 06/19/2013 02/05/20 17 Gastritis 03/28/2012 02/04/2017 Stress 03/28/2012 06/14/2014 Other and unspecified postsurgical nonabsorption 09/05/2011 02/04/2017 Dietary surveillance and counseling 05/23/2011 06/14/2014 Morbid obesity 05/23/2011 01/06/2014 Abdominal pain, periumbilic 01/22/2011 05/0 04/2017 Esophagitis, unspecified 01/22/2011 017 Acute gastritis without mention of hemorrhage 01/06/2014 Exostosis of unspecified site 12/25/2010 Pain in limb 12/25/2010 01/06/2014 Bronchitis, acute 07/26/2009 06/14/2014 Overview: [facility] ED admission 07/13/09 through 07/16/09 with dehydration, uncontrolled BS. IV zithromax 500mg daily, finished Rocephin and switched to Ceftin 500mg bid. Started proventil inhaler/spacer Diarrhea 05/09/2009 03/23/2021 Hypocalcemia 02/28/2009 02/04/2017 Screening for unspecified condition 02/13/2008 06/14/2014 Sprain of lumbar region 10/10/2007 01/07/20 14 Anemia, unspecified 06/19/2007 02/04/2017 Other malaise and fatigue 01/29/20072008 Cramp of limb 01/29/2007 07/26/2009 documented as of this encounter (statuses as of 01/15/2022) [facility] History of Past illness Narrative* Problem Noted Date Resolved Date EARL (acute kidney injury) 06/27/20202019 Last Assessment & Plan: Assessment: EARL PLAN: -Improving -Monitor daily labs -IVF stopped today BMI 36.0-36.9,adult 02/04/2017 09/18/2021 Last Assessment & Plan: She is hungry all the time and is struggling with her weight. S/P bariatric surgery in 2009. She has gained. Diabetes is worse. She wanted to consider weight loss medication. She may not be eligible to take based on her complex medication regime Assessment: Worsening PLAN: Investigate whether Victoza can be tried, will get back with her. KYLEIGH (obstructive sleep apnea) 08/09/2016 Last Assessment & Plan: -does not use CPAP Contusion of rib on right side 04/12/2016 0 02/04/2017 Metabolic syndrome 11/18/2014 09/18/2021 KYLEIGH (obstructive sleep apnea) 07/20/2014 Overview: PSG 2013 Supine AHI 5.8 Bile reflux esophagitis 06/19/2013 02/05/20 17 Gastritis 03/28/2012 02/04/2017 Stress 03/28/2012 06/14/2014 Other and unspecified postsurgical nonabsorption 09/05/2011 02/04/2017 Dietary surveillance and counseling 05/23/2011 06/14/2014 Morbid obesity 05/23/2011 01/06/2014 Abdominal pain, periumbilic 01/22/2011 05/04/2017 Esophagitis, unspecified 01/22/2011 017 Acute gastritis without mention of hemorrhage 01/06/2014 Exostosis of unspecified site 12/25/2010 Pain in limb 12/25/2010 01/06/2014 Bronchitis, acute 07/26/2009 06/14/2014 Overview: [facility] ED admission 07/13/09 through 07/16/09 with dehydration, uncontrolled BS. IV zithromax 500mg daily, finished Rocephin and switched to Ceftin 500mg bid. Started proventil inhaler/spacer Diarrhea 05/09/2009 03/23/2021 Hypocalcemia 02/28/2009 02/04/2017 Screening for unspecified condition 02/13/2008 06/14/2014 Sprain of lumbar region 10/10/2007 01/07/20 14 Anemia, unspecified 06/19/2007 02/04/2017 Other malaise and fatigue 01/29/20072008 Cramp of limb 01/29/2007 07/26/2009 documented as of this encounter (statuses as of 01/15/2022) [facility] History of Past illness Narrative* Problem Noted Date Resolved Date EARL (acute kidney injury) 06/27/20202019 Last Assessment & Plan: Assessment: EARL PLAN: -Improving -Monitor daily labs -IVF stopped today BMI 36.0-36.9,adult 02/04/2017 09/18/2021 Last Assessment & Plan: She is hungry all the time and is struggling with her weight. S/P bariatric surgery in 2009. She has gained. Diabetes is worse. She wanted to consider weight loss medication. She may not be eligible to take based on her complex medication regime Assessment: Worsening PLAN: Investigate whether Victoza can be tried, will get back with her. KYLEIGH (obstructive sleep apnea) 08/09/2016 Last Assessment & Plan: -does not use CPAP Contusion of rib on right side 04/12/2016 0 02/04/2017 Metabolic syndrome 11/18/2014 09/18/2021 KYLEIGH (obstructive sleep apnea) 07/20/2014 Overview: PSG 2013 Supine AHI 5.8 Bile reflux esophagitis 06/19/2013 02/05/20 17 Gastritis 03/28/2012 02/04/2017 Stress 03/28/2012 06/14/2014 Other and unspecified postsurgical nonabsorption 09/05/2011 02/04/2017 Dietary surveillance and counseling 05/23/2011 06/14/2014 Morbid obesity 05/23/2011 01/06/2014 Abdominal pain, periumbilic 01/22/2011 05/0 04/2017 Esophagitis, unspecified 01/22/2011 017 Acute gastritis without mention of hemorrhage 01/06/2014 Exostosis of unspecified site 12/25/2010 Pain in limb 12/25/2010 01/06/2014 Bronchitis, acute 07/26/2009 06/14/2014 Overview: [facility] ED admission 07/13/09 through 07/16/09 with dehydration, uncontrolled BS. IV zithromax 500mg daily, finished Rocephin and switched to Ceftin 500mg bid. Started proventil inhaler/spacer Diarrhea 05/09/2009 03/23/2021 Hypocalcemia 02/28/2009 02/04/2017 Screening for unspecified condition 02/13/2008 06/14/2014 Sprain of lumbar region 10/10/2007 01/07/20 14 Anemia, unspecified 06/19/2007 02/04/2017 Other malaise and fatigue 01/29/20072008 Cramp of limb 01/29/2007 07/26/2009 documented as of this encounter (statuses as of 01/17/2022) [facility] History of Past illness Narrative* Problem Noted Date Resolved Date EARL (acute kidney injury) 06/27/20202019 Last Assessment & Plan: Assessment: EARL PLAN: -Improving -Monitor daily labs -IVF stopped today BMI 36.0-36.9,adult 02/04/2017 09/18/2021 Last Assessment & Plan: She is hungry all the time and is struggling with her weight. S/P bariatric surgery in 2009. She has gained. Diabetes is worse. She wanted to consider weight loss medication. She may not be eligible to take based on her complex medication regime Assessment: Worsening PLAN: Investigate whether Victoza can be tried, will get back with her. KYLEIGH (obstructive sleep apnea) 08/09/2016 Last Assessment & Plan: -does not use CPAP Contusion of rib on right side 04/12/2016 0 02/04/2017 Metabolic syndrome 11/18/2014 09/18/2021 KYLEIGH (obstructive sleep apnea) 07/20/2014 Overview: PSG 2013 Supine AHI 5.8 Bile reflux esophagitis 06/19/2013 02/05/20 17 Gastritis 03/28/2012 02/04/2017 Stress 03/28/2012 06/14/2014 Other and unspecified postsurgical nonabsorption 09/05/2011 02/04/2017 Dietary surveillance and counseling 05/23/2011 06/14/2014 Morbid obesity 05/23/2011 01/06/2014 Abdominal pain, periumbilic 01/22/2011 05/04/2017 Esophagitis, unspecified 01/22/2011 017 Acute gastritis without mention of hemorrhage 01/06/2014 Exostosis of unspecified site 12/25/2010 Pain in limb 12/25/2010 01/06/2014 Bronchitis, acute 07/26/2009 06/14/2014 Overview: [facility] ED admission 07/13/09 through 07/16/09 with dehydration, uncontrolled BS. IV zithromax 500mg daily, finished Rocephin and switched to Ceftin 500mg bid. Started proventil inhaler/spacer Diarrhea 05/09/2009 03/23/2021 Hypocalcemia 02/28/2009 02/04/2017 Screening for unspecified condition 02/13/2008 06/14/2014 Sprain of lumbar region 10/10/2007 01/07/20 14 Anemia, unspecified 06/19/2007 02/04/2017 Other malaise and fatigue 01/29/20072008 Cramp of limb 01/29/2007 07/26/2009 documented as of this encounter (statuses as of 01/17/2022) [facility] History of Past illness Narrative* Problem Noted Date Resolved Date EARL (acute kidney injury) 06/27/20202019 Last Assessment & Plan: Assessment: EARL PLAN: -Improving -Monitor daily labs -IVF stopped today BMI 36.0-36.9,adult 02/04/2017 09/18/2021 Last Assessment & Plan: She is hungry all the time and is struggling with her weight. S/P bariatric surgery in 2009. She has gained. Diabetes is worse. She wanted to consider weight loss medication. She may not be eligible to take based on her complex medication regime Assessment: Worsening PLAN: Investigate whether Victoza can be tried, will get back with her. KYLEIGH (obstructive sleep apnea) 08/09/2016 Last Assessment & Plan: -does not use CPAP Contusion of rib on right side 04/12/2016 0 02/04/2017 Metabolic syndrome 11/18/2014 09/18/2021 KYLEIGH (obstructive sleep apnea) 07/20/2014 Overview: PSG 2013 Supine AHI 5.8 Bile reflux esophagitis 06/19/2013 02/05/20 17 Gastritis 03/28/2012 02/04/2017 Stress 03/28/2012 06/14/2014 Other and unspecified postsurgical nonabsorption 09/05/2011 02/04/2017 Dietary surveillance and counseling 05/23/2011 06/14/2014 Morbid obesity 05/23/2011 01/06/2014 Abdominal pain, periumbilic 01/22/2011 05/04/2017 Esophagitis, unspecified 01/22/2011 017 Acute gastritis without mention of hemorrhage 01/06/2014 Exostosis of unspecified site 12/25/2010 Pain in limb 12/25/2010 01/06/2014 Bronchitis, acute 07/26/2009 06/14/2014 Overview: [facility] ED admission 07/13/09 through 07/16/09 with dehydration, uncontrolled BS. IV zithromax 500mg daily, finished Rocephin and switched to Ceftin 500mg bid. Started proventil inhaler/spacer Diarrhea 05/09/2009 03/23/2021 Hypocalcemia 02/28/2009 02/04/2017 Screening for unspecified condition 02/13/2008 06/14/2014 Sprain of lumbar region 10/10/2007 01/07/20 14 Anemia, unspecified 06/19/2007 02/04/2017 Other malaise and fatigue 01/29/20072008 Cramp of limb 01/29/2007 07/26/2009 documented as of this encounter (statuses as of 01/22/2022) [facility] History of Past illness Narrative* Problem Noted Date Resolved Date EARL (acute kidney injury) 06/27/20202019 Last Assessment & Plan: Assessment: EARL PLAN: -Improving -Monitor daily labs -IVF stopped today BMI 36.0-36.9,adult 02/04/2017 09/18/2021 Last Assessment & Plan: She is hungry all the time and is struggling with her weight. S/P bariatric surgery in 2009. She has gained. Diabetes is worse. She wanted to consider weight loss medication. She may not be eligible to take based on her complex medication regime Assessment: Worsening PLAN: Investigate whether Victoza can be tried, will get back with her. KYLEIGH (obstructive sleep apnea) 08/09/2016 Last Assessment & Plan: -does not use CPAP Contusion of rib on right side 04/12/2016 0 02/04/2017 Metabolic syndrome 11/18/2014 09/18/2021 KYLEIGH (obstructive sleep apnea) 07/20/2014 Overview: PSG 2013 Supine AHI 5.8 Bile reflux esophagitis 06/19/2013 02/05/20 17 Gastritis 03/28/2012 02/04/2017 Stress 03/28/2012 06/14/2014 Other and unspecified postsurgical nonabsorption 09/05/2011 02/04/2017 Dietary surveillance and counseling 05/23/2011 06/14/2014 Morbid obesity 05/23/2011 01/06/2014 Abdominal pain, periumbilic 01/22/2011 05/04/2017 Esophagitis, unspecified 01/22/2011 017 Acute gastritis without mention of hemorrhage 01/06/2014 Exostosis of unspecified site 12/25/2010 Pain in limb 12/25/2010 01/06/2014 Bronchitis, acute 07/26/2009 06/14/2014 Overview: [facility] ED admission 07/13/09 through 07/16/09 with dehydration, uncontrolled BS. IV zithromax 500mg daily, finished Rocephin and switched to Ceftin 500mg bid. Started proventil inhaler/spacer Diarrhea 05/09/2009 03/23/2021 Hypocalcemia 02/28/2009 02/04/2017 Screening for unspecified condition 02/13/2008 06/14/2014 Sprain of lumbar region 10/10/2007 01/07/20 14 Anemia, unspecified 06/19/2007 02/04/2017 Other malaise and fatigue 01/29/20072008 Cramp of limb 01/29/2007 07/26/2009 documented as of this encounter (statuses as of 01/22/2022) [facility] History of Past illness Narrative* Problem Noted Date Resolved Date EARL (acute kidney injury) 06/27/20202019 Last Assessment & Plan: Assessment: EARL PLAN: -Improving -Monitor daily labs -IVF stopped today BMI 36.0-36.9,adult 02/04/2017 09/18/2021 Last Assessment & Plan: She is hungry all the time and is struggling with her weight. S/P bariatric surgery in 2009. She has gained. Diabetes is worse. She wanted to consider weight loss medication. She may not be eligible to take based on her complex medication regime Assessment: Worsening PLAN: Investigate whether Victoza can be tried, will get back with her. KYLEIGH (obstructive sleep apnea) 08/09/2016 Last Assessment & Plan: -does not use CPAP Contusion of rib on right side 04/12/2016 0 02/04/2017 Metabolic syndrome 11/18/2014 09/18/2021 KYLEIGH (obstructive sleep apnea) 07/20/2014 Overview: PSG 2013 Supine AHI 5.8 Bile reflux esophagitis 06/19/2013 02/05/20 17 Gastritis 03/28/2012 02/04/2017 Stress 03/28/2012 06/14/2014 Other and unspecified postsurgical nonabsorption 09/05/2011 02/04/2017 Dietary surveillance and counseling 05/23/2011 06/14/2014 Morbid obesity 05/23/2011 01/06/2014 Abdominal pain, periumbilic 01/22/2011 05/04/2017 Esophagitis, unspecified 01/22/2011 017 Acute gastritis without mention of hemorrhage 01/06/2014 Exostosis of unspecified site 12/25/2010 Pain in limb 12/25/2010 01/06/2014 Bronchitis, acute 07/26/2009 06/14/2014 Overview: [facility] ED admission 07/13/09 through 07/16/09 with dehydration, uncontrolled BS. IV zithromax 500mg daily, finished Rocephin and switched to Ceftin 500mg bid. Started proventil inhaler/spacer Diarrhea 05/09/2009 03/23/2021 Hypocalcemia 02/28/2009 02/04/2017 Screening for unspecified condition 02/13/2008 06/14/2014 Sprain of lumbar region 10/10/2007 01/07/20 14 Anemia, unspecified 06/19/2007 02/04/2017 Other malaise and fatigue 01/29/20072008 Cramp of limb 01/29/2007 07/26/2009 documented as of this encounter (statuses as of 01/25/2022) [facility] History of Past illness Narrative* Problem Noted Date Resolved Date EARL (acute kidney injury) 06/27/20202019 Last Assessment & Plan: Assessment: EARL PLAN: -Improving -Monitor daily labs -IVF stopped today BMI 36.0-36.9,adult 02/04/2017 09/18/2021 Last Assessment & Plan: She is hungry all the time and is struggling with her weight. S/P bariatric surgery in 2009. She has gained. Diabetes is worse. She wanted to consider weight loss medication. She may not be eligible to take based on her complex medication regime Assessment: Worsening PLAN: Investigate whether Victoza can be tried, will get back with her. KYLEIGH (obstructive sleep apnea) 08/09/2016 Last Assessment & Plan: -does not use CPAP Contusion of rib on right side 04/12/2016 0 02/04/2017 Metabolic syndrome 11/18/2014 09/18/2021 KYLEIGH (obstructive sleep apnea) 07/20/2014 Overview: PSG 2013 Supine AHI 5.8 Bile reflux esophagitis 06/19/2013 02/05/20 17 Gastritis 03/28/2012 02/04/2017 Stress 03/28/2012 06/14/2014 Other and unspecified postsurgical nonabsorption 09/05/2011 02/04/2017 Dietary surveillance and counseling 05/23/2011 06/14/2014 Morbid obesity 05/23/2011 01/06/2014 Abdominal pain, periumbilic 01/22/2011 05/04/2017 Esophagitis, unspecified 01/22/2011 017 Acute gastritis without mention of hemorrhage 01/06/2014 Exostosis of unspecified site 12/25/2010 Pain in limb 12/25/2010 01/06/2014 Bronchitis, acute 07/26/2009 06/14/2014 Overview: [facility] ED admission 07/13/09 through 07/16/09 with dehydration, uncontrolled BS. IV zithromax 500mg daily, finished Rocephin and switched to Ceftin 500mg bid. Started proventil inhaler/spacer Diarrhea 05/09/2009 03/23/2021 Hypocalcemia 02/28/2009 02/04/2017 Screening for unspecified condition 02/13/2008 06/14/2014 Sprain of lumbar region 10/10/2007 01/07/20 14 Anemia, unspecified 06/19/2007 02/04/2017 Other malaise and fatigue 01/29/20072008 Cramp of limb 01/29/2007 07/26/2009 documented as of this encounter (statuses as of 01/25/2022) [facility] [facility] of Past illness Narrative* Problem Noted Date Resolved Date EARL (acute kidney injury) 06/27/20202019 Last Assessment & Plan: Assessment: EARL PLAN: -Improving -Monitor daily labs -IVF stopped today BMI 36.0-36.9,adult 02/04/2017 09/18/2021 Last Assessment & Plan: She is hungry all the time and is struggling with her weight. S/P bariatric surgery in 2009. She has gained. Diabetes is worse. She wanted to consider weight loss medication. She may not be eligible to take based on her complex medication regime Assessment: Worsening PLAN: Investigate whether Victoza can be tried, will get back with her. KYLEIGH (obstructive sleep apnea) 08/09/2016 Last Assessment & Plan: -does not use CPAP Contusion of rib on right side 04/12/2016 0 02/04/2017 Metabolic syndrome 11/18/2014 09/18/2021 KYLEIGH (obstructive sleep apnea) 07/20/2014 Overview: PSG 2013 Supine AHI 5.8 Bile reflux esophagitis 06/19/2013 02/05/20 17 Gastritis 03/28/2012 02/04/2017 Stress 03/28/2012 06/14/2014 Other and unspecified postsurgical nonabsorption 09/05/2011 02/04/2017 Dietary surveillance and counseling 05/23/2011 06/14/2014 Morbid obesity 05/23/2011 01/06/2014 Abdominal pain, periumbilic 01/22/201104/2017 Esophagitis, unspecified 01/22/2011 017 Acute gastritis without mention of hemorrhage 01/06/2014 Exostosis of unspecified site 12/25/2010 Pain in limb 12/25/2010 01/06/2014 Bronchitis, acute 07/26/2009 06/14/2014 Overview: [facility] ED admission 07/13/09 through 07/16/09 with dehydration, uncontrolled BS. IV zithromax 500mg daily, finished Rocephin and switched to Ceftin 500mg bid. Started proventil inhaler/spacer Diarrhea 05/09/2009 03/23/2021 Hypocalcemia 02/28/2009 02/04/2017 Screening for unspecified condition 02/13/2008 06/14/2014 Sprain of lumbar region 10/10/2007 01/07/20 14 Anemia, unspecified 06/19/2007 02/04/2017 Other malaise and fatigue 01/29/20072008 Cramp of limb 01/29/2007 07/26/2009 documented as of this encounter (statuses as of 01/25/2022) [facility]09-28-2020 History of Past illness Narrative* Problem Noted Date Resolved Date EARL (acute kidney injury) 06/27/20202019 Last Assessment & Plan: Assessment: EARL PLAN: -Improving -Monitor daily labs -IVF stopped today BMI 36.0-36.9,adult 02/04/2017 09/18/2021 Last Assessment & Plan: She is hungry all the time and is struggling with her weight. S/P bariatric surgery in 2009. She has gained. Diabetes is worse. She wanted to consider weight loss medication. She may not be eligible to take based on her complex medication regime Assessment: Worsening PLAN: Investigate whether Victoza can be tried, will get back with her. KYLEIGH (obstructive sleep apnea) 08/09/2016 Last Assessment & Plan: -does not use CPAP Contusion of rib on right side 04/12/2016 0 02/04/2017 Metabolic syndrome 11/18/2014 09/18/2021 KYLEIGH (obstructive sleep apnea) 07/20/2014 Overview: PSG 2013 Supine AHI 5.8 Bile reflux esophagitis 06/19/2013 02/05/20 17 Gastritis 03/28/2012 02/04/2017 Stress 03/28/2012 06/14/2014 Other and unspecified postsurgical nonabsorption 09/05/2011 02/04/2017 Dietary surveillance and counseling 05/23/2011 06/14/2014 Morbid obesity 05/23/2011 01/06/2014 Abdominal pain, periumbilic 01/22/2011 05/0 04/2017 Esophagitis, unspecified 01/22/2011 017 Acute gastritis without mention of hemorrhage 01/06/2014 Exostosis of unspecified site 12/25/2010 Pain in limb 12/25/2010 01/06/2014 Bronchitis, acute 07/26/2009 06/14/2014 Overview: [facility] ED admission 07/13/09 through 07/16/09 with dehydration, uncontrolled BS. IV zithromax 500mg daily, finished Rocephin and switched to Ceftin 500mg bid. Started proventil inhaler/spacer Diarrhea 05/09/2009 03/23/2021 Hypocalcemia 02/28/2009 02/04/2017 Screening for unspecified condition 02/13/2008 06/14/2014 Sprain of lumbar region 10/10/2007 01/07/20 14 Anemia, unspecified 06/19/2007 02/04/2017 Other malaise and fatigue 01/29/20072008 Cramp of limb 01/29/2007 07/26/2009 documented as of this encounter (statuses as of 01/31/2022) [facility]09-28-[facility] History of Past illness Narrative* Problem Noted Date Resolved Date EARL (acute kidney injury) 06/27/20202019 Last Assessment & Plan: Assessment: EARL PLAN: -Improving -Monitor daily labs -IVF stopped today BMI 36.0-36.9,adult 02/04/2017 09/18/2021 Last Assessment & Plan: She is hungry all the time and is struggling with her weight. S/P bariatric surgery in 2009. She has gained. Diabetes is worse. She wanted to consider weight loss medication. She may not be eligible to take based on her complex medication regime Assessment: Worsening PLAN: Investigate whether Victoza can be tried, will get back with her. KYLEIGH (obstructive sleep apnea) 08/09/2016 Last Assessment & Plan: -does not use CPAP Contusion of rib on right side 04/12/2016 0 02/04/2017 Metabolic syndrome 11/18/2014 09/18/2021 KYLEIGH (obstructive sleep apnea) 07/20/2014 Overview: PSG 2013 Supine AHI 5.8 Bile reflux esophagitis 06/19/2013 02/05/20 17 Gastritis 03/28/2012 02/04/2017 Stress 03/28/2012 06/14/2014 Other and unspecified postsurgical nonabsorption 09/05/2011 02/04/2017 Dietary surveillance and counseling 05/23/2011 06/14/2014 Morbid obesity 05/23/2011 01/06/2014 Abdominal pain, periumbilic 01/22/2011 05/04/2017 Esophagitis, unspecified 01/22/2011 017 Acute gastritis without mention of hemorrhage 01/06/2014 Exostosis of unspecified site 12/25/2010 Pain in limb 12/25/2010 01/06/2014 Bronchitis, acute 07/26/2009 06/14/2014 Overview: [facility] ED admission 07/13/09 through 07/16/09 with dehydration, uncontrolled BS. IV zithromax 500mg daily, finished Rocephin and switched to Ceftin 500mg bid. Started proventil inhaler/spacer Diarrhea 05/09/2009 03/23/2021 Hypocalcemia 02/28/2009 02/04/2017 Screening for unspecified condition 02/13/2008 06/14/2014 Sprain of lumbar region 10/10/2007 01/07/20 14 Anemia, unspecified 06/19/2007 02/04/2017 Other malaise and fatigue 01/29/20072008 Cramp of limb 01/29/2007 07/26/2009 documented as of this encounter (statuses as of 03/26/2022) [facility]09-28-[facility] History of Past illness Narrative* Problem Noted Date Resolved Date EARL (acute kidney injury) 06/27/20202019 Last Assessment & Plan: Assessment: EARL PLAN: -Improving -Monitor daily labs -IVF stopped today BMI 36.0-36.9,adult 02/04/2017 09/18/2021 Last Assessment & Plan: She is hungry all the time and is struggling with her weight. S/P bariatric surgery in 2009. She has gained. Diabetes is worse. She wanted to consider weight loss medication. She may not be eligible to take based on her complex medication regime Assessment: Worsening PLAN: Investigate whether Victoza can be tried, will get back with her. KYLEIGH (obstructive sleep apnea) 08/09/2016 Last Assessment & Plan: -does not use CPAP Contusion of rib on right side 04/12/2016 0 02/04/2017 Metabolic syndrome 11/18/2014 09/18/2021 KYLEIGH (obstructive sleep apnea) 07/20/2014 Overview: PSG 2013 Supine AHI 5.8 Bile reflux esophagitis 06/19/2013 02/05/20 17 Gastritis 03/28/2012 02/04/2017 Stress 03/28/2012 06/14/2014 Other and unspecified postsurgical nonabsorption 09/05/2011 02/04/2017 Dietary surveillance and counseling 05/23/2011 06/14/2014 Morbid obesity 05/23/2011 01/06/2014 Abdominal pain, periumbilic 01/22/2011 05/0 04/2017 Esophagitis, unspecified 01/22/2011 017 Acute gastritis without mention of hemorrhage 01/06/2014 Exostosis of unspecified site 12/25/2010 Pain in limb 12/25/2010 01/06/2014 Bronchitis, acute 07/26/2009 06/14/2014 Overview: [facility] ED admission 07/13/09 through 07/16/09 with dehydration, uncontrolled BS. IV zithromax 500mg daily, finished Rocephin and switched to Ceftin 500mg bid. Started proventil inhaler/spacer Diarrhea 05/09/2009 03/23/2021 Hypocalcemia 02/28/2009 02/04/2017 Screening for unspecified condition 02/13/2008 06/14/2014 Sprain of lumbar region 10/10/2007 01/07/20 14 Anemia, unspecified 06/19/2007 02/04/2017 Other malaise and fatigue 01/29/20072008 Cramp of limb 01/29/2007 07/26/2009 documented as of this encounter (statuses as of 03/29/2022) [facility]09[facility]28[facility] History of Past illness Narrative* Problem Noted Date Resolved Date EARL (acute kidney injury) 06/27/20202019 Last Assessment & Plan: Assessment: EARL PLAN: -Improving -Monitor daily labs -IVF stopped today BMI 36.0-36.9,adult 02/04/2017 09/18/2021 Last Assessment & Plan: She is hungry all the time and is struggling with her weight. S/P bariatric surgery in 2009. She has gained. Diabetes is worse. She wanted to consider weight loss medication. She may not be eligible to take based on her complex medication regime Assessment: Worsening PLAN: Investigate whether Victoza can be tried, will get back with her. KYLEIGH (obstructive sleep apnea) 08/09/2016 Last Assessment & Plan: -does not use CPAP Contusion of rib on right side 04/12/2016 0 02/04/2017 Metabolic syndrome 11/18/2014 09/18/2021 KYLEIGH (obstructive sleep apnea) 07/20/2014 Overview: PSG 2013 Supine AHI 5.8 Bile reflux esophagitis 06/19/2013 02/05/20 17 Gastritis 03/28/2012 02/04/2017 Stress 03/28/2012 06/14/2014 Other and unspecified postsurgical nonabsorption 09/05/2011 02/04/2017 Dietary surveillance and counseling 05/23/2011 06/14/2014 Morbid obesity 05/23/2011 01/06/2014 Abdominal pain, periumbilic 01/22/2011 05/04/2017 Esophagitis, unspecified 01/22/2011 017 Acute gastritis without mention of hemorrhage 01/06/2014 Exostosis of unspecified site 12/25/2010 Pain in limb 12/25/2010 01/06/2014 Bronchitis, acute 07/26/2009 06/14/2014 Overview: [facility] ED admission 07/13/09 through 07/16/09 with dehydration, uncontrolled BS. IV zithromax 500mg daily, finished Rocephin and switched to Ceftin 500mg bid. Started proventil inhaler/spacer Diarrhea 05/09/2009 03/23/2021 Hypocalcemia 02/28/2009 02/04/2017 Screening for unspecified condition 02/13/2008 06/14/2014 Sprain of lumbar region 10/10/2007 01/07/20 14 Anemia, unspecified 06/19/2007 02/04/2017 Other malaise and fatigue 01/29/20072008 Cramp of limb 01/29/2007 07/26/2009 documented as of this encounter (statuses as of 04/11/2022) [facility]09-28-[facility] History of Past illness Narrative* Problem Noted Date Resolved Date EARL (acute kidney injury) 06/27/20202019 Last Assessment & Plan: Assessment: EARL PLAN: -Improving -Monitor daily labs -IVF stopped today BMI 36.0-36.9,adult 02/04/2017 09/18/2021 Last Assessment & Plan: She is hungry all the time and is struggling with her weight. S/P bariatric surgery in 2009. She has gained. Diabetes is worse. She wanted to consider weight loss medication. She may not be eligible to take based on her complex medication regime Assessment: Worsening PLAN: Investigate whether Victoza can be tried, will get back with her. KYLEIGH (obstructive sleep apnea) 08/09/2016 Last Assessment & Plan: -does not use CPAP Contusion of rib on right side 04/12/2016 0 02/04/2017 Metabolic syndrome 11/18/2014 09/18/2021 KYLEIGH (obstructive sleep apnea) 07/20/2014 Overview: PSG 2013 Supine AHI 5.8 Bile reflux esophagitis 06/19/2013 02/05/20 17 Gastritis 03/28/2012 02/04/2017 Stress 03/28/2012 06/14/2014 Other and unspecified postsurgical nonabsorption 09/05/2011 02/04/2017 Dietary surveillance and counseling 05/23/2011 06/14/2014 Morbid obesity 05/23/2011 01/06/2014 Abdominal pain, periumbilic 01/22/201104/2017 Esophagitis, unspecified 01/22/2011 017 Acute gastritis without mention of hemorrhage 01/06/2014 Exostosis of unspecified site 12/25/2010 Pain in limb 12/25/2010 01/06/2014 Bronchitis, acute 07/26/2009 06/14/2014 Overview: [facility] ED admission 07/13/09 through 07/16/09 with dehydration, uncontrolled BS. IV zithromax 500mg daily, finished Rocephin and switched to Ceftin 500mg bid. Started proventil inhaler/spacer Diarrhea 05/09/2009 03/23/2021 Hypocalcemia 02/28/2009 02/04/2017 Screening for unspecified condition 02/13/2008 06/14/2014 Sprain of lumbar region 10/10/2007 01/07/20 14 Anemia, unspecified 06/19/2007 02/04/2017 Other malaise and fatigue 01/29/20072008 Cramp of limb 01/29/2007 07/26/2009 documented as of this encounter (statuses as of 04/11/2022) [facility]09-28-[facility] History of Past illness Narrative* Problem Noted Date Resolved Date EARL (acute kidney injury) 06/27/20202019 Last Assessment & Plan: Assessment: EARL PLAN: -Improving -Monitor daily labs -IVF stopped today BMI 36.0-36.9,adult 02/04/2017 09/18/2021 Last Assessment & Plan: She is hungry all the time and is struggling with her weight. S/P bariatric surgery in 2009. She has gained. Diabetes is worse. She wanted to consider weight loss medication. She may not be eligible to take based on her complex medication regime Assessment: Worsening PLAN: Investigate whether Victoza can be tried, will get back with her. KYLEIGH (obstructive sleep apnea) 08/09/2016 Last Assessment & Plan: -does not use CPAP Contusion of rib on right side 04/12/2016 0 02/04/2017 Metabolic syndrome 11/18/2014 09/18/2021 KYLEIGH (obstructive sleep apnea) 07/20/2014 Overview: PSG 2013 Supine AHI 5.8 Bile reflux esophagitis 06/19/2013 02/05/20 17 Gastritis 03/28/2012 02/04/2017 Stress 03/28/2012 06/14/2014 Other and unspecified postsurgical nonabsorption 09/05/2011 02/04/2017 Dietary surveillance and counseling 05/23/2011 06/14/2014 Morbid obesity 05/23/2011 01/06/2014 Abdominal pain, periumbilic 01/22/2011 05/04/2017 Esophagitis, unspecified 01/22/2011 017 Acute gastritis without mention of hemorrhage 01/06/2014 Exostosis of unspecified site 12/25/2010 Pain in limb 12/25/2010 01/06/2014 Bronchitis, acute 07/26/2009 06/14/2014 Overview: [facility] ED admission 07/13/09 through 07/16/09 with dehydration, uncontrolled BS. IV zithromax 500mg daily, finished Rocephin and switched to Ceftin 500mg bid. Started proventil inhaler/spacer Diarrhea 05/09/2009 03/23/2021 Hypocalcemia 02/28/2009 02/04/2017 Screening for unspecified condition 02/13/2008 06/14/2014 Sprain of lumbar region 10/10/2007 01/07/20 14 Anemia, unspecified 06/19/2007 02/04/2017 Other malaise and fatigue 01/29/20072008 Cramp of limb 01/29/2007 07/26/2009 documented as of this encounter (statuses as of 04/16/2022) [facility]09-28-[facility] History of Past illness Narrative* Problem Noted Date Resolved Date EARL (acute kidney injury) 06/27/20202019 Last Assessment & Plan: Assessment: EARL PLAN: -Improving -Monitor daily labs -IVF stopped today BMI 36.0-36.9,adult 02/04/2017 09/18/2021 Last Assessment & Plan: She is hungry all the time and is struggling with her weight. S/P bariatric surgery in 2009. She has gained. Diabetes is worse. She wanted to consider weight loss medication. She may not be eligible to take based on her complex medication regime Assessment: Worsening PLAN: Investigate whether Victoza can be tried, will get back with her. KYLEIGH (obstructive sleep apnea) 08/09/2016 Last Assessment & Plan: -does not use CPAP Contusion of rib on right side 04/12/2016 0 02/04/2017 Metabolic syndrome 11/18/2014 09/18/2021 KYLEIGH (obstructive sleep apnea) 07/20/2014 Overview: PSG 2013 Supine AHI 5.8 Bile reflux esophagitis 06/19/2013 02/05/20 17 Gastritis 03/28/2012 02/04/2017 Stress 03/28/2012 06/14/2014 Other and unspecified postsurgical nonabsorption 09/05/2011 02/04/2017 Dietary surveillance and counseling 05/23/2011 06/14/2014 Morbid obesity 05/23/2011 01/06/2014 Abdominal pain, periumbilic 01/22/2011 05/0 04/2017 Esophagitis, unspecified 01/22/2011 017 Acute gastritis without mention of hemorrhage 01/06/2014 Exostosis of unspecified site 12/25/2010 Pain in limb 12/25/2010 01/06/2014 Bronchitis, acute 07/26/2009 06/14/2014 Overview: [facility] ED admission 07/13/09 through 07/16/09 with dehydration, uncontrolled BS. IV zithromax 500mg daily, finished Rocephin and switched to Ceftin 500mg bid. Started proventil inhaler/spacer Diarrhea 05/09/2009 03/23/2021 Hypocalcemia 02/28/2009 02/04/2017 Screening for unspecified condition 02/13/2008 06/14/2014 Sprain of lumbar region 10/10/2007 01/07/20 14 Anemia, unspecified 06/19/2007 02/04/2017 Other malaise and fatigue 01/29/20072008 Cramp of limb 01/29/2007 07/26/2009 documented as of this encounter (statuses as of 04/18/2022) [facility]09[facility]28[facility] History of Past illness Narrative* Problem Noted Date Resolved Date EARL (acute kidney injury) 06/27/20202019 Last Assessment & Plan: Assessment: EARL PLAN: -Improving -Monitor daily labs -IVF stopped today BMI 36.0-36.9,adult 02/04/2017 09/18/2021 Last Assessment & Plan: She is hungry all the time and is struggling with her weight. S/P bariatric surgery in 2009. She has gained. Diabetes is worse. She wanted to consider weight loss medication. She may not be eligible to take based on her complex medication regime Assessment: Worsening PLAN: Investigate whether Victoza can be tried, will get back with her. KYLEIGH (obstructive sleep apnea) 08/09/2016 Last Assessment & Plan: -does not use CPAP Contusion of rib on right side 04/12/2016 0 02/04/2017 Metabolic syndrome 11/18/2014 09/18/2021 KYLEIGH (obstructive sleep apnea) 07/20/2014 Overview: PSG 2013 Supine AHI 5.8 Bile reflux esophagitis 06/19/2013 02/05/20 17 Gastritis 03/28/2012 02/04/2017 Stress 03/28/2012 06/14/2014 Other and unspecified postsurgical nonabsorption 09/05/2011 02/04/2017 Dietary surveillance and counseling 05/23/2011 06/14/2014 Morbid obesity 05/23/2011 01/06/2014 Abdominal pain, periumbilic 01/22/2011 05/04/2017 Esophagitis, unspecified 01/22/2011 017 Acute gastritis without mention of hemorrhage 01/06/2014 Exostosis of unspecified site 12/25/2010 Pain in limb 12/25/2010 01/06/2014 Bronchitis, acute 07/26/2009 06/14/2014 Overview: [facility] ED admission 07/13/09 through 07/16/09 with dehydration, uncontrolled BS. IV zithromax 500mg daily, finished Rocephin and switched to Ceftin 500mg bid. Started proventil inhaler/spacer Diarrhea 05/09/2009 03/23/2021 Hypocalcemia 02/28/2009 02/04/2017 Screening for unspecified condition 02/13/2008 06/14/2014 Sprain of lumbar region 10/10/2007 01/07/20 14 Anemia, unspecified 06/19/2007 02/04/2017 Other malaise and fatigue 01/29/20072008 Cramp of limb 01/29/2007 07/26/2009 documented as of this encounter (statuses as of 04/20/2022) [facility]09[facility] History of Past illness Narrative* Problem Noted Date Resolved Date EARL (acute kidney injury) 06/27/20202019 Last Assessment & Plan: Assessment: EARL PLAN: -Improving -Monitor daily labs -IVF stopped today BMI 36.0-36.9,adult 02/04/2017 09/18/2021 Last Assessment & Plan: She is hungry all the time and is struggling with her weight. S/P bariatric surgery in 2009. She has gained. Diabetes is worse. She wanted to consider weight loss medication. She may not be eligible to take based on her complex medication regime Assessment: Worsening PLAN: Investigate whether Victoza can be tried, will get back with her. KYLEIGH (obstructive sleep apnea) 08/09/2016 Last Assessment & Plan: -does not use CPAP Contusion of rib on right side 04/12/2016 0 02/04/2017 Metabolic syndrome 11/18/2014 09/18/2021 KYLEIGH (obstructive sleep apnea) 07/20/2014 Overview: PSG 2013 Supine AHI 5.8 Bile reflux esophagitis 06/19/2013 02/05/20 17 Gastritis 03/28/2012 02/04/2017 Stress 03/28/2012 06/14/2014 Other and unspecified postsurgical nonabsorption 09/05/2011 02/04/2017 Dietary surveillance and counseling 05/23/2011 06/14/2014 Morbid obesity 05/23/2011 01/06/2014 Abdominal pain, periumbilic 01/22/2011 05/0 04/2017 Esophagitis, unspecified 01/22/2011 017 Acute gastritis without mention of hemorrhage 01/06/2014 Exostosis of unspecified site 12/25/2010 Pain in limb 12/25/2010 01/06/2014 Bronchitis, acute 07/26/2009 06/14/2014 Overview: [facility] ED admission 07/13/09 through 07/16/09 with dehydration, uncontrolled BS. IV zithromax 500mg daily, finished Rocephin and switched to Ceftin 500mg bid. Started proventil inhaler/spacer Diarrhea 05/09/2009 03/23/2021 Hypocalcemia 02/28/2009 02/04/2017 Screening for unspecified condition 02/13/2008 06/14/2014 Sprain of lumbar region 10/10/2007 01/07/20 14 Anemia, unspecified 06/19/2007 02/04/2017 Other malaise and fatigue 01/29/20072008 Cramp of limb 01/29/2007 07/26/2009 documented as of this encounter (statuses as of 06/07/2022) [facility] History of Past illness Narrative* Problem Noted Date Resolved Date EALR (acute kidney injury) 06/27/20202019 Last Assessment & Plan: Assessment: EARL PLAN: -Improving -Monitor daily labs -IVF stopped today BMI 36.0-36.9,adult 02/04/2017 09/18/2021 Last Assessment & Plan: She is hungry all the time and is struggling with her weight. S/P bariatric surgery in 2009. She has gained. Diabetes is worse. She wanted to consider weight loss medication. She may not be eligible to take based on her complex medication regime Assessment: Worsening PLAN: Investigate whether Victoza can be tried, will get back with her. KYLEIGH (obstructive sleep apnea) 08/09/2016 Last Assessment & Plan: -does not use CPAP Contusion of rib on right side 04/12/2016 0 02/04/2017 Metabolic syndrome 11/18/2014 09/18/2021 KYLEIGH (obstructive sleep apnea) 07/20/2014 Overview: PSG 2013 Supine AHI 5.8 Bile reflux esophagitis 06/19/2013 02/05/20 17 Gastritis 03/28/2012 02/04/2017 Stress 03/28/2012 06/14/2014 Other and unspecified postsurgical nonabsorption 09/05/2011 02/04/2017 Dietary surveillance and counseling 05/23/2011 06/14/2014 Morbid obesity 05/23/2011 01/06/2014 Abdominal pain, periumbilic 01/22/2011 05/04/2017 Esophagitis, unspecified 01/22/2011 017 Acute gastritis without mention of hemorrhage 01/06/2014 Exostosis of unspecified site 12/25/2010 Pain in limb 12/25/2010 01/06/2014 Bronchitis, acute 07/26/2009 06/14/2014 Overview: [facility] ED admission 07/13/09 through 07/16/09 with dehydration, uncontrolled BS. IV zithromax 500mg daily, finished Rocephin and switched to Ceftin 500mg bid. Started proventil inhaler/spacer Diarrhea 05/09/2009 03/23/2021 Hypocalcemia 02/28/2009 02/04/2017 Screening for unspecified condition 02/13/2008 06/14/2014 Sprain of lumbar region 10/10/2007 01/07/20 14 Anemia, unspecified 06/19/2007 02/04/2017 Other malaise and fatigue 01/29/20072008 Cramp of limb 01/29/2007 07/26/2009 documented as of this encounter (statuses as of 06/07/2022) [facility] History of Past illness Narrative* Problem Noted Date Resolved Date EARL (acute kidney injury) 06/27/20202019 Last Assessment & Plan: Assessment: EARL PLAN: -Improving -Monitor daily labs -IVF stopped today BMI 36.0-36.9,adult 02/04/2017 09/18/2021 Last Assessment & Plan: She is hungry all the time and is struggling with her weight. S/P bariatric surgery in 2009. She has gained. Diabetes is worse. She wanted to consider weight loss medication. She may not be eligible to take based on her complex medication regime Assessment: Worsening PLAN: Investigate whether Victoza can be tried, will get back with her. KYLEIGH (obstructive sleep apnea) 08/09/2016 Last Assessment & Plan: -does not use CPAP Contusion of rib on right side 04/12/2016 0 02/04/2017 Metabolic syndrome 11/18/2014 09/18/2021 KYLEIGH (obstructive sleep apnea) 07/20/2014 Overview: PSG 2013 Supine AHI 5.8 Bile reflux esophagitis 06/19/2013 02/05/20 17 Gastritis 03/28/2012 02/04/2017 Stress 03/28/2012 06/14/2014 Other and unspecified postsurgical nonabsorption 09/05/2011 02/04/2017 Dietary surveillance and counseling 05/23/2011 06/14/2014 Morbid obesity 05/23/2011 01/06/2014 Abdominal pain, periumbilic 01/22/201104/2017 Esophagitis, unspecified 01/22/2011 017 Acute gastritis without mention of hemorrhage 01/06/2014 Exostosis of unspecified site 12/25/2010 Pain in limb 12/25/2010 01/06/2014 Bronchitis, acute 07/26/2009 06/14/2014 Overview: [facility] ED admission 07/13/09 through 07/16/09 with dehydration, uncontrolled BS. IV zithromax 500mg daily, finished Rocephin and switched to Ceftin 500mg bid. Started proventil inhaler/spacer Diarrhea 05/09/2009 03/23/2021 Hypocalcemia 02/28/2009 02/04/2017 Screening for unspecified condition 02/13/2008 06/14/2014 Sprain of lumbar region 10/10/2007 01/07/20 14 Anemia, unspecified 06/19/2007 02/04/2017 Other malaise and fatigue 01/29/20072008 Cramp of limb 01/29/2007 07/26/2009 documented as of this encounter (statuses as of 07/16/2022) [facility]09-28-2020 History of Past illness Narrative* Problem Noted Date Resolved Date EARL (acute kidney injury) 06/27/20202019 Last Assessment & Plan: Assessment: EARL PLAN: -Improving -Monitor daily labs -IVF stopped today BMI 36.0-36.9,adult 02/04/2017 09/18/2021 Last Assessment & Plan: She is hungry all the time and is struggling with her weight. S/P bariatric surgery in 2009. She has gained. Diabetes is worse. She wanted to consider weight loss medication. She may not be eligible to take based on her complex medication regime Assessment: Worsening PLAN: Investigate whether Victoza can be tried, will get back with her. KYLEIGH (obstructive sleep apnea) 08/09/2016 Last Assessment & Plan: -does not use CPAP Contusion of rib on right side 04/12/2016 0 02/04/2017 Metabolic syndrome 11/18/2014 09/18/2021 KYLEIGH (obstructive sleep apnea) 07/20/2014 Overview: PSG 2013 Supine AHI 5.8 Bile reflux esophagitis 06/19/2013 02/05/20 17 Gastritis 03/28/2012 02/04/2017 Stress 03/28/2012 06/14/2014 Other and unspecified postsurgical nonabsorption 09/05/2011 02/04/2017 Dietary surveillance and counseling 05/23/2011 06/14/2014 Morbid obesity 05/23/2011 01/06/2014 Abdominal pain, periumbilic 01/22/2011 05/0 04/2017 Esophagitis, unspecified 01/22/2011 017 Acute gastritis without mention of hemorrhage 01/06/2014 Exostosis of unspecified site 12/25/2010 Pain in limb 12/25/2010 01/06/2014 Bronchitis, acute 07/26/2009 06/14/2014 Overview: [facility] ED admission 07/13/09 through 07/16/09 with dehydration, uncontrolled BS. IV zithromax 500mg daily, finished Rocephin and switched to Ceftin 500mg bid. Started proventil inhaler/spacer Diarrhea 05/09/2009 03/23/2021 Hypocalcemia 02/28/2009 02/04/2017 Screening for unspecified condition 02/13/2008 06/14/2014 Sprain of lumbar region 10/10/2007 01/07/20 14 Anemia, unspecified 06/19/2007 02/04/2017 Other malaise and fatigue 01/29/20072008 Cramp of limb 01/29/2007 07/26/2009 documented as of this encounter (statuses as of 07/18/2022) [facility]2020 History of Past illness Narrative* Problem Noted Date Resolved Date EARL (acute kidney injury) 06/27/20202019 Last Assessment & Plan: Assessment: EARL PLAN: -Improving -Monitor daily labs -IVF stopped today BMI 36.0-36.9,adult 02/04/2017 09/18/2021 Last Assessment & Plan: She is hungry all the time and is struggling with her weight. S/P bariatric surgery in 2009. She has gained. Diabetes is worse. She wanted to consider weight loss medication. She may not be eligible to take based on her complex medication regime Assessment: Worsening PLAN: Investigate whether Victoza can be tried, will get back with her. KYLEIGH (obstructive sleep apnea) 08/09/2016 Last Assessment & Plan: -does not use CPAP Contusion of rib on right side 04/12/2016 0 02/04/2017 Metabolic syndrome 11/18/2014 09/18/2021 KYLEIGH (obstructive sleep apnea) 07/20/2014 Overview: PSG 2013 Supine AHI 5.8 Bile reflux esophagitis 06/19/2013 02/05/20 17 Gastritis 03/28/2012 02/04/2017 Stress 03/28/2012 06/14/2014 Other and unspecified postsurgical nonabsorption 09/05/2011 02/04/2017 Dietary surveillance and counseling 05/23/2011 06/14/2014 Morbid obesity 05/23/2011 01/06/2014 Abdominal pain, periumbilic 01/22/2011 05/0 04/2017 Esophagitis, unspecified 01/22/2011 017 Acute gastritis without mention of hemorrhage 01/06/2014 Exostosis of unspecified site 12/25/2010 Pain in limb 12/25/2010 01/06/2014 Bronchitis, acute 07/26/2009 06/14/2014 Overview: [facility] ED admission 07/13/09 through 07/16/09 with dehydration, uncontrolled BS. IV zithromax 500mg daily, finished Rocephin and switched to Ceftin 500mg bid. Started proventil inhaler/spacer Diarrhea 05/09/2009 03/23/2021 Hypocalcemia 02/28/2009 02/04/2017 Screening for unspecified condition 02/13/2008 06/14/2014 Sprain of lumbar region 10/10/2007 01/07/20 14 Anemia, unspecified 06/19/2007 02/04/2017 Other malaise and fatigue 01/29/20072008 Cramp of limb 01/29/2007 07/26/2009 documented as of this encounter (statuses as of 07/20/2022) [facility] History of Past illness Narrative* Problem Noted Date Resolved Date EARL (acute kidney injury) 06/27/20202019 Last Assessment & Plan: Assessment: EARL PLAN: -Improving -Monitor daily labs -IVF stopped today BMI 36.0-36.9,adult 02/04/2017 09/18/2021 Last Assessment & Plan: She is hungry all the time and is struggling with her weight. S/P bariatric surgery in 2009. She has gained. Diabetes is worse. She wanted to consider weight loss medication. She may not be eligible to take based on her complex medication regime Assessment: Worsening PLAN: Investigate whether Victoza can be tried, will get back with her. KYLEIGH (obstructive sleep apnea) 08/09/2016 Last Assessment & Plan: -does not use CPAP Contusion of rib on right side 04/12/2016 0 02/04/2017 Metabolic syndrome 11/18/2014 09/18/2021 KYLEIGH (obstructive sleep apnea) 07/20/2014 Overview: PSG 2013 Supine AHI 5.8 Bile reflux esophagitis 06/19/2013 02/05/20 17 Gastritis 03/28/2012 02/04/2017 Stress 03/28/2012 06/14/2014 Other and unspecified postsurgical nonabsorption 09/05/2011 02/04/2017 Dietary surveillance and counseling 05/23/2011 06/14/2014 Morbid obesity 05/23/2011 01/06/2014 Abdominal pain, periumbilic 01/22/2011 05/04/2017 Esophagitis, unspecified 01/22/2011 017 Acute gastritis without mention of hemorrhage 01/06/2014 Exostosis of unspecified site 12/25/2010 Pain in limb 12/25/2010 01/06/2014 Bronchitis, acute 07/26/2009 06/14/2014 Overview: [facility] ED admission 07/13/09 through 07/16/09 with dehydration, uncontrolled BS. IV zithromax 500mg daily, finished Rocephin and switched to Ceftin 500mg bid. Started proventil inhaler/spacer Diarrhea 05/09/2009 03/23/2021 Hypocalcemia 02/28/2009 02/04/2017 Screening for unspecified condition 02/13/2008 06/14/2014 Sprain of lumbar region 10/10/2007 01/07/20 14 Anemia, unspecified 06/19/2007 02/04/2017 Other malaise and fatigue 01/29/20072008 Cramp of limb 01/29/2007 07/26/2009 documented as of this encounter (statuses as of 07/21/2022) [facility] History of Past illness Narrative* Problem Noted Date Resolved Date EARL (acute kidney injury) 06/27/20202019 Last Assessment & Plan: Assessment: EARL PLAN: -Improving -Monitor daily labs -IVF stopped today BMI 36.0-36.9,adult 02/04/2017 09/18/2021 Last Assessment & Plan: She is hungry all the time and is struggling with her weight. S/P bariatric surgery in 2009. She has gained. Diabetes is worse. She wanted to consider weight loss medication. She may not be eligible to take based on her complex medication regime Assessment: Worsening PLAN: Investigate whether Victoza can be tried, will get back with her. KYLEIGH (obstructive sleep apnea) 08/09/2016 Last Assessment & Plan: -does not use CPAP Contusion of rib on right side 04/12/2016 0 02/04/2017 Metabolic syndrome 11/18/2014 09/18/2021 KYLEIGH (obstructive sleep apnea) 07/20/2014 Overview: PSG 2013 Supine AHI 5.8 Bile reflux esophagitis 06/19/2013 02/05/20 17 Gastritis 03/28/2012 02/04/2017 Stress 03/28/2012 06/14/2014 Other and unspecified postsurgical nonabsorption 09/05/2011 02/04/2017 Dietary surveillance and counseling 05/23/2011 06/14/2014 Morbid obesity 05/23/2011 01/06/2014 Abdominal pain, periumbilic 01/22/2011 05/04/2017 Esophagitis, unspecified 01/22/2011 017 Acute gastritis without mention of hemorrhage 01/06/2014 Exostosis of unspecified site 12/25/2010 Pain in limb 12/25/2010 01/06/2014 Bronchitis, acute 07/26/2009 06/14/2014 Overview: [facility] ED admission 07/13/09 through 07/16/09 with dehydration, uncontrolled BS. IV zithromax 500mg daily, finished Rocephin and switched to Ceftin 500mg bid. Started proventil inhaler/spacer Diarrhea 05/09/2009 03/23/2021 Hypocalcemia 02/28/2009 02/04/2017 Screening for unspecified condition 02/13/2008 06/14/2014 Sprain of lumbar region 10/10/2007 01/07/20 14 Anemia, unspecified 06/19/2007 02/04/2017 Other malaise and fatigue 01/29/20072008 Cramp of limb 01/29/2007 07/26/2009 documented as of this encounter (statuses as of 07/23/2022) [facility] History of Past illness Narrative* Problem Noted Date Resolved Date Postoperative anemia due to acute blood loss 07/23/2022 Last Assessment & Plan: Assessment: Postoperative anemia PLAN: -Continue iron supplementation following discharge EARL (acute kidney injury) 06/27/20202019 Last Assessment & Plan: Assessment: EARL PLAN: -Improving -Monitor daily labs -IVF stopped today BMI 36.0-36.9,adult 02/04/2017 09/18/2021 Last Assessment & Plan: She is hungry all the time and is struggling with her weight. S/P bariatric surgery in 2009. She has gained. Diabetes is worse. She wanted to consider weight loss medication. She may not be eligible to take based on her complex medication regime Assessment: Worsening PLAN: Investigate whether Victoza can be tried, will get back with her. KYLEIGH (obstructive sleep apnea) 08/09/2016 Last Assessment & Plan: -does not use CPAP Contusion of rib on right side 04/12/2016 0 02/04/2017 Metabolic syndrome 11/18/2014 09/18/2021 KYLEIGH (obstructive sleep apnea) 07/20/2014 Overview: PSG 2013 Supine AHI 5.8 Bile reflux esophagitis 06/19/2013 02/05/20 17 Gastritis 03/28/2012 02/04/2017 Stress 03/28/2012 06/14/2014 Other and unspecified postsurgical nonabsorption 09/05/2011 02/04/2017 Dietary surveillance and counseling 05/23/2011 06/14/2014 Morbid obesity 05/23/2011 01/06/2014 Abdominal pain, periumbilic 01/22/2011 05/0 04/2017 Esophagitis, unspecified 01/22/2011 017 Acute gastritis without mention of hemorrhage 01/06/2014 Exostosis of unspecified site 12/25/2010 Pain in limb 12/25/2010 01/06/2014 Bronchitis, acute 07/26/2009 06/14/2014 Overview: [facility] ED admission 07/13/09 through 07/16/09 with dehydration, uncontrolled BS. IV zithromax 500mg daily, finished Rocephin and switched to Ceftin 500mg bid. Started proventil inhaler/spacer Diarrhea 05/09/2009 03/23/2021 Hypocalcemia 02/28/2009 02/04/2017 Screening for unspecified condition 02/13/2008 06/14/2014 Sprain of lumbar region 10/10/2007 01/07/20 14 Anemia, unspecified 06/19/2007 02/04/2017 Other malaise and fatigue 01/29/20072008 Cramp of limb 01/29/2007 07/26/2009 documented as of this encounter (statuses as of 07/25/2022) [facility] History of Past illness Narrative* Problem Noted Date Resolved Date Postoperative anemia due to acute blood loss 07/23/2022 Last Assessment & Plan: Assessment: Postoperative anemia PLAN: -Continue iron supplementation following discharge EARL (acute kidney injury) 06/27/20202019 Last Assessment & Plan: Assessment: EARL PLAN: -Improving -Monitor daily labs -IVF stopped today BMI 36.0-36.9,adult 02/04/2017 09/18/2021 Last Assessment & Plan: She is hungry all the time and is struggling with her weight. S/P bariatric surgery in 2009. She has gained. Diabetes is worse. She wanted to consider weight loss medication. She may not be eligible to take based on her complex medication regime Assessment: Worsening PLAN: Investigate whether Victoza can be tried, will get back with her. KYLEIGH (obstructive sleep apnea) 08/09/2016 Last Assessment & Plan: -does not use CPAP Contusion of rib on right side 04/12/2016 0 02/04/2017 Metabolic syndrome 11/18/2014 09/18/2021 KYLEIGH (obstructive sleep apnea) 07/20/2014 Overview: PSG 2013 Supine AHI 5.8 Bile reflux esophagitis 06/19/2013 02/05/20 17 Gastritis 03/28/2012 02/04/2017 Stress 03/28/2012 06/14/2014 Other and unspecified postsurgical nonabsorption 09/05/2011 02/04/2017 Dietary surveillance and counseling 05/23/2011 06/14/2014 Morbid obesity 05/23/2011 01/06/2014 Abdominal pain, periumbilic 01/22/2011 0504/2017 Esophagitis, unspecified 01/22/2011 017 Acute gastritis without mention of hemorrhage 01/06/2014 Exostosis of unspecified site 12/25/2010 Pain in limb 12/25/2010 01/06/2014 Bronchitis, acute 07/26/2009 06/14/2014 Overview: [facility] ED admission 07/13/09 through 07/16/09 with dehydration, uncontrolled BS. IV zithromax 500mg daily, finished Rocephin and switched to Ceftin 500mg bid. Started proventil inhaler/spacer Diarrhea 05/09/2009 03/23/2021 Hypocalcemia 02/28/2009 02/04/2017 Screening for unspecified condition 02/13/2008 06/14/2014 Sprain of lumbar region 10/10/2007 01/07/20 14 Anemia, unspecified 06/19/2007 02/04/2017 Other malaise and fatigue 01/29/20072008 Cramp of limb 01/29/2007 07/26/2009 documented as of this encounter (statuses as of 07/27/2022) [facility] History of Past illness Narrative* Problem Noted Date Resolved Date Postoperative anemia due to acute blood loss 07/23/2022 Last Assessment & Plan: Assessment: Postoperative anemia PLAN: -Continue iron supplementation following discharge EARL (acute kidney injury) 06/27/20202019 Last Assessment & Plan: Assessment: EARL PLAN: -Improving -Monitor daily labs -IVF stopped today BMI 36.0-36.9,adult 02/04/2017 09/18/2021 Last Assessment & Plan: She is hungry all the time and is struggling with her weight. S/P bariatric surgery in 2009. She has gained. Diabetes is worse. She wanted to consider weight loss medication. She may not be eligible to take based on her complex medication regime Assessment: Worsening PLAN: Investigate whether Victoza can be tried, will get back with her. KYLEIGH (obstructive sleep apnea) 08/09/2016 Last Assessment & Plan: -does not use CPAP Contusion of rib on right side 04/12/2016 0 02/04/2017 Metabolic syndrome 11/18/2014 09/18/2021 KYLEIGH (obstructive sleep apnea) 07/20/2014 Overview: PSG 2013 Supine AHI 5.8 Bile reflux esophagitis 06/19/2013 02/05/20 17 Gastritis 03/28/2012 02/04/2017 Stress 03/28/2012 06/14/2014 Other and unspecified postsurgical nonabsorption 09/05/2011 02/04/2017 Dietary surveillance and counseling 05/23/2011 06/14/2014 Morbid obesity 05/23/2011 01/06/2014 Abdominal pain, periumbilic 01/22/2011 05/04/2017 Esophagitis, unspecified 01/22/2011 017 Acute gastritis without mention of hemorrhage 01/06/2014 Exostosis of unspecified site 12/25/2010 Pain in limb 12/25/2010 01/06/2014 Bronchitis, acute 07/26/2009 06/14/2014 Overview: [facility] ED admission 07/13/09 through 07/16/09 with dehydration, uncontrolled BS. IV zithromax 500mg daily, finished Rocephin and switched to Ceftin 500mg bid. Started proventil inhaler/spacer Diarrhea 05/09/2009 03/23/2021 Hypocalcemia 02/28/2009 02/04/2017 Screening for unspecified condition 02/13/2008 06/14/2014 Sprain of lumbar region 10/10/2007 01/07/20 14 Anemia, unspecified 06/19/2007 02/04/2017 Other malaise and fatigue 01/29/20072008 Cramp of limb 01/29/2007 07/26/2009 documented as of this encounter (statuses as of 07/31/2022) [facility] History of Past illness Narrative* Problem Noted Date Resolved Date Postoperative anemia due to acute blood loss 07/23/2022 Last Assessment & Plan: Assessment: Postoperative anemia PLAN: -Continue iron supplementation following discharge EARL (acute kidney injury) 06/27/20202019 Last Assessment & Plan: Assessment: EARL PLAN: -Improving -Monitor daily labs -IVF stopped today BMI 36.0-36.9,adult 02/04/2017 09/18/2021 Last Assessment & Plan: She is hungry all the time and is struggling with her weight. S/P bariatric surgery in 2009. She has gained. Diabetes is worse. She wanted to consider weight loss medication. She may not be eligible to take based on her complex medication regime Assessment: Worsening PLAN: Investigate whether Victoza can be tried, will get back with her. KYLEIGH (obstructive sleep apnea) 08/09/2016 Last Assessment & Plan: -does not use CPAP Contusion of rib on right side 04/12/2016 0 02/04/2017 Metabolic syndrome 11/18/2014 09/18/2021 KYLEIGH (obstructive sleep apnea) 07/20/2014 Overview: PSG 2013 Supine AHI 5.8 Bile reflux esophagitis 06/19/2013 02/05/20 17 Gastritis 03/28/2012 02/04/2017 Stress 03/28/2012 06/14/2014 Other and unspecified postsurgical nonabsorption 09/05/2011 02/04/2017 Dietary surveillance and counseling 05/23/2011 06/14/2014 Morbid obesity 05/23/2011 01/06/2014 Abdominal pain, periumbilic 01/22/2011 05/04/2017 Esophagitis, unspecified 01/22/2011 017 Acute gastritis without mention of hemorrhage 01/06/2014 Exostosis of unspecified site 12/25/2010 Pain in limb 12/25/2010 01/06/2014 Bronchitis, acute 07/26/2009 06/14/2014 Overview: [facility] ED admission 07/13/09 through 07/16/09 with dehydration, uncontrolled BS. IV zithromax 500mg daily, finished Rocephin and switched to Ceftin 500mg bid. Started proventil inhaler/spacer Diarrhea 05/09/2009 03/23/2021 Hypocalcemia 02/28/2009 02/04/2017 Screening for unspecified condition 02/13/2008 06/14/2014 Sprain of lumbar region 10/10/2007 01/07/20 14 Anemia, unspecified 06/19/2007 02/04/2017 Other malaise and fatigue 01/29/20072008 Cramp of limb 01/29/2007 07/26/2009 documented as of this encounter (statuses as of 08/13/2022) [facility] History of Past illness Narrative* Problem Noted Date Resolved Date Postoperative anemia due to acute blood loss 07/23/2022 Last Assessment & Plan: Assessment: Postoperative anemia PLAN: -Continue iron supplementation following discharge EARL (acute kidney injury) 06/27/20202019 Last Assessment & Plan: Assessment: EARL PLAN: -Improving -Monitor daily labs -IVF stopped today BMI 36.0-36.9,adult 02/04/2017 09/18/2021 Last Assessment & Plan: She is hungry all the time and is struggling with her weight. S/P bariatric surgery in 2009. She has gained. Diabetes is worse. She wanted to consider weight loss medication. She may not be eligible to take based on her complex medication regime Assessment: Worsening PLAN: Investigate whether Victoza can be tried, will get back with her. KYLEIGH (obstructive sleep apnea) 08/09/2016 Last Assessment & Plan: -does not use CPAP Contusion of rib on right side 04/12/2016 0 02/04/2017 Metabolic syndrome 11/18/2014 09/18/2021 KYLEIGH (obstructive sleep apnea) 07/20/2014 Overview: PSG 2013 Supine AHI 5.8 Bile reflux esophagitis 06/19/2013 02/05/20 17 Gastritis 03/28/2012 02/04/2017 Stress 03/28/2012 06/14/2014 Other and unspecified postsurgical nonabsorption 09/05/2011 02/04/2017 Dietary surveillance and counseling 05/23/2011 06/14/2014 Morbid obesity 05/23/2011 01/06/2014 Abdominal pain, periumbilic 01/22/201104/2017 Esophagitis, unspecified 01/22/2011 017 Acute gastritis without mention of hemorrhage 01/06/2014 Exostosis of unspecified site 12/25/2010 Pain in limb 12/25/2010 01/06/2014 Bronchitis, acute 07/26/2009 06/14/2014 Overview: [facility] ED admission 07/13/09 through 07/16/09 with dehydration, uncontrolled BS. IV zithromax 500mg daily, finished Rocephin and switched to Ceftin 500mg bid. Started proventil inhaler/spacer Diarrhea 05/09/2009 03/23/2021 Hypocalcemia 02/28/2009 02/04/2017 Screening for unspecified condition 02/13/2008 06/14/2014 Sprain of lumbar region 10/10/2007 01/07/20 14 Anemia, unspecified 06/19/2007 02/04/2017 Other malaise and fatigue 01/29/20072008 Cramp of limb 01/29/2007 07/26/2009 documented as of this encounter (statuses as of 09/07/2022) [facility] History of Past illness Narrative* Problem Noted Date Resolved Date Postoperative anemia due to acute blood loss 07/23/2022 Last Assessment & Plan: Assessment: Postoperative anemia PLAN: -Continue iron supplementation following discharge EARL (acute kidney injury) 06/27/20202019 Last Assessment & Plan: Assessment: EARL PLAN: -Improving -Monitor daily labs -IVF stopped today BMI 36.0-36.9,adult 02/04/2017 09/18/2021 Last Assessment & Plan: She is hungry all the time and is struggling with her weight. S/P bariatric surgery in 2009. She has gained. Diabetes is worse. She wanted to consider weight loss medication. She may not be eligible to take based on her complex medication regime Assessment: Worsening PLAN: Investigate whether Victoza can be tried, will get back with her. KYLEIGH (obstructive sleep apnea) 08/09/2016 Last Assessment & Plan: -does not use CPAP Contusion of rib on right side 04/12/2016 0 02/04/2017 Metabolic syndrome 11/18/2014 09/18/2021 KYLEIGH (obstructive sleep apnea) 07/20/2014 Overview: PSG 2013 Supine AHI 5.8 Bile reflux esophagitis 06/19/2013 02/05/20 17 Gastritis 03/28/2012 02/04/2017 Stress 03/28/2012 06/14/2014 Other and unspecified postsurgical nonabsorption 09/05/2011 02/04/2017 Dietary surveillance and counseling 05/23/2011 06/14/2014 Morbid obesity 05/23/2011 01/06/2014 Abdominal pain, periumbilic 01/22/2011 05/04/2017 Esophagitis, unspecified 01/22/2011 017 Acute gastritis without mention of hemorrhage 01/06/2014 Exostosis of unspecified site 12/25/2010 Pain in limb 12/25/2010 01/06/2014 Bronchitis, acute 07/26/2009 06/14/2014 Overview: [facility] ED admission 07/13/09 through 07/16/09 with dehydration, uncontrolled BS. IV zithromax 500mg daily, finished Rocephin and switched to Ceftin 500mg bid. Started proventil inhaler/spacer Diarrhea 05/09/2009 03/23/2021 Hypocalcemia 02/28/2009 02/04/2017 Screening for unspecified condition 02/13/2008 06/14/2014 Sprain of lumbar region 10/10/2007 01/07/20 14 Anemia, unspecified 06/19/2007 02/04/2017 Other malaise and fatigue 01/29/20072008 Cramp of limb 01/29/2007 07/26/2009 documented as of this encounter (statuses as of 09/19/2022) [facility] History of Past illness Narrative* Problem Noted Date Resolved Date Postoperative anemia due to acute blood loss 07/23/2022 Last Assessment & Plan: Assessment: Postoperative anemia PLAN: -Continue iron supplementation following discharge EARL (acute kidney injury) 06/27/20202019 Last Assessment & Plan: Assessment: EARL PLAN: -Improving -Monitor daily labs -IVF stopped today BMI 36.0-36.9,adult 02/04/2017 09/18/2021 Last Assessment & Plan: She is hungry all the time and is struggling with her weight. S/P bariatric surgery in 2009. She has gained. Diabetes is worse. She wanted to consider weight loss medication. She may not be eligible to take based on her complex medication regime Assessment: Worsening PLAN: Investigate whether Victoza can be tried, will get back with her. KYLEIGH (obstructive sleep apnea) 08/09/2016 Last Assessment & Plan: -does not use CPAP Contusion of rib on right side 04/12/2016 0 02/04/2017 Metabolic syndrome 11/18/2014 09/18/2021 KYLEIGH (obstructive sleep apnea) 07/20/2014 Overview: PSG 2013 Supine AHI 5.8 Bile reflux esophagitis 06/19/2013 02/05/20 17 Gastritis 03/28/2012 02/04/2017 Stress 03/28/2012 06/14/2014 Other and unspecified postsurgical nonabsorption 09/05/2011 02/04/2017 Dietary surveillance and counseling 05/23/2011 06/14/2014 Morbid obesity 05/23/2011 01/06/2014 Abdominal pain, periumbilic 01/22/2011 05/0 04/2017 Esophagitis, unspecified 01/22/2011 017 Acute gastritis without mention of hemorrhage 01/06/2014 Exostosis of unspecified site 12/25/2010 Pain in limb 12/25/2010 01/06/2014 Bronchitis, acute 07/26/2009 06/14/2014 Overview: [facility] ED admission 07/13/09 through 07/16/09 with dehydration, uncontrolled BS. IV zithromax 500mg daily, finished Rocephin and switched to Ceftin 500mg bid. Started proventil inhaler/spacer Diarrhea 05/09/2009 03/23/2021 Hypocalcemia 02/28/2009 02/04/2017 Screening for unspecified condition 02/13/2008 06/14/2014 Sprain of lumbar region 10/10/2007 01/07/20 14 Anemia, unspecified 06/19/2007 02/04/2017 Other malaise and fatigue 01/29/20072008 Cramp of limb 01/29/2007 07/26/2009 documented as of this encounter (statuses as of 10/03/2022) [facility] History of Past illness Narrative* Problem Noted Date Resolved Date Postoperative anemia due to acute blood loss 07/23/2022 Last Assessment & Plan: Assessment: Postoperative anemia PLAN: -Continue iron supplementation following discharge EARL (acute kidney injury) 06/27/20202019 Last Assessment & Plan: Assessment: EARL PLAN: -Improving -Monitor daily labs -IVF stopped today BMI 36.0-36.9,adult 02/04/2017 09/18/2021 Last Assessment & Plan: She is hungry all the time and is struggling with her weight. S/P bariatric surgery in 2009. She has gained. Diabetes is worse. She wanted to consider weight loss medication. She may not be eligible to take based on her complex medication regime Assessment: Worsening PLAN: Investigate whether Victoza can be tried, will get back with her. KYLEIGH (obstructive sleep apnea) 08/09/2016 Last Assessment & Plan: -does not use CPAP Contusion of rib on right side 04/12/2016 0 02/04/2017 Metabolic syndrome 11/18/2014 09/18/2021 KYLEIGH (obstructive sleep apnea) 07/20/2014 Overview: PSG 2013 Supine AHI 5.8 Bile reflux esophagitis 06/19/2013 02/05/20 17 Gastritis 03/28/2012 02/04/2017 Stress 03/28/2012 06/14/2014 Other and unspecified postsurgical nonabsorption 09/05/2011 02/04/2017 Dietary surveillance and counseling 05/23/2011 06/14/2014 Morbid obesity 05/23/2011 01/06/2014 Abdominal pain, periumbilic 01/22/2011 05/04/2017 Esophagitis, unspecified 01/22/2011 017 Acute gastritis without mention of hemorrhage 01/06/2014 Exostosis of unspecified site 12/25/2010 Pain in limb 12/25/2010 01/06/2014 Bronchitis, acute 07/26/2009 06/14/2014 Overview: [facility] ED admission 07/13/09 through 07/16/09 with dehydration, uncontrolled BS. IV zithromax 500mg daily, finished Rocephin and switched to Ceftin 500mg bid. Started proventil inhaler/spacer Diarrhea 05/09/2009 03/23/2021 Hypocalcemia 02/28/2009 02/04/2017 Screening for unspecified condition 02/13/2008 06/14/2014 Sprain of lumbar region 10/10/2007 01/07/20 14 Anemia, unspecified 06/19/2007 02/04/2017 Other malaise and fatigue 01/29/20072008 Cramp of limb 01/29/2007 07/26/2009 documented as of this encounter (statuses as of 10/07/2022) [facility]09-[facility]2020 History of Past illness Narrative* Problem Noted Date Resolved Date Postoperative anemia due to acute blood loss 07/23/2022 Last Assessment & Plan: Assessment: Postoperative anemia PLAN: -Continue iron supplementation following discharge EARL (acute kidney injury) 06/27/20202019 Last Assessment & Plan: Assessment: EARL PLAN: -Improving -Monitor daily labs -IVF stopped today BMI 36.0-36.9,adult 02/04/2017 09/18/2021 Last Assessment & Plan: She is hungry all the time and is struggling with her weight. S/P bariatric surgery in 2009. She has gained. Diabetes is worse. She wanted to consider weight loss medication. She may not be eligible to take based on her complex medication regime Assessment: Worsening PLAN: Investigate whether Victoza can be tried, will get back with her. KYLEIGH (obstructive sleep apnea) 08/09/2016 Last Assessment & Plan: -does not use CPAP Contusion of rib on right side 04/12/2016 0 02/04/2017 Metabolic syndrome 11/18/2014 09/18/2021 KYLEIGH (obstructive sleep apnea) 07/20/2014 Overview: PSG 2013 Supine AHI 5.8 Bile reflux esophagitis 06/19/2013 02/05/20 17 Gastritis 03/28/2012 02/04/2017 Stress 03/28/2012 06/14/2014 Other and unspecified postsurgical nonabsorption 09/05/2011 02/04/2017 Dietary surveillance and counseling 05/23/2011 06/14/2014 Morbid obesity 05/23/2011 01/06/2014 Abdominal pain, periumbilic 01/22/2011 05/0 04/2017 Esophagitis, unspecified 01/22/2011 017 Acute gastritis without mention of hemorrhage 01/06/2014 Exostosis of unspecified site 12/25/2010 Pain in limb 12/25/2010 01/06/2014 Bronchitis, acute 07/26/2009 06/14/2014 Overview: [facility] ED admission 07/13/09 through 07/16/09 with dehydration, uncontrolled BS. IV zithromax 500mg daily, finished Rocephin and switched to Ceftin 500mg bid. Started proventil inhaler/spacer Diarrhea 05/09/2009 03/23/2021 Hypocalcemia 02/28/2009 02/04/2017 Screening for unspecified condition 02/13/2008 06/14/2014 Sprain of lumbar region 10/10/2007 01/07/20 14 Anemia, unspecified 06/19/2007 02/04/2017 Other malaise and fatigue 01/29/20072008 Cramp of limb 01/29/2007 07/26/2009 documented as of this encounter (statuses as of 10/12/2022) [facility] History of Past illness Narrative* Problem Noted Date Resolved Date Postoperative anemia due to acute blood loss 07/23/2022 Last Assessment & Plan: Assessment: Postoperative anemia PLAN: -Continue iron supplementation following discharge EARL (acute kidney injury) 06/27/20202019 Last Assessment & Plan: Assessment: EARL PLAN: -Improving -Monitor daily labs -IVF stopped today BMI 36.0-36.9,adult 02/04/2017 09/18/2021 Last Assessment & Plan: She is hungry all the time and is struggling with her weight. S/P bariatric surgery in 2009. She has gained. Diabetes is worse. She wanted to consider weight loss medication. She may not be eligible to take based on her complex medication regime Assessment: Worsening PLAN: Investigate whether Victoza can be tried, will get back with her. KYLEIGH (obstructive sleep apnea) 08/09/2016 Last Assessment & Plan: -does not use CPAP Contusion of rib on right side 04/12/2016 0 02/04/2017 Metabolic syndrome 11/18/2014 09/18/2021 KYLEIGH (obstructive sleep apnea) 07/20/2014 Overview: PSG 2013 Supine AHI 5.8 Bile reflux esophagitis 06/19/2013 02/05/20 17 Gastritis 03/28/2012 02/04/2017 Stress 03/28/2012 06/14/2014 Other and unspecified postsurgical nonabsorption 09/05/2011 02/04/2017 Dietary surveillance and counseling 05/23/2011 06/14/2014 Morbid obesity 05/23/2011 01/06/2014 Abdominal pain, periumbilic 01/22/2011 05/0 04/2017 Esophagitis, unspecified 01/22/2011 017 Acute gastritis without mention of hemorrhage 01/06/2014 Exostosis of unspecified site 12/25/2010 Pain in limb 12/25/2010 01/06/2014 Bronchitis, acute 07/26/2009 06/14/2014 Overview: [facility] ED admission 07/13/09 through 07/16/09 with dehydration, uncontrolled BS. IV zithromax 500mg daily, finished Rocephin and switched to Ceftin 500mg bid. Started proventil inhaler/spacer Diarrhea 05/09/2009 03/23/2021 Hypocalcemia 02/28/2009 02/04/2017 Screening for unspecified condition 02/13/2008 06/14/2014 Sprain of lumbar region 10/10/2007 01/07/20 14 Anemia, unspecified 06/19/2007 02/04/2017 Other malaise and fatigue 01/29/20072008 Cramp of limb 01/29/2007 07/26/2009 documented as of this encounter (statuses as of 10/15/2022) [facility] History of Past illness Narrative* Problem Noted Date Resolved Date Postoperative anemia due to acute blood loss 07/23/2022 Last Assessment & Plan: Assessment: Postoperative anemia PLAN: -Continue iron supplementation following discharge EARL (acute kidney injury) 06/27/20202019 Last Assessment & Plan: Assessment: EARL PLAN: -Improving -Monitor daily labs -IVF stopped today BMI 36.0-36.9,adult 02/04/2017 09/18/2021 Last Assessment & Plan: She is hungry all the time and is struggling with her weight. S/P bariatric surgery in 2009. She has gained. Diabetes is worse. She wanted to consider weight loss medication. She may not be eligible to take based on her complex medication regime Assessment: Worsening PLAN: Investigate whether Victoza can be tried, will get back with her. KYLEIGH (obstructive sleep apnea) 08/09/2016 Last Assessment & Plan: -does not use CPAP Contusion of rib on right side 04/12/2016 0 02/04/2017 Metabolic syndrome 11/18/2014 09/18/2021 KYLEIGH (obstructive sleep apnea) 07/20/2014 Overview: PSG 2013 Supine AHI 5.8 Bile reflux esophagitis 06/19/2013 02/05/20 17 Gastritis 03/28/2012 02/04/2017 Stress 03/28/2012 06/14/2014 Other and unspecified postsurgical nonabsorption 09/05/2011 02/04/2017 Dietary surveillance and counseling 05/23/2011 06/14/2014 Morbid obesity 05/23/2011 01/06/2014 Abdominal pain, periumbilic 01/22/2011 05/04/2017 Esophagitis, unspecified 01/22/2011 017 Acute gastritis without mention of hemorrhage 01/06/2014 Exostosis of unspecified site 12/25/2010 Pain in limb 12/25/2010 01/06/2014 Bronchitis, acute 07/26/2009 06/14/2014 Overview: [facility] ED admission 07/13/09 through 07/16/09 with dehydration, uncontrolled BS. IV zithromax 500mg daily, finished Rocephin and switched to Ceftin 500mg bid. Started proventil inhaler/spacer Diarrhea 05/09/2009 03/23/2021 Hypocalcemia 02/28/2009 02/04/2017 Screening for unspecified condition 02/13/2008 06/14/2014 Sprain of lumbar region 10/10/2007 01/07/20 14 Anemia, unspecified 06/19/2007 02/04/2017 Other malaise and fatigue 01/29/20072008 Cramp of limb 01/29/2007 07/26/2009 documented as of this encounter (statuses as of 10/17/2022) [facility] History of Past illness Narrative* Problem Noted Date Resolved Date Postoperative anemia due to acute blood loss 07/23/2022 Last Assessment & Plan: Assessment: Postoperative anemia PLAN: -Continue iron supplementation following discharge EARL (acute kidney injury) 06/27/20202019 Last Assessment & Plan: Assessment: EARL PLAN: -Improving -Monitor daily labs -IVF stopped today BMI 36.0-36.9,adult 02/04/2017 09/18/2021 Last Assessment & Plan: She is hungry all the time and is struggling with her weight. S/P bariatric surgery in 2009. She has gained. Diabetes is worse. She wanted to consider weight loss medication. She may not be eligible to take based on her complex medication regime Assessment: Worsening PLAN: Investigate whether Victoza can be tried, will get back with her. KYLEIGH (obstructive sleep apnea) 08/09/2016 Last Assessment & Plan: -does not use CPAP Contusion of rib on right side 04/12/2016 0 02/04/2017 Metabolic syndrome 11/18/2014 09/18/2021 KYLEIGH (obstructive sleep apnea) 07/20/2014 Overview: PSG 2013 Supine AHI 5.8 Bile reflux esophagitis 06/19/2013 02/05/20 17 Gastritis 03/28/2012 02/04/2017 Stress 03/28/2012 06/14/2014 Other and unspecified postsurgical nonabsorption 09/05/2011 02/04/2017 Dietary surveillance and counseling 05/23/2011 06/14/2014 Morbid obesity 05/23/2011 01/06/2014 Abdominal pain, periumbilic 01/22/2011 05/0 04/2017 Esophagitis, unspecified 01/22/2011 017 Acute gastritis without mention of hemorrhage 01/06/2014 Exostosis of unspecified site 12/25/2010 Pain in limb 12/25/2010 01/06/2014 Bronchitis, acute 07/26/2009 06/14/2014 Overview: [facility] ED admission 07/13/09 through 07/16/09 with dehydration, uncontrolled BS. IV zithromax 500mg daily, finished Rocephin and switched to Ceftin 500mg bid. Started proventil inhaler/spacer Diarrhea 05/09/2009 03/23/2021 Hypocalcemia 02/28/2009 02/04/2017 Screening for unspecified condition 02/13/2008 06/14/2014 Sprain of lumbar region 10/10/2007 01/07/20 14 Anemia, unspecified 06/19/2007 02/04/2017 Other malaise and fatigue 01/29/20072008 Cramp of limb 01/29/2007 07/26/2009 documented as of this encounter (statuses as of 11/01/2022) [facility] History of Past illness Narrative* Problem Noted Date Resolved Date Postoperative anemia due to acute blood loss 07/23/2022 Last Assessment & Plan: Assessment: Postoperative anemia PLAN: -Continue iron supplementation following discharge EARL (acute kidney injury) 06/27/20202019 Last Assessment & Plan: Assessment: EARL PLAN: -Improving -Monitor daily labs -IVF stopped today BMI 36.0-36.9,adult 02/04/2017 09/18/2021 Last Assessment & Plan: She is hungry all the time and is struggling with her weight. S/P bariatric surgery in 2009. She has gained. Diabetes is worse. She wanted to consider weight loss medication. She may not be eligible to take based on her complex medication regime Assessment: Worsening PLAN: Investigate whether Victoza can be tried, will get back with her. KYLEIGH (obstructive sleep apnea) 08/09/2016 Last Assessment & Plan: -does not use CPAP Contusion of rib on right side 04/12/2016 0 02/04/2017 Metabolic syndrome 11/18/2014 09/18/2021 KYLEIGH (obstructive sleep apnea) 07/20/2014 Overview: PSG 2013 Supine AHI 5.8 Bile reflux esophagitis 06/19/2013 02/05/20 17 Gastritis 03/28/2012 02/04/2017 Stress 03/28/2012 06/14/2014 Other and unspecified postsurgical nonabsorption 09/05/2011 02/04/2017 Dietary surveillance and counseling 05/23/2011 06/14/2014 Morbid obesity 05/23/2011 01/06/2014 Abdominal pain, periumbilic 01/22/2011 05/0 04/2017 Esophagitis, unspecified 01/22/2011 017 Acute gastritis without mention of hemorrhage 01/06/2014 Exostosis of unspecified site 12/25/2010 Pain in limb 12/25/2010 01/06/2014 Bronchitis, acute 07/26/2009 06/14/2014 Overview: [facility] ED admission 07/13/09 through 07/16/09 with dehydration, uncontrolled BS. IV zithromax 500mg daily, finished Rocephin and switched to Ceftin 500mg bid. Started proventil inhaler/spacer Diarrhea 05/09/2009 03/23/2021 Hypocalcemia 02/28/2009 02/04/2017 Screening for unspecified condition 02/13/2008 06/14/2014 Sprain of lumbar region 10/10/2007 01/07/20 14 Anemia, unspecified 06/19/2007 02/04/2017 Other malaise and fatigue 01/29/20072008 Cramp of limb 01/29/2007 07/26/2009 documented as of this encounter (statuses as of 11/12/2022) [facility] History of Past illness Narrative* Problem Noted Date Resolved Date Postoperative anemia due to acute blood loss 07/23/2022 Last Assessment & Plan: Assessment: Postoperative anemia PLAN: -Continue iron supplementation following discharge EARL (acute kidney injury) 06/27/20202019 Last Assessment & Plan: Assessment: EARL PLAN: -Improving -Monitor daily labs -IVF stopped today BMI 36.0-36.9,adult 02/04/2017 09/18/2021 Last Assessment & Plan: She is hungry all the time and is struggling with her weight. S/P bariatric surgery in 2009. She has gained. Diabetes is worse. She wanted to consider weight loss medication. She may not be eligible to take based on her complex medication regime Assessment: Worsening PLAN: Investigate whether Victoza can be tried, will get back with her. KYLEIGH (obstructive sleep apnea) 08/09/2016 Last Assessment & Plan: -does not use CPAP Contusion of rib on right side 04/12/2016 0 02/04/2017 Metabolic syndrome 11/18/2014 09/18/2021 KYLEIGH (obstructive sleep apnea) 07/20/2014 Overview: PSG 2013 Supine AHI 5.8 Bile reflux esophagitis 06/19/2013 02/05/20 17 Gastritis 03/28/2012 02/04/2017 Stress 03/28/2012 06/14/2014 Other and unspecified postsurgical nonabsorption 09/05/2011 02/04/2017 Dietary surveillance and counseling 05/23/2011 06/14/2014 Morbid obesity 05/23/2011 01/06/2014 Abdominal pain, periumbilic 01/22/2011 05/04/2017 Esophagitis, unspecified 01/22/2011 017 Acute gastritis without mention of hemorrhage 01/06/2014 Exostosis of unspecified site 12/25/2010 Pain in limb 12/25/2010 01/06/2014 Bronchitis, acute 07/26/2009 06/14/2014 Overview: [facility] ED admission 07/13/09 through 07/16/09 with dehydration, uncontrolled BS. IV zithromax 500mg daily, finished Rocephin and switched to Ceftin 500mg bid. Started proventil inhaler/spacer Diarrhea 05/09/2009 03/23/2021 Hypocalcemia 02/28/2009 02/04/2017 Screening for unspecified condition 02/13/2008 06/14/2014 Sprain of lumbar region 10/10/2007 01/07/20 14 Anemia, unspecified 06/19/2007 02/04/2017 Other malaise and fatigue 01/29/20072008 Cramp of limb 01/29/2007 07/26/2009 documented as of this encounter (statuses as of 11/16/2022) [facility] History of Past illness Narrative* Problem Noted Date Resolved Date Postoperative anemia due to acute blood loss 07/23/2022 Last Assessment & Plan: Assessment: Postoperative anemia PLAN: -Continue iron supplementation following discharge EARL (acute kidney injury) 06/27/20202019 Last Assessment & Plan: Assessment: EARL PLAN: -Improving -Monitor daily labs -IVF stopped today BMI 36.0-36.9,adult 02/04/2017 09/18/2021 Last Assessment & Plan: She is hungry all the time and is struggling with her weight. S/P bariatric surgery in 2009. She has gained. Diabetes is worse. She wanted to consider weight loss medication. She may not be eligible to take based on her complex medication regime Assessment: Worsening PLAN: Investigate whether Victoza can be tried, will get back with her. KYLEIGH (obstructive sleep apnea) 08/09/2016 Last Assessment & Plan: -does not use CPAP Contusion of rib on right side 04/12/2016 0 02/04/2017 Metabolic syndrome 11/18/2014 09/18/2021 KYLEGIH (obstructive sleep apnea) 07/20/2014 Overview: PSG 2013 Supine AHI 5.8 Bile reflux esophagitis 06/19/2013 02/05/20 17 Gastritis 03/28/2012 02/04/2017 Stress 03/28/2012 06/14/2014 Other and unspecified postsurgical nonabsorption 09/05/2011 02/04/2017 Dietary surveillance and counseling 05/23/2011 06/14/2014 Morbid obesity 05/23/2011 01/06/2014 Abdominal pain, periumbilic 01/22/2011 05/0 04/2017 Esophagitis, unspecified 01/22/2011 017 Acute gastritis without mention of hemorrhage 01/06/2014 Exostosis of unspecified site 12/25/2010 Pain in limb 12/25/2010 01/06/2014 Bronchitis, acute 07/26/2009 06/14/2014 Overview: [facility] ED admission 07/13/09 through 07/16/09 with dehydration, uncontrolled BS. IV zithromax 500mg daily, finished Rocephin and switched to Ceftin 500mg bid. Started proventil inhaler/spacer Diarrhea 05/09/2009 03/23/2021 Hypocalcemia 02/28/2009 02/04/2017 Screening for unspecified condition 02/13/2008 06/14/2014 Sprain of lumbar region 10/10/2007 01/07/20 14 Anemia, unspecified 06/19/2007 02/04/2017 Other malaise and fatigue 01/29/20072008 Cramp of limb 01/29/2007 07/26/2009 documented as of this encounter (statuses as of 11/20/2022) [facility] History of Past illness Narrative* Problem Noted Date Resolved Date Postoperative anemia due to acute blood loss 07/23/2022 Last Assessment & Plan: Assessment: Postoperative anemia PLAN: -Continue iron supplementation following discharge EARL (acute kidney injury) 06/27/20202019 Last Assessment & Plan: Assessment: EARL PLAN: -Improving -Monitor daily labs -IVF stopped today BMI 36.0-36.9,adult 02/04/2017 09/18/2021 Last Assessment & Plan: She is hungry all the time and is struggling with her weight. S/P bariatric surgery in 2009. She has gained. Diabetes is worse. She wanted to consider weight loss medication. She may not be eligible to take based on her complex medication regime Assessment: Worsening PLAN: Investigate whether Victoza can be tried, will get back with her. KYLEIGH (obstructive sleep apnea) 08/09/2016 Last Assessment & Plan: -does not use CPAP Contusion of rib on right side 04/12/2016 0 02/04/2017 Metabolic syndrome 11/18/2014 09/18/2021 KYLEIGH (obstructive sleep apnea) 07/20/2014 Overview: PSG 2013 Supine AHI 5.8 Bile reflux esophagitis 06/19/2013 02/05/20 17 Gastritis 03/28/2012 02/04/2017 Stress 03/28/2012 06/14/2014 Other and unspecified postsurgical nonabsorption 09/05/2011 02/04/2017 Dietary surveillance and counseling 05/23/2011 06/14/2014 Morbid obesity 05/23/2011 01/06/2014 Abdominal pain, periumbilic 01/22/2011 05/0 04/2017 Esophagitis, unspecified 01/22/2011 017 Acute gastritis without mention of hemorrhage 01/06/2014 Exostosis of unspecified site 12/25/2010 Pain in limb 12/25/2010 01/06/2014 Bronchitis, acute 07/26/2009 06/14/2014 Overview: [facility] ED admission 07/13/09 through 07/16/09 with dehydration, uncontrolled BS. IV zithromax 500mg daily, finished Rocephin and switched to Ceftin 500mg bid. Started proventil inhaler/spacer Diarrhea 05/09/2009 03/23/2021 Hypocalcemia 02/28/2009 02/04/2017 Screening for unspecified condition 02/13/2008 06/14/2014 Sprain of lumbar region 10/10/2007 01/07/20 14 Anemia, unspecified 06/19/2007 02/04/2017 Other malaise and fatigue 01/29/20072008 Cramp of limb 01/29/2007 07/26/2009 documented as of this encounter (statuses as of 12/07/2022) [facility] History of Past illness Narrative* Problem Noted Date Resolved Date Postoperative anemia due to acute blood loss 07/23/2022 Last Assessment & Plan: Assessment: Postoperative anemia PLAN: -Continue iron supplementation following discharge EARL (acute kidney injury) 06/27/20202019 Last Assessment & Plan: Assessment: EARL PLAN: -Improving -Monitor daily labs -IVF stopped today BMI 36.0-36.9,adult 02/04/2017 09/18/2021 Last Assessment & Plan: She is hungry all the time and is struggling with her weight. S/P bariatric surgery in 2009. She has gained. Diabetes is worse. She wanted to consider weight loss medication. She may not be eligible to take based on her complex medication regime Assessment: Worsening PLAN: Investigate whether Victoza can be tried, will get back with her. KYLEIGH (obstructive sleep apnea) 08/09/2016 Last Assessment & Plan: -does not use CPAP Contusion of rib on right side 04/12/2016 0 02/04/2017 Metabolic syndrome 11/18/2014 09/18/2021 KYLEIGH (obstructive sleep apnea) 07/20/2014 Overview: PSG 2013 Supine AHI 5.8 Bile reflux esophagitis 06/19/2013 02/05/20 17 Gastritis 03/28/2012 02/04/2017 Stress 03/28/2012 06/14/2014 Other and unspecified postsurgical nonabsorption 09/05/2011 02/04/2017 Dietary surveillance and counseling 05/23/2011 06/14/2014 Morbid obesity 05/23/2011 01/06/2014 Abdominal pain, periumbilic 01/22/2011 05/0 04/2017 Esophagitis, unspecified 01/22/2011 017 Acute gastritis without mention of hemorrhage 01/06/2014 Exostosis of unspecified site 12/25/2010 Pain in limb 12/25/2010 01/06/2014 Bronchitis, acute 07/26/2009 06/14/2014 Overview: [facility] ED admission 07/13/09 through 07/16/09 with dehydration, uncontrolled BS. IV zithromax 500mg daily, finished Rocephin and switched to Ceftin 500mg bid. Started proventil inhaler/spacer Diarrhea 05/09/2009 03/23/2021 Hypocalcemia 02/28/2009 02/04/2017 Screening for unspecified condition 02/13/2008 06/14/2014 Sprain of lumbar region 10/10/2007 01/07/20 14 Anemia, unspecified 06/19/2007 02/04/2017 Other malaise and fatigue 01/29/20072008 Cramp of limb 01/29/2007 07/26/2009 documented as of this encounter (statuses as of 12/08/2022) [facility] History of Past illness Narrative* Problem Noted Date Resolved Date Postoperative anemia due to acute blood loss 07/23/2022 Last Assessment & Plan: Assessment: Postoperative anemia PLAN: -Continue iron supplementation following discharge EARL (acute kidney injury) 06/27/20202019 Last Assessment & Plan: Assessment: EARL PLAN: -Improving -Monitor daily labs -IVF stopped today BMI 36.0-36.9,adult 02/04/2017 09/18/2021 Last Assessment & Plan: She is hungry all the time and is struggling with her weight. S/P bariatric surgery in 2009. She has gained. Diabetes is worse. She wanted to consider weight loss medication. She may not be eligible to take based on her complex medication regime Assessment: Worsening PLAN: Investigate whether Victoza can be tried, will get back with her. KYLEIGH (obstructive sleep apnea) 08/09/2016 Last Assessment & Plan: -does not use CPAP Contusion of rib on right side 04/12/2016 0 02/04/2017 Metabolic syndrome 11/18/2014 09/18/2021 KYLEIGH (obstructive sleep apnea) 07/20/2014 Overview: PSG 2013 Supine AHI 5.8 Bile reflux esophagitis 06/19/2013 02/05/20 17 Gastritis 03/28/2012 02/04/2017 Stress 03/28/2012 06/14/2014 Other and unspecified postsurgical nonabsorption 09/05/2011 02/04/2017 Dietary surveillance and counseling 05/23/2011 06/14/2014 Morbid obesity 05/23/2011 01/06/2014 Abdominal pain, periumbilic 01/22/2011 05/0 04/2017 Esophagitis, unspecified 01/22/2011 017 Acute gastritis without mention of hemorrhage 01/06/2014 Exostosis of unspecified site 12/25/2010 Pain in limb 12/25/2010 01/06/2014 Bronchitis, acute 07/26/2009 06/14/2014 Overview: [facility] ED admission 07/13/09 through 07/16/09 with dehydration, uncontrolled BS. IV zithromax 500mg daily, finished Rocephin and switched to Ceftin 500mg bid. Started proventil inhaler/spacer Diarrhea 05/09/2009 03/23/2021 Hypocalcemia 02/28/2009 02/04/2017 Screening for unspecified condition 02/13/2008 06/14/2014 Sprain of lumbar region 10/10/2007 01/07/20 14 Anemia, unspecified 06/19/2007 02/04/2017 Other malaise and fatigue 01/29/20072008 Cramp of limb 01/29/2007 07/26/2009 documented as of this encounter (statuses as of 12/10/2022) [facility] History of Past illness Narrative* Problem Noted Date Resolved Date Postoperative anemia due to acute blood loss 07/23/2022 Last Assessment & Plan: Assessment: Postoperative anemia PLAN: -Continue iron supplementation following discharge EARL (acute kidney injury) 06/27/20202019 Last Assessment & Plan: Assessment: EARL PLAN: -Improving -Monitor daily labs -IVF stopped today BMI 36.0-36.9,adult 02/04/2017 09/18/2021 Last Assessment & Plan: She is hungry all the time and is struggling with her weight. S/P bariatric surgery in 2009. She has gained. Diabetes is worse. She wanted to consider weight loss medication. She may not be eligible to take based on her complex medication regime Assessment: Worsening PLAN: Investigate whether Victoza can be tried, will get back with her. KYLEIGH (obstructive sleep apnea) 08/09/2016 Last Assessment & Plan: -does not use CPAP Contusion of rib on right side 04/12/2016 0 02/04/2017 Metabolic syndrome 11/18/2014 09/18/2021 KYLEIGH (obstructive sleep apnea) 07/20/2014 Overview: PSG 2013 Supine AHI 5.8 Bile reflux esophagitis 06/19/2013 02/05/20 17 Gastritis 03/28/2012 02/04/2017 Stress 03/28/2012 06/14/2014 Other and unspecified postsurgical nonabsorption 09/05/2011 02/04/2017 Dietary surveillance and counseling 05/23/2011 06/14/2014 Morbid obesity 05/23/2011 01/06/2014 Abdominal pain, periumbilic 01/22/2011 05/0 04/2017 Esophagitis, unspecified 01/22/2011 017 Acute gastritis without mention of hemorrhage 01/06/2014 Exostosis of unspecified site 12/25/2010 Pain in limb 12/25/2010 01/06/2014 Bronchitis, acute 07/26/2009 06/14/2014 Overview: [facility] ED admission 07/13/09 through 07/16/09 with dehydration, uncontrolled BS. IV zithromax 500mg daily, finished Rocephin and switched to Ceftin 500mg bid. Started proventil inhaler/spacer Diarrhea 05/09/2009 03/23/2021 Hypocalcemia 02/28/2009 02/04/2017 Screening for unspecified condition 02/13/2008 06/14/2014 Sprain of lumbar region 10/10/2007 01/07/20 14 Anemia, unspecified 06/19/2007 02/04/2017 Other malaise and fatigue 01/29/20072008 Cramp of limb 01/29/2007 07/26/2009 documented as of this encounter (statuses as of 12/10/2022) [facility]09-[facility]2020 History of Past illness Narrative* Problem Noted Date Resolved Date Postoperative anemia due to acute blood loss 07/23/2022 Last Assessment & Plan: Assessment: Postoperative anemia PLAN: -Continue iron supplementation following discharge EARL (acute kidney injury) 06/27/20202019 Last Assessment & Plan: Assessment: EARL PLAN: -Improving -Monitor daily labs -IVF stopped today BMI 36.0-36.9,adult 02/04/2017 09/18/2021 Last Assessment & Plan: She is hungry all the time and is struggling with her weight. S/P bariatric surgery in 2009. She has gained. Diabetes is worse. She wanted to consider weight loss medication. She may not be eligible to take based on her complex medication regime Assessment: Worsening PLAN: Investigate whether Victoza can be tried, will get back with her. KYLEIGH (obstructive sleep apnea) 08/09/2016 Last Assessment & Plan: -does not use CPAP Contusion of rib on right side 04/12/2016 0 02/04/2017 Metabolic syndrome 11/18/2014 09/18/2021 KYLEIGH (obstructive sleep apnea) 07/20/2014 Overview: PSG 2013 Supine AHI 5.8 Bile reflux esophagitis 06/19/2013 02/05/20 17 Gastritis 03/28/2012 02/04/2017 Stress 03/28/2012 06/14/2014 Other and unspecified postsurgical nonabsorption 09/05/2011 02/04/2017 Dietary surveillance and counseling 05/23/2011 06/14/2014 Morbid obesity 05/23/2011 01/06/2014 Abdominal pain, periumbilic 01/22/2011 0504/2017 Esophagitis, unspecified 01/22/2011 017 Acute gastritis without mention of hemorrhage 01/06/2014 Exostosis of unspecified site 12/25/2010 Pain in limb 12/25/2010 01/06/2014 Bronchitis, acute 07/26/2009 06/14/2014 Overview: [facility] ED admission 07/13/09 through 07/16/09 with dehydration, uncontrolled BS. IV zithromax 500mg daily, finished Rocephin and switched to Ceftin 500mg bid. Started proventil inhaler/spacer Diarrhea 05/09/2009 03/23/2021 Hypocalcemia 02/28/2009 02/04/2017 Screening for unspecified condition 02/13/2008 06/14/2014 Sprain of lumbar region 10/10/2007 01/07/20 14 Anemia, unspecified 06/19/2007 02/04/2017 Other malaise and fatigue 01/29/20072008 Cramp of limb 01/29/2007 07/26/2009 documented as of this encounter (statuses as of 01/23/2023) [facility] History of Past illness Narrative* Problem Noted Date Resolved Date Postoperative anemia due to acute blood loss 07/23/2022 Last Assessment & Plan: Assessment: Postoperative anemia PLAN: -Continue iron supplementation following discharge EARL (acute kidney injury) 06/27/20202019 Last Assessment & Plan: Assessment: EARL PLAN: -Improving -Monitor daily labs -IVF stopped today BMI 36.0-36.9,adult 02/04/2017 09/18/2021 Last Assessment & Plan: She is hungry all the time and is struggling with her weight. S/P bariatric surgery in 2009. She has gained. Diabetes is worse. She wanted to consider weight loss medication. She may not be eligible to take based on her complex medication regime Assessment: Worsening PLAN: Investigate whether Victoza can be tried, will get back with her. KYLEIGH (obstructive sleep apnea) 08/09/2016 Last Assessment & Plan: -does not use CPAP Contusion of rib on right side 04/12/2016 0 02/04/2017 Metabolic syndrome 11/18/2014 09/18/2021 KYLEIGH (obstructive sleep apnea) 07/20/2014 Overview: PSG 2013 Supine AHI 5.8 Bile reflux esophagitis 06/19/2013 02/05/20 17 Gastritis 03/28/2012 02/04/2017 Stress 03/28/2012 06/14/2014 Other and unspecified postsurgical nonabsorption 09/05/2011 02/04/2017 Dietary surveillance and counseling 05/23/2011 06/14/2014 Morbid obesity 05/23/2011 01/06/2014 Abdominal pain, periumbilic 01/22/2011 05/0 04/2017 Esophagitis, unspecified 01/22/2011 017 Acute gastritis without mention of hemorrhage 01/06/2014 Exostosis of unspecified site 12/25/2010 Pain in limb 12/25/2010 01/06/2014 Bronchitis, acute 07/26/2009 06/14/2014 Overview: [facility] ED admission 07/13/09 through 07/16/09 with dehydration, uncontrolled BS. IV zithromax 500mg daily, finished Rocephin and switched to Ceftin 500mg bid. Started proventil inhaler/spacer Diarrhea 05/09/2009 03/23/2021 Hypocalcemia 02/28/2009 02/04/2017 Screening for unspecified condition 02/13/2008 06/14/2014 Sprain of lumbar region 10/10/2007 01/07/20 14 Anemia, unspecified 06/19/2007 02/04/2017 Other malaise and fatigue 01/29/20072008 Cramp of limb 01/29/2007 07/26/2009 documented as of this encounter (statuses as of 01/23/2023) [facility] History of Past illness Narrative* Problem Noted Date Resolved Date Postoperative anemia due to acute blood loss 07/23/2022 Last Assessment & Plan: Assessment: Postoperative anemia PLAN: -Continue iron supplementation following discharge EARL (acute kidney injury) 06/27/20202019 Last Assessment & Plan: Assessment: EARL PLAN: -Improving -Monitor daily labs -IVF stopped today BMI 36.0-36.9,adult 02/04/2017 09/18/2021 Last Assessment & Plan: She is hungry all the time and is struggling with her weight. S/P bariatric surgery in 2009. She has gained. Diabetes is worse. She wanted to consider weight loss medication. She may not be eligible to take based on her complex medication regime Assessment: Worsening PLAN: Investigate whether Victoza can be tried, will get back with her. KYLEIGH (obstructive sleep apnea) 08/09/2016 Last Assessment & Plan: -does not use CPAP Contusion of rib on right side 04/12/2016 0 02/04/2017 Metabolic syndrome 11/18/2014 09/18/2021 KYLEIGH (obstructive sleep apnea) 07/20/2014 Overview: PSG 2013 Supine AHI 5.8 Bile reflux esophagitis 06/19/2013 02/05/20 17 Gastritis 03/28/2012 02/04/2017 Stress 03/28/2012 06/14/2014 Other and unspecified postsurgical nonabsorption 09/05/2011 02/04/2017 Dietary surveillance and counseling 05/23/2011 06/14/2014 Morbid obesity 05/23/2011 01/06/2014 Abdominal pain, periumbilic 01/22/2011 05/0 04/2017 Esophagitis, unspecified 01/22/2011 017 Acute gastritis without mention of hemorrhage 01/06/2014 Exostosis of unspecified site 12/25/2010 Pain in limb 12/25/2010 01/06/2014 Bronchitis, acute 07/26/2009 06/14/2014 Overview: [facility] ED admission 07/13/09 through 07/16/09 with dehydration, uncontrolled BS. IV zithromax 500mg daily, finished Rocephin and switched to Ceftin 500mg bid. Started proventil inhaler/spacer Diarrhea 05/09/2009 03/23/2021 Hypocalcemia 02/28/2009 02/04/2017 Screening for unspecified condition 02/13/2008 06/14/2014 Sprain of lumbar region 10/10/2007 01/07/20 14 Anemia, unspecified 06/19/2007 02/04/2017 Other malaise and fatigue 01/29/20072008 Cramp of limb 01/29/2007 07/26/2009 documented as of this encounter (statuses as of 02/01/2023) [facility] History of Past illness Narrative* Problem Noted Date Resolved Date Postoperative anemia due to acute blood loss 07/23/2022 Last Assessment & Plan: Assessment: Postoperative anemia PLAN: -Continue iron supplementation following discharge EARL (acute kidney injury) 06/27/20202019 Last Assessment & Plan: Assessment: EARL PLAN: -Improving -Monitor daily labs -IVF stopped today BMI 36.0-36.9,adult 02/04/2017 09/18/2021 Last Assessment & Plan: She is hungry all the time and is struggling with her weight. S/P bariatric surgery in 2009. She has gained. Diabetes is worse. She wanted to consider weight loss medication. She may not be eligible to take based on her complex medication regime Assessment: Worsening PLAN: Investigate whether Victoza can be tried, will get back with her. KYLEIGH (obstructive sleep apnea) 08/09/2016 Last Assessment & Plan: -does not use CPAP Contusion of rib on right side 04/12/2016 0 02/04/2017 Metabolic syndrome 11/18/2014 09/18/2021 KYLEIGH (obstructive sleep apnea) 07/20/2014 Overview: PSG 2013 Supine AHI 5.8 Bile reflux esophagitis 06/19/2013 02/05/20 17 Gastritis 03/28/2012 02/04/2017 Stress 03/28/2012 06/14/2014 Other and unspecified postsurgical nonabsorption 09/05/2011 02/04/2017 Dietary surveillance and counseling 05/23/2011 06/14/2014 Morbid obesity 05/23/2011 01/06/2014 Abdominal pain, periumbilic 01/22/2011 0504/2017 Esophagitis, unspecified 01/22/2011 017 Acute gastritis without mention of hemorrhage 01/06/2014 Exostosis of unspecified site 12/25/2010 Pain in limb 12/25/2010 01/06/2014 Bronchitis, acute 07/26/2009 06/14/2014 Overview: [facility] ED admission 07/13/09 through 07/16/09 with dehydration, uncontrolled BS. IV zithromax 500mg daily, finished Rocephin and switched to Ceftin 500mg bid. Started proventil inhaler/spacer Diarrhea 05/09/2009 03/23/2021 Hypocalcemia 02/28/2009 02/04/2017 Screening for unspecified condition 02/13/2008 06/14/2014 Sprain of lumbar region 10/10/2007 01/07/20 14 Anemia, unspecified 06/19/2007 02/04/2017 Other malaise and fatigue 01/29/20072008 Cramp of limb 01/29/2007 07/26/2009 documented as of this encounter (statuses as of 02/01/2023) [facility] History of Past illness Narrative* Problem Noted Date Resolved Date Postoperative anemia due to acute blood loss 07/23/2022 Last Assessment & Plan: Assessment: Postoperative anemia PLAN: -Continue iron supplementation following discharge EARL (acute kidney injury) 06/27/20202019 Last Assessment & Plan: Assessment: EARL PLAN: -Improving -Monitor daily labs -IVF stopped today BMI 36.0-36.9,adult 02/04/2017 09/18/2021 Last Assessment & Plan: She is hungry all the time and is struggling with her weight. S/P bariatric surgery in 2009. She has gained. Diabetes is worse. She wanted to consider weight loss medication. She may not be eligible to take based on her complex medication regime Assessment: Worsening PLAN: Investigate whether Victoza can be tried, will get back with her. KYLEIGH (obstructive sleep apnea) 08/09/2016 Last Assessment & Plan: -does not use CPAP Contusion of rib on right side 04/12/2016 0 02/04/2017 Metabolic syndrome 11/18/2014 09/18/2021 KYLEIGH (obstructive sleep apnea) 07/20/2014 Overview: PSG 2014 Supine AHI 5.8 Bile reflux esophagitis 06/19/2013 02/05/20 17 Gastritis 03/28/2012 02/04/2017 Stress 03/28/2012 06/14/2014 Other and unspecified postsurgical nonabsorption 09/05/2011 02/04/2017 Dietary surveillance and counseling 05/23/2011 06/14/2014 Morbid obesity 05/23/2011 01/06/2014 Abdominal pain, periumbilic 01/22/2011 0504/2017 Esophagitis, unspecified 01/22/2011 017 Acute gastritis without mention of hemorrhage 01/06/2014 Exostosis of unspecified site 12/25/2010 Pain in limb 12/25/2010 01/06/2014 Bronchitis, acute 07/26/2009 06/14/2014 Overview: [facility] ED admission 07/13/09 through 07/16/09 with dehydration, uncontrolled BS. IV zithromax 500mg daily, finished Rocephin and switched to Ceftin 500mg bid. Started proventil inhaler/spacer Diarrhea 05/09/2009 03/23/2021 Hypocalcemia 02/28/2009 02/04/2017 Screening for unspecified condition 02/13/2008 06/14/2014 Sprain of lumbar region 10/10/2007 01/07/20 14 Anemia, unspecified 06/19/2007 02/04/2017 Other malaise and fatigue 01/29/20072008 Cramp of limb 01/29/2007 07/26/2009 documented as of this encounter (statuses as of 02/04/2023) [facility] History of Past illness Narrative* Problem Noted Date Resolved Date Postoperative anemia due to acute blood loss 07/23/2022 Last Assessment & Plan: Assessment: Postoperative anemia PLAN: -Continue iron supplementation following discharge EARL (acute kidney injury) 06/27/20202019 Last Assessment & Plan: Assessment: EARL PLAN: -Improving -Monitor daily labs -IVF stopped today BMI 36.0-36.9,adult 02/04/2017 09/18/2021 Last Assessment & Plan: She is hungry all the time and is struggling with her weight. S/P bariatric surgery in 2009. She has gained. Diabetes is worse. She wanted to consider weight loss medication. She may not be eligible to take based on her complex medication regime Assessment: Worsening PLAN: Investigate whether Victoza can be tried, will get back with her. KYLEIGH (obstructive sleep apnea) 08/09/2016 Last Assessment & Plan: -does not use CPAP Contusion of rib on right side 04/12/2016 0 02/04/2017 Metabolic syndrome 11/18/2014 09/18/2021 KYLEIGH (obstructive sleep apnea) 07/20/2014 Overview: PSG 2013 Supine AHI 5.8 Bile reflux esophagitis 06/19/2013 02/05/20 17 Gastritis 03/28/2012 02/04/2017 Stress 03/28/2012 06/14/2014 Other and unspecified postsurgical nonabsorption 09/05/2011 02/04/2017 Dietary surveillance and counseling 05/23/2011 06/14/2014 Morbid obesity 05/23/2011 01/06/2014 Abdominal pain, periumbilic 01/22/2011 05/04/2017 Esophagitis, unspecified 01/22/2011 017 Acute gastritis without mention of hemorrhage 01/06/2014 Exostosis of unspecified site 12/25/2010 Pain in limb 12/25/2010 01/06/2014 Bronchitis, acute 07/26/2009 06/14/2014 Overview: [facility] ED admission 07/13/09 through 07/16/09 with dehydration, uncontrolled BS. IV zithromax 500mg daily, finished Rocephin and switched to Ceftin 500mg bid. Started proventil inhaler/spacer Diarrhea 05/09/2009 03/23/2021 Hypocalcemia 02/28/2009 02/04/2017 Screening for unspecified condition 02/13/2008 06/14/2014 Sprain of lumbar region 10/10/2007 01/07/20 14 Anemia, unspecified 06/19/2007 02/04/2017 Other malaise and fatigue 01/29/20072008 Cramp of limb 01/29/2007 07/26/2009 documented as of this encounter (statuses as of 03/15/2023) [facility] History of Past illness Narrative* Problem Noted Date Diagnosed Date Resolved Date Postoperative anemia due to acute blood loss 0 07/23/2022 Last Assessment & Plan: Assessment: Postoperative anemia PLAN: -Continue iron supplementation following discharge EARL (acute kidney injury) 06/27/2020 Last Assessment & Plan: Assessment: EARL PLAN: -Improving -Monitor daily labs -IVF stopped today BMI 36.0-36.9,adult 02/04/2017 09/18/20 21 Last Assessment & Plan: She is hungry all the time and is struggling with her weight. S/P bariatric surgery in 2009. She has gained. Diabetes is worse. She wanted to consider weight loss medication. She may not be eligible to take based on her complex medication regime Assessment: Worsening PLAN: Investigate whether Victoza can be tried, will get back with her. KYLEIGH (obstructive sleep apnea) 08/09/2016 09/18/2021 Last Assessment & Plan: -does not use CPAP Contusion of rib on right side 04/12/2016 02/04/2017 Metabolic syndrome 11/18/2014 1 KYLEIGH (obstructive sleep apnea) 07/20/2014 08/07/2016 Overview: PSG 2013 Supine AHI 5.8 Bile reflux esophagitis 06/19/2013 05/0 04/2017 Gastritis 03/28/2012 02/04/2017 Stress 03/28/2012 06/14/2014 Other and unspecified postsu rgical nonabsorption 09/05/2011 02/04/2017 Dietary surveillance and counseling 05/23/2011 06/14/2014 Morbid obesity 05/23/2011 01/06/2014 Abdominal pain, periumbilic 01/22/2011 02/04/2017 Esophagitis, unspecified 01/22/201104/2017 Acute gastritis without mention of hemorrhage 01/23/20 11 01/06/2014 Exostosis of unspecified site 12/25/2010 06/14/2014 Pain in limb 12/25/2010 01/06/2014 Bronchitis, acute 07/26/2009 06/14/2014 Overview: [facility] ED admission 07/13/09 through 07/16/09 with dehydration, uncontrolled BS. IV zithromax 500mg daily, finished Rocephin and switched to Ceftin 500mg bid. Started proventil inhaler/spacer Diarrhea 05/09/2009 03/23/2021 Hypocalcemia 02/28/2009 02/04/2017 Screening for unspecified condition 02/13/2008 06/14/2014 Sprain of lumbar region 10/10/2007 04/05/2014 Anemia, unspecified 06/19/2007 02/05/20 17 Other malaise and fatigue 01/29/2007 Cramp of limb 01/29/2007 07/26/2009 documented as of this encounter (statuses as of 2023) [facility] History of Past illness Narrative* Problem Noted Date Diagnosed Date Resolved Date Postoperative anemia due to acute blood loss 0 07/23/2022 Last Assessment & Plan: Assessment: Postoperative anemia PLAN: -Continue iron supplementation following discharge EARL (acute kidney injury) 06/27/2020 Last Assessment & Plan: Assessment: EARL PLAN: -Improving -Monitor daily labs -IVF stopped today BMI 36.0-36.9,adult 02/04/2017 09/18/20 21 Last Assessment & Plan: She is hungry all the time and is struggling with her weight. S/P bariatric surgery in 2009. She has gained. Diabetes is worse. She wanted to consider weight loss medication. She may not be eligible to take based on her complex medication regime Assessment: Worsening PLAN: Investigate whether Victoza can be tried, will get back with her. KYLEIGH (obstructive sleep apnea) 08/09/2016 09/18/2021 Last Assessment & Plan: -does not use CPAP Contusion of rib on right side 04/12/2016 02/04/2017 Metabolic syndrome 11/18/2014 1 KYLEIGH (obstructive sleep apnea) 07/20/2014 08/07/2016 Overview: PSG 2013 Supine AHI 5.8 Bile reflux esophagitis 06/19/2013 05/04/2017 Gastritis 03/28/2012 02/04/2017 Stress 03/28/2012 06/14/2014 Other and unspecified postsu rgical nonabsorption 09/05/2011 02/04/2017 Dietary surveillance and counseling 05/23/2011 06/14/2014 Morbid obesity 05/23/2011 01/06/2014 Abdominal pain, periumbilic 01/22/2011 02/04/2017 Esophagitis, unspecified 01/22/201104/2017 Acute gastritis without mention of hemorrhage 01/23/20 11 01/06/2014 Exostosis of unspecified site 12/25/2010 06/14/2014 Pain in limb 12/25/2010 01/06/2014 Bronchitis, acute 07/26/2009 06/14/2014 Overview: [facility] ED admission 07/13/09 through 07/16/09 with dehydration, uncontrolled BS. IV zithromax 500mg daily, finished Rocephin and switched to Ceftin 500mg bid. Started proventil inhaler/spacer Diarrhea 05/09/2009 03/23/2021 Hypocalcemia 02/28/2009 02/04/2017 Screening for unspecified condition 02/13/2008 06/14/2014 Sprain of lumbar region 10/10/2007 04/0 05/2014 Anemia, unspecified 06/19/2007 02/05/20 17 Other malaise and fatigue 01/29/2007 Cramp of limb 01/29/2007 07/26/2009 documented as of this encounter (statuses as of 04/26/2023) [facility] History of Past illness Narrative* Problem Noted Date Diagnosed Date Resolved Date Postoperative anemia due to acute blood loss 0 07/23/2022 Last Assessment & Plan: Assessment: Postoperative anemia PLAN: -Continue iron supplementation following discharge EARL (acute kidney injury) 06/27/2020 Last Assessment & Plan: Assessment: EARL PLAN: -Improving -Monitor daily labs -IVF stopped today BMI 36.0-36.9,adult 02/04/2017 09/18/20 Last Assessment & Plan: She is hungry all the time and is struggling with her weight. S/P bariatric surgery in 2009. She has gained. Diabetes is worse. She wanted to consider weight loss medication. She may not be eligible to take based on her complex medication regime Assessment: Worsening PLAN: Investigate whether Victoza can be tried, will get back with her. KYLEIGH (obstructive sleep apnea) 08/09/2016 09/18/2021 Last Assessment & Plan: -does not use CPAP Contusion of rib on right side 04/12/2016 02/04/2017 Metabolic syndrome 11/18/2014 KYLEIGH (obstructive sleep apnea) 07/20/2014 08/07/2016 Overview: PSG 2013 Supine AHI 5.8 Bile reflux esophagitis 06/19/2013 0504/2017 Gastritis 03/28/2012 02/04/2017 Stress 03/28/2012 06/14/2014 Other and unspecified postsu rgical nonabsorption 09/05/2011 02/04/2017 Dietary surveillance and counseling 05/23/2011 06/14/2014 Morbid obesity 05/23/2011 01/06/2014 Abdominal pain, periumbilic 01/22/2011 02/04/2017 Esophagitis, unspecified 01/22/201104/2017 Acute gastritis without mention of hemorrhage 01/23/20 11 01/06/2014 Exostosis of unspecified site 12/25/2010 06/14/2014 Pain in limb 12/25/2010 01/06/2014 Bronchitis, acute 07/26/2009 06/14/2014 Overview: [facility] ED admission 07/13/09 through 07/16/09 with dehydration, uncontrolled BS. IV zithromax 500mg daily, finished Rocephin and switched to Ceftin 500mg bid. Started proventil inhaler/spacer Diarrhea 05/09/2009 03/23/2021 Hypocalcemia 02/28/2009 02/04/2017 Screening for unspecified condition 02/13/2008 06/14/2014 Sprain of lumbar region 10/10/2007 040 05/2014 Anemia, unspecified 06/19/2007 02/05/20 17 Other malaise and fatigue 01/29/2007 Cramp of limb 01/29/2007 07/26/2009 documented as of this encounter (statuses as of 04/26/2023) [facility] History of Past illness Narrative* Problem Noted Date Diagnosed Date Resolved Date Postoperative anemia due to acute blood loss 0 07/23/2022 Last Assessment & Plan: Assessment: Postoperative anemia PLAN: -Continue iron supplementation following discharge EARL (acute kidney injury) 06/27/2020 Last Assessment & Plan: Assessment: EARL PLAN: -Improving -Monitor daily labs -IVF stopped today BMI 36.0-36.9,adult 02/04/2017 09/18/20 21 Last Assessment & Plan: She is hungry all the time and is struggling with her weight. S/P bariatric surgery in 2009. She has gained. Diabetes is worse. She wanted to consider weight loss medication. She may not be eligible to take based on her complex medication regime Assessment: Worsening PLAN: Investigate whether Victoza can be tried, will get back with her. KYLEIGH (obstructive sleep apnea) 08/09/2016 09/18/2021 Last Assessment & Plan: -does not use CPAP Contusion of rib on right side 04/12/2016 02/04/2017 Metabolic syndrome 11/18/2014 1 KYLEIGH (obstructive sleep apnea) 07/20/2014 08/07/2016 Overview: PSG 2013 Supine AHI 5.8 Bile reflux esophagitis 06/19/2013 050 04/2017 Gastritis 03/28/2012 02/04/2017 Stress 03/28/2012 06/14/2014 Other and unspecified postsu rgical nonabsorption 09/05/2011 02/04/2017 Dietary surveillance and counseling 05/23/2011 06/14/2014 Morbid obesity 05/23/2011 01/06/2014 Abdominal pain, periumbilic 01/22/2011 02/04/2017 Esophagitis, unspecified 01/22/201104/2017 Acute gastritis without mention of hemorrhage 01/23/20 11 01/06/2014 Exostosis of unspecified site 12/25/2010 06/14/2014 Pain in limb 12/25/2010 01/06/2014 Bronchitis, acute 07/26/2009 06/14/2014 Overview: [facility] ED admission 07/13/09 through 07/16/09 with dehydration, uncontrolled BS. IV zithromax 500mg daily, finished Rocephin and switched to Ceftin 500mg bid. Started proventil inhaler/spacer Diarrhea 05/09/2009 03/23/2021 Hypocalcemia 02/28/2009 02/04/2017 Screening for unspecified condition 02/13/2008 06/14/2014 Sprain of lumbar region 10/10/2007 04/0 05/2014 Anemia, unspecified 06/19/2007 02/05/20 Other malaise and fatigue 01/29/2007 Cramp of limb 01/29/2007 07/26/2009 documented as of this encounter (statuses as of 04/29/2023) [facility]09-28-2020 History of Past illness Narrative* Problem Noted Date Diagnosed Date Resolved Date Postoperative anemia due to acute blood loss 0 07/23/2022 Last Assessment & Plan: Assessment: Postoperative anemia PLAN: -Continue iron supplementation following discharge EARL (acute kidney injury) 06/27/2020 Last Assessment & Plan: Assessment: EARL PLAN: -Improving -Monitor daily labs -IVF stopped today BMI 36.0-36.9,adult 02/04/2017 09/18/20 21 Last Assessment & Plan: She is hungry all the time and is struggling with her weight. S/P bariatric surgery in 2009. She has gained. Diabetes is worse. She wanted to consider weight loss medication. She may not be eligible to take based on her complex medication regime Assessment: Worsening PLAN: Investigate whether Victoza can be tried, will get back with her. KYLEIGH (obstructive sleep apnea) 08/09/2016 09/18/2021 Last Assessment & Plan: -does not use CPAP Contusion of rib on right side 04/12/2016 02/04/2017 Metabolic syndrome 11/18/2014 KYLEIGH (obstructive sleep apnea) 07/20/2014 08/07/2016 Overview: PSG 2013 Supine AHI 5.8 Bile reflux esophagitis 06/19/201304/2017 Gastritis 03/28/2012 02/04/2017 Stress 03/28/2012 06/14/2014 Other and unspecified postsu rgical nonabsorption 09/05/2011 02/04/2017 Dietary surveillance and counseling 05/23/2011 06/14/2014 Morbid obesity 05/23/2011 01/06/2014 Abdominal pain, periumbilic 01/22/2011 02/04/2017 Esophagitis, unspecified 01/22/201104/2017 Acute gastritis without mention of hemorrhage 01/23/20 11 01/06/2014 Exostosis of unspecified site 12/25/2010 06/14/2014 Pain in limb 12/25/2010 01/06/2014 Bronchitis, acute 07/26/2009 06/14/2014 Overview: [facility] ED admission 07/13/09 through 07/16/09 with dehydration, uncontrolled BS. IV zithromax 500mg daily, finished Rocephin and switched to Ceftin 500mg bid. Started proventil inhaler/spacer Diarrhea 05/09/2009 03/23/2021 Hypocalcemia 02/28/2009 02/04/2017 Screening for unspecified condition 02/13/2008 06/14/2014 Sprain of lumbar region 10/10/2007 04/0 05/2014 Anemia, unspecified 06/19/2007 02/05/20 17 Other malaise and fatigue 01/29/2007 Cramp of limb 01/29/2007 07/26/2009 documented as of this encounter (statuses as of 05/01/2023) [facility]09[facility]2020 History of Past illness Narrative* Problem Noted Date Diagnosed Date Resolved Date Postoperative anemia due to acute blood loss 0 07/23/2022 Last Assessment & Plan: Assessment: Postoperative anemia PLAN: -Continue iron supplementation following discharge EARL (acute kidney injury) 06/27/2020 Last Assessment & Plan: Assessment: EARL PLAN: -Improving -Monitor daily labs -IVF stopped today BMI 36.0-36.9,adult 02/04/2017 09/18/20 Last Assessment & Plan: She is hungry all the time and is struggling with her weight. S/P bariatric surgery in 2009. She has gained. Diabetes is worse. She wanted to consider weight loss medication. She may not be eligible to take based on her complex medication regime Assessment: Worsening PLAN: Investigate whether Victoza can be tried, will get back with her. KYLEIGH (obstructive sleep apnea) 08/09/2016 09/18/2021 Last Assessment & Plan: -does not use CPAP Contusion of rib on right side 04/12/2016 02/04/2017 Metabolic syndrome 11/18/2014 1 KYLEIGH (obstructive sleep apnea) 07/20/2014 08/07/2016 Overview: PSG 2013 Supine AHI 5.8 Bile reflux esophagitis 06/19/2013 0504/2017 Gastritis 03/28/2012 02/04/2017 Stress 03/28/2012 06/14/2014 Other and unspecified postsu rgical nonabsorption 09/05/2011 02/04/2017 Dietary surveillance and counseling 05/23/2011 06/14/2014 Morbid obesity 05/23/2011 01/06/2014 Abdominal pain, periumbilic 01/22/2011 02/04/2017 Esophagitis, unspecified 01/22/201104/2017 Acute gastritis without mention of hemorrhage 01/23/20 11 01/06/2014 Exostosis of unspecified site 12/25/2010 06/14/2014 Pain in limb 12/25/2010 01/06/2014 Bronchitis, acute 07/26/2009 06/14/2014 Overview: [facility] ED admission 07/13/09 through 07/16/09 with dehydration, uncontrolled BS. IV zithromax 500mg daily, finished Rocephin and switched to Ceftin 500mg bid. Started proventil inhaler/spacer Diarrhea 05/09/2009 03/23/2021 Hypocalcemia 02/28/2009 02/04/2017 Screening for unspecified condition 02/13/2008 06/14/2014 Sprain of lumbar region 10/10/2007 04/0 05/2014 Anemia, unspecified 06/19/2007 02/05/20 Other malaise and fatigue 01/29/2007 Cramp of limb 01/29/2007 07/26/2009 documented as of this encounter (statuses as of 05/01/2023) [facility]2020 History of Past illness Narrative* Problem Noted Date Diagnosed Date Resolved Date Postoperative anemia due to acute blood loss 0 07/23/2022 Last Assessment & Plan: Assessment: Postoperative anemia PLAN: -Continue iron supplementation following discharge EARL (acute kidney injury) 06/27/2020 Last Assessment & Plan: Assessment: EARL PLAN: -Improving -Monitor daily labs -IVF stopped today BMI 36.0-36.9,adult 02/04/2017 09/18/20 21 Last Assessment & Plan: She is hungry all the time and is struggling with her weight. S/P bariatric surgery in 2009. She has gained. Diabetes is worse. She wanted to consider weight loss medication. She may not be eligible to take based on her complex medication regime Assessment: Worsening PLAN: Investigate whether Victoza can be tried, will get back with her. KYLEIGH (obstructive sleep apnea) 08/09/2016 09/18/2021 Last Assessment & Plan: -does not use CPAP Contusion of rib on right side 04/12/2016 02/04/2017 Metabolic syndrome 11/18/2014 KYLEIGH (obstructive sleep apnea) 07/20/2014 08/07/2016 Overview: PSG 2013 Supine AHI 5.8 Bile reflux esophagitis 06/19/2013 050 04/2017 Gastritis 03/28/2012 02/04/2017 Stress 03/28/2012 06/14/2014 Other and unspecified postsu rgical nonabsorption 09/05/2011 02/04/2017 Dietary surveillance and counseling 05/23/2011 06/14/2014 Morbid obesity 05/23/2011 01/06/2014 Abdominal pain, periumbilic 01/22/2011 02/04/2017 Esophagitis, unspecified 01/22/201104/2017 Acute gastritis without mention of hemorrhage 01/23/20 11 01/06/2014 Exostosis of unspecified site 12/25/2010 06/14/2014 Pain in limb 12/25/2010 01/06/2014 Bronchitis, acute 07/26/2009 06/14/2014 Overview: [facility] ED admission 07/13/09 through 07/16/09 with dehydration, uncontrolled BS. IV zithromax 500mg daily, finished Rocephin and switched to Ceftin 500mg bid. Started proventil inhaler/spacer Diarrhea 05/09/2009 03/23/2021 Hypocalcemia 02/28/2009 02/04/2017 Screening for unspecified condition 02/13/2008 06/14/2014 Sprain of lumbar region 10/10/2007 04/0 05/2014 Anemia, unspecified 06/19/2007 02/05/20 17 Other malaise and fatigue 01/29/2007 Cramp of limb 01/29/2007 07/26/2009 documented as of this encounter (statuses as of 05/14/2023) [facility]2020 History of Past illness Narrative* Problem Noted Date Diagnosed Date Resolved Date Postoperative anemia due to acute blood loss 0 07/23/2022 Last Assessment & Plan: Assessment: Postoperative anemia PLAN: -Continue iron supplementation following discharge EARL (acute kidney injury) 06/27/2020 Last Assessment & Plan: Assessment: EARL PLAN: -Improving -Monitor daily labs -IVF stopped today BMI 36.0-36.9,adult 02/04/2017 09/18/20 Last Assessment & Plan: She is hungry all the time and is struggling with her weight. S/P bariatric surgery in 2009. She has gained. Diabetes is worse. She wanted to consider weight loss medication. She may not be eligible to take based on her complex medication regime Assessment: Worsening PLAN: Investigate whether Victoza can be tried, will get back with her. KYLEIGH (obstructive sleep apnea) 08/09/2016 09/18/2021 Last Assessment & Plan: -does not use CPAP Contusion of rib on right side 04/12/2016 02/04/2017 Metabolic syndrome 11/18/2014 KYLEIGH (obstructive sleep apnea) 07/20/2014 08/07/2016 Overview: PSG 2013 Supine AHI 5.8 Bile reflux esophagitis 06/19/2013 050 04/2017 Gastritis 03/28/2012 02/04/2017 Stress 03/28/2012 06/14/2014 Other and unspecified postsu rgical nonabsorption 09/05/2011 02/04/2017 Dietary surveillance and counseling 05/23/2011 06/14/2014 Morbid obesity 05/23/2011 01/06/2014 Abdominal pain, periumbilic 01/22/2011 02/04/2017 Esophagitis, unspecified 01/22/201104/2017 Acute gastritis without mention of hemorrhage 01/23/20 11 01/06/2014 Exostosis of unspecified site 12/25/2010 06/14/2014 Pain in limb 12/25/2010 01/06/2014 Bronchitis, acute 07/26/2009 06/14/2014 Overview: [facility] ED admission 07/13/09 through 07/16/09 with dehydration, uncontrolled BS. IV zithromax 500mg daily, finished Rocephin and switched to Ceftin 500mg bid. Started proventil inhaler/spacer Diarrhea 05/09/2009 03/23/2021 Hypocalcemia 02/28/2009 02/04/2017 Screening for unspecified condition 02/13/2008 06/14/2014 Sprain of lumbar region 10/10/20070 05/2014 Anemia, unspecified 06/19/2007 02/05/20 17 Other malaise and fatigue 01/29/2007 Cramp of limb 01/29/2007 07/26/2009 documented as of this encounter (statuses as of 05/15/2023) [facility] History of Past illness Narrative* Problem Noted Date Diagnosed Date Resolved Date Postoperative anemia due to acute blood loss 0 07/23/2022 Last Assessment & Plan: Assessment: Postoperative anemia PLAN: -Continue iron supplementation following discharge EARL (acute kidney injury) 06/27/2020 Last Assessment & Plan: Assessment: EARL PLAN: -Improving -Monitor daily labs -IVF stopped today BMI 36.0-36.9,adult 02/04/2017 09/18/20 21 Last Assessment & Plan: She is hungry all the time and is struggling with her weight. S/P bariatric surgery in 2009. She has gained. Diabetes is worse. She wanted to consider weight loss medication. She may not be eligible to take based on her complex medication regime Assessment: Worsening PLAN: Investigate whether Victoza can be tried, will get back with her. KYLEIGH (obstructive sleep apnea) 08/09/2016 09/18/2021 Last Assessment & Plan: -does not use CPAP Contusion of rib on right side 04/12/2016 02/04/2017 Metabolic syndrome 11/18/2014 1 KYLEIGH (obstructive sleep apnea) 07/20/2014 08/07/2016 Overview: PSG 2013 Supine AHI 5.8 Bile reflux esophagitis 06/19/201304/2017 Gastritis 03/28/2012 02/04/2017 Stress 03/28/2012 06/14/2014 Other and unspecified postsu rgical nonabsorption 09/05/2011 02/04/2017 Dietary surveillance and counseling 05/23/2011 06/14/2014 Morbid obesity 05/23/2011 01/06/2014 Abdominal pain, periumbilic 01/22/2011 02/04/2017 Esophagitis, unspecified 01/22/201104/2017 Acute gastritis without mention of hemorrhage 01/23/20 11 01/06/2014 Exostosis of unspecified site 12/25/2010 06/14/2014 Pain in limb 12/25/2010 01/06/2014 Bronchitis, acute 07/26/2009 06/14/2014 Overview: [facility] ED admission 07/13/09 through 07/16/09 with dehydration, uncontrolled BS. IV zithromax 500mg daily, finished Rocephin and switched to Ceftin 500mg bid. Started proventil inhaler/spacer Diarrhea 05/09/2009 03/23/2021 Hypocalcemia 02/28/2009 02/04/2017 Screening for unspecified condition 02/13/2008 06/14/2014 Sprain of lumbar region 10/10/2007 04/0 05/2014 Anemia, unspecified 06/19/2007 02/05/20 Other malaise and fatigue 01/29/2007 Cramp of limb 01/29/2007 07/26/2009 documented as of this encounter (statuses as of 05/16/2023) [facility] History of Past illness Narrative* Problem Noted Date Diagnosed Date Resolved Date Postoperative anemia due to acute blood loss 0 07/23/2022 Last Assessment & Plan: Assessment: Postoperative anemia PLAN: -Continue iron supplementation following discharge EARL (acute kidney injury) 06/27/2020 Last Assessment & Plan: Assessment: EARL PLAN: -Improving -Monitor daily labs -IVF stopped today BMI 36.0-36.9,adult 02/04/2017 09/18/20 21 Last Assessment & Plan: She is hungry all the time and is struggling with her weight. S/P bariatric surgery in 2009. She has gained. Diabetes is worse. She wanted to consider weight loss medication. She may not be eligible to take based on her complex medication regime Assessment: Worsening PLAN: Investigate whether Victoza can be tried, will get back with her. KYLEIGH (obstructive sleep apnea) 08/09/2016 09/18/2021 Last Assessment & Plan: -does not use CPAP Contusion of rib on right side 04/12/2016 02/04/2017 Metabolic syndrome 11/18/2014 KYLEIGH (obstructive sleep apnea) 07/20/2014 08/07/2016 Overview: PSG 2013 Supine AHI 5.8 Bile reflux esophagitis 06/19/2013 0504/2017 Gastritis 03/28/2012 02/04/2017 Stress 03/28/2012 06/14/2014 Other and unspecified postsu rgical nonabsorption 09/05/2011 02/04/2017 Dietary surveillance and counseling 05/23/2011 06/14/2014 Morbid obesity 05/23/2011 01/06/2014 Abdominal pain, periumbilic 01/22/2011 02/04/2017 Esophagitis, unspecified 01/22/201104/2017 Acute gastritis without mention of hemorrhage 01/23/20 11 01/06/2014 Exostosis of unspecified site 12/25/2010 06/14/2014 Pain in limb 12/25/2010 01/06/2014 Bronchitis, acute 07/26/2009 06/14/2014 Overview: [facility] ED admission 07/13/09 through 07/16/09 with dehydration, uncontrolled BS. IV zithromax 500mg daily, finished Rocephin and switched to Ceftin 500mg bid. Started proventil inhaler/spacer Diarrhea 05/09/2009 03/23/2021 Hypocalcemia 02/28/2009 02/04/2017 Screening for unspecified condition 02/13/2008 06/14/2014 Sprain of lumbar region 10/10/2007 04/0 05/2014 Anemia, unspecified 06/19/2007 02/05/20 17 Other malaise and fatigue 01/29/2007 Cramp of limb 01/29/2007 07/26/2009 documented as of this encounter (statuses as of 05/30/2023) [facility] History of Past illness Narrative* Problem Noted Date Diagnosed Date Resolved Date Postoperative anemia due to acute blood loss 0 07/23/2022 Last Assessment & Plan: Assessment: Postoperative anemia PLAN: -Continue iron supplementation following discharge EARL (acute kidney injury) 06/27/2020 Last Assessment & Plan: Assessment: EARL PLAN: -Improving -Monitor daily labs -IVF stopped today BMI 36.0-36.9,adult 02/04/2017 09/18/20 Last Assessment & Plan: She is hungry all the time and is struggling with her weight. S/P bariatric surgery in 2009. She has gained. Diabetes is worse. She wanted to consider weight loss medication. She may not be eligible to take based on her complex medication regime Assessment: Worsening PLAN: Investigate whether Victoza can be tried, will get back with her. KYLEIGH (obstructive sleep apnea) 08/09/2016 09/18/2021 Last Assessment & Plan: -does not use CPAP Contusion of rib on right side 04/12/2016 02/04/2017 Metabolic syndrome 11/18/2014 KYLEIGH (obstructive sleep apnea) 07/20/2014 08/07/2016 Overview: PSG 2013 Supine AHI 5.8 Bile reflux esophagitis 06/19/2013 0504/2017 Gastritis 03/28/2012 02/04/2017 Stress 03/28/2012 06/14/2014 Other and unspecified postsu rgical nonabsorption 09/05/2011 02/04/2017 Dietary surveillance and counseling 05/23/2011 06/14/2014 Morbid obesity 05/23/2011 01/06/2014 Abdominal pain, periumbilic 01/22/2011 02/04/2017 Esophagitis, unspecified 01/22/201104/2017 Acute gastritis without mention of hemorrhage 01/23/20 11 01/06/2014 Exostosis of unspecified site 12/25/2010 06/14/2014 Pain in limb 12/25/2010 01/06/2014 Bronchitis, acute 07/26/2009 06/14/2014 Overview: [facility] ED admission 07/13/09 through 07/16/09 with dehydration, uncontrolled BS. IV zithromax 500mg daily, finished Rocephin and switched to Ceftin 500mg bid. Started proventil inhaler/spacer Diarrhea 05/09/2009 03/23/2021 Hypocalcemia 02/28/2009 02/04/2017 Screening for unspecified condition 02/13/2008 06/14/2014 Sprain of lumbar region 10/10/2007 04/0 05/2014 Anemia, unspecified 06/19/2007 02/05/20 17 Other malaise and fatigue 01/29/2007 Cramp of limb 01/29/2007 07/26/2009 documented as of this encounter (statuses as of 06/19/2023) [facility] History of Past illness Narrative* Problem Noted Date Diagnosed Date Resolved Date Postoperative anemia due to acute blood loss 0 07/23/2022 Last Assessment & Plan: Assessment: Postoperative anemia PLAN: -Continue iron supplementation following discharge EARL (acute kidney injury) 06/27/2020 Last Assessment & Plan: Assessment: EARL PLAN: -Improving -Monitor daily labs -IVF stopped today BMI 36.0-36.9,adult 02/04/2017 09/18/20 21 Last Assessment & Plan: She is hungry all the time and is struggling with her weight. S/P bariatric surgery in 2009. She has gained. Diabetes is worse. She wanted to consider weight loss medication. She may not be eligible to take based on her complex medication regime Assessment: Worsening PLAN: Investigate whether Victoza can be tried, will get back with her. KYLEIGH (obstructive sleep apnea) 08/09/2016 09/18/2021 Last Assessment & Plan: -does not use CPAP Contusion of rib on right side 04/12/2016 02/04/2017 Metabolic syndrome 11/18/2014 1 KYLEIGH (obstructive sleep apnea) 07/20/2014 08/07/2016 Overview: PSG 2013 Supine AHI 5.8 Bile reflux esophagitis 06/19/201304/2017 Gastritis 03/28/2012 02/04/2017 Stress 03/28/2012 06/14/2014 Other and unspecified postsu rgical nonabsorption 09/05/2011 02/04/2017 Dietary surveillance and counseling 05/23/2011 06/14/2014 Morbid obesity 05/23/2011 01/06/2014 Abdominal pain, periumbilic 01/22/2011 02/04/2017 Esophagitis, unspecified 01/22/201104/2017 Acute gastritis without mention of hemorrhage 01/23/20 11 01/06/2014 Exostosis of unspecified site 12/25/2010 06/14/2014 Pain in limb 12/25/2010 01/06/2014 Bronchitis, acute 07/26/2009 06/14/2014 Overview: [facility] ED admission 07/13/09 through 07/16/09 with dehydration, uncontrolled BS. IV zithromax 500mg daily, finished Rocephin and switched to Ceftin 500mg bid. Started proventil inhaler/spacer Diarrhea 05/09/2009 03/23/2021 Hypocalcemia 02/28/2009 02/04/2017 Screening for unspecified condition 02/13/2008 06/14/2014 Sprain of lumbar region 10/10/2007 04/0 05/2014 Anemia, unspecified 06/19/2007 02/05/20 17 Other malaise and fatigue 01/29/2007 Cramp of limb 01/29/2007 07/26/2009 documented as of this encounter (statuses as of 06/22/2023) [facility] History of Past illness Narrative* Problem Noted Date Diagnosed Date Resolved Date Postoperative anemia due to acute blood loss 0 07/23/2022 Last Assessment & Plan: Assessment: Postoperative anemia PLAN: -Continue iron supplementation following discharge EARL (acute kidney injury) 06/27/2020 Last Assessment & Plan: Assessment: EARL PLAN: -Improving -Monitor daily labs -IVF stopped today BMI 36.0-36.9,adult 02/04/2017 09/18/20 21 Last Assessment & Plan: She is hungry all the time and is struggling with her weight. S/P bariatric surgery in 2009. She has gained. Diabetes is worse. She wanted to consider weight loss medication. She may not be eligible to take based on her complex medication regime Assessment: Worsening PLAN: Investigate whether Victoza can be tried, will get back with her. KYLEIGH (obstructive sleep apnea) 08/09/2016 09/18/2021 Last Assessment & Plan: -does not use CPAP Contusion of rib on right side 04/12/2016 02/04/2017 Metabolic syndrome 11/18/2014 KYLEIGH (obstructive sleep apnea) 07/20/2014 08/07/2016 Overview: PSG 2013 Supine AHI 5.8 Bile reflux esophagitis 06/19/201304/2017 Gastritis 03/28/2012 02/04/2017 Stress 03/28/2012 06/14/2014 Other and unspecified postsu rgical nonabsorption 09/05/2011 02/04/2017 Dietary surveillance and counseling 05/23/2011 06/14/2014 Morbid obesity 05/23/2011 01/06/2014 Abdominal pain, periumbilic 01/22/2011 02/04/2017 Esophagitis, unspecified 01/22/201104/2017 Acute gastritis without mention of hemorrhage 01/23/20 11 01/06/2014 Exostosis of unspecified site 12/25/2010 06/14/2014 Pain in limb 12/25/2010 01/06/2014 Bronchitis, acute 07/26/2009 06/14/2014 Overview: [facility] ED admission 07/13/09 through 07/16/09 with dehydration, uncontrolled BS. IV zithromax 500mg daily, finished Rocephin and switched to Ceftin 500mg bid. Started proventil inhaler/spacer Diarrhea 05/09/2009 03/23/2021 Hypocalcemia 02/28/2009 02/04/2017 Screening for unspecified condition 02/13/2008 06/14/2014 Sprain of lumbar region 10/10/2007 04/0 05/2014 Anemia, unspecified 06/19/2007 02/05/20 Other malaise and fatigue 01/29/2007 Cramp of limb 01/29/2007 07/26/2009 documented as of this encounter (statuses as of 07/06/2023) [facility] History of Past illness Narrative* Problem Noted Date Diagnosed Date Resolved Date Postoperative anemia due to acute blood loss 0 07/23/2022 Last Assessment & Plan: Assessment: Postoperative anemia PLAN: -Continue iron supplementation following discharge EARL (acute kidney injury) 06/27/2020 Last Assessment & Plan: Assessment: EARL PLAN: -Improving -Monitor daily labs -IVF stopped today BMI 36.0-36.9,adult 02/04/2017 09/18/20 21 Last Assessment & Plan: She is hungry all the time and is struggling with her weight. S/P bariatric surgery in 2009. She has gained. Diabetes is worse. She wanted to consider weight loss medication. She may not be eligible to take based on her complex medication regime Assessment: Worsening PLAN: Investigate whether Victoza can be tried, will get back with her. KYLEIGH (obstructive sleep apnea) 08/09/2016 09/18/2021 Last Assessment & Plan: -does not use CPAP Contusion of rib on right side 04/12/2016 02/04/2017 Metabolic syndrome 11/18/2014 1 KYLEIGH (obstructive sleep apnea) 07/20/2014 08/07/2016 Overview: PSG 2013 Supine AHI 5.8 Bile reflux esophagitis 06/19/2013 0504/2017 Gastritis 03/28/2012 02/04/2017 Stress 03/28/2012 06/14/2014 Other and unspecified postsu rgical nonabsorption 09/05/2011 02/04/2017 Dietary surveillance and counseling 05/23/2011 06/14/2014 Morbid obesity 05/23/2011 01/06/2014 Abdominal pain, periumbilic 01/22/2011 02/04/2017 Esophagitis, unspecified 01/22/201104/2017 Acute gastritis without mention of hemorrhage 01/23/20 11 01/06/2014 Exostosis of unspecified site 12/25/2010 06/14/2014 Pain in limb 12/25/2010 01/06/2014 Bronchitis, acute 07/26/2009 06/14/2014 Overview: [facility] ED admission 07/13/09 through 07/16/09 with dehydration, uncontrolled BS. IV zithromax 500mg daily, finished Rocephin and switched to Ceftin 500mg bid. Started proventil inhaler/spacer Diarrhea 05/09/2009 03/23/2021 Hypocalcemia 02/28/2009 02/04/2017 Screening for unspecified condition 02/13/2008 06/14/2014 Sprain of lumbar region 10/10/2007 0405/2014 Anemia, unspecified 06/19/2007 02/05/20 Other malaise and fatigue 01/29/2007 Cramp of limb 01/29/2007 07/26/2009 documented as of this encounter (statuses as of 07/09/2023) [facility] History of Past illness Narrative* Problem Noted Date Diagnosed Date Resolved Date Postoperative anemia due to acute blood loss 0 07/23/2022 Last Assessment & Plan: Assessment: Postoperative anemia PLAN: -Continue iron supplementation following discharge EARL (acute kidney injury) 06/27/2020 Last Assessment & Plan: Assessment: EARL PLAN: -Improving -Monitor daily labs -IVF stopped today BMI 36.0-36.9,adult 02/04/2017 09/18/20 21 Last Assessment & Plan: She is hungry all the time and is struggling with her weight. S/P bariatric surgery in 2009. She has gained. Diabetes is worse. She wanted to consider weight loss medication. She may not be eligible to take based on her complex medication regime Assessment: Worsening PLAN: Investigate whether Victoza can be tried, will get back with her. KYLEIGH (obstructive sleep apnea) 08/09/2016 09/18/2021 Last Assessment & Plan: -does not use CPAP Contusion of rib on right side 04/12/2016 02/04/2017 Metabolic syndrome 11/18/2014 12/20/202 1 KYLEIGH (obstructive sleep apnea) 07/20/2014 08/07/2016 Overview: PSG 2013 Supine AHI 5.8 Bile reflux esophagitis 06/19/2013 05/0 04/2017 Gastritis 03/28/2012 02/04/2017 Stress 03/28/2012 06/14/2014 Other and unspecified postsu rgical nonabsorption 09/05/2011 02/04/2017 Dietary surveillance and counseling 05/23/2011 06/14/2014 Morbid obesity 05/23/2011 01/06/2014 Abdominal pain, periumbilic 01/22/2011 02/04/2017 Esophagitis, unspecified 01/22/201104/2017 Acute gastritis without mention of hemorrhage 01/23/20 11 01/06/2014 Exostosis of unspecified site 12/25/2010 06/14/2014 Pain in limb 12/25/2010 01/06/2014 Bronchitis, acute 07/26/2009 06/14/2014 Overview: [facility] ED admission 07/13/09 through 07/16/09 with dehydration, uncontrolled BS. IV zithromax 500mg daily, finished Rocephin and switched to Ceftin 500mg bid. Started proventil inhaler/spacer Diarrhea 05/09/2009 03/23/2021 Hypocalcemia 02/28/2009 02/04/2017 Screening for unspecified condition 02/13/2008 06/14/2014 Sprain of lumbar region 10/10/2007 04/0 05/2014 Anemia, unspecified 06/19/2007 02/05/20 17 Other malaise and fatigue 01/29/2007 Cramp of limb 01/29/2007 07/26/2009 documented as of this encounter (statuses as of 07/23/2023) [facility] History of Past illness Narrative* Problem Noted Date Diagnosed Date Resolved Date Postoperative anemia due to acute blood loss 0 07/23/2022 Last Assessment & Plan: Assessment: Postoperative anemia PLAN: -Continue iron supplementation following discharge EARL (acute kidney injury) 06/27/2020 Last Assessment & Plan: Assessment: EARL PLAN: -Improving -Monitor daily labs -IVF stopped today BMI 36.0-36.9,adult 02/04/2017 09/18/20 Last Assessment & Plan: She is hungry all the time and is struggling with her weight. S/P bariatric surgery in 2009. She has gained. Diabetes is worse. She wanted to consider weight loss medication. She may not be eligible to take based on her complex medication regime Assessment: Worsening PLAN: Investigate whether Victoza can be tried, will get back with her. KYLEIGH (obstructive sleep apnea) 08/09/2016 09/18/2021 Last Assessment & Plan: -does not use CPAP Contusion of rib on right side 04/12/2016 02/04/2017 Metabolic syndrome 11/18/2014 KYLEIGH (obstructive sleep apnea) 07/20/2014 08/07/2016 Overview: PSG 2013 Supine AHI 5.8 Bile reflux esophagitis 06/19/2013 0504/2017 Gastritis 03/28/2012 02/04/2017 Stress 03/28/2012 06/14/2014 Other and unspecified postsu rgical nonabsorption 09/05/2011 02/04/2017 Dietary surveillance and counseling 05/23/2011 06/14/2014 Morbid obesity 05/23/2011 01/06/2014 Abdominal pain, periumbilic 01/22/2011 02/04/2017 Esophagitis, unspecified 01/22/201104/2017 Acute gastritis without mention of hemorrhage 01/23/20 11 01/06/2014 Exostosis of unspecified site 12/25/2010 06/14/2014 Pain in limb 12/25/2010 01/06/2014 Bronchitis, acute 07/26/2009 06/14/2014 Overview: [facility] ED admission 07/13/09 through 07/16/09 with dehydration, uncontrolled BS. IV zithromax 500mg daily, finished Rocephin and switched to Ceftin 500mg bid. Started proventil inhaler/spacer Diarrhea 05/09/2009 03/23/2021 Hypocalcemia 02/28/2009 02/04/2017 Screening for unspecified condition 02/13/2008 06/14/2014 Sprain of lumbar region 10/10/2007 04/0 05/2014 Anemia, unspecified 06/19/2007 02/05/20 17 Other malaise and fatigue 01/29/2007 Cramp of limb 01/29/2007 07/26/2009 documented as of this encounter (statuses as of 08/03/2023) [facility] History of Past illness Narrative* Problem Noted Date Diagnosed Date Resolved Date Postoperative anemia due to acute blood loss 0 07/23/2022 Last Assessment & Plan: Assessment: Postoperative anemia PLAN: -Continue iron supplementation following discharge EARL (acute kidney injury) 06/27/2020 Last Assessment & Plan: Assessment: EARL PLAN: -Improving -Monitor daily labs -IVF stopped today BMI 36.0-36.9,adult 02/04/2017 09/18/20 21 Last Assessment & Plan: She is hungry all the time and is struggling with her weight. S/P bariatric surgery in 2009. She has gained. Diabetes is worse. She wanted to consider weight loss medication. She may not be eligible to take based on her complex medication regime Assessment: Worsening PLAN: Investigate whether Victoza can be tried, will get back with her. KYLEIGH (obstructive sleep apnea) 08/09/2016 09/18/2021 Last Assessment & Plan: -does not use CPAP Contusion of rib on right side 04/12/2016 02/04/2017 Metabolic syndrome 11/18/2014 1 KYLEIGH (obstructive sleep apnea) 07/20/2014 08/07/2016 Overview: PSG 2013 Supine AHI 5.8 Bile reflux esophagitis 06/19/201304/2017 Gastritis 03/28/2012 02/04/2017 Stress 03/28/2012 06/14/2014 Other and unspecified postsu rgical nonabsorption 09/05/2011 02/04/2017 Dietary surveillance and counseling 05/23/2011 06/14/2014 Morbid obesity 05/23/2011 01/06/2014 Abdominal pain, periumbilic 01/22/2011 02/04/2017 Esophagitis, unspecified 01/22/201104/2017 Acute gastritis without mention of hemorrhage 01/23/20 11 01/06/2014 Exostosis of unspecified site 12/25/2010 06/14/2014 Pain in limb 12/25/2010 01/06/2014 Bronchitis, acute 07/26/2009 06/14/2014 Overview: [facility] ED admission 07/13/09 through 07/16/09 with dehydration, uncontrolled BS. IV zithromax 500mg daily, finished Rocephin and switched to Ceftin 500mg bid. Started proventil inhaler/spacer Diarrhea 05/09/2009 03/23/2021 Hypocalcemia 02/28/2009 02/04/2017 Screening for unspecified condition 02/13/2008 06/14/2014 Sprain of lumbar region 10/10/2007 04/05/2014 Anemia, unspecified 06/19/2007 02/05/20 17 Other malaise and fatigue 01/29/2007 Cramp of limb 01/29/2007 07/26/2009 documented as of this encounter (statuses as of 08/12/2023) [facility] History of Past illness Narrative* Problem Noted Date Diagnosed Date Resolved Date Postoperative anemia due to acute blood loss 0 07/23/2022 Last Assessment & Plan: Assessment: Postoperative anemia PLAN: -Continue iron supplementation following discharge EARL (acute kidney injury) 06/27/2020 Last Assessment & Plan: Assessment: EARL PLAN: -Improving -Monitor daily labs -IVF stopped today BMI 36.0-36.9,adult 02/04/2017 09/18/20 21 Last Assessment & Plan: She is hungry all the time and is struggling with her weight. S/P bariatric surgery in 2009. She has gained. Diabetes is worse. She wanted to consider weight loss medication. She may not be eligible to take based on her complex medication regime Assessment: Worsening PLAN: Investigate whether Victoza can be tried, will get back with her. KYLEIGH (obstructive sleep apnea) 08/09/2016 09/18/2021 Last Assessment & Plan: -does not use CPAP Contusion of rib on right side 04/12/2016 02/04/2017 Metabolic syndrome 11/18/2014 1 KYLEIGH (obstructive sleep apnea) 07/20/2014 08/07/2016 Overview: PSG 2013 Supine AHI 5.8 Bile reflux esophagitis 06/19/2013 0504/2017 Gastritis 03/28/2012 02/04/2017 Stress 03/28/2012 06/14/2014 Other and unspecified postsu rgical nonabsorption 09/05/2011 02/04/2017 Dietary surveillance and counseling 05/23/2011 06/14/2014 Morbid obesity 05/23/2011 01/06/2014 Abdominal pain, periumbilic 01/22/2011 02/04/2017 Esophagitis, unspecified 01/22/201104/2017 Acute gastritis without mention of hemorrhage 01/23/20 11 01/06/2014 Exostosis of unspecified site 12/25/2010 06/14/2014 Pain in limb 12/25/2010 01/06/2014 Bronchitis, acute 07/26/2009 06/14/2014 Overview: [facility] ED admission 07/13/09 through 07/16/09 with dehydration, uncontrolled BS. IV zithromax 500mg daily, finished Rocephin and switched to Ceftin 500mg bid. Started proventil inhaler/spacer Diarrhea 05/09/2009 03/23/2021 Hypocalcemia 02/28/2009 02/04/2017 Screening for unspecified condition 02/13/2008 06/14/2014 Sprain of lumbar region 10/10/2007 04/0 05/2014 Anemia, unspecified 06/19/2007 02/05/20 17 Other malaise and fatigue 01/29/2007 Cramp of limb 01/29/2007 07/26/2009 documented as of this encounter (statuses as of 08/13/2023) [facility] History of Past illness Narrative* Problem Noted Date Diagnosed Date Resolved Date Postoperative anemia due to acute blood loss 0 07/23/2022 Last Assessment & Plan: Assessment: Postoperative anemia PLAN: -Continue iron supplementation following discharge EARL (acute kidney injury) 06/27/2020 Last Assessment & Plan: Assessment: EARL PLAN: -Improving -Monitor daily labs -IVF stopped today BMI 36.0-36.9,adult 02/04/2017 09/18/20 Last Assessment & Plan: She is hungry all the time and is struggling with her weight. S/P bariatric surgery in 2009. She has gained. Diabetes is worse. She wanted to consider weight loss medication. She may not be eligible to take based on her complex medication regime Assessment: Worsening PLAN: Investigate whether Victoza can be tried, will get back with her. KYLEIGH (obstructive sleep apnea) 08/09/2016 09/18/2021 Last Assessment & Plan: -does not use CPAP Contusion of rib on right side 04/12/2016 02/04/2017 Metabolic syndrome 11/18/2014 1 KYLEIGH (obstructive sleep apnea) 07/20/2014 08/07/2016 Overview: PSG 2013 Supine AHI 5.8 Bile reflux esophagitis 06/19/2013 0504/2017 Gastritis 03/28/2012 02/04/2017 Stress 03/28/2012 06/14/2014 Other and unspecified postsu rgical nonabsorption 09/05/2011 02/04/2017 Dietary surveillance and counseling 05/23/2011 06/14/2014 Morbid obesity 05/23/2011 01/06/2014 Abdominal pain, periumbilic 01/22/2011 02/04/2017 Esophagitis, unspecified 01/22/201104/2017 Acute gastritis without mention of hemorrhage 01/23/20 11 01/06/2014 Exostosis of unspecified site 12/25/2010 06/14/2014 Pain in limb 12/25/2010 01/06/2014 Bronchitis, acute 07/26/2009 06/14/2014 Overview: [facility] ED admission 07/13/09 through 07/16/09 with dehydration, uncontrolled BS. IV zithromax 500mg daily, finished Rocephin and switched to Ceftin 500mg bid. Started proventil inhaler/spacer Diarrhea 05/09/2009 03/23/2021 Hypocalcemia 02/28/2009 02/04/2017 Screening for unspecified condition 02/13/2008 06/14/2014 Sprain of lumbar region 10/10/20070 05/2014 Anemia, unspecified 06/19/2007 02/05/20 17 Other malaise and fatigue 01/29/2007 Cramp of limb 01/29/2007 07/26/2009 documented as of this encounter (statuses as of 08/15/2023) [facility] History of Past illness Narrative* Problem Noted Date Diagnosed Date Resolved Date Postoperative anemia due to acute blood loss 0 07/23/2022 Last Assessment & Plan: Assessment: Postoperative anemia PLAN: -Continue iron supplementation following discharge EARL (acute kidney injury) 06/27/2020 Last Assessment & Plan: Assessment: EARL PLAN: -Improving -Monitor daily labs -IVF stopped today BMI 36.0-36.9,adult 02/04/2017 09/18/20 21 Last Assessment & Plan: She is hungry all the time and is struggling with her weight. S/P bariatric surgery in 2009. She has gained. Diabetes is worse. She wanted to consider weight loss medication. She may not be eligible to take based on her complex medication regime Assessment: Worsening PLAN: Investigate whether Victoza can be tried, will get back with her. KYLEIGH (obstructive sleep apnea) 08/09/2016 09/18/2021 Last Assessment & Plan: -does not use CPAP Contusion of rib on right side 04/12/2016 02/04/2017 Metabolic syndrome 11/18/2014 1 KYLEIGH (obstructive sleep apnea) 07/20/2014 08/07/2016 Overview: PSG 2013 Supine AHI 5.8 Bile reflux esophagitis 06/19/2013 0504/2017 Gastritis 03/28/2012 02/04/2017 Stress 03/28/2012 06/14/2014 Other and unspecified postsu rgical nonabsorption 09/05/2011 02/04/2017 Dietary surveillance and counseling 05/23/2011 06/14/2014 Morbid obesity 05/23/2011 01/06/2014 Abdominal pain, periumbilic 01/22/2011 02/04/2017 Esophagitis, unspecified 01/22/201104/2017 Acute gastritis without mention of hemorrhage 01/23/20 11 01/06/2014 Exostosis of unspecified site 12/25/2010 06/14/2014 Pain in limb 12/25/2010 01/06/2014 Bronchitis, acute 07/26/2009 06/14/2014 Overview: [facility] ED admission 07/13/09 through 07/16/09 with dehydration, uncontrolled BS. IV zithromax 500mg daily, finished Rocephin and switched to Ceftin 500mg bid. Started proventil inhaler/spacer Diarrhea 05/09/2009 03/23/2021 Hypocalcemia 02/28/2009 02/04/2017 Screening for unspecified condition 02/13/2008 06/14/2014 Sprain of lumbar region 10/10/200705/2014 Anemia, unspecified 06/19/2007 02/05/20 17 Other malaise and fatigue 01/29/2007 Cramp of limb 01/29/2007 07/26/2009 documented as of this encounter (statuses as of 09/04/2023) [facility] Bloating- Primary Flatulence, eructation, and gas pain Diarrhea, unspecified type Flatulence Flatulence, eructation, and gas pain Type 2 diabetes mellitus without complication, unspecified whether penitentiary insulin use (HCC) [facility] Diagnosis Bloating Flatulence, eructation, and gas pain Diarrhea, unspecified type Flatulence Flatulence, eructation, and gas pain [facility] Diagnosis Flatulence Flatulence, eructation, and gas pain Bloating Flatulence, eructation, and gas pain [facility] Diagnosis Bloating Flatulence, eructation, and gas pain [facility] Diagnosis Bloating Flatulence, eructation, and gas pain Iron deficiency anemia due to chronic blood loss- Primary Iron deficiency anemia secondary to blood loss (chronic) Iron malabsorption Other specified intestinal malabsorption Splenomegaly Thrombocytopenia (HCC) Thrombocytopenia, unspecified [facility] Diagnosis Type 2 diabetes mellitus without complication, unspecified whether negative checker insulin use (HCC) [facility] Diagnosis Dietary counseling- Primary Dietary surveillance and counseling Type 2 diabetes mellitus without complication, without long-term current use of insulin (HCC) [facility] Diagnosis Type 2 diabetes mellitus without complication, without long-term current use of insulin (HCC) [facility] Diagnosis Type 2 diabetes mellitus without complication, without long-term current use of insulin (HCC)- Primary [facility] Diagnosis Vitamin D deficiency Unspecified vitamin D deficiency [facility] Diagnosis Dog bite, initial encounter- Primary Need for COVID-19 vaccine [facility] Diagnosis Type 2 diabetes mellitus without complication, without long-term current use of insulin (HCC) [facility] Diagnosis Iron deficiency anemia due to chronic blood loss- Primary Iron deficiency anemia secondary to blood loss (chronic) Iron malabsorption Other specified intestinal malabsorption Thrombocytopenia (HCC) Thrombocytopenia, unspecified Splenomegaly [facility] Diagnosis Acquired hypothyroidism Unspecified hypothyroidism [facility] Diagnosis Encounter for screening [facility] Annual physical exam- Primary Routine general medical examination at a health care facility Hypertension goal BP (blood pressure) < 140/90 Unspecified essential hypertension Mixed hyperlipidemia Acquired hypothyroidism Unspecified hypothyroidism Type 2 diabetes mellitus without complication, unspecified whether negative checker insulin use (HCC) Mild persistent asthma without complication Unspecified asthma Urinary incontinence, unspecified type [facility] Diagnosis Hammer toe of right foot- Primary Hammer toe of left foot Callus of foot Corns and callosities Other diabetic neurological complication associated with type 2 diabetes mellitus (HCC) [facility] Diagnosis Other depression [facility] Diagnosis Hammer toe of right foot- Primary Other diabetic neurological complication associated with type 2 diabetes mellitus (HCC) Hallux rigidus of right foot Hallux rigidus Diminished pulses in lower extremity Other symptoms involving cardiovascular system Vitamin D deficiency Unspecified vitamin D deficiency [facility] Diagnosis Acquired hypothyroidism Unspecified hypothyroidism [facility] Diagnosis Vitamin D deficiency- Primary Unspecified vitamin D deficiency [facility] Diagnosis Iron deficiency anemia due to chronic blood loss- Primary Iron deficiency anemia secondary to blood loss (chronic) Thrombocytopenia (HCC) Thrombocytopenia, unspecified Splenomegaly [facility] Diagnosis Uncontrolled type 2 diabetes mellitus with hyperosmolar nonketotic hyperglycemia (HCC)- Primary Type II or unspecified type diabetes mellitus with hyperosmolarity, uncontrolled Acquired hypothyroidism Unspecified hypothyroidism Intractable migraine without aura and without status migrainosus Migraine without aura, with intractable migraine, so stated, without mention of status migrainosus Hypertension goal BP (blood pressure) < 140/90 Unspecified essential hypertension Mixed hyperlipidemia Agapito infection Candidiasis of unspecified site [facility] Diagnosis Urinary incontinence, unspecified type [facility] Diagnosis Urinary incontinence, unspecified type [facility] Intractable migraine without aura and without status migrainosus Migraine without aura, with intractable migraine, so stated, without mention of status migrainosus [facility] Diagnosis Hammer toe of right foot- Primary Hallux rigidus of right foot Hallux rigidus Other diabetic neurological complication associated with type 2 diabetes mellitus (HCC) [facility] Diagnosis Vitamin D deficiency- Primary Unspecified vitamin D deficiency [facility] Diagnosis Type 1 diabetes mellitus without complication (HCC)- Primary Type I (juvenile type) diabetes mellitus without mention of complication, not stated as uncontrolled Mixed hyperlipidemia [facility] Diagnosis Controlled type 2 diabetes mellitus without complication, with long-term current use of insulin (HCC) [facility] Diagnosis Positive self-administered antigen test for COVID-19- Primary Viral URI Acute upper respiratory infections of unspecified site Thrombocytopenia (HCC) Thrombocytopenia, unspecified [facility]* Diagnosis Encounter for screening mammogram for breast cancer documented in this encounter [facility] note* Diagnosis Controlled type 2 diabetes mellitus without complication, with long-term current use of insulin (HCC) documented in this encounter [facility] note* Diagnosis Vulvovaginitis due to Agapito- Primary Candidiasis of vulva and vagina Vulvar irritation Other specified noninflammatory disorder of vulva and perineum Vaginal discharge Leukorrhea, not specified as infective Urinary urgency Urgency of urination documented in this encounter [facility] for referral (narrative)* Diagnostic Procedure Only (Routine) - Pending Review Specialty Diagnoses / Procedures Referred By Lakisha tavares Referred To Contact [facility] Diagnoses Encounter for screening mammogram for breast cancer Procedures LIZABETH SCREENING SCREENING MAMMOGRAPHY BI 2-VIEW BREAST INC Giovana Elkins MD [address] [place] [address] [facility] [address] [place] [address] Referral ID Status Reason Start Date Expiration Date Visits Requested Visits Authorized [id number] Pending Review Auto-Generat ed Referral 08/17/2023 1 1 T [facility] for referral (narrative)* Diagnostic Procedure Only (Routine) - Pending Review Specialty Diagnoses / Procedures Referred By Lakisha tavares Referred To Contact [facility]AGING Diagnoses Hammer toe of right foot Procedures XR FOOT GENERAL 3V AP/LAT/OBL BILATERAL RADEX FOOT COMPLETE MINIMUM 3 VIEWS Nelson Arias [address] [place] [address] Xr Imaging Referral ID Status Reason Start Date Expiration Date Visits Requested Visits Authorized [id number] Pending Review Auto-Generat ed Referral 07/31/2022 08/30/2023 1 1 T [facility] for referral (narrative)* Outpatient Procedure (Routine) - Authorized Specialty Diagnoses / Procedures Referred By Lakisha tavares Ref[facility] Diagnoses Hammer toe of right foot Other diabetic neurological complication associated with type 2 diabetes mellitus (HCC) Hallux rigidus of right foot Diminished pulses in lower extremity Procedures PVR ANK PRESS JULIAN VAS LAB NON-INVAS PHYSIOLOGIC STD EXTREMITY ART 2 LEVEL Nelson Arias [address] [place] [address] [facility] [place] [address] [place] [address] Referral ID Status Reason Start Date Expiration Date Visits Requested Visits Authorized [id number] Authorized Auto-Generat ed Referral 10/04/2022 10/04/2023 1 1 [facility] for referral (narrative)* Diagnostic Procedure Only (Routine) - Closed Specialty Diagnoses / Procedures Referred By Lakisha tavares Referred To Contact [facility] Diagnoses Encounter for screening mammogram for breast cancer Procedures LIZABETH SCREENING SCREENING MAMMOGRAPHY BI 2-VIEW BREAST INC Giovana Elkins MD [address] [place] [address] [facility] [address] [place] [address] Referral ID Status Reason Start Date Expiration Date V isits Requested Visits Authorized [id number] Closed Auto-Generate d Referral 07/18/2022 08/17/2023 1 1 [facility] for visit Narrative* Diagnostic Procedure Only (Routine) - Closed Specialty Diagnoses / Procedures Referred By Lakisha tavares Referred To Contact [facility] Diagnoses Encounter for screening mammogram for breast cancer Procedures LIZABETH SCREENING SCREENING MAMMOGRAPHY BI 2-VIEW BREAST INC Giovana Elkins MD [address] [place] [address] [facility] [address] [place] [address] Referral ID Status Reason Start Date Expiration Date V isits Requested Visits Authorized [id number] Closed Auto-Generate d Referral 07/18/2022 08/17/2023 1 1 [facility] Summary Purpose Family History No Family History Records FoundNo Family History Records Found Advance Directives No Advanced Directives Records FoundDocuments on File Type Date Recorded Patient Grants Officer Expl anation Advance Directive(s) 03/23/2021 7:14 AM Advance Directive(s) 05/03/2020 11:23 AM Advance Directive(s) 11/03/2019 6:47 AM Advance Directive(s) 08/20/2019 12:09 PM Advance Directive(s) 10/11/2016 1:41 PM Advance Directive(s) 08/16/2016 2:00 PM Advance Directive(s) 08/08/2016 4:28 PM Advance Directive(s) 08/06/2016 12:30 PM Advance Directive(s) 07/30/2016 4:13 PM Documents on File Type Date Recorded Patient Grants Officer Expl anation Advance Directive(s) 03/23/2021 7:14 AM Advance Directive(s) 05/03/2020 11:23 AM Advance Directive(s) 11/03/2019 6:47 AM Advance Directive(s) 08/20/2019 12:09 PM Advance Directive(s) 10/11/2016 1:41 PM Advance Directive(s) 08/16/2016 2:00 PM Advance Directive(s) 08/08/2016 4:28 PM Advance Directive(s) 08/06/2016 12:30 PM Advance Directive(s) 07/30/2016 4:13 PM Reason for Referral Specialty Diagnoses / Procedures Referred By Lakisha tavares Referred To Contact Gastroenterology Diagnoses Bloating Diarrhea, unspecified type Flatulence Procedures CONSULT TO GASTROENTEROLOGY OFFICE/OUTPATIENT [facility] 60-74 MINUTES Giovana Conteh MD [address] [place] [address] Referral ID Status Reason Start Date Expiration Date Visits Requested Visits Authorized [id number] Authorized PCP Requested Referral 12/18/2021 12/18/2022 1 1 Specialty Diagnoses / Procedures Referred By Lakisha tavares Referred To Contact Nutrition Diagnoses Type 2 diabetes mellitus without complication, without long-term current use of insulin (HCC) Procedures CONSULT TO NUTRITION THERAPY OFFICE/OUTPATIENT [facility] 60-74 MINUTES Giovana Conteh MD [address] [place] [address] Referral ID Status Reason Start Date Expiration Date Visits Requested Visits Authorized [id number] Authorized PCP Requested Referral 01/08/2022 01/08/2023 1 1 Specialty Diagnoses / Procedures Referred By Contac t Referred To Contact Diagnoses Type 2 diabetes mellitus without complication, without long-term current use of insulin ([facility]) Giovana Conteh MD [address] [place] [address] Referral ID Status Reason Start Date Expiration Date Visits Re quested Visits Authorized [id number] Denied 1 1 Referral ID Status Reason Start Date Expiration Date Visits Re quested Visits Authorized [id number] Denied 1 1 Specialty Diagnoses / Procedures Referred By Contac t Referred To Contact Diagnoses Urinary urgency Procedures CONSULT TO URO GYNECOLOGY OFFICE/OUTPATIENT [facility] 60-74 MINUTES Polly Moncada MD [address] [place] [address] Referral ID Status Reason Start Date Expiration Date Visits Requested Visits Authorized [id number] Authorized PCP Requested Referral Auto-Generate d Referral 09/04/2023 09/03/2024 1 1 Health Concerns Infection Onset Date Last Indicated Resolved Time COVID-19 Confirmed 06/19/2023 06/19/2023 Additional Source Comments INFORMATION SOURCE (unrecogn ized section and content) DATE CREATED AUTHOR AUTHOR'S ORGANIZ ATION 09/26/2023 [facility] Source Comments (unrecognize d section and content) In the event this informatio n is protected by the Federal Confidentiality of Alcohol and Drug Abuse Patient Records regulations: The Federal rules restrict any use of the information to criminally investigate or prosecute any alcohol or drug abuse patient.[facility] the event this information is protected by the Federal Confidentiality of Alcohol and Drug Abuse Patient Records regulations: The Federal rules restrict any use of the information to criminally investigate or prosecute any alcohol or drug abuse patient.[facility]In the event this information is protected by the Federal Confidentiality of Alcohol and Drug Abuse Patient Records regulations: The Federal rules restrict any use of the information to criminally investigate or prosecute any alcohol or drug abuse patient.[facility]In the event this information is protected by the Federal Confidentiality of Alcohol and Drug Abuse Patient Records regulations: The Federal rules restrict any use of the information to criminally investigate or prosecute any alcohol or drug abuse patient.[facility]In the event this information is protected by the Federal Confidentiality of Alcohol and Drug Abuse Patient Records regulations: The Federal rules restrict any use of the information to criminally investigate or prosecute any alcohol or drug abuse patient.[facility]In the event this information is protected by the Federal Confidentiality of Alcohol and Drug Abuse Patient Records regulations: The Federal rules restrict any use of the information to criminally investigate or prosecute any alcohol or drug abuse patient.[facility]In the event this information is protected by the Federal Confidentiality of Alcohol and Drug Abuse Patient Records regulations: The Federal rules restrict any use of the information to criminally investigate or prosecute any alcohol or drug abuse patient.[facility]In the event this information is protected by the Federal Confidentiality of Alcohol and Drug Abuse Patient Records regulations: The Federal rules restrict any use of the information to criminally investigate or prosecute any alcohol or drug abuse patient.[facility]In the event this information is protected by the Federal Confidentiality of Alcohol and Drug Abuse Patient Records regulations: The Federal rules restrict any use of the information to criminally investigate or prosecute any alcohol or drug abuse patient.[facility]In the event this information is protected by the Federal Confidentiality of Alcohol and Drug Abuse Patient Records regulations: The Federal rules restrict any use of the information to criminally investigate or prosecute any alcohol or drug abuse patient.[facility]In the event this information is protected by the Federal Confidentiality of Alcohol and Drug Abuse Patient Records regulations: The Federal rules restrict any use of the information to criminally investigate or prosecute any alcohol or drug abuse patient.[facility]In the event this information is protected by the Federal Confidentiality of Alcohol and Drug Abuse Patient Records regulations: The Federal rules restrict any use of the information to criminally investigate or prosecute any alcohol or drug abuse patient.[facility]In the event this information is protected by the Federal Confidentiality of Alcohol and Drug Abuse Patient Records regulations: The Federal rules restrict any use of the information to criminally investigate or prosecute any alcohol or drug abuse patient.[facility]In the event this information is protected by the Federal Confidentiality of Alcohol and Drug Abuse Patient Records regulations: The Federal rules restrict any use of the information to criminally investigate or prosecute any alcohol or drug abuse patient.[facility]In the event this information is protected by the Federal Confidentiality of Alcohol and Drug Abuse Patient Records regulations: The Federal rules restrict any use of the information to criminally investigate or prosecute any alcohol or drug abuse patient.[facility]In the event this information is protected by the Federal Confidentiality of Alcohol and Drug Abuse Patient Records regulations: The Federal rules restrict any use of the information to criminally investigate or prosecute any alcohol or drug abuse patient.[facility] HospitalIn the event this information is protected by the Federal Confidentiality of Alcohol and Drug Abuse Patient Records regulations: The Federal rules restrict any use of the information to criminally investigate or prosecute any alcohol or drug abuse patient.[facility] HospitalIn the event this information is protected by the Federal Confidentiality of Alcohol and Drug Abuse Patient Records regulations: The Federal rules restrict any use of the information to criminally investigate or prosecute any alcohol or drug abuse patient.[facility] HospitalIn the event this information is protected by the Federal Confidentiality of Alcohol and Drug Abuse Patient Records regulations: The Federal rules restrict any use of the information to criminally investigate or prosecute any alcohol or drug abuse patient.[facility] HospitalIn the event this information is protected by the Federal Confidentiality of Alcohol and Drug Abuse Patient Records regulations: The Federal rules restrict any use of the information to criminally investigate or prosecute any alcohol or drug abuse patient.[facility] HospitalIn the event this information is protected by the Federal Confidentiality of Alcohol and Drug Abuse Patient Records regulations: The Federal rules restrict any use of the information to criminally investigate or prosecute any alcohol or drug abuse patient.[facility] HospitalIn the event this information is protected by the Federal Confidentiality of Alcohol and Drug Abuse Patient Records regulations: The Federal rules restrict any use of the information to criminally investigate or prosecute any alcohol or drug abuse patient.[facility] HospitalIn the event this information is protected by the Federal Confidentiality of Alcohol and Drug Abuse Patient Records regulations: The Federal rules restrict any use of the information to criminally investigate or prosecute any alcohol or drug abuse patient.[facility]In the event this information is protected by the Federal Confidentiality of Alcohol and Drug Abuse Patient Records regulations: The Federal rules restrict any use of the information to criminally investigate or prosecute any alcohol or drug abuse patient.[facility]In the event this information is protected by the Federal Confidentiality of Alcohol and Drug Abuse Patient Records regulations: The Federal rules restrict any use of the information to criminally investigate or prosecute any alcohol or drug abuse patient.[facility] HospitalIn the event this information is protected by the Federal Confidentiality of Alcohol and Drug Abuse Patient Records regulations: The Federal rules restrict any use of the information to criminally investigate or prosecute any alcohol or drug abuse patient.[facility]In the event this information is protected by the Federal Confidentiality of Alcohol and Drug Abuse Patient Records regulations: The Federal rules restrict any use of the information to criminally investigate or prosecute any alcohol or drug abuse patient.[facility]In the event this information is protected by the Federal Confidentiality of Alcohol and Drug Abuse Patient Records regulations: The Federal rules restrict any use of the information to criminally investigate or prosecute any alcohol or drug abuse patient.[facility]In the event this information is protected by the Federal Confidentiality of Alcohol and Drug Abuse Patient Records regulations: The Federal rules restrict any use of the information to criminally investigate or prosecute any alcohol or drug abuse patient.[facility]In the event this information is protected by the Federal Confidentiality of Alcohol and Drug Abuse Patient Records regulations: The Federal rules restrict any use of the information to criminally investigate or prosecute any alcohol or drug abuse patient.[facility] HospitalIn the event this information is protected by the Federal Confidentiality of Alcohol and Drug Abuse Patient Records regulations: The Federal rules restrict any use of the information to criminally investigate or prosecute any alcohol or drug abuse patient.[facility]In the event this information is protected by the Federal Confidentiality of Alcohol and Drug Abuse Patient Records regulations: The Federal rules restrict any use of the information to criminally investigate or prosecute any alcohol or drug abuse patient.[facility]In the event this information is protected by the Federal Confidentiality of Alcohol and Drug Abuse Patient Records regulations: The Federal rules restrict any use of the information to criminally investigate or prosecute any alcohol or drug abuse patient.[facility]In the event this information is protected by the Federal Confidentiality of Alcohol and Drug Abuse Patient Records regulations: The Federal rules restrict any use of the information to criminally investigate or prosecute any alcohol or drug abuse patient.[facility]In the event this information is protected by the Federal Confidentiality of Alcohol and Drug Abuse Patient Records regulations: The Federal rules restrict any use of the information to criminally investigate or prosecute any alcohol or drug abuse patient.[facility]In the event this information is protected by the Federal Confidentiality of Alcohol and Drug Abuse Patient Records regulations: The Federal rules restrict any use of the information to criminally investigate or prosecute any alcohol or drug abuse patient.[facility]In the event this information is protected by the Federal Confidentiality of Alcohol and Drug Abuse Patient Records regulations: The Federal rules restrict any use of the information to criminally investigate or prosecute any alcohol or drug abuse patient.[facility]In the event this information is protected by the Federal Confidentiality of Alcohol and Drug Abuse Patient Records regulations: The Federal rules restrict any use of the information to criminally investigate or prosecute any alcohol or drug abuse patient.[facility]In the event this information is protected by the Federal Confidentiality of Alcohol and Drug Abuse Patient Records regulations: The Federal rules restrict any use of the information to criminally investigate or prosecute any alcohol or drug abuse patient.[facility]In the event this information is protected by the Federal Confidentiality of Alcohol and Drug Abuse Patient Records regulations: The Federal rules restrict any use of the information to criminally investigate or prosecute any alcohol or drug abuse patient.[facility]In the event this information is protected by the Federal Confidentiality of Alcohol and Drug Abuse Patient Records regulations: The Federal rules restrict any use of the information to criminally investigate or prosecute any alcohol or drug abuse patient.[facility]In the event this information is protected by the Federal Confidentiality of Alcohol and Drug Abuse Patient Records regulations: The Federal rules restrict any use of the information to criminally investigate or prosecute any alcohol or drug abuse patient.[facility]In the event this information is protected by the Federal Confidentiality of Alcohol and Drug Abuse Patient Records regulations: The Federal rules restrict any use of the information to criminally investigate or prosecute any alcohol or drug abuse patient.[facility]In the event this information is protected by the Federal Confidentiality of Alcohol and Drug Abuse Patient Records regulations: The Federal rules restrict any use of the information to criminally investigate or prosecute any alcohol or drug abuse patient.[facility]In the event this information is protected by the Federal Confidentiality of Alcohol and Drug Abuse Patient Records regulations: The Federal rules restrict any use of the information to criminally investigate or prosecute any alcohol or drug abuse patient.[facility]In the event this information is protected by the Federal Confidentiality of Alcohol and Drug Abuse Patient Records regulations: The Federal rules restrict any use of the information to criminally investigate or prosecute any alcohol or drug abuse patient.[facility]In the event this information is protected by the Federal Confidentiality of Alcohol and Drug Abuse Patient Records regulations: The Federal rules restrict any use of the information to criminally investigate or prosecute any alcohol or drug abuse patient.[facility]In the event this information is protected by the Federal Confidentiality of Alcohol and Drug Abuse Patient Records regulations: The Federal rules restrict any use of the information to criminally investigate or prosecute any alcohol or drug abuse patient.[facility]In the event this information is protected by the Federal Confidentiality of Alcohol and Drug Abuse Patient Records regulations: The Federal rules restrict any use of the information to criminally investigate or prosecute any alcohol or drug abuse patient.[facility]In the event this information is protected by the Federal Confidentiality of Alcohol and Drug Abuse Patient Records regulations: The Federal rules restrict any use of the information to criminally investigate or prosecute any alcohol or drug abuse patient.[facility]In the event this information is protected by the Federal Confidentiality of Alcohol and Drug Abuse Patient Records regulations: The Federal rules restrict any use of the information to criminally investigate or prosecute any alcohol or drug abuse patient.[facility]In the event this information is protected by the Federal Confidentiality of Alcohol and Drug Abuse Patient Records regulations: The Federal rules restrict any use of the information to criminally investigate or prosecute any alcohol or drug abuse patient.[facility]In the event this information is protected by the Federal Confidentiality of Alcohol and Drug Abuse Patient Records regulations: The Federal rules restrict any use of the information to criminally investigate or prosecute any alcohol or drug abuse patient.[facility]In the event this information is protected by the Federal Confidentiality of Alcohol and Drug Abuse Patient Records regulations: The Federal rules restrict any use of the information to criminally investigate or prosecute any alcohol or drug abuse patient.[facility]In the event this information is protected by the Federal Confidentiality of Alcohol and Drug Abuse Patient Records regulations: The Federal rules restrict any use of the information to criminally investigate or prosecute any alcohol or drug abuse patient.[facility]In the event this information is protected by the Federal Confidentiality of Alcohol and Drug Abuse Patient Records regulations: The Federal rules restrict any use of the information to criminally investigate or prosecute any alcohol or drug abuse patient.[facility]In the event this information is protected by the Federal Confidentiality of Alcohol and Drug Abuse Patient Records regulations: The Federal rules restrict any use of the information to criminally investigate or prosecute any alcohol or drug abuse patient.[facility]In the event this information is protected by the Federal Confidentiality of Alcohol and Drug Abuse Patient Records regulations: The Federal rules restrict any use of the information to criminally investigate or prosecute any alcohol or drug abuse patient.[facility]In the event this information is protected by the Federal Confidentiality of Alcohol and Drug Abuse Patient Records regulations: The Federal rules restrict any use of the information to criminally investigate or prosecute any alcohol or drug abuse patient.[facility]In the event this information is protected by the Federal Confidentiality of Alcohol and Drug Abuse Patient Records regulations: The Federal rules restrict any use of the information to criminally investigate or prosecute any alcohol or drug abuse patient.[facility]In the event this information is protected by the Federal Confidentiality of Alcohol and Drug Abuse Patient Records regulations: The Federal rules restrict any use of the information to criminally investigate or prosecute any alcohol or drug abuse patient.[facility]In the event this information is protected by the Federal Confidentiality of Alcohol and Drug Abuse Patient Records regulations: The Federal rules restrict any use of the information to criminally investigate or prosecute any alcohol or drug abuse patient.[facility]In the event this information is protected by the Federal Confidentiality of Alcohol and Drug Abuse Patient Records regulations: The Federal rules restrict any use of the information to criminally investigate or prosecute any alcohol or drug abuse patient.[facility]In the event this information is protected by the Federal Confidentiality of Alcohol and Drug Abuse Patient Records regulations: The Federal rules restrict any use of the information to criminally investigate or prosecute any alcohol or drug abuse patient.[facility]In the event this information is protected by the Federal Confidentiality of Alcohol and Drug Abuse Patient Records regulations: The Federal rules restrict any use of the information to criminally investigate or prosecute any alcohol or drug abuse patient.[facility]In the event this information is protected by the Federal Confidentiality of Alcohol and Drug Abuse Patient Records regulations: The Federal rules restrict any use of the information to criminally investigate or prosecute any alcohol or drug abuse patient.[facility]In the event this information is protected by the Federal Confidentiality of Alcohol and Drug Abuse Patient Records regulations: The Federal rules restrict any use of the information to criminally investigate or prosecute any alcohol or drug abuse patient.[facility]In the event this information is protected by the Federal Confidentiality of Alcohol and Drug Abuse Patient Records regulations: The Federal rules restrict any use of the information to criminally investigate or prosecute any alcohol or drug abuse patient.[facility]In the event this information is protected by the Federal Confidentiality of Alcohol and Drug Abuse Patient Records regulations: The Federal rules restrict any use of the information to criminally investigate or prosecute any alcohol or drug abuse patient.[facility]In the event this information is protected by the Federal Confidentiality of Alcohol and Drug Abuse Patient Records regulations: The Federal rules restrict any use of the information to criminally investigate or prosecute any alcohol or drug abuse patient.[facility]In the event this information is protected by the Federal Confidentiality of Alcohol and Drug Abuse Patient Records regulations: The Federal rules restrict any use of the information to criminally investigate or prosecute any alcohol or drug abuse patient.[facility]In the event this information is protected by the Federal Confidentiality of Alcohol and Drug Abuse Patient Records regulations: The Federal rules restrict any use of the information to criminally investigate or prosecute any alcohol or drug abuse patient.[facility]In the event this information is protected by the Federal Confidentiality of Alcohol and Drug Abuse Patient Records regulations: The Federal rules restrict any use of the information to criminally investigate or prosecute any alcohol or drug abuse patient.[facility]In the event this information is protected by the Federal Confidentiality of Alcohol and Drug Abuse Patient Records regulations: The Federal rules restrict any use of the information to criminally investigate or prosecute any alcohol or drug abuse patient.[facility]In the event this information is protected by the Federal Confidentiality of Alcohol and Drug Abuse Patient Records regulations: The Federal rules restrict any use of the information to criminally investigate or prosecute any alcohol or drug abuse patient.[facility]In the event this information is protected by the Federal Confidentiality of Alcohol and Drug Abuse Patient Records regulations: The Federal rules restrict any use of the information to criminally investigate or prosecute any alcohol or drug abuse patient.[facility]In the event this information is protected by the Federal Confidentiality of Alcohol and Drug Abuse Patient Records regulations: The Federal rules restrict any use of the information to criminally investigate or prosecute any alcohol or drug abuse patient.[facility] HospitalIn the event this information is protected by the Federal Confidentiality of Alcohol and Drug Abuse Patient Records regulations: The Federal rules restrict any use of the information to criminally investigate or prosecute any alcohol or drug abuse patient.[facility] HospitalIn the event this information is protected by the Federal Confidentiality of Alcohol and Drug Abuse Patient Records regulations: The Federal rules restrict any use of the information to criminally investigate or prosecute any alcohol or drug abuse patient.[facility] Reason for Visit (unrecogniz ed section and content) Reason Comments Gas states foul smell an d has tried Gas X and probiotics Specialty Diagnoses / Procedures Referred By Lakisha tavares Referred To Contact Gastroenterology Diagnoses Bloating Diarrhea, unspecified type Flatulence Procedures CONSULT TO GASTROENTEROLOGY OFFICE/OUTPATIENT [facility] 60-74 MINUTES Giovana Conteh MD [address] [place] [address] Referral ID Status Reason Start Date Expiration Date V isits Requested Visits Authorized [id number] Closed PCP Requested Referral 12/18/2021 12/18/2022 1 1 Reason Comments Medication Update Reason Onset Date Comments Refill Request 12/04/2021 Patient Update 12/04/2021 Reason Comments Results Reason Comments Insurance Authorization Reason Comments Breath Hydrogen Test Reason Comments Gas Reason Comments Allied Health Visit DM Reason Comments Returning Patient's Call Reason Comments Patient Education Assessment Specialty Diagnoses / Procedures Referred By Lakisha tavares Referred To Contact Nutrition Diagnoses Type 2 diabetes mellitus without complication, without long-term current use of insulin (HCC) Procedures CONSULT TO NUTRITION THERAPY OFFICE/OUTPATIENT [facility] 60-74 MINUTES Giovana Conteh MD [address] [place] [address] Referral ID Status Reason Start Date Expiration Date V isits Requested Visits Authorized [id number] Closed PCP Requested Referral 01/08/2022 01/08/2023 1 1 Reason Comments Requested Fax Reason Comments Allied Health Visit DM Reason Comments Patient Question Reason Onset Date Comments Refill Request 01/25/2022 Reason Comments Dog Bite Reason Comments Dog Bite Lip Reason Onset Date Comments Refill Request 04/11/2022 Reason Comments Refill Request Reason Onset Date Comments Refill Request 06/05/2022 Reason Comments Results Appointment Reason Comments F/U Diabetes 3 Month review DM labs Reason Comments Established Patient Pain Reason Comments results/medication update Reason Comments Release Of Medical Records Reason Comments Medical Supplier Request Reason Onset Date Comments Refill Request 09/27/2022 Reason Comments Established Patient Follow Up Pain Reason Comments Medication Problem ditropan Reason Comments Same Day Appointment reoccurring yeast i nfections x 2 months nonstop Reason Comments Medication Question Reason Onset Date Comments Refill Request 12/09/2022 Reason Onset Date Comments Refill Request 01/22/2023 Reason Onset Date Comments Refill Request 02/01/2023 Reason Onset Date Comments Refill Request 03/14/2023 Reason Comments Established Patient Follow Up Pain Reason Comments follow up - labs Worsening diabetes Reason Onset Date Comments Refill Request 04/30/2023 Reason Onset Date Comments Refill Request 05/01/2023 Reason Onset Date Comments Refill Request 05/15/2023 Reason Comments Letter Reason Onset Date Comments Refill Request 07/05/2023 Reason Onset Date Comments ACM KAUSHAL RN 07/22/2023 Medication Ad herence review per request of payer Reason Onset Date Comments Refill Request 08/10/2023 Reason Comments Anxiety Reason Comments Medication Problem Reason Comments Vaginal Problem Care Teams (unrecognized sec tion and content) Sprinkler Tender Relationship Specialty Start Date End Date Giovana Conteh MD [address] [place] [address] PCP - General Internal Medicine 05/10/17 [facility] [address] [place] [address] Pharmacist Pharmacy 02/19/20 Dago Steen APRN.TICK INSPECTOR Internal Medicine 05/03/20 Sprinkler Tender Relationship Specialty Start Date End Date Giovana Conteh MD [address] [place] [address] PCP - General Internal Medicine 05/10/17 Romel Hoang [facility] [address] [place] [address] Pharmacist Pharmacy 02/19/20 Dago Steen APRN.TICK INSPECTOR Internal Medicine 05/03/20 Sprinkler Tender Relationship Specialty Start Date End Date Giovana Conteh MD [address] [facility] [place] [address] PCP - General Internal Medicine 05/10/17 Romel Hoang, [facility] [address] [place] [address] Pharmacist Pharmacy 02/19/20 Dago Steen, COMPUTER METHODS ANALYST.TICK INSPECTOR Internal Medicine 05/03/20 Sprinkler Tender Relationship Specialty Start Date End Date Giovana Conteh MD [address] [facility] [place] [address] PCP - General Internal Medicine 05/10/17 Romel Hoang, [facility] [address] [facility] [place] [address] Pharmacist Pharmacy 02/19/20 Dago Steen, COMPUTER METHODS ANALYST.TICK INSPECTOR Internal Medicine 05/03/20 Sprinkler Tender Relationship Specialty Start Date End Date Giovana Conteh MD [address] [facility] [place] [address] PCP - General Internal Medicine 05/10/17 Romel Hoang, [facility] [address] [place] [address] Pharmacist Pharmacy 02/19/20 Dago Steen, COMPUTER METHODS ANALYST.TICK INSPECTOR Internal Medicine 05/03/20 Sprinkler Tender Relationship Specialty Start Date End Date Giovana Conteh MD [address] [place] [address] PCP - General Internal Medicine 05/10/17 Romel Hoang, [facility] [address] [place] [address] Pharmacist Pharmacy 02/19/20 Dago Steen, COMPUTER METHODS ANALYST.TICK INSPECTOR Internal Medicine 05/03/20 Sprinkler Tender Relationship Specialty Start Date End Date Giovana Conteh MD [address] [place] [address] PCP - General Internal Medicine 05/10/17 Romel Hoang, [facility] [address] [place] [address] Pharmacist Pharmacy 02/19/20 Dago Steen, COMPUTER METHODS ANALYST.TICK INSPECTOR Internal Medicine 05/03/20 Sprinkler Tender Relationship Specialty Start Date End Date Giovana Conteh MD [address] [place] [address] PCP - General Internal Medicine 05/10/17 [facility] [address] [place] [address] Pharmacist Pharmacy 02/19/20 Dago Steen, COMPUTER METHODS ANALYST.TICK INSPECTOR Internal Medicine 05/03/20 Sprinkler Tender Relationship Specialty Start Date End Date Giovana Conteh MD [address] [place] [address] PCP - General Internal Medicine 05/10/17 Romel Hoang, [facility] [address] [place] [address] Pharmacist Pharmacy 02/19/20 Dago Steen, COMPUTER METHODS ANALYST.TICK INSPECTOR Internal Medicine 05/03/20 Sprinkler Tender Relationship Specialty Start Date End Date Giovana Conteh MD [address] [place] [address] PCP - General Internal Medicine 05/10/17 [facility] [address] [place] [address] Pharmacist Pharmacy 02/19/20 Dago Steen, COMPUTER METHODS ANALYST.TICK INSPECTOR Internal Medicine 05/03/20 Sprinkler Tender Relationship Specialty Start Date End Date Giovana Conteh MD [address] [place] [address] PCP - General Internal Medicine 05/10/17 [facility] [address] [place] [address] Pharmacist Pharmacy 02/19/20 Dago Steen, COMPUTER METHODS ANALYST.TICK INSPECTOR Internal Medicine 05/03/20 Sprinkler Tender Relationship Specialty Start Date End Date Giovana Conteh MD [address] [facility] [place] [address] PCP - General Internal Medicine 05/10/17 Romel Hoang, [facility] [address] [place] [address] Pharmacist Pharmacy 02/19/20 Dago Steen, COMPUTER METHODS ANALYST.TICK INSPECTOR Internal Medicine 05/03/20 Sprinkler Tender Relationship Specialty Start Date End Date Giovana Conteh MD [address] [place] [address] PCP - General Internal Medicine 05/10/17 Romel Hoang, [facility] [address] [place] [address] Pharmacist Pharmacy 02/19/20 Dago Steen, COMPUTER METHODS ANALYST.TICK INSPECTOR Internal Medicine 05/03/20 Sprinkler Tender Relationship Specialty Start Date End Date Giovana Conteh MD [address] [facility] [place] [address] PCP - General Internal Medicine 05/10/17 Romel Hoang, [facility] [address] [facility] [place] [address] Pharmacist Pharmacy 02/19/20 Dago Steen, COMPUTER METHODS ANALYST.TICK INSPECTOR Internal Medicine 05/03/20 Sprinkler Tender Relationship Specialty Start Date End Date Giovana Conteh MD [address] [facility] [place] [address] PCP - General Internal Medicine 05/10/17 Romel Hoang, [facility] [address] [facility] [address] Pharmacist Pharmacy 02/19/20 Dago Steen, COMPUTER METHODS ANALYST.TICK INSPECTOR Internal Medicine 05/03/20 Sprinkler Tender Relationship Specialty Start Date End Date Giovana Conteh MD [address] [facility] [place] [address] PCP - General Internal Medicine 05/10/17 Romel Hoang, [facility] [address] [facility] [place] [address] Pharmacist Pharmacy 02/19/20 Dago Steen, COMPUTER METHODS ANALYST.TICK INSPECTOR Internal Medicine 05/03/20 Sprinkler Tender Relationship Specialty Start Date End Date Giovana Conteh MD [address] [facility] [place] [address] PCP - General Internal Medicine 05/10/17 Romel Hoang, [facility] [address] [place] [address] Pharmacist Pharmacy 02/19/20 Dago Steen APRN.TICK INSPECTOR Internal Medicine 05/03/20 Sprinkler Tender Relationship Specialty Start Date End Date Giovana Conteh MD [address] [place] [address] PCP - General Internal Medicine 05/10/17 [facility] [address] [place] [address] Pharmacist Pharmacy 02/19/20 Dago Steen APRN.TICK INSPECTOR Internal Medicine 05/03/20 Sprinkler Tender Relationship Specialty Start Date End Date Giovana Conteh MD [address] [place] [address] PCP - General Internal Medicine 05/10/17 [facility] [address] [place] [address] Pharmacist Pharmacy 02/19/20 Dago Steen, COMPUTER METHODS ANALYST.TICK INSPECTOR Internal Medicine 05/03/20 Sprinkler Tender Relationship Specialty Start Date End Date Giovana Conteh MD [address] [place] [address] PCP - General Internal Medicine 05/10/17 [facility] [address] [place] [address] Pharmacist Pharmacy 02/19/20 Dago Steen, COMPUTER METHODS ANALYST.TICK INSPECTOR Internal Medicine 05/03/20 Sprinkler Tender Relationship Specialty Start Date End Date Giovana Conteh MD [address] [place] [address] PCP - General Internal Medicine 05/10/17 [facility] [address] [place] [address] Pharmacist Pharmacy 02/19/20 Dago Steen, COMPUTER METHODS ANALYST.TICK INSPECTOR Internal Medicine 05/03/20 Sprinkler Tender Relationship Specialty Start Date End Date Giovana Conteh MD [address] [place] [address] PCP - General Internal Medicine 05/10/17 [facility] [address] [place] [address] Pharmacist Pharmacy 02/19/20 Dago Steen, COMPUTER METHODS ANALYST.TICK INSPECTOR Internal Medicine 05/03/20 Sprinkler Tender Relationship Specialty Start Date End Date Giovana Conteh MD [address] [facility] [place] [address] PCP - General Internal Medicine 05/10/17 [facility] [address] [place] [address] Pharmacist Pharmacy 02/19/20 Dago Steen, COMPUTER METHODS ANALYST.TICK INSPECTOR Internal Medicine 05/03/20 Sprinkler Tender Relationship Specialty Start Date End Date Giovana Conteh MD [address] [place] [address] PCP - General Internal Medicine 05/10/17 Romel Hoang, [facility] [address] [place] [address] Pharmacist Pharmacy 02/19/20 Dago Steen, COMPUTER METHODS ANALYST.TICK INSPECTOR [address] [place] [address] Internal Medicine 05/03/20 Sprinkler Tender Relationship Specialty Start Date End Date Giovana Conteh MD [address] [place] [address] PCP - General Internal Medicine 05/10/17 [facility] [address] [place] [address] Pharmacist Pharmacy 02/19/20 Dago Steen APRN.TICK INSPECTOR [address] [place] [address] Internal Medicine 05/03/20 Sprinkler Tender Relationship Specialty Start Date End Date Giovana Conteh MD [address] [place] [address] PCP - General Internal Medicine 05/10/17 [facility] [address] [place] [address] Pharmacist Pharmacy 02/19/20 Dago Steen APRN.TICK INSPECTOR [address] [place] [address] Internal Medicine 05/03/20 Sprinkler Tender Relationship Specialty Start Date End Date Giovana Conteh MD [address] [place] [address] PCP - General Internal Medicine 05/10/17 [facility] [address] [place] [address] Pharmacist Pharmacy 02/19/20 Dago Steen, COMPUTER METHODS ANALYST.TICK INSPECTOR [address] [place] [address] Internal Medicine 05/03/20 Sprinkler Tender Relationship Specialty Start Date End Date Giovana Conteh MD [address] [place] [address] PCP - General Internal Medicine 05/10/17 [facility] [address] [place] [address] Pharmacist Pharmacy 02/19/20 Dago Steen, COMPUTER METHODS ANALYST.TICK INSPECTOR [address] [place] [address] Internal Medicine 05/03/20 Sprinkler Tender Relationship Specialty Start Date End Date Giovana Conteh MD [address] [place] [address] PCP - General Internal Medicine 05/10/17 [facility] [address] [place] [address] Pharmacist Pharmacy 02/19/20 Dago Steen, COMPUTER METHODS ANALYST.TICK INSPECTOR [address] [place] [address] Internal Medicine 05/03/20 Sprinkler Tender Relationship Specialty Start Date End Date Giovana Conteh MD [address] [place] [address] PCP - General Internal Medicine 05/10/17 [facility] [address] [place] [address] Pharmacist Pharmacy 02/19/20 Dago Steen, COMPUTER METHODS ANALYST.TICK INSPECTOR [address] [place] [address] Internal Medicine 05/03/20 Sprinkler Tender Relationship Specialty Start Date End Date Giovana Conteh MD [address] [place] [address] PCP - General Internal Medicine 05/10/17 [facility] [address] [place] [address] Pharmacist Pharmacy 02/19/20 Dago Steen APRN.TICK INSPECTOR [address] [place] [address] Internal Medicine 05/03/20 Sprinkler Tender Relationship Specialty Start Date End Date Giovana Conteh MD [address] [place] [address] PCP - General Internal Medicine 05/10/17 [facility] [address] [place] [address] Pharmacist Pharmacy 02/19/20 Dago Steen, KARAN.TICK INSPECTOR [address] [place] [address] Internal Medicine 05/03/20 Sprinkler Tender Relationship Specialty Start Date End Date Giovana Conteh MD [address] [place] [address] PCP - General Internal Medicine 05/10/17 [facility] [address] [place] [address] Pharmacist Pharmacy 02/19/20 Dago Steen, COMPUTER METHODS ANALYST.TICK INSPECTOR [address] [place] [address] Internal Medicine 05/03/20 Sprinkler Tender Relationship Specialty Start Date End Date Giovana Conteh MD [address] [place] [address] PCP - General Internal Medicine 05/10/17 [facility] [address] [place] [address] Pharmacist Pharmacy 02/19/20 Dago Steen APRN.TICK INSPECTOR [address] [place] [address] Internal Medicine 05/03/20 Sprinkler Tender Relationship Specialty Start Date End Date Giovana Conteh MD [address] [place] [address] PCP - General Internal Medicine 05/10/17 [facility] [address] [place] [address] Pharmacist Pharmacy 02/19/20 Dago Steen, COMPUTER METHODS ANALYST.TICK INSPECTOR [address] [place] [address] Internal Medicine 05/03/20 Sprinkler Tender Relationship Specialty Start Date End Date Giovana Conteh MD [address] [place] [address] PCP - General Internal Medicine 05/10/17 [facility] [address] [place] [address] Pharmacist Pharmacy 02/19/20 Dago Steen, COMPUTER METHODS ANALYST.TICK INSPECTOR [address] [place] [address] Internal Medicine 05/03/20 Sprinkler Tender Relationship Specialty Start Date End Date Giovana Conteh MD [address] [place] [address] PCP - General Internal Medicine 05/10/17 [facility] [address] [place] [address] Pharmacist Pharmacy 02/19/20 Dago Steen, COMPUTER METHODS ANALYST.TICK INSPECTOR [address] [place] [address] Internal Medicine 05/03/20 Sprinkler Tender Relationship Specialty Start Date End Date Giovana Conteh MD [address] [facility] [place] [address] PCP - General Internal Medicine 05/10/17 [facility] [address] [place] [address] Pharmacist Pharmacy 02/19/20 Dago Steen, COMPUTER METHODS ANALYST.TICK INSPECTOR [address] [place] [address] Internal Medicine 05/03/20 Sprinkler Tender Relationship Specialty Start Date End Date Giovana Conteh MD [address] [place] [address] PCP - General Internal Medicine 05/10/17 [facility] [address] [place] [address] Pharmacist Pharmacy 02/19/20 Dago Steen, COMPUTER METHODS ANALYST.TICK INSPECTOR [address] [place] [address] Internal Medicine 05/03/20 Sprinkler Tender Relationship Specialty Start Date End Date Giovana Conteh MD [address] [place] [address] PCP - General Internal Medicine 05/10/17 [facility] [address] [place] [address] Pharmacist Pharmacy 02/19/20 Dago Steen, COMPUTER METHODS ANALYST.TICK INSPECTOR [address] [place] [address] Internal Medicine 05/03/20 Sprinkler Tender Relationship Specialty Start Date End Date Giovana Conteh MD [address] [place] [address] PCP - General Internal Medicine 05/10/17 [facility] [address] [place] [address] Pharmacist Pharmacy 02/19/20 Dago Steen APRN.TICK INSPECTOR [address] [place] [address] Internal Medicine 05/03/20 Sprinkler Tender Relationship Specialty Start Date End Date Giovana Conteh MD [address] [place] [address] PCP - General Internal Medicine 05/10/17 [facility] [address] [place] [address] Pharmacist Pharmacy 02/19/20 Dago Steen APRN.TICK INSPECTOR [address] [place] [address] Internal Medicine 05/03/20 Sprinkler Tender Relationship Specialty Start Date End Date Giovana Conteh MD [address] [place] [address] PCP - General Internal Medicine 05/10/17 [facility] [address] [place] [address] Pharmacist Pharmacy 02/19/20 Dago Steen APRN.TICK INSPECTOR [address] [place] [address] Internal Medicine 05/03/20 Sprinkler Tender Relationship Specialty Start Date End Date Giovana Conteh MD [address] [place] [address] PCP - General Internal Medicine 05/10/17 Romel Hoang [facility] [address] [place] [address] Pharmacist Pharmacy 02/19/20 Dago Steen APRN.TICK INSPECTOR [address] [place] [address] Internal Medicine 05/03/20 Sprinkler Tender Relationship Specialty Start Date End Date Giovana Conteh MD [address] [place] [address] PCP - General Internal Medicine 05/10/17 [facility] [address] [place] [address] Pharmacist Pharmacy 02/19/20 Dago Steen APRN.TICK INSPECTOR [address] [place] [address] Internal Medicine 05/03/20 Sprinkler Tender Relationship Specialty Start Date End Date Giovana Conteh MD [address] [place] [address] PCP - General Internal Medicine 05/10/17 [facility] [address] [place] [address] Pharmacist Pharmacy 02/19/20 Dago Steen, KARAN.TICK INSPECTOR [address] [place] [address] Internal Medicine 05/03/20 Sprinkler Tender Relationship Specialty Start Date End Date Giovana Conteh MD [address] [place] [address] PCP - General Internal Medicine 05/10/17 [facility] [address] [place] [address] Pharmacist Pharmacy 02/19/20 Dago Steen, COMPUTER METHODS ANALYST.TICK INSPECTOR [address] [place] [address] Internal Medicine 05/03/20 Sprinkler Tender Relationship Specialty Start Date End Date Giovana Conteh MD [address] [place] [address] PCP - General Internal Medicine 05/10/17 [facility] [address] [place] [address] Pharmacist Pharmacy 02/19/20 Dago Steen, COMPUTER METHODS ANALYST.TICK INSPECTOR [address] [place] [address] Internal Medicine 05/03/20 Sprinkler Tender Relationship Specialty Start Date End Date Giovana Conteh MD [address] [place] [address] PCP - General Internal Medicine 05/10/17 [facility] [address] [place] [address] Pharmacist Pharmacy 02/19/20 Dago Steen, COMPUTER METHODS ANALYST.TICK INSPECTOR [address] [place] [address] Internal Medicine 05/03/20 Sprinkler Tender Relationship Specialty Start Date End Date Giovana Conteh MD [address] [place] [address] PCP - General Internal Medicine 05/10/17 [facility] [address] [place] [address] Pharmacist Pharmacy 02/19/20 Dago Steen, COMPUTER METHODS ANALYST.TICK INSPECTOR [address] [place] [address] Internal Medicine 05/03/20 Sprinkler Tender Relationship Specialty Start Date End Date Giovana Conteh MD [address] [place] [address] PCP - General Internal Medicine 05/10/17 [facility] [address] [place] [address] Pharmacist Pharmacy 02/19/20 Dago Steen, COMPUTER METHODS ANALYST.TICK INSPECTOR [address] [place] [address] Internal Medicine 05/03/20 Sprinkler Tender Relationship Specialty Start Date End Date Giovana Conteh MD [address] [place] [address] PCP - General Internal Medicine 05/10/17 [facility] [address] [place] [address] Pharmacist Pharmacy 02/19/20 Dago Steen, COMPUTER METHODS ANALYST.TICK INSPECTOR [address] [place] [address] Internal Medicine 05/03/20 Sprinkler Tender Relationship Specialty Start Date End Date Giovana Conteh MD [address] [place] [address] PCP - General Internal Medicine 05/10/17 [facility] [address] [place] [address] Pharmacist Pharmacy 02/19/20 Dago Steen APRN.TICK INSPECTOR [address] [place] [address] Internal Medicine 05/03/20 Sprinkler Tender Relationship Specialty Start Date End Date Giovana Conteh MD [address] [place] [address] PCP - General Internal Medicine 05/10/17 [facility] [address] [place] [address] Pharmacist Pharmacy 02/19/20 Dago Steen APRN.TICK INSPECTOR [address] [place] [address] Internal Medicine 05/03/20 Sprinkler Tender Relationship Specialty Start Date End Date Giovana Conteh MD [address] [place] [address] PCP - General Internal Medicine 05/10/17 [facility] [address] [place] [address] Pharmacist Pharmacy 02/19/20 Dago Steen APRN.TICK INSPECTOR [address] [place] [address] Internal Medicine 05/03/20 Sprinkler Tender Relationship Specialty Start Date End Date Giovana Conteh MD [address] [place] [address] PCP - General Internal Medicine 05/10/17 [facility] [address] [place] [address] Pharmacist Pharmacy 02/19/20 Dago Steen APRN.TICK INSPECTOR [address] [place] [address] Internal Medicine 05/03/20 FOR RECORDS PERTAINING TO PATIENTS WHO ARE OR HAVE BEEN ENROLLED IN A CHEMICAL DEPENDENCY/SUBSTANCEABUSE PROGRAM, SOME INFORMATION MAY BE OMITTED. This clinical summary was aggregated from multiple sources. Caution should be exercised in using it in the provision of clinical care. This summary normalizes information from multiple sources, and as a consequence, information in this document may materially change the coding, format and clinical context of patient data. In addition, data may be omitted in some cases. CLINICAL DECISIONS SHOULD BE BASED ON THE PRIMARY CLINICAL RECORDS. [employer] provides no warranty or guarantee of the accuracy or completeness of information in this document.
[2023-10-23 17:24] LABS: Bedside Glucose 363 mg/dL (74-106)
[2023-10-23 17:51] LABS: Bedside Glucose 308 mg/dL (74-106)
[2023-10-23 18:44] VITALS: BP 144/76; PULSE 66; RESP 18; TEMP 36.4; O2SAT 99
[2023-10-23 18:50] LABS: Bedside Glucose 263 mg/dL (74-106)
== END 2023-10-23 18:44 | disposition home or self-care (01) ==
PROVIDERS: Emergency Provider Emergency Medicine; PCP Internal Medicine; Visit Provider Emergency Medicine
DX: E11.65 Type 2 diabetes mellitus with hyperglycemia (principal); Z79.4 Long term (current) use of insulin; F41.8 Other specified anxiety disorders; I10 Essential (primary) hypertension; K21.9 Gastro-esophageal reflux disease without esophagitis; Z79.899 Other long term (current) drug therapy; Z79.85 Long-term (current) use of injectable non-insulin antidiabetic drugs
CPT/HCPCS: 80048; 81001; 82962; 85025; 93005; 96360; 96361; 99285; J7030; A4216

== ENCOUNTER 2024-04-10 09:22 | Day surgery (SDC) | payer MEDICARE, MEDICAID, SELFPAY ==
--- NOTE | 2024-04-08 07:34 | EKG12_ITS ---
Test Reason : PREOP Blood Pressure : / mmHG Vent. Rate : 063 BPM Atrial Rate : 063 BPM P-R Int : 138 ms QRS Dur : 078 ms QT Int : 446 ms P-R-T Axes : -03 006 041 degrees QTc Int : 456 ms Normal sinus rhythm Normal ECG Confirmed by Darren Gomez ([id number]), editor farm journal ROB HOWARD ([id number]) on 04/09/2024 7:52:21 AM Referred By: Camila Sofia Confirmed By:Darren Gomez
[2024-04-08 08:25] LABS: Hemoglobin 12.5 g/dL (12.0-15.0); Mean Corp Hgb Conc 31.3 g/dL (32-36); Mean Corpuscular Hgb 26.8 pg (27.0-32.0); Mean Corpuscular Volume 85.7 fL (81-99); Mean Platelet Vol. 11.5 fl (6.2-12.0); Platelet Count 103 K/mm3 (150-450); RBC Distribution Width CV 13.2 % (11.6-14.6); RBC Distribution Width SD 41.2 fl (35.1-43.9); Red Blood Count 4.67 M/mm3 (4.2-5.4); White Blood Count 2.8 K/mm3 (4.4-11.0)
[2024-04-08 09:03] LABS: ALB/GLOB Ratio 1.5 RATIO (0.9-2.4); AST(SGOT) 23 U/L (15-37); Alanine Aminotransfer ALT/SGPT 34 U/L (13-56); Albumin, Serum 3.6 g/dL (3.2-5.0); Alkaline Phosphatase 53 U/L (45-117); Anion Gap 4 (5-15); BUN 18 mg/dL (7-18); BUN/Creat Ratio 22.6 RATIO (10-20); Calcium,Total 9.4 mg/dL (8.5-10.1); Chloride 110 mmol/L (98-107); EST Glomerular Filtration Rate 77 mL/min (>60); Est Glom Filt Rate - Afr Amer 93 mL/min (>60); Globulin 2.4 g/dL (2.2-4.2); Glucose 118 mg/dL (74-106); Potassium 4.7 mmol/L (3.5-5.1); Sodium Level 141 mmol/L (136-145)
[2024-04-10] VITALS (7 sets, daily range): BP systolic 101–114; BP diastolic 66–76; PULSE 75–79; RESP 16; TEMP 36.4–37; O2SAT 94–98; BMI 26.5
--- NOTE | 2024-04-10 | IMM_PTH ---
PATIENT: CHARO CHATMAN [place] [facility] [place] [facility] [place][id number] AGE/SX: 63/F ROOM: RE04/10/[address]: Dr. Camila Sofia DO : 1960 BED: DIS: 04/10/2024 SPEC #: [id number] RECD: 04/13/24 11:36 STATUS: ELLE REQ #: [id number] LOU: 04/10/24 00:[address]: Camila Sofia DEPT: IMMUNOHISTOCHEMISTRY RECD BY: Chidi Woodall ENTERED: 04/13/24 11:36 SP TYPE: IMMUNO OTHR DR: Dr. Taty Childers MD Tissues: Vulva, NOS Procedures: p16 (initial) KI-67 (add) PHYSICIAN & [place] [id number] SPECIMEN INFORMATION: Tissue Source: Right vulvar lesion Clinical Info :Right vulvar lesion Specimen Number: [id number] CPT code: 73555,16217 METHODOLOGY: Deparaffinized sections of prefer/formalin-fixed tissue or PAP/DQ stained slides are incubated with monoclonal/polyclonal antibodies/oligonucleotide probes. Localization is made via biotin free immunoperoxidase method. Appropriate controls are performed and reacted as expected. Results on target cell population are indicated in the following table: RESULTS: ANTIBODY / CLONE RESULT P16 (E6H4) positive, focal patchy staining Ki-67 (30-9) positive low These tests were developed and their performance characteristics determined by [facility]. They may not have been cleared or approved by the U.S. Food and Drug Administration. The FDA has determined that such clearance or approval is not necessary. The above immunohistochemical/dualISH markers are ordered and reviewed by the Pathologist. 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 SJ/ 04/14/2024
--- NOTE | 2024-04-10 | LES_PTH ---
PATIENT: CHARO CHATMAN [place] [facility] [place][id number] AGE/SX: 63/F ROOM: RE04/10/[address]: Dr. Camila Sofia DO : 1960 BED: DIS: 04/10/2024 SPEC #: [id number] RECD: 04/10/24 11:59 STATUS: ELLE MARGIE #: [id number] LOU: 04/10/24 00:[address]: Camila Sofia DEPT: SURGICAL PATHOLOGY RECD BY: Emilia Smith ENTERED: 04/10/24 13:13 SP TYPE: Lesion OTHR DR: Dr. 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 See comment. MELL/mr 04/13/2024 COMMENT Immunohistochemistry ([id number]) for surrogate HPV marker (p16) is being performed and results will be reported separately. MICROSCOPIC DESCRIPTION Slides are reviewed. GROSS DESCRIPTION Received in fixative is one container labeled with the patient's name and designated Right valvular lesion. The specimen consists of a piece of caldwell-white skin measuring 1.1 x 0.7 x 0.3cm. This specimen is inked, serially sectioned and submitted entirely in one cassette. MELL/ 04/10/2024 TC:5 CPT:63580
[2024-04-10] MEDS: Lactated Ringers 1,000 ML 15 ML IV (09:49)
[2024-04-10 09:55] LABS: Absolute Lymphocyte Count 0.67 X10^3/uL (0.83-4.51); Absolute Neutrophil Count 1.8 X10^3/uL (2.0-7.7); Basophil# 0.01 X10^3/uL; Basophil% 0.4 % (0-1); Hematocrit 37.3 % (37-47); Hemoglobin 11.9 g/dL (12.0-15.0); Lymphocyte # 0.67 X10^3/ul (0.83-4.51); Lymphocyte % 24.8 % (19-41); Mean Corp Hgb Conc 31.9 g/dL (32-36); Mean Corpuscular Hgb 26.7 pg (27.0-32.0); Mean Corpuscular Volume 83.8 fL (81-99); Monocyte# 0.21 X10^3/uL; Monocyte% 7.8 % (0-10); NRBC Flagged by Analyzer 0 % (0-5); Neutrophil % 66.6 % (47-70); Platelet Count 106 K/mm3 (150-450); RBC Distribution Width CV 13.2 % (11.6-14.6); RBC Distribution Width SD 40.2 fl (35.1-43.9); Red Blood Count 4.45 M/mm3 (4.2-5.4); White Blood Count 2.7 K/mm3 (4.4-11.0)
--- NOTE | 2024-04-10 09:59 | PRE.ANES_ITS ---
ASA Classification* ASA Classification ASA Classification: 2 Assessment & Plan Anesthesia* Anesthesia Assessment Anesthesia Assessment: Discussed sedation and/or anesthesia options, risks, benefits, and alternatives with patient/parents/legal guardian/POA. Questions invited. The patient/parents/legal guardian/POA seems to understand and agrees to proceed with anesthesia plan. Reviewed the physical assessment, medical history, allergy history and patient home medications list prior to surgery/procedure/anesthetic and documented any changes. Performed airway and anesthesia risk assessments. Anesthesia Type Anesthesia Type: MAC (GA BKUP. used inhaler this AM) Anesthesia Focused Assessment* Temperature: 98.6 F Pulse Rate: 77 Blood Pressure: 114/75 Respiratory Rate: 16 Pulse Ox: 97 Airway Assessment Mouth opens: >3 cm Mallampati Score: II Focused Labs Anesthesia Preop lab: CBC WBC 2.7 K/mm3 (4.4-11.0) L 04/10/24 09:45 RBC 4.45 M/mm3 (4.2-5.4) 04/10/24 09:45 Hgb 11.9 g/dL (12.0-15.0) L 04/10/24 09:45 Hct 37.3 % (37-47) 04/10/24 09:45 Plt Count 106 K/mm3 (150-450) L 04/10/24 09:45 CHEMISTRY Potassium 4.7 mmol/L (3.5-5.1) 04/08/24 07:26 Sodium 141 mmol/L (136-145) 04/08/24 07:26 BUN 18 mg/dL (7-18) 04/08/24 07:26 Creatinine 0.80 mg/dL (0.55-1.02) 04/08/24 07:26 Glucose 118 mg/dL (74-106) H 04/08/24 07:26 POC Glucose 263 mg/dL (74-106) H 10/23/23 18:30 TSH 0.62 uIU/mL (0.358-3.74) 04/30/13 20:00 COAG PT 13.9 SECONDS (11.7-14.9) 06/19/21 15:55 Pre-Assessment Diagnosis/Proposed Procedure Planned Operative Procedure(s): EXCISION VULVAR Anesthesia History 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 When Was Last Pacemaker Check QUESTION #4 FULL TEXT: You/Your Family Experience fever (hyperthermia) with Anesthesia Last Oral Intake Last Oral intake: Last Oral Intake NPO since 08:30 04/10/24 09:49 Meds taken in AM with sips of Yes 04/10/24 09:49 water? 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 Female Yes 03/31/24 09:58 HX of Motion Sickness No 03/31/24 09:58 HX of N/V After Surgery No 03/31/24 09:58 Non-Smoker Yes 03/31/24 09:58 Duration of Surgery greater No 03/31/24 09:58 than 60 minutes Number of Risk Factors 2 03/31/24 09:58 PONV Score Moderate Risk 03/31/24 09:58 Height & Weight Height & Weight: Anesthesia: Height & Weight Height 5 ft 3 in 04/10/24 09:49 Weight: 68 kg 04/10/24 09:49 Body Mass Index (BMI) 26.5 04/10/24 09:49 Respiratory Assessment Respiratory Assessment - warehouse supervisor: Respiratory Tract Infection Hx - warehouse supervisor Hx Respiratory Tract Infection No 03/31/24 09:58 STOP Sleep Apnea STOP Sleep Apnea - warehouse supervisor: STOP Sleep Apnea - warehouse supervisor Hx Hypertension Yes: NO MEDS FOR MANY YRS 03/31/24 09:58 Hx Sleep Apnea No 03/31/24 09:58 CPAP No 05/06/14 11:28 BIPAP No 05/04/14 15:04 Do you snore loudly (louder No 03/31/24 09:58 than talking or can be heard Do you often feel tired/ Yes 03/31/24 09:58 fatigued/ sleepy during daytime? Has anyone observed you stop No 03/31/24 09:58 breathing during sleep? STOP Results Positive 03/31/24 09:58 QUESTION #5 FULL TEXT : Do you snore loudly (louder than talking or can be heard through closed doors)? 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 Specify any problems Hx of Preganancy in last 3 No 03/31/24 09:58 Months Nurse Filling Out Transfusion DSCHRIBER 03/31/24 09:58 & Questions: Date: 03/31/24 03/31/24 09:58 Time: 10:00 03/31/24 09:58 Patient unable to answer at this time (ie. confused, unrespo /Reproduction History /Reproductive History - warehouse supervisor: /Reproductive Hx- warehouse supervisor Hx Now No 03/31/24 09:58 Gestational Age (in weeks): EDC: Hx Hx Para Hx Section SAB No 03/31/24 09:58 Active Medications Active Medications: Current Medications Generic Name Dose Route Start Last Admin Trade Name Freq PRN Reason Stop Dose Admin Lactated Ringer's 1,000 mls @ 15 mls/hr 04/10/24 09:30 04/10/24 09:49 IV 15 mls/hr .Q48H GERRY Administration PFSH Medical History Wears glasses Wears dentures Post-menopausal Depression Anxiety Thyroid disease Insulin dependent diabetes mellitus Bladder disease Low iron Restless legs Migraine headache History of ulceration Non-smoker Leg cramps GERD (gastroesophageal reflux disease) Asthma Hypertension Anxiety and depression Home Medications ?Medication ?Instructions ?Recorded ?Last Taken ?Type gabapentin 300 mg capsule 300 mg PO TID 06/29/18 04/10/24 History topiramate 25 mg tablet (Topamax) 50 mg PO QHS 06/29/18 04/09/24 History trazodone 100 mg tablet 100 mg PO QHS 10/01/19 04/09/24 History albuterol sulfate 90 mcg/actuation 2 inh inhalation Q6H PRN PRN 01/23/23 Unknown History aerosol inhaler shortness of breath or wheezing levothyroxine 25 mcg tablet 25 mcg PO MOTUWETHFR 01/23/23 04/09/24 History empagliflozin 10 mg tablet 10 mg PO DAILY 03/31/24 Unknown History (Jardiance) fluoxetine 40 mg capsule (Prozac) 40 mg PO DAILY 03/31/24 04/09/24 History folic acid 1 mg tablet 2 mg PO DAILY 03/31/24 04/09/24 History insulin detemir U-100 100 unit/mL 45 unit subcut DAILY 03/31/24 04/10/24 History (3 mL) subcutaneous pen (Levemir FlexPen) oxybutynin chloride 15 mg 15 mg PO QHS 03/31/24 04/09/24 History tablet,extended release 24 hr quetiapine 100 mg tablet (Seroquel) 100 mg PO QHS 03/31/24 04/09/24 History Allergy/AdvReac Type Severity Reaction Status Date / Time pentazocine HCl (From Allergy Hives Verified 04/10/24 09:42 [place]) amoxicillin (Amoxicillin) AdvReac Other Verified 04/10/24 09:42 doxycycline AdvReac Other Verified 04/10/24 09:42 metformin AdvReac Unknown Verified 04/10/24 09:42 Thiazides AdvReac Other Verified 04/10/24 09:42 Surgical History History of lumbar fusion Hx of colonoscopy Hx of esophagogastroduodenoscopy Hx of gastric bypass Hx of tonsillectomy Hx laparoscopic cholecystectomy Hx of breast reduction, elective Hx of vaginal hysterectomy Social History Smoking Status: Never smoker Review of Systems (Anesthesia) ROS Narrative System reviewed and no additional complaints, except as documented.
[2024-04-10 10:06] LABS: Bedside Glucose 131 mg/dL (74-106)
[2024-04-10] MEDS: Lidocaine 1%/Epi 1:200 (30ml) 30 ML AMPUL (11:23)
--- NOTE | 2024-04-10 11:26 | OP.PCM_ITS ---
Problems Associated Problem List Diagnoses (1) SYLVAIN I (vulvar intraepithelial neoplasia I): Report of Operation Date of Procedure: 04/10/24 Pre-Operative Diagnosis: New vulvar lesion, VIN1 Post-Operative Diagnosis: As above Surgery/Procedure Performed:: Vulvar excision Description of Surgical Findings:: Along the right labia majora in the midline there is a visible caldwell-ramirez and slightly raised 1 cm lesion. Vulvar exam is otherwise unremarkable with no additional lesions Surgeon: Camila Sofia ingot header: None Type of Anesthesia: MAC Special Medications: None Specimen's removed: Right vulvar lesion Drains: None Estimated Blood Loss (mL): < 10 Fluids Replaced: 400 mL Description of Procedure: The patient was taken to the operating room where MAC anesthesia was induced. She was prepped and draped in the dorsal lithotomy position using yellowfin stirrups. An external exam was performed noting the right vulvar lesion as noted above. The area was injected with 5 cc of 1% lidocaine with epinephrine. A scalpel was used to make a circumferential incision around the lesion leaving a clear margin. Allis clamps were used to elevate the lesion and the scalpel was used to remove the skin lesion which was sent to pathology for review. 3-0 Vicryl was used to reapproximate the area for good hemostasis. Hemostasis was noted. Instrument, sponge, sharp counts were correct. Patient taken to recovery in stable position. Grafts/Implants Used: None Procedure Start Time: 11:13 Procedure Stop Time: 11:24 Complications None Admit VTE Documentation VTE Present on Admission: No VTE Mechan Device Prophylaxis: SCD's
--- NOTE | 2024-04-10 11:27 | PCM.POST.ANE ---
Anesthesia: Postop Eval I Current Vital Signs Temperature: 97.5 F Pulse Rate: 79 Blood Pressure: 101/76 Respiratory Rate: 16 Pulse Ox: 96 Oxygen Delivery Method: Room Air Assessment Airway patent: Yes Spontaneous unlabored respirations: Yes Mental status: Awake (EASILY AROUSABLE) and Calm nausea: No Vomiting: No Anesthesia Complication: No Fluid Hydration Crystalloid volume administer (ml): 400 Total IV fluid infused: 400 Progress Note Anesthesia document: Postop Eval 1 completed: Yes
--- NOTE | 2024-04-10 11:37 | PCM.DC ---
Discharge Instructions Diet Discharge Diet: No restrictions Activity Discharge Activity: May Shower (once you are more than 24 hours out from surgery) May resume sexual activity in: 4 weeks Ice area for (Minutes): 15 Weight Bearing Status: Weight bearing as tolerated Lifting Restrictions: none Additional Activity Instructions:: Keep the area clean with a mild unscented soap, and pat dry or blow dry. Use ice as needed or a cool compress for relief. You can take Tylenol or Ibuprofen as needed as well. Go underwear free at home as much as you can. The most important thing is keeping the area clean and dry, and minimizing any friction or irritation to the area Dressing / Incision Call your doctor if your incision/area has: Continuous Slow Oozing, Sudden Increased Bleeding, Increased Pain/ Swelling, Increased Redness, Foul Smelling Discharge and Swelling at the incision site Call your doctor if you observe: Fever of 101 or Higher, Coldness, Increased Pain, Numbness or Tingling, Change in Color, Inability to urinate, Inability to have a bowel movement, Using more than 1 pad per hour, Shortness of breath, Dizziness, Fainting spells, Swelling in the ankles, Chest pain, Prolonged hiccupping, Increased palpitations (irregular heartbeat), Calf discomfort and Uncontrolled pain Suture Line Care: Avoid Pulling/Pushing (There are stitches in the area that can take 6 weeks to dissolve) Cleanse incision/area with: Soap & Water (you do not need to dress the incision area) Follow Up Care Please Follow Up With: Camila Sofia DO When: 1-2 weeks Test Results: Test results from this visit will be discussed in further detail at your follow-up appointment, if applicable. Discharge Plan Admission Primary Reason for Your Visit: surgery Attending Provider: Camila Sofia Primary Care Provider: Taty Childers Instructions Print Language: Bermudian Discharge Orders/Prescriptions Prescriptions: Continued topiramate [Topamax] 25 MG tablet 50 mg PO QHS gabapentin 300 MG capsule 300 mg PO TID trazodone 100 MG tablet 100 mg PO QHS levothyroxine 25 mcg tablet 25 mcg PO MOTUWETHFR Patient Comments: TAKE 1 TABLET BY MOUTH DAILY ON AN EMPTY STOMACH. NO DOSE SATURDAY OR SATURDAY albuterol sulfate 90 mcg/actuation HFA aerosol inhaler 2 inh INHALATION Q6H PRN PRN (Reason: shortness of breath or wheezing) Patient Comments: Inhale 2 Puffs as instructed every 4 hours as needed. For wheezing/shortness of breath. Levemir FlexPen 100 unit/mL (3 mL) insulin pen 45 unit subcut DAILY Jardiance 10 mg tablet 10 mg PO DAILY quetiapine [Seroquel] 100 mg tablet 100 mg PO QHS oxybutynin chloride 15 mg tablet extended release 24hr 15 mg PO QHS folic acid 1 mg tablet 2 mg PO DAILY fluoxetine [Prozac] 40 mg capsule 40 mg PO DAILY Referrals / Follow Up: Taty Childers MD [Primary Care Provider] - Disposition Disposition (needs filled in before D/C Order can be placed): Home, Self Care
--- NOTE | 2024-04-10 12:37 | POSTOPAN2_ITS ---
Anesthesia Postop Eval I Sum Postop Eval Completion status Anesthesia document: Postop Eval 1 completed: Yes Anesthesia Postop Eval I Summary Anesthesia Postop Eval I Summary: Anesthesia Postop Eval I: Assessment Summary Airway patent Yes 04/10/24 11:33 RENEWABLE ENERGY TECHNICIAN.[email or web address] Spontaneous unlabored Yes 04/10/24 11:33 RENEWABLE ENERGY TECHNICIAN.SCHR respirations Mental status Awake - EASILY 04/10/24 11:33 RENEWABLE ENERGY TECHNICIAN.SCHR AROUSABLE,Calm nausea No 04/10/24 11:33 RENEWABLE ENERGY TECHNICIAN.SCHR Vomiting No 04/10/24 11:33 RENEWABLE ENERGY TECHNICIAN.SCHR Anesthesia Postop Eval I: Fluid Summary Crystalloid volume administer 400 04/10/24 11:33 RENEWABLE ENERGY TECHNICIAN.SCHR (ml) Colloids volume administered ( ml) Blood Product volume administered (ml) Total IV fluid infused 400 04/10/24 11:33 RENEWABLE ENERGY TECHNICIAN.SCHR Anesthesia Postop Eval I: Summary Notes Anesthesia Complication No 04/10/24 11:33 RENEWABLE ENERGY TECHNICIAN.SCHR Anesthesia Complication Comment: Post-operative progress note Anesthesia: Postop Eval II Evaluation Mental status: Awake Pain Level: 0 nausea: No Vomiting: No
--- NOTE | 2024-04-10 12:37 | PCM.POSTANE2 ---
Anesthesia Postop Eval I Sum Postop Eval Completion status Anesthesia document: Postop Eval 1 completed: Yes Anesthesia Postop Eval I Summary Anesthesia Postop Eval I Summary: Anesthesia Postop Eval I: Assessment Summary Airway patent Yes 04/10/24 11:33 FIELD CREW [email or web address] Spontaneous unlabored Yes 04/10/24 11:33 FIELD CREW [email or web address].SCHR respirations Mental status Awake - EASILY 04/10/24 11:33 FIELD CREW [email or web address].[email or web address] AROUSABLE,Calm nausea No 04/10/24 11:33 FIELD CREW CHIEF.SCHR Vomiting No 04/10/24 11:33 FIELD CREW CHIEF.SCHR Anesthesia Postop Eval I: Fluid Summary Crystalloid volume administer 400 04/10/24 11:33 FIELD CREW CHIEF.SCHR (ml) Colloids volume administered ( ml) Blood Product volume administered (ml) Total IV fluid infused 400 04/10/24 11:33 FIELD CREW CHIEF.SCHR Anesthesia Postop Eval I: Summary Notes Anesthesia Complication No 04/10/24 11:33 FIELD CREW [email or web address].SCHR Anesthesia Complication Comment: Post-operative progress note Anesthesia: Postop Eval II Evaluation Mental status: Awake Pain Level: 0 nausea: No Vomiting: No
== END 2024-04-10 12:25 | disposition home or self-care (01) ==
LOC: SDC 09:24 → AC 09:25
PROVIDERS: PCP Internal Medicine; Referring Provider Obstetrics & Gynecology; Visit Provider Obstetrics & Gynecology
PROC: (CPT 11421; principal; 2024-04-10 10:40)
DX: A63.0 Anogenital (venereal) warts (principal); Z79.4 Long term (current) use of insulin; E11.9 Type 2 diabetes mellitus without complications; E03.9 Hypothyroidism, unspecified; G47.33 Obstructive sleep apnea (adult) (pediatric); K21.9 Gastro-esophageal reflux disease without esophagitis; I10 Essential (primary) hypertension; F41.9 Anxiety disorder, unspecified; F32.A Depression, unspecified; Z79.51 Long term (current) use of inhaled steroids; Z79.899 Other long term (current) drug therapy
CPT/HCPCS: 11421; 00940; 36415; 80053; 82962; 85025; 85027; 86850; 86900; 86901; 88305; 88341; 88342; 93005; J7120; J2405

== ENCOUNTER → 2024-05-13 | Outpatient (CLI) | payer MEDICARE, SELFPAY ==
--- NOTE | 2024-05-13 16:50 | CT_ITS ---
STUDY: CTA CHEST REASON FOR EXAM: Female, 64 years old. CP/SUSPECT PE RADIATION DOSAGE (If Supplied By Facility): CTDIvol = ( 8.69 ) mGy, DLP = ( 321.91 ) mGycm TECHNIQUE: The examination was performed with the intravenous administration of IV 100mL Isovue-370. Post-processing of the angiographic images was performed, with multiplanar reformation and 3D reconstruction. Individualized dose optimization techniques were used for this CT. COMPARISON: None. FINDINGS: Normal enhancement of the main pulmonary artery and right and left pulmonary arteries. Normal enhancement of the bilateral peripheral pulmonary arteries. There is no demonstrated pulmonary embolism. Normal thoracic aorta and visualized great vessels. There is no demonstrated aortic dissection. Normal heart and pericardium. Normal mediastinum. Normal hilar regions. Normal visualized trachea and bronchi. The lungs are well expanded. Normal pulmonary parenchyma. Normal pleura. Normal chest wall structures. There are degenerative changes of thoracic spine. No acute abnormality of the visualized upper abdomen. CT/CTA Chest W/WO Contrast IMPRESSION: Normal CTA chest examination, without a demonstrated pulmonary embolism or arterial dissection. Electronically Signed: Red Sierra MD at 18:15 EDT ,
== END | disposition home or self-care (01) ==
PROVIDERS: PCP Internal Medicine; Referring Provider Internal Medicine; Visit Provider Internal Medicine
DX: R07.9 Chest pain, unspecified (principal)
CPT/HCPCS: 71275; Q9967

== ENCOUNTER 2024-07-22 17:54 | Emergency (ER) | payer MEDICARE, MEDICAID, SELFPAY ==
[2024-07-22 17:55] VITALS: BP 148/83; PULSE 67; RESP 16; TEMP 36.8; O2SAT 97; BMI 27.4
--- NOTE | 2024-07-22 18:02 | EDS_ITS ---
HPI History of Present Illness Chief Complaint: Other, Pain/Inj PFSH PFSH Medical History Wears glasses Wears dentures Post-menopausal Depression Anxiety Thyroid disease Insulin dependent diabetes mellitus Bladder disease Low iron Restless legs Migraine headache History of ulceration Non-smoker Leg cramps GERD (gastroesophageal reflux disease) Asthma Hypertension Anxiety and depression Home Medications ?Medication ?Instructions ?Recorded ?Last Taken ?Type gabapentin 300 mg capsule 300 mg PO TID 06/29/18 04/10/24 History topiramate 25 mg tablet (Topamax) 50 mg PO QHS 06/29/18 04/09/24 History trazodone 100 mg tablet 100 mg PO QHS 10/01/19 04/09/24 History albuterol sulfate 90 mcg/actuation 2 inh inhalation Q6H PRN PRN 01/23/23 Unknown History aerosol inhaler shortness of breath or wheezing levothyroxine 25 mcg tablet 25 mcg PO MOTUWETHFR 01/23/23 04/09/24 History empagliflozin 10 mg tablet 10 mg PO DAILY 03/31/24 Unknown History (Jardiance) fluoxetine 40 mg capsule (Prozac) 40 mg PO DAILY 03/31/24 04/09/24 History folic acid 1 mg tablet 2 mg PO DAILY 03/31/24 04/09/24 History insulin detemir U-100 100 unit/mL 45 unit subcut DAILY 03/31/24 04/10/24 History (3 mL) subcutaneous pen (Levemir FlexPen) oxybutynin chloride 15 mg 15 mg PO QHS 03/31/24 04/09/24 History tablet,extended release 24 hr quetiapine 100 mg tablet (Seroquel) 100 mg PO QHS 03/31/24 04/09/24 History Allergy/AdvReac Type Severity Reaction Status Date / Time pentazocine HCl (From Allergy Hives Verified 07/22/24 17:54 [place]) amoxicillin (Amoxicillin) AdvReac Other Verified 07/22/24 17:54 doxycycline AdvReac Other Verified 07/22/24 17:54 metformin AdvReac Unknown Verified 07/22/24 17:54 Thiazides AdvReac Other Verified 07/22/24 17:54 Surgical History History of lumbar fusion Hx of colonoscopy Hx of esophagogastroduodenoscopy Hx of gastric bypass Hx of tonsillectomy Hx laparoscopic cholecystectomy Hx of breast reduction, elective Hx of vaginal hysterectomy Social History (Updated 07/22/24 @ 18:32 by Nora Adams) household members: spouse housing: house Smoking Status: Never smoker EXAM Physical Exam Const Vital Signs: 07/22/24 17:55 07/22/24 18:32 Temperature 98.2 F Temperature Source Oral Pulse Rate 67 Respiratory Rate 16 Respiratory Effort Normal Non-Labored Respiratory Pattern Normal Blood Pressure 148/83 H Blood Pressure Mean 104 Pulse Ox 97 Oxygen Delivery Method Room Air MDM MDM MDM Narrative Medical decision making narrative: HISTORY OF PRESENT ILLNESS: 64-year-old female presents with headache, neck pain and shoulder pain. No she fell 1 week ago. No she continues to have pain. She know she was in the bathroom tripped and fell backwards hitting her head and right shoulder. No syncope, no seizures. She did not pass out. She does not take blood thinners. REVIEW OF SYSTEMS: Pertinent positives: Head neck and shoulder pain Pertinent negatives: Syncope, seizure PHYSICAL EXAM: Nursing triage notes reviewed, Vital signs reviewed Primary Survey Airway: Intact Breathing: Bilateral breath sounds Circulation: Palpable bilateral femorals, Palpable bilateral radial, Palpable bilateral DP and Palpable bilateral PT Disability / Spine precautions GCS Score: Eye Openin Verbal Response: 5 Motor Response: 6 Secondary Survey Constitutional: Please see MDM Head: Atraumatic, Midface stable, NO jaw malocclusion, No Cephalohematoma, and No Lacerations noted Eye: Pupils equal round and reactive to light, Extraocular muscles intact and No periorbital ecchymosis or stepoff, no evidence of entrapment ENT: Oropharynx clear, no lacerations, no hemotympanum, no raccoon eyes or haywood sign Cervical spine / Neck: No cervical spine bony tenderness, crepitance, or stepoff deformity Trachea midline Lungs: Clear to auscultation, No asymmetric rise and No crepitus, no flail chest Cardiac: Regular rate and rhythm and No murmurs Abdomen: Soft, Nontender and No rebound Pelvis: Pelvis stable to compression : No evidence of genital injury Back: No midline bony tenderness to thoracic/lumbar/sacral spines Neuro: At baseline, intact strength and sensation in bilateral upper and lower extremities. 2+ patellar reflexes bilaterally. Extremities: NO gross Deformities Psych: Normal affect Nursing triage notes reviewed, Vital signs reviewed MEDICAL DECISION MAKING: Chief Complaint: Head neck and shoulder pain External records reviewed: Reviewed prior allergies, problem list, vital signs, current medications, also reviewed prior imaging studies. Factors affecting care: GERD, hyperlipidemia, type 2 diabetes, history of bariatric surgery MDM Narrative: The patient was initially hemodynamically stable, afebrile and nontoxic- appearing. Primary secondary trauma surveys concerning for the following dif ferential I considered the following differential diagnosis: ICH, cervical spine bony injury, shoulder bony injury I obtain imaging to rule out life-threatening traumatic injuries of the above differentials CT scan of the head and cervical spine were obtained an x-ray of the shoulder was obtained as well ALL IMAGES (IF OBTAINED) HAVE BEEN PERSONALLY REVIEWED AND INTERPRETED BY MYSELF. CT scan of the head and cervical spine negative X-ray of the right shoulder was read reviewed by myself shows no evidence of obvious fracture dislocation Tertiary trauma exam no new injury. Patient appropriate discharge home likely suffered from concussion and posttraumatic pain. The patient and/or family, caregivers express understanding. The patient and/or family, caregivers agrees with the plan. Shared decision making: I will have a discussion with the patient and or visitors regarding risk/benefits of further testing or admission. They will be made aware of of the risk/benefits inherent in this decision they will be given the opportunity to voice understanding. Total critical care time today provided was at least 0 minutes. This excludes separately billable procedures. Critical care time (if documented) is secondary to the patient having high probability of clinically significant/life threatening deterioration in the patient's condition which required my urgent intervention. Impression: 1. Head contusion 2. Neck acute 3. Shoulder contusion Dispo: Discharge home This note was generated with [employer] dictation software. It may contain incorrect words, spelling, and punctuation that were not noted in review of the chart prior to signing. Radiography Diagnostic Testing: Clinical Impression(s) from Imaging Studies Brain CT 07/22/24 18:08 IMPRESSION: Chronic involutional changes of the brain. Electronically Signed: Eliel Werner MD at 19:07 EDT , Cervical Spine CT 07/22/24 18:08 IMPRESSION: Multilevel degenerative changes, as described above. Electronically Signed: Eliel Werner MD at 19:13 EDT , Shoulder X-Ray 07/22/24 18:08 IMPRESSION: No fracture. Acromioclavicular spurring. Electronically Signed: Eliel Werner MD at 19:26 EDT , Discharge Plan Triage Chief Complaint: Other, Pain/Inj ED Provider: Robert William Dx/Rx/DC Orders Prescriptions: No Action topiramate [Topamax] 25 MG tablet 50 mg PO QHS gabapentin 300 MG capsule 300 mg PO TID trazodone 100 MG tablet 100 mg PO QHS levothyroxine 25 mcg tablet 25 mcg PO MOTUWETHFR Patient Comments: TAKE 1 TABLET BY MOUTH DAILY ON AN EMPTY STOMACH. NO DOSE SATURDAY OR SATURDAY albuterol sulfate 90 mcg/actuation HFA aerosol inhaler 2 inh INHALATION Q6H PRN PRN (Reason: shortness of breath or wheezing) Patient Comments: Inhale 2 Puffs as instructed every 4 hours as needed. For wheezing/shortness of breath. Levemir FlexPen 100 unit/mL (3 mL) insulin pen 45 unit subcut DAILY Jardiance 10 mg tablet 10 mg PO DAILY quetiapine [Seroquel] 100 mg tablet 100 mg PO QHS oxybutynin chloride 15 mg tablet extended release 24hr 15 mg PO QHS folic acid 1 mg tablet 2 mg PO DAILY fluoxetine [Prozac] 40 mg capsule 40 mg PO DAILY Primary Care Provider: Taty Childers Referrals: Taty Childers MD [Primary Care Provider] - Print Language: [place]an
--- NOTE | 2024-07-22 18:08 | CT_ITS ---
STUDY: CT BRAIN WITHOUT CONTRAST REASON FOR EXAM: Female, 64 years old. Fall, head trauma RADIATION DOSAGE (If Supplied By Facility): CTDIvol = ( 44.99 ) mGy, DLP = ( 779.24 ) mGycm TECHNIQUE: Transaxial CT imaging of the brain was performed without administration of intravenous contrast material. Individualized dose optimization techniques were used for this CT. COMPARISON: October 19, 2015 FINDINGS: Normal soft tissue structures. Normal calvarium. There is mild cerebral atrophy with widening of the extra-axial spaces and ventricular dilatation. There are areas of decreased attenuation within the white matter tracts of the supratentorial brain, consistent with microvascular disease changes. Normal basal ganglia and thalami. Normal brainstem. Normal cerebellum. There is no intracranial hemorrhage. There are no findings of an acute ischemic infarction. Normal visualized paranasal sinuses. CT/Brain/Head without Contrast IMPRESSION: Chronic involutional changes of the brain. Electronically Signed: Eliel Werner MD at 19:07 EDT ,
--- NOTE | 2024-07-22 18:08 | CT_ITS ---
STUDY: CT CERVICAL SPINE WITHOUT CONTRAST REASON FOR EXAM: Female, 64 years old. Fall, neck pain RADIATION DOSAGE (If Supplied By Facility): CTDIvol = ( 16.01 ) mGy, DLP = ( 328.91 ) mGycm TECHNIQUE: High resolution transaxial imaging was performed without contrast material. Sagittal and coronal images were reconstructed. Individualized dose optimization techniques were used for this CT. COMPARISON: None FINDINGS: Normal craniovertebral junction. Normal anterior atlantoaxial articulation. Normal odontoid process. Normal cervical lordosis. Normal vertebral bodies and posterior osseous elements. There is no acute fracture. C2-3: Normal endplates. Normal disc height and morphology. There is mild facet spurring on the right. Normal central canal and intervertebral neuroforamina. C3-4: Normal endplates. Normal disc height and morphology. There is facet spurring on the right more than the left. No canal stenosis. Right foraminal narrowing. C4-5: Normal endplates. Normal disc height and morphology. Mild facet spurring. Normal central canal and intervertebral neuroforamina. C5-6: Normal endplates. Normal disc height and morphology. There is facet spurring. Normal central canal and intervertebral neuroforamina. C6-7: Normal endplates. Normal disc height and morphology. There is mild facet spurring. Normal central canal and intervertebral neuroforamina. C7-T1: Normal endplates. Normal disc height and morphology. Normal central canal and intervertebral neuroforamina. Normal visualized soft tissue structures. CT/Spine Cervical without Contras IMPRESSION: Multilevel degenerative changes, as described above. Electronically Signed: Eliel Werner MD at 19:13 EDT ,
--- NOTE | 2024-07-22 18:08 | RAD_ITS ---
STUDY: X-RAY - RIGHT SHOULDER REASON FOR EXAM: Female, 64 years old. Pain after fall TECHNIQUE: 4 view(s) of the shoulder. COMPARISON: None. FINDINGS: Normal glenohumeral articulation. Normal acromioclavicular joint. Normal acromion. Normal humeral head and visualized proximal humerus. The soft tissue structures are unremarkable. There is no demonstrated fracture. Normal visualized pulmonary apex. RAD/Shoulder min 2 Views IMPRESSION: No fracture. Acromioclavicular spurring. Electronically Signed: Eliel Werner MD at 19:26 EDT ,
[2024-07-22] MEDS: oxyCODONE 5 MG Tablet PO (18:29)
[2024-07-22 21:01] VITALS: BP 119/84; PULSE 74; RESP 16; TEMP 36.7; O2SAT 99
== END 2024-07-22 21:02 | disposition home or self-care (01) ==
PROVIDERS: Emergency Provider Emergency Medicine; PCP Internal Medicine; Visit Provider Emergency Medicine
DX: S00.93XA Contusion of unspecified part of head, initial encounter (principal); E11.9 Type 2 diabetes mellitus without complications; Z79.4 Long term (current) use of insulin; E78.5 Hyperlipidemia, unspecified; I10 Essential (primary) hypertension; K21.9 Gastro-esophageal reflux disease without esophagitis; F41.8 Other specified anxiety disorders; Z79.899 Other long term (current) drug therapy; Z90.49 Acquired absence of other specified parts of digestive tract; Z90.710 Acquired absence of both cervix and uterus; W01.10XA Fall on same level from slipping, tripping and stumbling with subsequent striking against unspecified object, initial encounter; Y92.89 Other specified places as the place of occurrence of the external cause; Z79.84 Long term (current) use of oral hypoglycemic drugs; S40.019A Contusion of unspecified shoulder, initial encounter; M54.2 Cervicalgia
CPT/HCPCS: 70450; 72125; 73030; 99282